=== PATIENT | male | born 1940 | race Caucasian/White ===

== ENCOUNTER → 2016-03-04 | Outpatient (CLI) | payer MEDICARE ==
[~2016-03-04] MED LIST: ACHYD1T PO; ASP325T PO; ASP81TEC PO; ATR20T PO; AVADART; AVOD0.5CAP PO; CATHETER FLUSH 10 ML SYR IV PRN; CPR500T PO; FENO145T2 PO; GLMP4T PO; HYDR-3583 PO; LANS30CA PO; MTF500T PO; NF-LOVAZAC PO; NIA500ERT PO; OMEG1CAP58; OMEP-10; OMEP-83 PO; PHEN200T27 PO; REGADENOSON 0.4 MG/5 ML SYR (LEXISCAN) IV ONE; RMP5C PO; SOLI5TAB4 PO; TMSL.4C PO; TRAM50TA2 PO
--- OUTSIDE RECORDS SUMMARY | 2016-03-04 09:54 | XMS REPORT | Continuity of Care Document ---
Author Author [facility] Organization [facility] Address Unknown Phone Unavailable Care Team Providers Care Watch Commander Name Role Phone HEMA ESPITIA MD PCP Insurance Providers Payer Name Policy Number Subscriber Name Relationship Wps Medicare [id number] Mao Chris 18 Self / Same As Patient [employer] Supp [id number] Mao Chris 18 Self / Same As Patient Advance Directives Directive Response Recorded Date/Time Advance Directives No 02/12/14 10:50am Health Care Power of Pastry Decorator No 02/03/14 11:59pm Organ Donor Yes 02/03/14 11:59pm Resuscitation Status Full Code 02/12/14 10:50am Problems Medical Problems Problem Onset Date Status Laceration Unknown Active Laceration Unknown Active Medications Medication Dose Route Sig Days/Qty Instructions Order Date Discontinued Date Status Glimepiride 4 Mg PO DAILY 06/29/08 Active Metformin HCl (Glucophage) 1 Tab PO TWICE A DAY 06/29/08 Active Aspirin 1 Tab PO DAILY 06/29/08 04/27/12 Discontinued Ramipril 5 Mg PO DAILY 06/29/08 Active Fenofibrate 1 Tab PO DAILY 06/29/08 Active Atorvastatin Calcium 20 Mg PO BEDTIME 06/29/08 Active Tamsulosin HCl 0.4 Mg PO DAILY TAKE HALF HOUR AFTER SUPPER 06/29/08 Active Omeprazole 06/29/08 09/18/10 Discontinued [Avadart 5MG] 06/29/08 09/18/10 Discontinued Solifenacin 10 Mg PO DAILY 06/29/08 Active Frederic-3/Frederic-6/Frederic-9 Fatty Acids (Lovaza) 06/29/08 Discontinued Niacin 1,000 Mg PO DAILY 09/18/10 Active Yczay-0-Kjzl Ethyl Esters 2 Each PO TWICE A DAY WITH MEALS 09/18/10 Active Lansoprazole 30 Mg PO DAILY 09/18/10 04/27/12 Discontinued Dutasteride 0.5 Mg PO DAILY 09/18/10 Active Acetaminophen/Hydrocodone Bitart 1 - 2 Ea PO EVERY 4HRS 09/23/10 Discontinued Aspirin 81 Mg PO DAILY 04/27/12 Active Omeprazole Magnesium 20 Mg PO DAILY 04/27/12 Active Ciprofloxacin 1 Tab PO TWICE A DAY 7 Days 05/03/12 Active Phenazopyridine HCl 1 Each PO TID PRN 21 Qty will turn urine orange. take 1 up to 3 times daily for bladder 05/03/12 Active Acetaminophen/Hydrocodone Bitart 1 - 2 Tab PO EVERY 4HRS PRN 30 Qty Active Social History Social History Problem Response Recorded Date/Time Alcohol Use Denies Use 02/12/2014 10:50am Recreational Drug Use Yes 02/03/2014 11:59pm Recent Foreign Travel No 02/12/2014 10:44am Sexually Transmitted Disease No 02/03/2014 11:59pm Smoking Status Unknown if Ever Smoked 02/12/2014 10:50am Query Response Start Date Stop Date Smoking Status Unknown if Ever Smoked Hospital Discharge Instructions No hospital discharge instructions. Plan of Care No plan of care. Functional Status No functional status results. Allergies, Adverse Reactions, Alerts Allergen Type Severity Reaction Status Last Updated No Known Drug Allergies Active 06/29/08 Immunizations Name Given Type Date of Influenza Vaccine 11/08/13 Historical Tetanus Booster (TDap) More than 5yrs Historical Tdap 02/04/14 Administered Vital Signs Acute Vital Signs Vital Response Date/Time Temperature (Fahrenheit) 97.3 degrees F (97.6 - 99.5) Temperature (Calculated Celsius) 36.07332 degrees C (36.4 - 37.5) Temperature Source Temporal Pulse Rate (adult) 70 bpm (60 - 90) Respiratory Rate 16 bpm (12 - 24) O2 Sat by Pulse Oximetry 99 % (88 - 100) Blood Pressure 113/86 mm Hg Pain Pain Intensity 0 Height (Feet) 5 feet Height (Inches) 7 inches Height (Calculated Centimeters) 170.382140 cm Weight (Pounds) 220 pounds Weight (Calculated Kilograms) 99.600487 kilograms Calculated BMI 34.45 Results No known relevant diagnostic tests, laboratory data and/or discharge summary. Procedures No known history of procedures. Encounters Encounter Location Date/Time Departed Emergency Room [facility] 02/12/14 10:44am Departed Emergency Room [facility] 02/03/14 11:52pm Recent Diagnosis
[2016-03-04 13:20] VITALS: BP 128/88
[2016-03-04 13:23] VITALS: BP 126/80
[2016-03-04 13:25] VITALS: BP 139/68
--- NOTE | 2016-03-05 09:08 | ECHOCARDIOGRAPHY REPORT ---
PROCEDURE PHYSICIAN: VALERIE SAHA DATE OF PROCEDURE: 03/04/2016 TWO DIMENSIONAL ECHOCARDIOGRAM REPORT PRIMARY PHYSICIAN: OTHER PHYSICIAN: REFERRING PHYSICIAN: Dr. Cooper ORDERING PHYSICIAN: INDICATION FOR THE PROCEDURE: 1. Coronary artery disease. 2. Hypertension. MEASUREMENTS DERIVED VALUES LV DIAMETER (LAX) NORMALS NORMALS Diastolic 4.1 (3.6-5.2) Eject. Fract. 60% (60%+/-6%) Systolic (2.3-3.9) Diastolic Vol. % Shortening (0.22-0.42) Systolic Vol. Aortic Root IVS THICKNESS Diastolic 1 (0.6-1.1) LVPW THICKNESS Diastolic 1.1 (0.6-1.1) LA DIAMETER Systolic 4.6 (2.1-3.7) FINDINGS: 1. Technical quality is good. 2. The left ventricle is normal in size with normal contractility. Systolic function appeared to be normal. Estimated ejection fraction 60%. Diastolic dysfunction is suggested by Doppler. 3. The left atrium is mildly dilated. No clot or thrombus were seen within the left atrium. 4. The right atrium and right ventricle are normal in size. No clot or thrombus were seen within the right side. 5. Mitral valve is normal in morphology with mild mitral regurgitation noted by color Doppler flow. No mitral valve prolapse. No mitral valve stenosis. 6. Aortic valve is trileaflet with normal opening and closing pattern. No significant aortic stenosis or regurgitation was seen. 7. Tricuspid valve is normal in morphology with mild tricuspid regurgitation noted by color Doppler flow. Doppler across tricuspid valve estimated pulmonary artery pressure of 10+ right atrial pressure. 8. Pulmonic valve is functioning normally. 9. No pericardial effusion. IN CONCLUSION: 1. Normal left ventricular size and systolic function. Estimated ejection fraction 60%. Diastolic dysfunction is suggested by Doppler. 2. Mildly dilated left atrium. 3. Mild mitral and tricuspid regurgitation. 4. Estimated pulmonary artery pressure of 20 mmHg. Job ID: [id number] Dictated Date: 03/04/2016 17:34:05 Cartography Technician Date: 03/05/2016 09:06:17 / ginny
== END ==
LOC: CARD 09:50
PROVIDERS: ATTEND Internal Medicine Cardiovascular Disease
DX: I25.10 Atherosclerotic heart disease of native coronary artery without angina pectoris (principal); I10 Essential (primary) hypertension; E78.2 Mixed hyperlipidemia; E11.9 Type 2 diabetes mellitus without complications
CPT/HCPCS: 78452; 93017; 93306

== ENCOUNTER → 2016-05-28 | Outpatient (CLI) | payer MEDICARE ==
[~2016-05-28] MED LIST changes: -CATHETER FLUSH 10 ML SYR IV PRN; -REGADENOSON 0.4 MG/5 ML SYR (LEXISCAN) IV ONE
--- NOTE | 2016-05-28 16:43 | Diagnostic Imaging Report ---
PROCEDURE: CT abdomen and pelvis without contrast. TECHNIQUE: Multiple contiguous axial images were obtained through the abdomen and pelvis without the use of intravenous contrast. INDICATION: Hematuria. Abdominal pain. FINDINGS: There is a 5 mm left lung base nodule seen. This is similar to 08/27/2015 CT chest. The liver demonstrate diffuse fatty infiltration. There is a calcified granuloma in the posterior aspect of the right hepatic lobe. The gallbladder, the spleen, the adrenal glands, and the pancreas appear unremarkable. The kidneys demonstrate no hydronephrosis. There is no urinary tract stones. 1 cm exophytic hypodense lesion in the lateral aspect of the right kidney is likely a cyst. It is minimally more prominent compared to 2012. There is a moderate-sized right Spigelian hernia again seen containing a loop of the sigmoid colon without obstruction. This is similar to 2012 comparison exam. No fluid collection or free fluid is seen in the abdomen or pelvis. Fiducial markers in the prostate are seen. The prostate is mildly enlarged measuring 5.3 cm in transverse dimension. There is an anterior abdominal wall mesh with opaque markers seen for repair of a hernia noted. The appendix is normal. The abdominal aorta is normal in caliber. No para-aortic significantly enlarged lymph nodes seen. The osseous structures demonstrate degenerative changes in the lower lumbar spine and moderate to advanced degenerative changes of the hip joints more on the left. IMPRESSION: 1. 5 mm left lung base stable nodule. Followup CT chest in six months is recommended. 2. Hepatic steatosis. 3. Stable moderate sized right Spigelian hernia containing nonobstructed sigmoid colon loop. Dictated by: Dictated on workstation # [id number]
== END ==
LOC: RAD 14:08
PROVIDERS: ATTEND Urology
DX: K76.0 Fatty (change of) liver, not elsewhere classified (principal); R91.1 Solitary pulmonary nodule; K43.9 Ventral hernia without obstruction or gangrene
CPT/HCPCS: 74176

== ENCOUNTER → 2016-08-12 | Outpatient (CLI) | payer MEDICARE ==
--- NOTE | 2016-08-12 12:04 | Diagnostic Imaging Report ---
PROCEDURE: CT chest without contrast. TECHNIQUE: Multiple contiguous axial images were obtained through the chest without the use of intravenous contrast. INDICATION: Followup nodule. COMPARISON: 10/10/2015 and other prior exams. FINDINGS: There is a 5 mm nodule in the posterior aspect of the left lung base stable from 08/27/2015 exam. Other calcified granulomas are seen. This is probably a noncalcified granuloma. There is no significant consolidation, mass or suspicious nodule identified. The mediastinum demonstrates normal caliber of the thoracic aorta. The heart size is normal. No pericardial or pleural effusion. No mediastinal or axillary lymphadenopathy seen. No enlarged lymph node or mass is seen abutting the unopacified hilar vessels. No pericardial or pleural effusion. There is diffuse hepatic steatosis. The osseous structures demonstrate bridging syndesmophytes and minimal degenerative changes in the thoracic spine. Stable asymmetry with slightly prominent right thyroid lobe similar to the prior exam is noted. IMPRESSION: 1. Stable 5 mm nodule in the posterior left lung base from 08/27/2015 exam likely a postinfectious scar or granuloma. 2. Hepatic steatosis. Dictated by: Dictated on workstation # [id number]
== END ==
LOC: RAD 11:09
PROVIDERS: ATTEND Internal Medicine
DX: R91.8 Other nonspecific abnormal finding of lung field (principal); K76.0 Fatty (change of) liver, not elsewhere classified
CPT/HCPCS: 71250

== ENCOUNTER → 2016-08-20 | Outpatient (CLI) | payer MEDICARE ==
--- NOTE | 2016-08-20 15:59 | Diagnostic Imaging Report ---
EXAMINATION: Upper and lower extremity pressure measurements of ankle/brachial index and pulse volume recording at the ankle. INDICATION: Absent pulses in the left foot. Diabetes FINDINGS: The ankle/brachial index on the right side is 1.15, (1.15 PT, and 1.0 DP) and on the left is 1.2 (1.2 PT, and 0.8 DP). Pulse volume recording waveforms demonstrate mildly dampened amplitude bilaterally. IMPRESSION: Normal GRACIELA, bilaterally. Dictated by: Dictated on workstation # [id number]
== END ==
LOC: RAD 13:58
PROVIDERS: ATTEND Internal Medicine
DX: R09.89 Other specified symptoms and signs involving the circulatory and respiratory systems (principal); E11.9 Type 2 diabetes mellitus without complications
CPT/HCPCS: 93922

== ENCOUNTER → 2016-09-15 | Outpatient (CLI) | payer MEDICARE ==
--- NOTE | 2016-09-15 18:01 | Diagnostic Imaging Report ---
PA and lateral views of the chest. INDICATION: Fall. FINDINGS: The lungs are hyperinflated and clear. The heart size is at the upper limits of normal. No effusion or pneumothorax. The mediastinum and chantelle appear unremarkable. There is anterior longitudinal ligament thickening in the thoracic spine. IMPRESSION: Hyperinflated clear lungs. The cardiac size is at the upper limits of normal. Dictated by: Dictated on workstation # [id number]
--- NOTE | 2016-09-15 18:04 | Diagnostic Imaging Report ---
Three views of the right ribs. INDICATION: Right chest pain. FINDINGS: No fracture is seen. The right lung is clear. IMPRESSION: No right rib fracture seen. Dictated by: Dictated on workstation # [id number]
== END ==
LOC: RAD 14:15
PROVIDERS: ATTEND Internal Medicine
DX: S29.9XXA Unspecified injury of thorax, initial encounter (principal); W19.XXXA Unspecified fall, initial encounter; Y99.8 Other external cause status
CPT/HCPCS: 71020; 71100

== ENCOUNTER → 2017-08-19 | Outpatient (CLI) | payer MEDICARE ==
--- NOTE | 2017-08-19 14:09 | Diagnostic Imaging Report ---
PROCEDURE: US Thyroid. TECHNIQUE: Multiple real-time grayscale images were obtained of the thyroid in various projections. INDICATION: Thyroid nodules. COMPARISON: Comparison is made with prior thyroid ultrasound from 10/10/2015. FINDINGS: Right lobe of the thyroid measures 3.5 x 1.5 x 1.5 cm, and the left lobe measures 3.7 x 1.4 x 0.8 cm. Both lobes are somewhat heterogeneous, but no discrete mass is identified. IMPRESSION: Heterogeneous thyroid. No discrete thyroid mass is detected. Dictated by: Dictated on workstation # [id number]
== END ==
LOC: RAD 10:55
PROVIDERS: ATTEND Internal Medicine
DX: E04.2 Nontoxic multinodular goiter (principal)
CPT/HCPCS: 76536

== ENCOUNTER → 2018-07-19 | Outpatient (CLI) | payer MEDICARE ==
--- NOTE | 2018-07-19 18:48 | Diagnostic Imaging Report ---
PROCEDURE: CT chest without contrast. TECHNIQUE: Multiple contiguous axial images were obtained through the chest without the use of intravenous contrast. Auto Exposure Controls were utilized during the CT exam to meet ALARA standards for radiation dose reduction. INDICATION: Pulmonary nodule. FINDINGS: The previous CT chest exam performed on 08/12/2016 noted a 5 mm nodule in the posterior aspect of the left lung base. This nodule did seem stable when compared to the prior exam of 08/27/2015. That finding is again evident on this study and now measures 6.4 mm in size. In retrospect, there were two other smaller 4 mm nodules in the left lung base. Those nodules are again evident and do not seem to have changed significantly in size. There is also a 2.1 mm nodule in the periphery of the left upper lung. This is stable as well. A 2.5 mm nodule is also evident in the right upper lung, and there are two or three 2 mm nodules along the periphery of the right lung. These seem similar in size to the prior exam. A 5.3 mm pleural-based nodule has developed along the posterior aspect of the right lung base. The pleural nodule just medial to this finding seen on the previous study measures 4 mm as opposed to 3 mm previously. There is no other parenchymal mass noted. The vague area of increased density in the right infrahilar region seen previously is somewhat more prominent on this study. This finding is more likely due to chronic pulmonary disease than to an acute abnormality. Even so, followup regarding mild pneumonia in the right lung base is recommended. There is no pleural effusion noted. The heart size is borderline enlarged and within normal limits. Coronary artery calcifications are noted. There is no mediastinal or hilar adenopathy. The aorta is not abnormally dilated. The right lobe of the thyroid does seem enlarged and extends into the substernal space. This finding is similar to the prior exam. The sections through the upper abdomen fail to show any sign of an acute abnormality. The bone window show no evidence for a fracture or for a destructive lesion. IMPRESSION: 1. There are multiple small pulmonary nodules. The largest nodule in the left lung base seen previously measures slightly larger but does not appear to have changed significantly in size. Most likely, this is a benign process. Even so, a six-month followup CT chest exam would be recommended for continued evaluation. 2. The area of increased density in the right infrahilar region is more likely due to scar formation than to pneumonia/atelectasis. Clinical followup is recommended. There is no acute abnormality identified otherwise. 3. There is borderline cardiomegaly and coronary artery disease. Dictated by: Dictated on workstation # [id number]
== END ==
LOC: RAD 13:09
PROVIDERS: ATTEND Internal Medicine
DX: I25.10 Atherosclerotic heart disease of native coronary artery without angina pectoris (principal); I51.7 Cardiomegaly; R91.8 Other nonspecific abnormal finding of lung field
CPT/HCPCS: 71250

== ENCOUNTER 2020-09-10 13:40 | Inpatient (IN) | payer MEDICARE ==
[~2020-09-10] VITALS: Ht 170 cm; Wt 98.7 kg
[~2020-09-10 13:40] MED LIST changes: -TRAM50TA2 PO; +TRM50T PO
[2020-09-10] MEDS ORDERED: NS IV 1000 ML 1,000 ML IV SCH (14:00)
[2020-09-10 14:04] LABS: BASOPHILS % (AUTO) 0 % (0-10); EOSINOPHILS # (AUTO) 0.2 10^3/uL (0.0-0.3); EOSINOPHILS % (AUTO) 1 % (0-10); HEMATOCRIT 34 % (40-54); HEMOGLOBIN 11.5 g/dL (13.3-17.7); LYMPHOCYTES # (AUTO) 2.3 10^3/uL (1.0-4.0); LYMPHOCYTES % (AUTO) 21 % (12-44); MEAN CORPUSCULAR HEMOGLOBIN 30 pg (25-34); MEAN CORPUSCULAR HGB CONC 33 g/dL (32-36); MEAN CORPUSCULAR VOLUME 88 fL (80-99); MEAN PLATELET VOLUME 9.3 fL (9.0-12.2); MONOCYTES # (AUTO) 0.9 10^3/uL (0.0-1.0); MONOCYTES % (AUTO) 8 % (0-12); NEUTROPHILS # (AUTO) 7.7 10^3/uL (1.8-7.8); NEUTROPHILS % (AUTO) 69 % (42-75); PLATELET COUNT 226 10^3/uL (130-400); WHITE BLOOD COUNT 11.2 10^3/uL (4.3-11.0)
[2020-09-10 14:09] LABS: ALBUMIN 4.1 GM/DL (3.2-4.5); CHLORIDE 104 MMOL/L (98-107); POTASSIUM 4.2 MMOL/L (3.6-5.0); SODIUM 134 MMOL/L (135-145)
[2020-09-10 14:10] LABS: CALCIUM 8.9 MG/DL (8.5-10.1)
[2020-09-10 14:11] LABS: GLUCOSE 226 MG/DL (70-105); TOTAL PROTEIN 7.1 GM/DL (6.4-8.2)
[2020-09-10 14:12] LABS: CARBON DIOXIDE 14 MMOL/L (21-32)
[2020-09-10 14:13] LABS: BILIRUBIN,TOTAL 0.6 MG/DL (0.1-1.0)
[2020-09-10 14:15] LABS: ALKALINE PHOSPHATASE 37 U/L (40-136); CREATININE SERUM 2.46 MG/DL (0.60-1.30); GFR ESTIMATED 25
[2020-09-10 14:16] LABS: BUN/CREATININE RATIO 9
[2020-09-10 14:18] LABS: ALANINE AMINOTRANSFERASE 11 U/L (0-55)
--- NOTE | 2020-09-10 14:19 | ED Syncope ---
General Chief Complaint: Dizziness/Syncope Stated Complaint: SYNCOPAL EPISODE Source of Information: Patient, EMS Exam Limitations: No Limitations History of Present Illness Date Seen by Provider: Sep 10, 2020 Time Seen by Provider: 13:46 Initial Comments Patient to the ER by private conveyance from [facility] with chief complaint he was feeling weak and tired and was not sure how he can get his laundry out and witnesses state he fell backwards onto his back. He denies striking his head. He says remembers everything up to the point that he fell passed out and then after he was woke up shortly after. No history of seizures. Not on blood thinners. He says last night he rolled out of bed and struck his right ribs causing significant pain. Is been using ibuprofen for the pain. He rates it as a 2 out of 10 presently. No nausea diarrhea. He is up-to-date on colonoscopies. No abdominal surgeries. No dysuria fever chills cough or shortness of air. He denies taking diuretics. He does have a history of diabetes. Allergies and Home Medications Allergies Coded Allergies: No Known Drug Allergies (Verified , 08/28/15) Home Medications Aspirin 81 Mg Tabec, 81 MG PO DAILY, (Reported) hold until 05-07-12. may resume then if no bleeding Atorvastatin 20 Mg Tablet, 20 MG PO EVERY OTHER DAY, (Reported) Dutasteride 0.5 Mg Capsule, 0.5 MG PO DAILY, (Reported) Fenofibrate,Micronized 145 Mg Tablet, 1 TAB PO DAILY, (Reported) Glimepiride 4 Mg Tab, 4 MG PO DAILY, (Reported) Metformin Hcl 500 Mg Tablet, 1 TAB PO BID, (Reported) Niacin 500 Mg Tablet.sa, 1,000 MG PO DAILY, (Reported) [place]-3 Acid Ethyl Esters 1 Gm Capsule, 2 EACH PO BID WITH MEALS, (Reported) Omeprazole Magnesium 20 Mg Capsule.dr, 20 MG PO DAILY, (Reported) Ramipril 5 Mg Cap, 5 MG PO DAILY, (Reported) Solifenacin Succinate 5 Mg Tablet, 10 MG PO DAILY, (Reported) Tamsulosin Hcl 0.4 Mg Cap, 0.4 MG PO DAILY, (Reported) TAKE HALF HOUR AFTER SUPPER Tramadol HCl 50 Mg Tablet, 50 MG PO PRN, (Reported) Patient Home Medication List Home Medication List Reviewed: Yes Review of Systems Constitutional: No chills, No diaphoresis, No fever, No malaise; weakness EENTM: No ear discharge, No hearing loss, No ear pain Respiratory: No cough, No short of breath Cardiovascular: No edema, No Hx of Intervention, No palpitations Gastrointestinal: No abdominal pain, No nausea, No vomiting Genitourinary: No discharge, No dysuria Musculoskeletal: see HPI; No back pain, No joint pain Skin: other (Abdominal ecchymoses) All Other Systems Reviewed Negative Unless Noted: Yes Past Wecmsod-Etvyoz-Sfvfxa Hx Patient Social History Tobacco Use?: No Use of E-Cig and/or Vaping dev: No Alcohol Use?: No Immunizations Up To Date Tetanus Booster (TDap): More than 5yrs Past Medical History High Cholesterol, Hypertension Reproductive Disorders: No Sexually Transmitted Disease: No Diabetes, Non-Insulin dep Physical Exam Vital Signs Capillary Refill : Height, Weight, BMI Height: 5'7.00" Weight: 212lbs. 0.0oz. 96.920803fx; 33.2 BMI Method:Stated General Appearance: WD/WN, Mild Distress HEENT: PERRL/EOMI, Pharynx Normal, Moist Mucous Membranes Neck: Full Range of Motion, Normal Inspection Cardiovascular: Regular Rate, Rhythm, No Edema, Normal Peripheral Pulses Respiratory: No Accessory Muscle Use, No Respiratory Distress, Decreased Breath Sounds (Right less than left) Gastrointestinal: Normal Bowel Sounds, Guarding, Other (Periumbilical ecchymoses with right upper quadrant mild ecchymoses and tenderness over costal margin.) Extremities: Normal Capillary Refill, Normal Inspection Neurologic/Psychiatric: Alert, Oriented x3, operations manager II-XII Norm as Tested Cranial Nerves: Normal Hearing, Normal Speech, PERRL Coordination/Gait: Normal Finger to Nose Motor/Sensory: No Motor Deficit, No Sensory Deficit Skin: Normal Color, Warm/Dry Progress/Results/Core Measures Results/Orders Lab Results Laboratory Tests Test 09/10/20 03:52 09/10/20 13:34 09/10/20 13:44 09/10/20 13:52 Range/Units B-Type Natriuretic Peptide 40.6 <100.0 PG/ML White Blood Count 11.2 H 4.3-11.0 10^3/uL Red Blood Count 3.90 L 4.30-5.52 10^6/uL Hemoglobin 11.5 L 13.3-17.7 g/dL Hematocrit 34 L 40-54 % Mean Corpuscular Volume 88 80-99 fL Mean Corpuscular Hemoglobin 30 25-34 pg Mean Corpuscular Hemoglobin Concent 33 32-36 g/dL Red Cell Distribution Width 17.4 H 10.0-14.5 % Platelet Count 226 130-400 10^3/uL Mean Platelet Volume 9.3 9.0-12.2 fL Immature Granulocyte % (Auto) 1 % Neutrophils (%) (Auto) 69 42-75 % Lymphocytes (%) (Auto) 21 12-44 % Monocytes (%) (Auto) 8 0-12 % Eosinophils (%) (Auto) 1 0-10 % Basophils (%) (Auto) 0 0-10 % Neutrophils # (Auto) 7.7 1.8-7.8 10^3/uL Lymphocytes # (Auto) 2.3 1.0-4.0 10^3/uL Monocytes # (Auto) 0.9 0.0-1.0 10^3/uL Eosinophils # (Auto) 0.2 0.0-0.3 10^3/uL Basophils # (Auto) 0.0 0.0-0.1 10^3/uL Immature Granulocyte # (Auto) 0.1 0.0-0.1 10^3/uL Sodium Level 134 L 135-145 MMOL/L Potassium Level 4.2 3.6-5.0 MMOL/L Chloride Level 104 98-107 MMOL/L Carbon Dioxide Level 14 L 21-32 MMOL/L Anion Gap 16 H 5-14 MMOL/L Blood Urea Nitrogen 21 H 7-18 MG/DL Creatinine 2.46 H 0.60-1.30 MG/DL Estimat Glomerular Filtration Rate 25 BUN/Creatinine Ratio 9 Glucose Level 226 H 70-105 MG/DL Calcium Level 8.9 8.5-10.1 MG/DL Corrected Calcium 8.8 8.5-10.1 MG/DL Total Bilirubin 0.6 0.1-1.0 MG/DL Aspartate Amino Transf (AST/SGOT) 15 5-34 U/L Alanine Aminotransferase (ALT/SGPT) 11 0-55 U/L Alkaline Phosphatase 37 L 40-136 U/L Troponin I < 0.028 <0.028 NG/ML C-Reactive Protein High Sensitivity 0.80 H 0.00-0.50 MG/DL Total Protein 7.1 6.4-8.2 GM/DL Albumin 4.1 3.2-4.5 GM/DL Serum Alcohol < 10 <10 MG/DL SARS-CoV-2 RNA (RT-PCR) Not Detected Not Detecte Test 09/10/20 14:55 Range/Units Prothrombin Time 14.8 H 12.2-14.7 SEC INR Comment 1.1 0.8-1.4 Activated Partial Thromboplast Time 20 L 24-35 SEC My Orders Orders - JOEL MALAVE Orthostatic Vital Signs (Adult (09/10/20 13:56) Cbc With Automated Diff (09/10/20 13:56) Comprehensive Metabolic Panel (09/10/20 13:56) Hs C Reactive Protein (09/10/20 13:56) BNP (09/10/20 13:56) Ua Culture If Indicated (09/10/20 13:56) Ed Iv/Invasive Line Start (09/10/20 13:56) Ns Iv 1000 Ml (Sodium Chloride 0.9%) (09/10/20 14:00) Continuous Ekg Monitoring (09/10/20 13:56) Ekg Tracing (09/10/20 13:56) Troponin I (09/10/20 13:56) Ct Head/Cervical Spine Wo (09/10/20 13:56) Ct Chest/Abdomen/Pelvis Wo (09/10/20 14:26) Ondansetron Injection (Zofran Injectio (09/10/20 14:45) Covid 19 Inhouse Test (09/10/20 14:44) General/Regular (09/10/20 Lunch) Protime With Inr (09/10/20 15:12) Partial Thromboplastin Time (09/10/20 15:12) Medications Given in ED Vital Signs/I&O 09/11/20 00:00 Intake Total 1000 ml Balance 1000 ml Progress Progress Note : Time: 14:[address] [place] syncope score:0 points; Low risk. 1.9% risk of 30-day serious adverse event. Patient's blood pressure was soft when he arrived 90/50. A liter of fluids was initiated. He has significant bruising over his abdomen and right upper quadrant abdomen/right lower quadrant chest so a CT without IV contrast given his history of chronic renal failure was obtained. Initial ECG Impression Date: Sep 10, 2020 Initial ECG Impression Time: 13:49 Initial ECG Rate: 89 Initial ECG Rhythm: Normal Sinus Initial ECG Intervals: Normal Initial ECG Impression: Normal Comment Normal sinus rhythm without clinically relevant ST elevation or depression. Diagnostic Imaging Diagonstic Imaging: CT Plain Films/CT/US/NM/MRI: c-spine, head Comments [facility] [place] [place] NAME: LETY CHRIS [facility] REC#: [id number] PT STATUS: REG ER : 1940 PHYSICIAN: JOEL MALAVE MD ADMIT DATE: 09/10/20/ER Signed Date of Exam:09/10/20 CT HEAD/CERVICAL SPINE WO EXAMINATION: CT head and CT cervical spine without contrast. TECHNIQUE: Multiple contiguous axial images were obtained through the brain and cervical spine without the use of intravenous contrast. Sagittal and coronal reformations through the cervical spine were then performed. All CT scans use one or more of the following dose optimizing techniques: automated exposure control, MA and/or KvP adjustment based on patient size and exam type or iterative reconstruction. HISTORY: Fall onto head and neck with pain. COMPARISON: None available. FINDINGS: HEAD: Mild diffuse cerebral volume loss with proportional enlargement of the ventricles and sulci. Mild hypodensities throughout the supratentorial white matter of both cerebral hemispheres. No acute intracranial hemorrhage or abnormal extra-axial fluid collections are present. Calcification of the intracranial ICAs. No hyperdense vessel. The calvarium is intact. The mastoid air cells are clear. The visualized paranasal sinuses are clear. The orbits are normal. C-SPINE: Vertebral body height and alignment are preserved. No acute fracture, dislocation, or destructive osseous process. There is multilevel facet hypertrophy without perched facets. Multilevel cervical spondylosis. The paraspinous soft tissues are normal. Heterogeneous appearance of the thyroid gland. There is a right pleural effusion. IMPRESSION: 1. No acute intracranial abnormality. Chronic microangiopathy and volume loss. 2. Degenerative changes of the cervical spine without acute osseous abnormality. Dictated by: Dictated on workstation # [id number] Dict: 09/10/20 1433 Trans: 09/10/20 1449 [facility] [id number] Interpreted by: HEMA ARENAS DO Electronically signed by: HEMA ARENAS DO 09/10/20 1449 Reviewed: Reviewed by Me Diagonstic Imaging: CT (Without IV contrast) Plain Films/CT/US/NM/MRI: chest, abdomen, pelvis Comments [facility] [place] [place] NAME: LETY CHRIS [facility] REC#: [id number] PT STATUS: REG ER : 1940 PHYSICIAN: JOEL MALAVE MD ADMIT DATE: 09/10/20/ER Draft Date of Exam:09/10/20 CT CHEST/ABDOMEN/PELVIS WO EXAMINATION: CT chest, abdomen and pelvis without intravenous contrast. TECHNIQUE: Multiple contiguous axial images were obtained through the chest, abdomen and pelvis without intravenous contrast. All CT scans use one or more of the following dose optimizing techniques: automated exposure control, MA and/or KvP adjustment based on patient size and exam type or iterative reconstruction. HISTORY: Fall, syncope COMPARISON: 07/19/2018 FINDINGS: There is a large right hemothorax with fractures of the right 3rd and 4th ribs. There is no edema or pneumonia. No pneumothorax. No suspicious nodules. There is no axillary or supraclavicular lymphadenopathy. There is no mediastinal lymphadenopathy. Heart size is normal. There are moderate coronary artery calcifications. No pericardial effusion. Aorta is normal in caliber. The liver is normal without focal lesion. There is no biliary ductal dilation. Gallbladder is normal. Pancreas is normal. Spleen is normal. Adrenal glands are normal. Simple cysts are seen in the right kidney. No suspicious renal lesion. There is no hydronephrosis. Urinary bladder is normal. There is a bowel containing right-sided spigelian hernia without obstruction. There is a 6.5 x 4.8 cm right flank hematoma. No free fluid or air. No abdominal or pelvic lymphadenopathy. Aorta is normal in caliber without aneurysm. There are no suspicious osseus lesions. IMPRESSION: 1. Right 3rd and 4th rib fractures with a large right hemothorax. 2. Right flank hematoma measuring 6.5 x 4.8 cm. 3. 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 Findings called to Dr. Malave by Dr. Adams on 09/10/2020 at 2:55 PM. Dictated on workstation # [id number] Dict: 09/10/20 1447 Trans: 09/10/20 1500 [facility] [id number] Interpreted by: NUBIA ADAMS MD Electronically signed by: Reviewed: Reviewed by Me Departure Communication (Admissions) Time/Spoke to Admitting Phy: 15:00 Discussed the case with Dr. Varghese who will admit the patient to the trauma service with medicine consult. He will review imaging and the patient and discuss thoracentesis with the patient. Time/Spoke to Consulting Phy: 15:40 Discussed the case with Dr. Hurley and he agrees to consult for medicine. Etoh Impression Primary Impression: Fall Qualified Codes: W19.XXXA - Unspecified fall, initial encounter Additional Impressions: Hemothorax on right Rib fractures Qualified Codes: S22.41XA - Multiple fractures of ribs, right side, initial encounter for closed fracture YE (acute kidney injury) Disposition: ADMITTED INPATIENT Condition: Stable Admissions Decision to Admit Reason: Admit from ER (General) Decision to Admit/Date: Sep 10, 2020 Time/Decision to Admit Time: 14:45 Departure-Patient Inst. Referrals: NUBIA ESPITIA MD (PCP/Family) Primary Care Physician JOEL MALAVE Sep 10, 2020 14:19
--- NOTE | 2020-09-10 14:38 | Diagnostic Imaging Report ---
EXAMINATION: CT head and CT cervical spine without contrast. TECHNIQUE: Multiple contiguous axial images were obtained through the brain and cervical spine without the use of intravenous contrast. Sagittal and coronal reformations through the cervical spine were then performed. All CT scans use one or more of the following dose optimizing techniques: automated exposure control, MA and/or KvP adjustment based on patient size and exam type or iterative reconstruction. HISTORY: Fall onto head and neck with pain. COMPARISON: None available. FINDINGS: HEAD: Mild diffuse cerebral volume loss with proportional enlargement of the ventricles and sulci. Mild hypodensities throughout the supratentorial white matter of both cerebral hemispheres. No acute intracranial hemorrhage or abnormal extra-axial fluid collections are present. Calcification of the intracranial ICAs. No hyperdense vessel. The calvarium is intact. The mastoid air cells are clear. The visualized paranasal sinuses are clear. The orbits are normal. C-SPINE: Vertebral body height and alignment are preserved. No acute fracture, dislocation, or destructive osseous process. There is multilevel facet hypertrophy without perched facets. Multilevel cervical spondylosis. The paraspinous soft tissues are normal. Heterogeneous appearance of the thyroid gland. There is a right pleural effusion. IMPRESSION: 1. No acute intracranial abnormality. Chronic microangiopathy and volume loss. 2. Degenerative changes of the cervical spine without acute osseous abnormality. Dictated by: Dictated on workstation # [id number]
[2020-09-10] MEDS ORDERED: ONDANSETRON 4 MG/2 ML (SDV) Z0FRAN IVP ONE (14:45)
--- NOTE | 2020-09-10 15:01 | Diagnostic Imaging Report ---
EXAMINATION: CT chest, abdomen and pelvis without intravenous contrast. TECHNIQUE: Multiple contiguous axial images were obtained through the chest, abdomen and pelvis without intravenous contrast. All CT scans use one or more of the following dose optimizing techniques: automated exposure control, MA and/or KvP adjustment based on patient size and exam type or iterative reconstruction. HISTORY: Fall, syncope COMPARISON: 07/19/2018 FINDINGS: There is a large right hemothorax with fractures of the right 3rd and 4th ribs. There is no edema or pneumonia. No pneumothorax. No suspicious nodules. There is no axillary or supraclavicular lymphadenopathy. There is no mediastinal lymphadenopathy. Heart size is normal. There are moderate coronary artery calcifications. No pericardial effusion. Aorta is normal in caliber. The liver is normal without focal lesion. There is no biliary ductal dilation. Gallbladder is normal. Pancreas is normal. Spleen is normal. Adrenal glands are normal. Simple cysts are seen in the right kidney. No suspicious renal lesion. There is no hydronephrosis. Urinary bladder is normal. There is a bowel containing right-sided spigelian hernia without obstruction. There is a 6.5 x 4.8 cm right flank hematoma. No free fluid or air. No abdominal or pelvic lymphadenopathy. Aorta is normal in caliber without aneurysm. There are no suspicious osseus lesions. IMPRESSION: 1. Right 3rd and 4th rib fractures with a large right hemothorax. 2. Right flank hematoma measuring 6.5 x 4.8 cm. 3. 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 Findings called to Dr. Malave by Dr. Guerrero on 09/10/2020 at 2:55 PM. Dictated by: Dictated on workstation # [id number]
[2020-09-10] MEDS ORDERED: LACTATED RINGERS 1,000 ML IV ONE ×2 (15:30→17:45)
[2020-09-10 15:32] LABS: INR 1.1 (0.8-1.4); PROTHROMBIN TIME PATIENT 14.8 SEC (12.2-14.7)
[2020-09-10] MEDS ORDERED: HYDROcodone/APAP 5 MG/325 MG (LORTAB) TAB PO ONE (16:00)
[2020-09-10 16:28] VITALS: BP_SYST 104; BP_SYST 108; BP_SYST 118; BP_DIAS 60; BP_DIAS 68; BP_DIAS 72
--- NOTE | 2020-09-10 16:42 | Consultation - Surgery ---
History of Present Illness History of Present Illness Patient Consulted On(meño/time) 09/10/20 16:32 Date Seen by Provider: Sep 10, 2020 Time Seen by Provider: 16:22 Reason for Visit: Rib fracture c/ hemothorax d/t fall History of Present Illness Patient states he fell out of bed and hurt his right ribs last night. Then today, had an episode of syncope that resulted in a fall at the [employer]romat. Patient has a fracture to ribs 3 and 4 with a large right hemothorax. Patient states he has pain over the lateral right chest. Patient has periumbilical ecchymosis. Patient denies being on blood thinners, but does take 81 mg aspirin qd. Patient states a history of diabetes. Allergies and Home Medications Allergies Coded Allergies: No Known Drug Allergies (Verified , 08/28/15) Home Medications Apixaban 5 Mg Tablet, 5 MG PO BID, (Reported) Last Action: Reviewed Aspirin 81 Mg Tablet.dr, 81 MG PO 1800, (Reported) Last Action: Reviewed Atorvastatin Calcium 20 Mg Tablet, 20 MG PO 1800, (Reported) Last Action: Reviewed Dutasteride 0.5 Mg Capsule, 0.5 MG PO DAILY, (Reported) Last Action: Reviewed Fenofibrate Nanocrystallized 145 Mg Tablet, 145 MG PO 1800, (Reported) Last Action: Reviewed Glimepiride 4 Mg Tablet, 4 MG PO DAILY, (Reported) Last Action: Reviewed Metformin HCl 500 Mg Tablet, 500 MG PO BID, (Reported) Last Action: Reviewed Methylcellulose 500 Mg Tablet, 1,000 MG PO 1800, (Reported) TAKES 2 (500MG) TABS Last Action: Reviewed Metoprolol Succinate 25 Mg Tab.er.24h, 25 MG PO DAILY, (Reported) Last Action: Reviewed Mirabegron 25 Mg Tab.er.24h, 50 MG PO DAILY, (Reported) TAKES 2 (25MG) TABS Last Action: Reviewed Niacin 1,000 Mg Tab.er.24h, 1,000 MG PO 1800, (Reported) Last Action: Reviewed [place]-3 Acid Ethyl Esters 1 Gm Capsule, 2 MG PO BID, (Reported) TAKES 2 (1GM) CAPS Last Action: Reviewed Omeprazole 20 Mg Tablet.dr, 20 MG PO DAILY, (Reported) Last Action: Reviewed Ramipril 5 Mg Capsule, 5 MG PO DAILY, (Reported) Last Action: Reviewed Tamsulosin HCl 0.4 Mg Cap, 0.4 MG PO DAILY, (Reported) Last Action: Reviewed Past Shyxxxb-Eegycr-Lwamsj Hx Patient Social History Alcohol Use?: No Immunizations Up To Date Tetanus Booster (TDap): More than 5yrs Date of Influenza Vaccine: Nov 08, 2013 Cardiovascular Cardiac Disorders: High Cholesterol, Hypertension Reproductive System Hx Reproductive Disorders: No Sexually Transmitted Disease: No Endocrine Endocrine Disorders: Diabetes, Non-Insulin dep Review of Systems-General Constitutional: No chills, No fever EENTM: No ear discharge, No ear pain Respiratory: No cough, No short of breath Cardiovascular: No Hx of Intervention, No palpitations Gastrointestinal: No nausea, No vomiting Skin: other (periumbilical ecchymosis) Physical Exam-General Problems Physical Exam Vital Signs Capillary Refill : General Appearance: WD/WN HEENT: PERRL/EOMI Respiratory: no respiratory distress, no accessory muscle use Cardiovascular: normal peripheral pulses, regular rate, rhythm, no edema Neurologic/Psychiatric: alert, oriented x 3 Skin: ecchymosis (periumbilical and right costal margin) Data Review Labs Laboratory Tests 09/10/20 13:34: B-Type Natriuretic Peptide 40.6 09/10/20 13:44: White Blood Count 11.2H, Red Blood Count 3.90L, Hemoglobin 11.5L, Hematocrit 34L , Mean Corpuscular Volume 88, Mean Corpuscular Hemoglobin 30, Mean Corpuscular Hemoglobin Concent 33, Red Cell Distribution Width 17.4H, Platelet Count 226, Mean Platelet Volume 9.3, Immature Granulocyte % (Auto) 1, Neutrophils (%) (Auto) 69, Lymphocytes (%) (Auto) 21, Monocytes (%) (Auto) 8, Eosinophils (%) (Auto) 1, Basophils (%) (Auto) 0, Neutrophils # (Auto) 7.7, Lymphocytes # (Auto) 2.3, Monocytes # (Auto) 0.9, Eosinophils # (Auto) 0.2, Basophils # (Auto) 0.0, Immature Granulocyte # (Auto) 0.1, Sodium Level 134L, Potassium Level 4.2, Chloride Level 104, Carbon Dioxide Level 14L, Anion Gap 16H, Blood Urea Nitrogen 21H, Creatinine 2.46H, Estimat Glomerular Filtration Rate 25, BUN/Creatinine Ratio 9, Glucose Level 226H, Calcium Level 8.9, Corrected Calcium 8.8, Total Bilirubin 0.6, Aspartate Amino Transf (AST/SGOT) 15, Alanine Aminotransferase (ALT/SGPT) 11, Alkaline Phosphatase 37L, Troponin I < 0.028, C-Reactive Protein High Sensitivity 0.80H, Total Protein 7.1, Albumin 4.1, Serum Alcohol < 10 09/10/20 13:52: SARS-CoV-2 RNA (RT-PCR) Not Detected 09/10/20 14:55: Prothrombin Time 14.8H, INR Comment 1.1, Activated Partial Thromboplast Time 20L Assessment/Plan Assessment/Plan Assessment/Plan Assessment: 1. Right rib 3 and 4 fracture 2. Right flank hematoma measuring 6.5 x 4.8 cm 3. Right-sided spigelian hernia without obstruction containing sigmoid colon Plan: 1. Admit to hospital 2. Manage pain with medication 3. Monitor respiratory status DUYEN PHILLIP Sep 10, 2020 16:42
[2020-09-10 17:42] VITALS: BP 130/68
[2020-09-10] MEDS: LACTATED RINGERS 1,000 ML IV SCH (18:15)
[2020-09-10] MEDS ORDERED: ACETAMINOPHEN 325 MG TABLET PO PRN (18:30)
[2020-09-10] MEDS ORDERED: ONDANSETRON 4 MG/2 ML (SDV) Z0FRAN IVP PRN (18:30)
--- NOTE | 2020-09-10 18:40 | History & Physical-Surgical ---
History of Present Illness History of Present Illness Reason for visit/HPI Chief complaint fall Patient is an 80-year-old male who last night approximately 10 PM fell off his bed from approximately 2 feet. Landed on his right side. Patient states he is having fairly significant pain but was taking ibuprofen which seemed to help. Patient continued to have discomfort through the day but was dealing with it. [facility] prior to arrival where he was doing laundry he was walking out to his car and putting laundry and when apparently he fell backwards. He does not think he hit his head. He did tending to feel weak and a little bit dizzy and fell backwards. Patient is brought to the emergency department for further evaluation. He has CT head and C-spine which did not demonstrate any acute abnormality. Patient has CT of the chest abdomen pelvis which demonstrated right third and fourth rib fractures of the right hemothorax a right flank hematoma and a right spigelian hernia containing sigmoid colon. Date of Admission Sep 10, 2020 at 15:15 Date Seen by a Provider: Sep 10, 2020 Time Seen by a Provider: 17:00 I consulted on this patient on 09/10/20 18:32 Attending Physician Lucie Varghese DO Admitting Physician Aman Cooper MD Consult Allergies and Home Medications Allergies Coded Allergies: No Known Drug Allergies (Verified , 08/28/15) Home Medications Aspirin 81 Mg Tabec, 81 MG PO DAILY, (Reported) hold until 05-07-12. may resume then if no bleeding Atorvastatin 20 Mg Tablet, 20 MG PO EVERY OTHER DAY, (Reported) Dutasteride 0.5 Mg Capsule, 0.5 MG PO DAILY, (Reported) Fenofibrate,Micronized 145 Mg Tablet, 1 TAB PO DAILY, (Reported) Glimepiride 4 Mg Tab, 4 MG PO DAILY, (Reported) Metformin Hcl 500 Mg Tablet, 1 TAB PO BID, (Reported) Niacin 500 Mg Tablet.sa, 1,000 MG PO DAILY, (Reported) [place]-3 Acid Ethyl Esters 1 Gm Capsule, 2 EACH PO BID WITH MEALS, (Reported) Omeprazole Magnesium 20 Mg Capsule.dr, 20 MG PO DAILY, (Reported) Ramipril 5 Mg Cap, 5 MG PO DAILY, (Reported) Solifenacin Succinate 5 Mg Tablet, 10 MG PO DAILY, (Reported) Tamsulosin Hcl 0.4 Mg Cap, 0.4 MG PO DAILY, (Reported) TAKE HALF HOUR AFTER SUPPER Tramadol HCl 50 Mg Tablet, 50 MG PO PRN, (Reported) Patient Home Medication List Home Medication List Reviewed: Yes Past Uurbhsw-Vsfvge-Lvxzwf Hx Patient Social History Smoking Status: Never a Smoker Alcohol Use?: No Have you traveled recently?: No Immunizations Up To Date Tetanus Booster (TDap): More than 5yrs Date of Influenza Vaccine: Nov 08, 2013 Surgeries History of Surgeries: No Cardiovascular History of Cardiac Disorders: Yes Cardiac Disorders: High Cholesterol, Hypertension Neurological History of Neurological Disord: No Reproductive System Hx Reproductive Disorders: No Sexually Transmitted Disease: No Genitourinary Genitourinary Disorders: Prostate Problems Gastrointestinal History of Gastrointestinal Di: No Musculoskeletal History of Musculoskeletal Dis: No Endocrine History of Endocrine Disorders: No Endocrine Disorders: Diabetes, Non-Insulin dep HEENT History of HEENT Disorders: No Reviewed Nursing Assessment Reviewed/Agree w Nursing PMH: Yes Family Medical History Significant Family History: No Pertinent Family Hx Review of Systems Constitutional: No chills; weakness EENTM: No ear pain, No blurred vision, No double vision Respiratory: No cough; short of breath (Slight) Cardiovascular: chest pain (Right chest wall pain) Gastrointestinal: No abdominal pain, No nausea, No vomiting Genitourinary: No decreased output, No discharge Musculoskeletal: No back pain, No joint pain Skin: change in color (Bruising periumbilical) Psychiatric/Neurological: Denies Anxiety, Denies Depressed, Denies Emotional Problems All Other Systems Reviewed Negative Unless Noted: Yes (Negative excepted noted.) Physical Exam Vital Signs Vital Signs - First Documented 09/10/20 16:26 Temp 35.1 Pulse 85 Resp 16 B/P (MAP) 94/68 (77) Pulse Ox 94 O2 Delivery Room Air Capillary Refill : Less Than 3 Seconds Height, Weight, BMI Height: 5'7.00" Weight: 212lbs. 0.0oz. 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 Skin: Normal Color, Ecchymosis Lymphatic: No Adenopathy Data Review Labs Laboratory Tests 09/10/20 13:34: B-Type Natriuretic Peptide 40.6 09/10/20 13:44: White Blood Count 11.2H, Red Blood Count 3.90L, Hemoglobin 11.5L, Hematocrit 34L , Mean Corpuscular Volume 88, Mean Corpuscular Hemoglobin 30, Mean Corpuscular Hemoglobin Concent 33, Red Cell Distribution Width 17.4H, Platelet Count 226, Mean Platelet Volume 9.3, Immature Granulocyte % (Auto) 1, Neutrophils (%) (Auto) 69, Lymphocytes (%) (Auto) 21, Monocytes (%) (Auto) 8, Eosinophils (%) (Auto) 1, Basophils (%) (Auto) 0, Neutrophils # (Auto) 7.7, Lymphocytes # (Auto) 2.3, Monocytes # (Auto) 0.9, Eosinophils # (Auto) 0.2, Basophils # (Auto) 0.0, Immature Granulocyte # (Auto) 0.1, Sodium Level 134L, Potassium Level 4.2, Chloride Level 104, Carbon Dioxide Level 14L, Anion Gap 16H, Blood Urea Nitrogen 21H, Creatinine 2.46H, Estimat Glomerular Filtration Rate 25, BUN/Creatinine Ratio 9, Glucose Level 226H, Calcium Level 8.9, Corrected Calcium 8.8, Total Bilirubin 0.6, Aspartate Amino Transf (AST/SGOT) 15, Alanine Aminotransferase (ALT/SGPT) 11, Alkaline Phosphatase 37L, Troponin I < 0.028, C-Reactive Protein High Sensitivity 0.80H, Total Protein 7.1, Albumin 4.1, Serum Alcohol < 10 09/10/20 13:52: SARS-CoV-2 RNA (RT-PCR) Not Detected 09/10/20 14:55: Prothrombin Time 14.8H, INR Comment 1.1, Activated Partial Thromboplast Time 20L 09/10/20 17:47: Glucometer 196H Assessment/Plan Assessment/Plan Admission Diagonsis Right rib fractures 3 and 4 Right hemothorax Spigelian hernia Fall from bed and fall from standing Diabetes Acute Kidney Injury Admission Status: Inpatient Order (span 2 midnights) Reason for Inpatient Admission: Patient will need adequate pain control. Monitoring for breathing due to high risk of pneumonia. May require procedure. Patient will require 2 midnights. Assessment/Plan Right rib fractures 3 and 4 Right hemothorax Spigelian hernia Fall from bed and fall from standing Diabetes Right flank hematoma Acute kidney injury Ct scans reviewed, not done with contrast due to YE Patient admitted for pain control. Will try to keep on oral pain controlled to where he could go home. Patient met protocol initiated. Incentive spirometer. Patient with right hemothorax which is likely clot at this time so placing drain would not be of much benefit. That should reabsorb but if any worsening or remains present may be able to do thoracentesis once begins to resolve or may need surgical intervention. Tight glucose control Consult medicine for medical management. Right flank hematoma symptomatic management. Hold any anticogaulation due to hemorthorax Repeat labs in am, if drops may need transfusion. LUCIE VARGHESE DO Sep 10, 2020 18:40
[2020-09-10 19:36] VITALS: BP 120/89
[2020-09-10 19:41] VITALS: BP 130/68
[2020-09-10] MEDS ORDERED: RT-ALBUTEROL/IPRATROPIUM 3 ML (DUONEB) VIAL INH PRN (19:45)
[2020-09-10] MEDS: METHOCARBAMOL 500 MG (ROBAXIN) TABLET PO SCH (19:55)
[2020-09-10 20:00] VITALS: BP 129/63
[2020-09-10] MEDS ORDERED: ANTACID SUSP 30 ML UDC (MYLANTA) PO PRN (20:00)
[2020-09-10] MEDS ORDERED: BISACODYL 10 MG SUPP (DULCOLAX) PR PRN (20:00)
[2020-09-10] MEDS ORDERED: polyethylene glycoL POWDER 17 GM (MIRALAX) PACK PO PRN (20:00)
[2020-09-10] MEDS: DOCUSATE SODIUM 100 MG (COLACE) CAP PO SCH (20:07)
[2020-09-10] MEDS: SENNOSIDES 8.6 MG (SENOKOT) TAB PO SCH (20:07)
[2020-09-10] MEDS: inSUlin ASPART (NovoLOG) 1 UNIT/0.01 ML (CHARGE PER UNIT) SC SCH (20:10)
[2020-09-10] MEDS: RT-ALBUTEROL/IPRATROPIUM 3 ML (DUONEB) VIAL INH SCH (21:01)
[2020-09-10 23:40] VITALS: BP 124/66
[2020-09-11] VITALS: BP 142/71
[2020-09-11] MEDS: LACTATED RINGERS 1,000 ML IV SCH ×3 (00:31→15:49)
[2020-09-11] MEDS: fentaNYL INJ 100 MCG/2 ML AMP IVP PRN ×2 (02:07→06:39)
[2020-09-11] MEDS: HYDROcodone/APAP 5 MG/325 MG (LORTAB) TAB PO PRN ×3 (03:42→17:41)
[2020-09-11 04:23] LABS: HEMATOCRIT 28 % (40-54); MEAN CORPUSCULAR HEMOGLOBIN 29 pg (25-34); MEAN CORPUSCULAR HGB CONC 33 g/dL (32-36); MEAN CORPUSCULAR VOLUME 89 fL (80-99); MEAN PLATELET VOLUME 8.8 fL (9.0-12.2); PLATELET COUNT 143 10^3/uL (130-400); WHITE BLOOD COUNT 6.5 10^3/uL (4.3-11.0)
[2020-09-11 04:37] LABS: POTASSIUM 4.2 MMOL/L (3.6-5.0)
[2020-09-11 04:38] LABS: CALCIUM 8.3 MG/DL (8.5-10.1)
[2020-09-11 04:42] LABS: CREATININE SERUM 1.66 MG/DL (0.60-1.30)
[2020-09-11] MEDS: inSUlin ASPART (NovoLOG) 1 UNIT/0.01 ML (CHARGE PER UNIT) SC SCH ×4 (04:47→20:44)
[2020-09-11 04:59] VITALS: BP 126/50
--- NOTE | 2020-09-11 06:58 | Progress Note - Surgery ---
ARELI LIND 09/11/20 0658: Subjective Date Seen by a Provider: Sep 11, 2020 Time Seen by a Provider: 06:52 Subjective/Events-last exam Patient is an 80-year-old male, who was admitted to hospital yesterday d/t R rib 3/4 fracture and R hemothroax from fall. Pt reports less pain compared to . Reports having taken IV and oral pain medications, with IV pain meds helping more. He reports his pain is a 2/10, and 7/10 with movement. Pain can be felt into the back as well. Sitting up makes the pain worse. He reports no nausea, no vomiting, and no fever. He reports no headache or changes in vision. He thinks his last bowel movement was yesterday. Urination has not changed since the fall. He reports pain with coughing. He reports his son may be coming to see him today. Reports not using IS. Review of Systems General: No Chills HEENT: No Head Aches, No Visual Changes Cardiovascular: No: Palpitations Gastrointestinal: No: Nausea, Vomiting Neurological: No: Numbness Objective Exam Vital Signs Date Time Temp Pulse Resp B/P (MAP) Pulse Ox O2 Delivery O2 Flow Rate FiO2 09/11/20 04:59 37.0 81 18 126/50 (75) 96 Room Air 09/11/20 04:44 94 Room Air 09/11/20 01:00 95 09/11/20 01:00 95 Room Air 09/11/20 00:00 96 13 142/71 (94) 95 Room Air 09/10/20 23:40 37.0 89 20 124/66 (85) 93 Room Air 09/10/20 21:57 95 Room Air 09/10/20 21:02 94 Room Air 09/10/20 20:00 92 23 129/63 (85) 95 Room Air 09/10/20 19:41 35.9 85 97 21 09/10/20 19:36 36.9 91 17 120/89 (99) 94 Room Air 09/10/20 19:00 101 09/10/20 18:02 97 Room Air 09/10/20 17:42 35.9 85 20 130/68 (88) 98 Room Air 09/10/20 17:40 89 18 112/63 97 09/10/20 16:28 86 118/68 (85) 91 104/72 (83) 92 108/60 (76) 09/10/20 16:26 35.1 85 16 94/68 (77) 94 Room Air I & O 09/11/20 07:00 Intake Total 5685 ml Output Total 825 ml Balance 4860 ml Capillary Refill : Less Than 3 Seconds General Appearance: WD/WN HEENT: PERRL/EOMI Respiratory: No Accessory Muscle Use, No Respiratory Distress Cardiovascular: Regular Rate, Rhythm, Normal Peripheral Pulses Neurologic/Psychiatric: Alert, Oriented x3 Skin: Normal Color, Warm/Dry Results Lab Laboratory Tests 09/10/20 13:34: B-Type Natriuretic Peptide 40.6 09/10/20 13:44: White Blood Count 11.2H, Red Blood Count 3.90L, Hemoglobin 11.5L, Hematocrit 34L , Mean Corpuscular Volume 88, Mean Corpuscular Hemoglobin 30, Mean Corpuscular Hemoglobin Concent 33, Red Cell Distribution Width 17.4H, Platelet Count 226, Mean Platelet Volume 9.3, Immature Granulocyte % (Auto) 1, Neutrophils (%) (Auto) 69, Lymphocytes (%) (Auto) 21, Monocytes (%) (Auto) 8, Eosinophils (%) (Auto) 1, Basophils (%) (Auto) 0, Neutrophils # (Auto) 7.7, Lymphocytes # (Auto) 2.3, Monocytes # (Auto) 0.9, Eosinophils # (Auto) 0.2, Basophils # (Auto) 0.0, Immature Granulocyte # (Auto) 0.1, Sodium Level 134L, Potassium Level 4.2, Chloride Level 104, Carbon Dioxide Level 14L, Anion Gap 16H, Blood Urea Nitrogen 21H, Creatinine 2.46H, Estimat Glomerular Filtration Rate 25, BUN/Creatinine Ratio 9, Glucose Level 226H, Calcium Level 8.9, Corrected Calcium 8.8, Total Bilirubin 0.6, Aspartate Amino Transf (AST/SGOT) 15, Alanine Aminotransferase (ALT/SGPT) 11, Alkaline Phosphatase 37L, Troponin I < 0.028, C-Reactive Protein High Sensitivity 0.80H, Total Protein 7.1, Albumin 4.1, Serum Alcohol < 10 09/10/20 13:52: SARS-CoV-2 RNA (RT-PCR) Not Detected 09/10/20 14:55: Prothrombin Time 14.8H, INR Comment 1.1, Activated Partial Thromboplast Time 20L 09/10/20 17:47: Glucometer 196H 09/10/20 20:08: Glucometer 164H 09/11/20 03:52: White Blood Count 6.5, Red Blood Count 3.10L, Hemoglobin 9.0#L, Hematocrit 28L, Mean Corpuscular Volume 89, Mean Corpuscular Hemoglobin 29, Mean Corpuscular Hemoglobin Concent 33, Red Cell Distribution Width 17.5H, Platelet Count 143, Mean Platelet Volume 8.8L, Sodium Level 137, Potassium Level 4.2, Chloride Level 107, Carbon Dioxide Level 20L, Anion Gap 10, Blood Urea Nitrogen 17, Creatinine 1.66H, Estimat Glomerular Filtration Rate 40, BUN/Creatinine Ratio 10, Glucose Level 84, Calcium Level 8.3L Assessment/Plan Assessment/Plan Assessment/Plan Right rib fractures 3 and 4 Right hemothorax Spigelian hernia Fall from bed and fall from standing Diabetes Right flank hematoma Acute kidney injury Ct scans reviewed, not done with contrast due to YE Continue as, patient admitted for pain control. Will review status and try to keep on oral pain controlled to where he could go home. Discuss/ educate on Incentive spirometer Continue Tight glucose control Consult medicine for medical management. Right flank hematoma symptomatic management. Hold any anticogaulation due to hemorthorax RYANN LAWRENCE MD 09/11/20 1456: DAVE MARQUEZ DO 09/11/20 2150: Subjective Subjective/Events-last exam Patient less pain than yesterday. Having difficulty with urination. Is having some drop in oxygen saturation. Patient not using incentive spirometer. Denies any nausea vomiting fever sweats chills shortness of breath or chest pain. Slight drop in hemoglobin. Objective Exam General Appearance: No Apparent Distress, WD/WN HEENT: PERRL/EOMI, Normal ENT Inspection Neck: Normal Inspection, Supple Respiratory: No Chest Non Tender (Right chest wall tenderness); Other (Shallow breathing) Cardiovascular: Regular Rate, Rhythm, No JVD Gastrointestinal: non tender, soft Neurologic/Psychiatric: Alert, Oriented x3 Skin: Normal Color, Warm/Dry Lymphatic: No Adenopathy Assessment/Plan Assessment/Plan Assessment/Plan Right rib fractures 3 and 4 Right hemothorax Spigelian hernia Fall from bed and fall from standing Diabetes Right flank hematoma Acute kidney injury Urinary retention Anemia pain control. Discuss/ educate on Incentive spirometer Continue Tight glucose control Consulted medicine for medical management. Consult pulmonology Cardiology consulted Chest x-ray Bladder scan and if greater than 400 will straight cath if it needs again we will leave Varghese catheter start Flomax Right flank hematoma symptomatic management. Hold any anticogaulation due to hemorthorax CBC at noon Follow hemoglobin transfuse PRBC if needed. Supervisory-Addendum Brief Verification & Attestation Participated in pt care: history, MDM, physical Personally performed: exam, history, MDM, supervision of care Care discussed with: Medical Student Procedures: n/a Results interpretation: Verified all documentation Verification and Attestation of Medical Student E/M Service A medical student performed and documented this service in my presence. I reviewed and verified all information documented by the medical student and made modifications to such information, when appropriate. I personally performed the physical exam and medical decision making. Dave Marquez, Sep 11, 2020,07:49 ARELI LIND Sep 11, 2020 06:58 RYANN LAWRENCE MD Sep 11, 2020 14:56 DAVE MARQUEZ DO Sep 11, 2020 21:50
[2020-09-11 08:00] VITALS: BP 120/75
[2020-09-11] MEDS: RT-ALBUTEROL/IPRATROPIUM 3 ML (DUONEB) VIAL INH SCH ×2 (08:29→19:55)
[2020-09-11] MEDS: DOCUSATE SODIUM 100 MG (COLACE) CAP PO SCH ×2 (08:53→20:04)
[2020-09-11] MEDS: METHOCARBAMOL 500 MG (ROBAXIN) TABLET PO SCH ×3 (08:53→20:04)
[2020-09-11] MEDS: SENNOSIDES 8.6 MG (SENOKOT) TAB PO SCH ×2 (08:53→20:04)
--- NOTE | 2020-09-11 09:44 | Consultation-Cardiology ---
HPI-Cardiology Cardiology Consultation Date of Consultation 09/11/20 Date of Admission Time Seen by Provider: 06:52 Indication: Rib fracture c/ hemothorax d/t fall HPI Patient is an 80 y/o male with history of HTN, HLP. Presented to the ER with complaints of falling out of bed on Wednesday evening, complaining of right rib pain. Was then at laundry mat on Wednesday afternoon and had syncopal episode. Prior to fall denies any chest pain, dyspnea, recent dizziness or lightheadedness. Work up done in ER showing multiple right rib fracture, right hemathorax, right flank hematoma. Complaining of some chest wall pain with deep inspiration. Home Medications & Allergies Allergies: Coded Allergies: No Known Drug Allergies (Verified , 08/28/15) Home Medication List Reviewed: Yes ZLQ-Peaxef-Euzngq Hx Patient Social History Marital Status: single Employed/Student: retired Smoking Status: Never a Smoker Have you traveled recently?: No Alcohol Use?: No Immunizations Up To Date Tetanus Booster (TDap): More than 5yrs Date of Influenza Vaccine: Nov 08, 2013 Past Medical History HTN, HLP Family Medical History Significant Family History: No Pertinent Family Hx Review of Systems-General Review of Systems Constitutional: see HPI; No chills, No diaphoresis, No fever, No malaise; weakness EENTM: see HPI; No ear discharge, No hearing loss, No ear pain Respiratory: No cough, No short of breath Cardiovascular: see HPI; No edema, No Hx of Intervention, No palpitations; syncope Gastrointestinal: No abdominal pain, No nausea, No vomiting Genitourinary: No discharge, No dysuria Musculoskeletal: see HPI; No back pain, No joint pain Skin: other (Abdominal ecchymoses) Psychiatric/Neurological: Denies Anxiety, Denies Depressed, Denies Emotional Problems All Other Systems Reviewed Negative Unless Noted: Yes (Negative excepted noted.) Reviewed Test Results Reviewed Test Results Lab Laboratory Tests 09/10/20 13:34: B-Type Natriuretic Peptide 40.6 09/10/20 13:44: White Blood Count 11.2H, Red Blood Count 3.90L, Hemoglobin 11.5L, Hematocrit 34L , Mean Corpuscular Volume 88, Mean Corpuscular Hemoglobin 30, Mean Corpuscular Hemoglobin Concent 33, Red Cell Distribution Width 17.4H, Platelet Count 226, Mean Platelet Volume 9.3, Immature Granulocyte % (Auto) 1, Neutrophils (%) (Auto) 69, Lymphocytes (%) (Auto) 21, Monocytes (%) (Auto) 8, Eosinophils (%) (Auto) 1, Basophils (%) (Auto) 0, Neutrophils # (Auto) 7.7, Lymphocytes # (Auto) 2.3, Monocytes # (Auto) 0.9, Eosinophils # (Auto) 0.2, Basophils # (Auto) 0.0, Immature Granulocyte # (Auto) 0.1, Sodium Level 134L, Potassium Level 4.2, Chloride Level 104, Carbon Dioxide Level 14L, Anion Gap 16H, Blood Urea Nitrogen 21H, Creatinine 2.46H, Estimat Glomerular Filtration Rate 25, BUN/Creatinine Ratio 9, Glucose Level 226H, Calcium Level 8.9, Corrected Calcium 8.8, Total Bilirubin 0.6, Aspartate Amino Transf (AST/SGOT) 15, Alanine Aminotransferase (ALT/SGPT) 11, Alkaline Phosphatase 37L, Troponin I < 0.028, C-Reactive Protein High Sensitivity 0.80H, Total Protein 7.1, Albumin 4.1, Serum Alcohol < 10 09/10/20 13:52: SARS-CoV-2 RNA (RT-PCR) Not Detected 09/10/20 14:55: Prothrombin Time 14.8H, INR Comment 1.1, Activated Partial Thromboplast Time 20L 09/10/20 17:47: Glucometer 196H 09/10/20 20:08: Glucometer 164H 09/11/20 03:52: White Blood Count 6.5, Red Blood Count 3.10L, Hemoglobin 9.0#L, Hematocrit 28L, Mean Corpuscular Volume 89, Mean Corpuscular Hemoglobin 29, Mean Corpuscular Hemoglobin Concent 33, Red Cell Distribution Width 17.5H, Platelet Count 143, Mean Platelet Volume 8.8L, Sodium Level 137, Potassium Level 4.2, Chloride Level 107, Carbon Dioxide Level 20L, Anion Gap 10, Blood Urea Nitrogen 17, Creatinine 1.66H, Estimat Glomerular Filtration Rate 40, BUN/Creatinine Ratio 10, Glucose Level 84, Calcium Level 8.3L ECG Impression ECG Initial ECG Rhythm: S.Tach Physical Exam Physical Exam Vital Signs Vital Signs - First Documented 09/10/20 09/10/20 09/11/20 16:26 19:41 11:14 Temp 35.1 Pulse 85 Resp 16 B/P (MAP) 94/68 (77) Pulse Ox 94 O2 Delivery Room Air O2 Flow Rate 6.00 FiO2 21 Capillary Refill : Less Than 3 Seconds Height, Weight, BMI Height: 5'7.00" Weight: 212lbs. 0.0oz. 96.987481ma; 34.15 BMI Method:Stated General Appearance: WD/WN HEENT: PERRL/EOMI Respiratory: No Accessory Muscle Use, No Respiratory Distress Cardiovascular: Regular Rate, Rhythm, Normal Peripheral Pulses Gastrointestinal: Normal Bowel Sounds, Guarding, Other (Periumbilical ecchymoses with right upper quadrant mild ecchymoses and tenderness over costal margin.) Rectal: Deferred Back: No CVA Tenderness, No Vertebral Tenderness Neurologic/Psychiatric: Alert, Oriented x3 Skin: Normal Color, Warm/Dry A/P-Cardiology Admission Diagnosis Syncope s/p fall, right rib fracture HTN HLP Assessment/Plan s/p fall out of bed resulting in multiple rib fracture, right hemothorax, Dr. Varghese following. Syncope, unknown etiology,occurred later in the day after falling out of bed, continue to monitor telemetry Coronary artery disease, mild to moderate nonobstructive disease per cardiac catheterization 2008, most recent stress test and 2-D echocardiogram February 2016 revealed no ischemia or infarct. Hypertension, controlled, continue to monitor blood pressure/heart rate. Hyperlipidemia, lipid profile was done in December 2019 showing total cholesterol 126, HDL 29, triglyceride 225, LDL 52. Continue to monitor Mild bilateral nonobstructive carotid artery stenosis. Last carotid duplex done in December 2019. Continue to monitor Chronic kidney disease, management per PCP Diabetes mellitus, management per PCP History of prostate cancer, followed by Dr. Martin Thank you for allowing us to participate in the management of Mr. Escobedo. This is Yecenia Guerrero PA-C, as a scribe for Dr. Holland. Patient was seen and evaluated with Yecenia, I interviewed the patient and visited with him and his son, discussed the management plan, agree with the current scribed note Patient has been having increasing recurrent falling secondary to generalized weakness and probably orthostatic hypotension Had rib fracture, hemothorax and atelectasis, receiving therapy, blood pressure is better controlled We will allow permissive moderate hypertension to avoid syncope in addition starting physical therapy and evaluate tolerance of response Continue to monitor on telemetry. Monitor electrolytes YECENIA BUTTS Sep 11, 2020 09:44 VALERIE HOLLAND MD Sep 11, 2020 14:42
--- NOTE | 2020-09-11 09:53 | Diagnostic Imaging Report ---
INDICATION: Followup hemothorax. TIME OF EXAM: 9:24 AM. COMPARISON: Correlation is made with the prior chest from 06/29/2008. FINDINGS: There appears to be some infiltrate or atelectasis in the right upper and right lower lobes. There is a small effusion on the right. The left lung is clear. No pneumothorax is detected. IMPRESSION: Right-sided infiltrate/atelectasis and a small effusion. Dictated by: Dictated on workstation # [id number]
--- NOTE | 2020-09-11 10:23 | Physical Therapy Evaluation ---
PT Evaluation-General Medical Diagnosis Admission Date Sep 10, 2020 at 15:15 Medical Diagnosis: multiple rib fracture, right hemothorax Onset Date: Sep 10, 2020 Therapy Diagnosis Therapy Diagnosis: impaired mobility, strength, endurance Height/Weight Height (Feet): 5 Height (Inches): 7.00 Weight (Pounds): 212 Weight (Ounces): 0.0 Precautions Precautions/Isolations: Fall Prevention, Standard Precautions Referral Physician: Abimael Reason for Referral: Evaluation/Treatment Medical History Pertinent Medical History: DM, HTN Reviewed History: Yes Social History Home: Single Level Current Living Status: Friend Entry Into Home: Stairs With Railing PT Steps Into Home: 10 Prior Prior Level of Function SCALE: Activities may be completed with or without assistive devices. 7-Ipbbitschm-xpcnejd completes the activity by him/herself with no assistance from a helper. 5-Set-up or Clean-up Assistance-helper sets up or cleans up; patient completes activity. [place] assists only prior to or following the activity. 4-Supervision or Touching Assistance-helper provides verbal cues and/or touching/steadying and/or contact guard assistance as patient completes activity. Assistance may be provided throughout the activity or intermittently. 3-Partial/Moderate Assistance-helper does LESS THAN HALF the effort. [place] lifts, holds or supports trunk or limbs, but provides less than half the effort. 2-Substantial/Maximal Assistance-helper does MORE THAN HALF the effort. [place] lifts or holds trunk or limbs and provides more than half the effort. 0-Bmvwxleal-erubuy does ALL the effort. Patient does none of the effort to complete the activity. Or, the assistance of 2 or more helpers is required for the patient to complete the activity. If activity was not attempted, code reason: 7-Patient Refused. 9-Not Applicable-not attempted and the patient did not perform the activity before the current illness, exacerbation or injury. 10-Not Attempted due to Environmental Limitations-(lack of equipment, weather restraints, etc.). 88-Not Attempted due to Medical Conditions or Safety Concerns. Bed Mobility: 6 Transfers (B,C,W/C): 6 Gait: 6 Stairs: 6 Indoor Mobility (Ambulation): Independent Stairs: Independent Patient states he occasionally uses a SPC PT Evaluation-Current Subjective Patient in bed pre tx, agrees to PT, has 5/10 pain in ribs. Nurse states he has been having some issues with O2 saturation and that he would likely be getting a chest tube later today, didn't think he would be able to tolerate getting out of bed. Pt/Family Goals "to stop the pain and breathe better" Objective Patient Orientation: Person, Place, Situation ROM/Strength ROM Lower Extremities WNL Strength Lower Extremities 4/5 gross BLE Sensory Vision: Wears Glasses Hearing: Functional Transfers Roll Left to Right (QC): 2 Patient needs readjusted in bed and new pads under him, nurse assists. Patient needs max assist to roll from side to side to replace pad and drawsheet. Patient's O2 goes to 87% just with rolling. Assessment/Needs Patient in bed post tx with nurse call, phone, tray, all needs met. Patient has impaired mobility, strength, endurance. Patient's O2 drops with minimal activ ity. Reassess tomorrow if patient gets a chest tube today. Rehab Potential: Fair PT Prison Goals Prison Goals PT Claim Service Representative Goals Time Frame: Sep 18, 2020 Roll Left & Right (QC): 3 Sit to Lying (QC): 3 Lying-Sitting on Side/Bed(QC): 3 Sit to Stand (QC): 3 Chair/Tiz-oc-Huzcd Xfer(QC): 3 Walk 10 feet (QC): 3 Walk 50ft with 2 Turns (QC): 3 PT Plan Problem List Problem List: Activity Tolerance, Functional Strength, Safety, Balance, Gait, Transfer, Bed Mobility, ROM Treatment/Plan Treatment Plan: Continue Plan of Care Treatment Plan: Bed Mobility, Education, Functional Activity Yuniel, Functional Strength, Gait, Safety, Therapeutic Exercise, Transfers Treatment Duration: Sep 18, 2020 Frequency: 6 times per week Estimated Hrs Per Day: .25 hour per day Patient and/or Family Agrees t: Yes Safety Risks/Education Patient Education: Correct Positioning, Safety Issues Teaching Recipient: Patient Teaching Methods: Demonstration, Discussion Response to Teaching: Reinforcement Needed Discharge Recommendations Plan Patient will perform bed mobility and transfer training, balance and endurance training, functional strengthening, stair training, gait training, and education, to improve functional mobility and independence at home. Therapy Discharge Recommendati: Scheduled Assistance, Home & Family, Post Acute PT Time/GCodes Time In: 09 Time Out: 956 Total Billed Treatment Time: 10 Total Billed Treatment 1 visit KATHIE Rodriguez' MANJIT SALDAÑA PT Sep 11, 2020 10:22
[2020-09-11 12:00] VITALS: BP 141/70
--- NOTE | 2020-09-11 12:01 | Consultation - Hospitalist ---
MARGARITOPHUONGLESTER 09/11/20 1201: HPI History of Present Illness: HPI/Chief Complaint Bud Escobedo is a 80y/o M who presents due to a fall. Pt reports that 2 days ago he fell getting out of bed in the morning. Yesterday he then had another fall at a laundromat. Pt states that he was carrying his laundry basket felt weak and then had to set it down. He denies any vision changes, dizziness, or loss of balance before his fall. Says "he just fell". Denies any previous episodes of syncope. He is having pain in his right ribs when he moves or coughs. Says that the pain is 8/10. Unable to take full breath w/o pain. Source: patient Date Seen 09/11/20 Attending Physician Dave Varghese DO PCP Aman Cooper MD Referring Physician Date of Admission Sep 11, 2020 at 10:29 Home Medications & Allergies Home Medications Reviewed patient Home Medication Reconciliation performed by pharmacy medication reconciliations filling technician and/or nursing. Patients Allergies have been reviewed. Allergies Allergies Coded Allergies No Known Drug Allergies (Verified08/28/15) Past Laoeckd-Wvfmjk-Eryyfs Hx Patient Social History Marrital Status: single Employed/Student: retired Tobacco Use?: No Smoking Status: Never a Smoker Smokeless Tobacco Frequency: Never a User Use of E-Cig and/or Vaping dev: No Substance use?: No Alcohol Use?: No Pt feels they are or have been: No Immunizations Up To Date Date of Influenza Vaccine: Nov 08, 2013 First/Initial COVID19 Vaccinat: MAR 2020 Second COVID19 Vaccination Vishnu: APRIL 2020 Tetanus Booster (TDap): More Than 5 Years Current Status Advance Directives: No Advance Directive Location: Home Communicates: Verbally Primary Language: Afghan Preferred Spoken Language: Afghan Is interpretation needed?: No Sensory deficits: Vision impairment Past Medical History High Cholesterol, Hypertension Sexually Transmitted Disease: No Prostate Problems Diabetes, Non-Insulin dep Family Medical History No Pertinent Family Hx Review of Systems Constitutional: No chills, No fever Respiratory: cough; No short of breath Cardiovascular: No chest pain, No palpitations Psychiatric/Neurological: Denies Headache Physical Exam Physical Exam Vital Signs Vital Signs - First Documented 09/10/20 09/10/20 09/11/20 16:26 19:41 11:14 Temp 35.1 Pulse 85 Resp 16 B/P (MAP) 94/68 (77) Pulse Ox 94 O2 Delivery Room Air O2 Flow Rate 6.00 FiO2 21 Capillary Refill : Less Than 3 Seconds Height, Weight, BMI Height: 5'7.00" Weight: 212lbs. 0.0oz. 96.757066pg; 34.15 BMI Method:Stated General Appearance: WD/WN, Mild Distress Respiratory: Wheezing (on expiration), Other (Pain w/ palpitations over right 3/4th ribs. Shallow breathing) Cardiovascular: Regular Rate, Rhythm, No Murmur Gastrointestinal: Non Tender, Soft Extremity: No Pedal Edema Neurologic/Psychiatric: Alert Skin: Normal Color, Warm/Dry Results Results/Procedures Labs Laboratory Tests 09/10/20 13:44 09/11/20 03:52 Patient resulted labs reviewed. Assessment/Plan Assessment and Plan Assess & Plan/Chief Complaint Assessment 1.Rt 3rd/4th rib fracture 2.Rt hemothorax 3. spigelian hernia 4. fall from bed 5. diabetes Plan Continue laxatives. Start sliding scale insulin aspart. Refer for physical therapy evaluation FRIEDA GREEN MD 09/11/20 1258: HPI History of Present Illness: Exam Limitations: no limitations Physical Exam Physical Exam Respiratory: Other (Pain w/ palpitations over right 3/4th ribs. Shallow breathing) Results Results/Procedures Imaging: Reviewed Imaging Films, Reviewed Imaging Report Assessment/Plan Assessment and Plan Assess & Plan/Chief Complaint Patient presented after fall and found to have rib fractures and large hemothorax. Hemoglobin trending down today, monitor. Pain regimen ordered. Bowel regimen added. Incentive spirometer ordered. PT/OT evaluation ordered. Worsening hypoxia this morning. Thank you for the consult. We will continue to monitor and follow along. Diagnosis/Problems Diagnosis/Problems (1) Fall Status: Acute Qualifiers: Encounter type: initial encounter Qualified Codes: W19.XXXA - Unspecified fall, initial encounter (2) Rib fractures Status: Acute Qualifiers: Encounter type: initial encounter Fracture type: closed Laterality: right Qualified Codes: S22.41XA - Multiple fractures of ribs, right side, initial encounter for closed fracture (3) Hemothorax on right Status: Acute (4) Acute respiratory failure with hypoxia Status: Acute (5) Benign prostatic hyperplasia with urinary retention Status: Acute (6) Obesity Status: Chronic Supervisory-Addendum Brief Verification & Attestation Participated in pt care: history, MDM, physical Personally performed: exam, history, MDM, supervision of care Care discussed with: Medical Student Procedures: n/a Results interpretation: Verified all documentation A medical student performed and documented this service in my presence. I reviewed and verified all information documented by the medical student and made modifications to such information, when appropriate. I personally performed the physical exam and medical decision making. LESTER STARR Sep 11, 2020 12:01 FRIEDA GREEN MD Sep 11, 2020 12:58
[2020-09-11 12:54] LABS: HEMATOCRIT 29 % (40-54); HEMOGLOBIN 9.5 g/dL (13.3-17.7); MEAN CORPUSCULAR HEMOGLOBIN 29 pg (25-34); MEAN CORPUSCULAR HGB CONC 33 g/dL (32-36); MEAN CORPUSCULAR VOLUME 89 fL (80-99); MEAN PLATELET VOLUME 8.4 fL (9.0-12.2); PLATELET COUNT 159 10^3/uL (130-400); WHITE BLOOD COUNT 6.8 10^3/uL (4.3-11.0)
[2020-09-11] MEDS ORDERED: hydrALAZINE (APESOLINE) 20 MG/ML VIAL IV PRN (13:15)
[2020-09-11] MEDS ORDERED: OMEP20TA7 PO (13:59)
[2020-09-11] MEDS ORDERED: METF-397 PO (13:59)
[2020-09-11] MEDS ORDERED: RAMI5CAP65 PO (13:59)
[2020-09-11] MEDS ORDERED: FENO145T26 PO (13:59)
[2020-09-11] MEDS ORDERED: NIAC100045 PO (13:59)
[2020-09-11] MEDS ORDERED: TMSL.4C PO (13:59)
[2020-09-11] MEDS ORDERED: GLIM4TAB5 PO (13:59)
[2020-09-11] MEDS ORDERED: ASPI-1238 PO (13:59)
[2020-09-11] MEDS ORDERED: DUTA0.5C36 PO (13:59)
[2020-09-11] MEDS ORDERED: MTP25TSR PO (13:59)
[2020-09-11] MEDS ORDERED: OMEG-218 PO (13:59)
[2020-09-11] MEDS ORDERED: METH-336 PO (13:59)
[2020-09-11] MEDS ORDERED: ATOR20TA66 PO (13:59)
[2020-09-11] MEDS ORDERED: MIRA25TA PO (14:00)
[2020-09-11] MEDS ORDERED: APIX5TAB PO (14:00)
--- NOTE | 2020-09-11 14:55 | Pulmonary Consultation ---
History of Present Illness History of Present Illness Date Seen by Provider: Sep 11, 2020 Time Seen by Provider: 14:51 Date of Admission 80 yo M fell with multiple rib Fx, asked to see about hypoxia, Reason for Visit: Rib fracture c/ hemothorax d/t fall History of Present Illness Fell with right hemothorax and 3d, 4th rib Fx, CXR and CT show right basilar infiltrate, Hemothorax has not been drained SpO2 mid 90's spont RR in low 20's, getting Fentnyl q 2h for severe pain Head and neck CT no Fx, DJD neck, nicroangiopathic changes Fell out of bed, hit right side Says not due to syncope, dizziness or vertigo No Hx of pulmonary disease, non smoker, got COVID vaccine 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 Allergies and Home Medications Allergies Coded Allergies: No Known Drug Allergies (Verified , 08/28/15) Home Medications Apixaban 5 Mg Tablet, 5 MG PO BID, (Reported) Aspirin 81 Mg Tablet.dr, 81 MG PO 1800, (Reported) Atorvastatin Calcium 20 Mg Tablet, 20 MG PO 1800, (Reported) Dutasteride 0.5 Mg Capsule, 0.5 MG PO DAILY, (Reported) Fenofibrate Nanocrystallized 145 Mg Tablet, 145 MG PO 1800, (Reported) Glimepiride 4 Mg Tablet, 4 MG PO DAILY, (Reported) Metformin HCl 500 Mg Tablet, 500 MG PO BID, (Reported) Methylcellulose 500 Mg Tablet, 1,000 MG PO 1800, (Reported) TAKES 2 (500MG) TABS Metoprolol Succinate 25 Mg Tab.er.24h, 25 MG PO DAILY, (Reported) Mirabegron 25 Mg Tab.er.24h, 50 MG PO DAILY, (Reported) TAKES 2 (25MG) TABS Niacin 1,000 Mg Tab.er.24h, 1,000 MG PO 1800, (Reported) Pinch-3 Acid Ethyl Esters 1 Gm Capsule, 2 MG PO BID, (Reported) TAKES 2 (1GM) CAPS Omeprazole 20 Mg Tablet.dr, 20 MG PO DAILY, (Reported) Ramipril 5 Mg Capsule, 5 MG PO DAILY, (Reported) Tamsulosin HCl 0.4 Mg Cap, 0.4 MG PO DAILY, (Reported) Past Medical/Social/Family Hx Patient Social History Marrital Status: single Employed/Student: retired Tobacco Use?: No Smoking Status: Never a Smoker Smokeless Tobacco Frequency: Never a User Use of E-Cig and/or Vaping dev: No Substance use?: No Alcohol Use?: No Pt stated abuse/neglect: No Immunizations Up To Date Influenza Vaccine Up-to-Date: Yes; Up-to-Date First/Initial COVID19 Vaccinat: MAR 2020 Second COVID19 Vaccination Vishnu: APRIL 2020 Tetanus Booster (TDap): More Than 5 Years Current Status Advance Directives: No Advance Directive Location: Home Communicates: Verbally Primary Language: [place] Preferred Spoken Language: [place] Is interpretation needed?: No Sensory deficits: Vision impairment Past Medical History DM2 Speglian hernia on CT HTN HLD Review of Systems Constitutional: see HPI Respiratory: see HPI, other (pain is worse when coughs) Cardiovascular: no symptoms reported, chest pain, edema Genitourinary: no symptoms reported Musculoskeletal: no symptoms reported Psychiatric/Neurological: Other (did not have syncope) Sepsis Event Evaluation Height, Weight, BMI Height: 5'7.00" Weight: 212lbs. 0.0oz. 96.466001xm; 34.15 BMI Method:Stated Exam Exam Patient acknowledged, consented, and participated in this virtual visit which was conducted using real time audio/video Vital Signs Date Time Temp Pulse Resp B/P (MAP) Pulse Ox O2 Delivery O2 Flow Rate FiO2 09/11/20 12:00 36.8 88 22 141/70 (93) 93 Nasal Cannula 4.00 09/11/20 11:14 95 Nasal Cannula 6.00 09/11/20 09:00 92 Room Air 09/11/20 08:30 90 Room Air 09/11/20 08:00 36.8 81 19 120/75 (90) 94 Room Air 09/11/20 06:33 82 09/11/20 04:59 37.0 81 18 126/50 (75) 96 Room Air 09/11/20 04:44 94 Room Air 09/11/20 01:00 95 09/11/20 01:00 95 Room Air 09/11/20 00:00 96 13 142/71 (94) 95 Room Air 09/10/20 23:40 37.0 89 20 124/66 (85) 93 Room Air 09/10/20 21:57 95 Room Air 09/10/20 21:02 94 Room Air 09/10/20 20:00 92 23 129/63 (85) 95 Room Air 09/10/20 19:41 35.9 85 97 21 09/10/20 19:36 36.9 91 17 120/89 (99) 94 Room Air 09/10/20 19:00 101 09/10/20 18:02 97 Room Air 09/10/20 17:42 35.9 85 20 130/68 (88) 98 Room Air 09/10/20 17:40 89 18 112/63 97 09/10/20 16:28 86 118/68 (85) 91 104/72 (83) 92 108/60 (76) 09/10/20 16:26 35.1 85 16 94/68 (77) 94 Room Air I & O 09/11/20 07:00 Intake Total 5685 ml Output Total 825 ml Balance 4860 ml Height & Weight Height: 5'7.00" Weight: 212lbs. 0.0oz. 96.879744ob; 34.15 BMI Method:Stated General Appearance: WD/WN, Mild Distress HEENT: PERRL/EOMI Respiratory: No Accessory Muscle Use, No Respiratory Distress, Decreased Breath Sounds, Other (decreased BS on right posterior) Cardiovascular: Regular Rate, Rhythm, Normal Peripheral Pulses Capillary Refill: Less Than 3 Seconds Gastrointestinal: normal bowel sounds, non tender, soft Extremity: No Pedal Edema Neurologic/Psychiatric: Alert, Oriented x3 Skin: Normal Color, Warm/Dry Results Lab Laboratory Tests 09/10/20 13:44 09/11/20 03:52 09/11/20 12:45 Assessment/Plan Assessment/Plan right 3 and 4th rib Fx with hemothorx, will get CXR in am to see in increasing, if so will need drainage continhe pain meds No need for ICU monitoring right now+ Time spent with patient (mins): 30 RYANN LAWRENCE MD Sep 11, 2020 14:55
[2020-09-11 15:48] VITALS: BP 125/79
[2020-09-11] MEDS: TAMSULOSIN 0.4 MG (FLOMAX) CAP PO SCH (17:43)
[2020-09-11 19:38] VITALS: BP 128/68
[2020-09-12] VITALS: BP 143/67
[2020-09-12] MEDS: HYDROcodone/APAP 5 MG/325 MG (LORTAB) TAB PO PRN (01:05)
[2020-09-12] MEDS: MELATONIN 3 MG TABLET PO PRN (01:08)
[2020-09-12 03:27] LABS: HEMATOCRIT 28 % (40-54); HEMOGLOBIN 8.8 g/dL (13.3-17.7); MEAN CORPUSCULAR HEMOGLOBIN 29 pg (25-34); MEAN CORPUSCULAR HGB CONC 31 g/dL (32-36); MEAN CORPUSCULAR VOLUME 93 fL (80-99); MEAN PLATELET VOLUME 8.9 fL (9.0-12.2); PLATELET COUNT 147 10^3/uL (130-400)
[2020-09-12 03:35] LABS: POTASSIUM 4.9 MMOL/L (3.6-5.0)
[2020-09-12 03:36] LABS: CALCIUM 8.8 MG/DL (8.5-10.1)
[2020-09-12 03:40] LABS: CREATININE SERUM 1.63 MG/DL (0.60-1.30)
[2020-09-12] MEDS: LACTATED RINGERS 1,000 ML IV SCH ×2 (03:59→14:22)
[2020-09-12 04:13] VITALS: BP 130/77
[2020-09-12] MEDS: inSUlin ASPART (NovoLOG) 1 UNIT/0.01 ML (CHARGE PER UNIT) SC SCH ×4 (05:35→20:18)
--- NOTE | 2020-09-12 06:47 | Progress Note - Surgery ---
ARELI LIND 09/12/20 0647: Subjective Date Seen by a Provider: Sep 12, 2020 Time Seen by a Provider: 06:42 Subjective/Events-last exam Patient is an 80-year-old male in hospital d/t R rib 3/4 fracture and R hemothorax from fall. PT reports pain has slightly improved. There is still rib pain with certain movements and cough. He has no nausea no vomiting and no fever complaints. He is uncertain to the change in his urinary status, but did mention feeling the urge to void. He has been using IS about 1x per hour. His son will be visiting him this morning. Chest Xray on 09/11 showed R side infiltrate/ atelectasis and a small effusion. Hgb on 09/12 was 8.8. Review of Systems General: No Chills Gastrointestinal: No: Nausea, Vomiting Neurological: No: Numbness Objective Exam Vital Signs Date Time Temp Pulse Resp B/P (MAP) Pulse Ox O2 Delivery O2 Flow Rate FiO2 09/12/20 05:35 94 High Flow N/C 3.00 09/12/20 04:13 36.9 80 15 130/77 (94) 92 Nasal Cannula 3.00 09/12/20 01:18 94 High Flow N/C 3.00 09/12/20 01:00 82 09/12/20 00:00 36.9 75 17 143/67 (92) 95 Nasal Cannula 3.00 09/11/20 20:20 94 High Flow N/C 3.00 09/11/20 19:55 94 High Flow N/C 5.00 09/11/20 19:38 37.2 84 21 128/68 (88) 94 Nasal Cannula 4.00 09/11/20 19:00 90 09/11/20 17:37 93 High Flow N/C 3.00 09/11/20 15:48 36.8 87 26 125/79 (94) 98 09/11/20 13:13 95 09/11/20 13:10 93 High Flow N/C 6.00 09/11/20 12:00 36.8 88 22 141/70 (93) 93 Nasal Cannula 4.00 09/11/20 11:14 95 Nasal Cannula 6.00 09/11/20 09:00 92 Room Air 09/11/20 08:30 90 Room Air 09/11/20 08:00 36.8 81 19 120/75 (90) 94 Room Air I & O 09/12/20 07:00 Intake Total 1880 ml Output Total 1675 ml Balance 205 ml Capillary Refill : Less Than 3 Seconds General Appearance: No Apparent Distress, WD/WN HEENT: PERRL/EOMI, Normal ENT Inspection Neck: Normal Inspection, Supple Respiratory: No Chest Non Tender (Right chest wall tenderness); Other (Shallow breathing) Cardiovascular: Regular Rate, Rhythm, No JVD Gastrointestinal: non tender, soft Extremity: No Pedal Edema Neurologic/Psychiatric: Alert, Oriented x3 Skin: Normal Color, Warm/Dry Lymphatic: No Adenopathy Results Lab Laboratory Tests 09/11/20 11:57: Glucometer 137H 09/11/20 12:45: White Blood Count 6.8, Red Blood Count 3.26L, Hemoglobin 9.5L, Hematocrit 29L, Mean Corpuscular Volume 89, Mean Corpuscular Hemoglobin 29, Mean Corpuscular Hemoglobin Concent 33, Red Cell Distribution Width 17.8H, Platelet Count 159, Mean Platelet Volume 8.4L 09/11/20 16:05: Glucometer 145H 09/11/20 20:42: Glucometer 132H 09/12/20 02:45: White Blood Count 6.0, Red Blood Count 3.02L, Hemoglobin 8.8L, Hematocrit 28L, Mean Corpuscular Volume 93, Mean Corpuscular Hemoglobin 29, Mean Corpuscular Hemoglobin Concent 31L, Red Cell Distribution Width 18.1H, Platelet Count 147, Mean Platelet Volume 8.9L, Sodium Level 138, Potassium Level 4.9, Chloride Level 106, Carbon Dioxide Level 22, Anion Gap 10, Blood Urea Nitrogen 16, Creatinine 1.63H, Estimat Glomerular Filtration Rate 41, BUN/Creatinine Ratio 10, Glucose Level 105, Calcium Level 8.8, Procalcitonin 0.13H 09/12/20 05:30: Glucometer 104 Assessment/Plan Assessment/Plan Assessment/Plan Right rib fractures 3 and 4 Right hemothorax Spigelian hernia Fall from bed and fall from standing Diabetes Right flank hematoma Acute kidney injury Urinary retention Anemia pain control. Continue on Incentive spirometer Continue Tight glucose control Bladder scan and if greater than 400 will straight cath if it needs again we will leave Varghese catheter start Flomax Right flank hematoma symptomatic management. Hold any anticogaulation due to hemorthorax Continue to follow hemoglobin transfuse PRBC if needed. LUCIE MARQUEZ DO 09/12/20 1646: Subjective Subjective/Events-last exam Patient states that his breathing is slightly better today. His oxygen saturation is better with decreasing oxygen demand by nasal cannula. Patient has a Varghese placed due to urinary difficulties. He is using incentive spirometer sparingly. He did have a slight drop in hemoglobin currently 8.8. Patient with no new complaints. Denies any nausea vomiting fever sweats chills shortness of breath or chest pain. Objective Exam General Appearance: No Apparent Distress, WD/WN HEENT: PERRL/EOMI, Normal ENT Inspection Neck: Normal Inspection Respiratory: No Chest Non Tender (Right chest wall tenderness); Other (Shallow breathing) Cardiovascular: Regular Rate, Rhythm, No JVD Gastrointestinal: non tender, soft Neurologic/Psychiatric: Alert, Oriented x3 Skin: Normal Color, Warm/Dry Lymphatic: No Adenopathy Assessment/Plan Assessment/Plan Assessment/Plan Right rib fractures 3 and 4 Right hemothorax Spigelian hernia Fall from bed and fall from standing Diabetes Right flank hematoma Acute kidney injury Urinary retention Anemia pain control Continue on Incentive spirometer, may be get Acapella to try to get him to use his lungs more. Continue Tight glucose control Varghese catheter on Flomax Dr. Martin was consulted. Right flank hematoma symptomatic management. Hold any anticogaulation due to hemorthorax Continue to follow hemoglobin transfuse PRBC if needed. With right hemothorax if this is continue to expand or compromising respiratory system may need VATS. Trying to avoid any surgical intervention and continue with conservative measures. Patient understands. Chest x-ray stable so I do not feel this is worsening at this time. Supervisory-Addendum Brief Verification & Attestation Participated in pt care: history, MDM, physical Personally performed: exam, history, MDM, supervision of care Care discussed with: Medical Student Procedures: n/a Results interpretation: Verified all documentation Verification and Attestation of Medical Student E/M Service A medical student performed and documented this service in my presence. I reviewed and verified all information documented by the medical student and made modifications to such information, when appropriate. I personally performed the physical exam and medical decision making. Lucie Marquez, Sep 12, 2020,16:46 ARELI LIND 5, 2021 06:47 LUCIE MARQUEZ DO Sep 12, 2020 16:46
[2020-09-12 08:00] VITALS: BP 147/99
[2020-09-12] MEDS: RT-ALBUTEROL/IPRATROPIUM 3 ML (DUONEB) VIAL INH SCH ×2 (08:22→21:34)
--- NOTE | 2020-09-12 08:38 | Cardiology Progress Note ---
Subjective Date Seen by Provider: Sep 12, 2020 Time Seen by Provider: 08:36 Subjective/Events-last exam Patient was seen at bedside, still laying down complaining of fatigue, better appetite today. Blood pressure is better Review of Systems General: No Chills, No Night Sweats; Fatigue; No Malaise, No Appetite, No Other HEENT: No Head Aches, No Visual Changes, No Eye Pain, No Ear Pain, No Dysphasia, No Sinus Congestion, No Post Nasal Drip, No Sore Throat, No Other Pulmonary: No Dyspnea, No Cough, No Pleuritic Chest Pain, No Other Cardiovascular: Chest Pain; No: Palpitations, Orthopnea, Paroxysmal Noc. Dyspnea, Edema, Lt Headedness, Other Objective-Cardiology Exam Last Set of Vital Signs Vital Signs 09/10/20 09/12/20 09/12/20 19:41 04:13 08:22 Temp 36.9 Pulse 80 Resp 15 B/P (MAP) 130/77 (94) Pulse Ox 92 O2 Delivery High Flow N/C O2 Flow Rate 5.00 FiO2 21 I&O Intake and Output0 09/12/20 00:00 Intake Total 4280 ml Output Total 2250 ml Balance 2030 ml Intake Oral 1280 ml IV Total 3000 ml Output Urine Total 2250 ml Bladder Scan Volume Amount 488 ml 318 ml 380 ml # Urine Diapers 5 General: Alert, Oriented X3, Cooperative HEENT: Atraumatic, PERRLA Neck: Supple, No JVD, No Thyromegaly Lungs: Clear to Auscultation, Normal Air Movement Heart: Regular Rate, Normal S1, Normal S2, No Murmurs Abdomen: Normal Bowel Sounds, Soft, No Tenderness, No Hepatosplenomegaly, No Masses Extremities: No Clubbing, No Cyanosis, No Edema, Normal Pulses, No Tenderness/Swelling Skin: No Rashes, No Breakdown, No Significant Lesion Neuro: Normal Gait, Normal Speech, Strength at 5/5 X4 Ext, Normal Tone, Sensation Intact Psych/Mental Status: Mental Status NL, Mood NL Results Lab Laboratory Tests 09/11/20 12:45 09/12/20 02:45 A/P-Cardiology Admission Diagnosis Syncope s/p fall, right rib fracture HTN HLP Assessment/Plan S/p fall out of bed resulting in multiple rib fracture, right hemothorax, Dr. Varghese following. Syncope, unknown etiology,occurred later in the day after falling out of bed, blood pressure is better, continue to monitor telemetry, started physical therapy today and evaluate tolerance and response Coronary artery disease, mild to moderate nonobstructive disease per cardiac catheterization 2008, most recent stress test and 2-D echocardiogram February 2016 revealed no ischemia or infarct. Hypertension, controlled, continue to monitor blood pressure/heart rate. Hyperlipidemia, lipid profile was done in December 2019 showing total cholesterol 126, HDL 29, triglyceride 225, LDL 52. Continue to monitor Mild bilateral nonobstructive carotid artery stenosis. Last carotid duplex done in December 2019. Continue to monitor Chronic kidney disease, management per PCP Diabetes mellitus, management per PCP History of prostate cancer, followed by VALERIE Lowry MD Sep 12, 2020 08:38
[2020-09-12] MEDS: DOCUSATE SODIUM 100 MG (COLACE) CAP PO SCH ×2 (08:45→20:18)
[2020-09-12] MEDS: METHOCARBAMOL 500 MG (ROBAXIN) TABLET PO SCH ×3 (08:45→20:20)
[2020-09-12] MEDS: SENNOSIDES 8.6 MG (SENOKOT) TAB PO SCH ×2 (08:45→20:18)
[2020-09-12] MEDS: FINASTERIDE (PROSCAR) 5 MG TAB PO SCH (08:45)
--- NOTE | 2020-09-12 08:53 | Diagnostic Imaging Report ---
INDICATION: Followup hemothorax. TIME OF EXAM: 8:23 AM Correlation is made with prior chest one day earlier. Heart size is normal. Right-sided effusion and infiltrates are stable. Left lung remains clear. No pneumothorax is detected. IMPRESSION: Stable chest since one day earlier. Dictated by: Dictated on workstation # [id number]
[2020-09-12] MEDS: polyethylene glycoL POWDER 17 GM (MIRALAX) PACK PO SCH ×2 (09:57→20:19)
--- NOTE | 2020-09-12 10:11 | Physical Therapy Daily Note ---
PT Daily Note-Current Subjective Patient agrees to PT. Incontinent urine requiring assistance to cleanse. Mental Status Patient Orientation: Person, Time, Situation Attachments: Oxygen, IV Transfers SCALE: Activities may be completed with or without assistive devices. 8-Doloopzqvu-dwvzsrn completes the activity by him/herself with no assistance from a helper. 5-Set-up or Clean-up Assistance-helper sets up or cleans up; patient completes activity. [place] assists only prior to or following the activity. 4-Supervision or Touching Assistance-helper provides verbal cues and/or touching/steadying and/or contact guard assistance as patient completes activity. Assistance may be provided throughout the activity or intermittently. 3-Partial/Moderate Assistance-helper does LESS THAN HALF the effort. [place] lifts, holds or supports trunk or limbs, but provides less than half the effort. 2-Substantial/Maximal Assistance-helper does MORE THAN HALF the effort. [place] lifts or holds trunk or limbs and provides more than half the effort. 1-Bjokhsedh-gxcvku does ALL the effort. Patient does none of the effort to complete the activity. Or, the assistance of 2 or more helpers is required for the patient to complete the activity. If activity was not attempted, code reason: 7-Patient Refused. 9-Not Applicable-not attempted and the patient did not perform the activity before the current illness, exacerbation or injury. 10-Not Attempted due to Environmental Limitations-(lack of equipment, weather restraints, etc.). 88-Not Attempted due to Medical Conditions or Safety Concerns. Lying to Sitting/Side of Bed(Q: 2 Sit to Stand (QC): 4 (SBA) Chair/Lia-cm-Dybvj Xfer(QC): 4 (SBA) Gait Training Does the Patient Walk?: Yes Distance: 10' Walk 10 feet (QC): 4 (SBA) Gait Assistive Device: FWW slow, functional Exercises Supine Ex: Ankle pumps, Quad Set, Heel Slides, Hip abd/add Supine Reps: 12 Seated Therapy Exercises: Long arc quads Seated Reps: 12 Assessment Patient up in chair with needs met. Improved mobility. Continues to require assistance with bed mobility due to rib pain. 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 Coach Goals Custodial Goals PT Custodial Goals Time Frame: Sep 18, 2020 Roll Left & Right (QC): 3 Sit to Lying (QC): 3 Lying-Sitting on Side/Bed(QC): 3 Sit to Stand (QC): 3 Chair/Ehh-lv-Ekale Xfer(QC): 3 Walk 10 feet (QC): 3 Walk 50ft with 2 Turns (QC): 3 PT Plan Treatment/Plan Treatment Plan: Continue Plan of Care Treatment Plan: Bed Mobility, Education, Functional Activity Yuniel, Functional Strength, Gait, Safety, Therapeutic Exercise, Transfers Treatment Duration: Sep 18, 2020 Frequency: 6 times per week Estimated Hrs Per Day: .25 hour per day Patient and/or Family Agrees t: Yes Time/GCodes Time In: 825 Time Out: 848 Total Billed Treatment Time: 23 Total Billed Treatment 1 visit FA 10 min EX 13 min ALESSIO VICENTE PT Sep 12, 2020 10:11
[2020-09-12 12:00] VITALS: BP 141/91
--- NOTE | 2020-09-12 13:50 | Progress Note - Hospitalist ---
LESTER STARR 09/12/20 1350: Subjective HPI/CC On Admission Time Seen by Provider: 08:35 Subjective/Events-last exam Pt reports that he is having trouble urinating and having episodes of incontinence. Pt reports that most of his incontinence is because he can't get out of bed. Says that he is coughing less and that his rib pain is the same as yesterday. Stated that his is having problems with constipation. Review of Systems General: No Chills, No Other (fever) HEENT: No Head Aches Pulmonary: Dyspnea, Cough Gastrointestinal: Constipation Genitourinary: No Dysuria; Incontinence Objective Exam Vital Signs Vital Signs Date Time Temp Pulse Resp B/P (MAP) Pulse Ox O2 Delivery O2 Flow Rate FiO2 09/12/20 09:10 95 High Flow N/C 5.00 09/12/20 08:00 36.9 84 20 147/99 (115) 09/10/20 19:41 21 Capillary Refill : Less Than 3 Seconds General Appearance: WD/WN, Mild Distress Respiratory: No Chest Non Tender (Pain with palpitation on rt 3rd/4th ribs); Wheezing (heard more in upper lung snyder), Other (Not taking full deep breaths. ) Cardiovascular: Regular Rate, Rhythm, No Murmur, Normal Peripheral Pulses Gastrointestinal: Non Tender, Soft Extremity: No Pedal Edema Neurologic/Psychiatric: Alert Results/Procedures Lab Laboratory Tests 09/12/20 02:45 Patient resulted labs reviewed. Imaging: Reviewed Imaging Films, Reviewed Imaging Report Assessment/Plan Assessment and Plan Assess & Plan/Chief Complaint Assessment 1.Rt 3rd/4th rib fracture 2.Rt hemothorax 3. spigelian hernia 4.Urinary retention 5.constipation 6. diabetes Plan Refer to urology for urinary retention. Reinsert tate cath. Continue to monitor for pneumonia. Start Miralax for constipation. Continue other laxitives. FRIEDA GREEN MD 09/12/20 1704: Subjective HPI/CC On Admission Date Seen by Provider: Sep 12, 2020 Assessment/Plan Assessment and Plan Assess & Plan/Chief Complaint No evidence of pneumonia, continue to monitor, antibiotics not indicated at this time. Continue incentive spirometry. Monitor hemoglobin, no plans for surgical intervention of hemothorax. Tate placed. Consult Urology. Continue pain and bowel regimen. Diagnosis/Problems Diagnosis/Problems (1) Fall Status: Acute Qualifiers: Qualified Codes: W19.XXXA - Unspecified fall, initial encounter (2) Rib fractures Status: Acute Qualifiers: Qualified Codes: S22.41XA - Multiple fractures of ribs, right side, initial encounter for closed fracture (3) Hemothorax on right Status: Acute (4) Acute respiratory failure with hypoxia Status: Acute (5) YE (acute kidney injury) Status: Acute (6) Benign prostatic hyperplasia with urinary retention Status: Acute (7) Obesity Status: Chronic Supervisory-Addendum Brief Verification & Attestation Participated in pt care: history, MDM, physical Personally performed: exam, history, MDM, supervision of care Care discussed with: Medical Student Procedures: n/a Results interpretation: Verified all documentation A medical student performed and documented this service in my presence. I reviewed and verified all information documented by the medical student and made modifications to such information, when appropriate. I personally performed the physical exam and medical decision making. LESTER STARR Sep 12, 2020 13:50 FRIEDA GREEN MD Sep 12, 2020 17:04
--- NOTE | 2020-09-12 15:46 | Pulmonary Progress Note ---
Subjective Date Seen by a Provider: Sep 12, 2020 Time Seen by a Provider: 15:41 Subjective/Events-last exam Looks about same, still c/o pain at site of rib Fx, I reviewed CXR which looks about same, still opacity RLL. Hb has been dropping 11 now to 8.8 Patient says breathing is about same Spoke with surgeon Dr Varghese who wants to try to avoid drainage which would probably require a VATS, I agree Sepsis Event Evaluation Height, Weight, BMI Height: 5'7.00" Weight: 212lbs. 0.0oz. 96.847695at; 34.15 BMI Method:Stated Exam Exam Patient acknowledged, consented, and participated in this virtual visit which was conducted using real time audio/video Vital Signs Date Time Temp Pulse Resp B/P (MAP) Pulse Ox O2 Delivery O2 Flow Rate FiO2 09/12/20 13:10 95 High Flow N/C 5.00 09/12/20 12:52 88 09/12/20 12:00 36.8 91 18 141/91 (108) 97 Nasal Cannula 5.00 09/12/20 09:10 95 High Flow N/C 5.00 09/12/20 08:22 92 High Flow N/C 5.00 09/12/20 08:00 36.9 84 20 147/99 (115) 95 Nasal Cannula 5.00 09/12/20 06:48 77 09/12/20 05:35 94 High Flow N/C 3.00 09/12/20 04:13 36.9 80 15 130/77 (94) 92 Nasal Cannula 3.00 09/12/20 01:18 94 High Flow N/C 3.00 09/12/20 01:00 82 09/12/20 00:00 36.9 75 17 143/67 (92) 95 Nasal Cannula 3.00 09/11/20 20:20 94 High Flow N/C 3.00 09/11/20 19:55 94 High Flow N/C 5.00 09/11/20 19:38 37.2 84 21 128/68 (88) 94 Nasal Cannula 4.00 09/11/20 19:00 90 09/11/20 17:37 93 High Flow N/C 3.00 09/11/20 15:48 36.8 87 26 125/79 (94) 98 I & O 09/12/20 07:00 Intake Total 1880 ml Output Total 1675 ml Balance 205 ml Height & Weight Height: 5'7.00" Weight: 212lbs. 0.0oz. 96.102658cv; 34.15 BMI Method:Stated General Appearance: WD/WN, Mild Distress HEENT: PERRL/EOMI, Normal ENT Inspection Neck: Normal Inspection, Supple Respiratory: No Chest Non Tender (Pain with palpitation on rt 3rd/4th ribs); Decreased Breath Sounds (BS on right sound better than yesterday), Wheezing (h eard more in upper lung snyder), Other (Not taking full deep breaths. ) Cardiovascular: Regular Rate, Rhythm, No Murmur, Normal Peripheral Pulses Capillary Refill: Less Than 3 Seconds Gastrointestinal: normal bowel sounds, non tender, soft Extremity: No Pedal Edema Neurologic/Psychiatric: Alert Skin: Normal Color, Warm/Dry Lymphatic: No Adenopathy Results Lab Laboratory Tests 09/11/20 03:52 09/11/20 12:45 09/12/20 02:45 Assessment/Plan Assessment/Plan For now will monitor breathing, SpO2 and Hb, if worsens may need VATS Time spent with patient (mins): 15 RYANN LAWRENCE MD Sep 12, 2020 15:45
[2020-09-12 15:52] VITALS: BP 102/87
--- NOTE | 2020-09-12 17:43 | CONSULTATION REPORT ---
DATE OF SERVICE: 09/12/2020 ATTENDING PHYSICIAN: Dr. Hurley and Dr. Varghese. SUMMARY: After reviewing the patient's record in the office in the hospital, this is an 80-year-old white man known to me for many years, who had cancer of the prostate, treated with brachytherapy in 2012 followed by IMRT. Subsequently, he had symptoms of overactive bladder of the wet kind. It was a contained relatively stable with VESIcare 10 mg and Myrbetriq 50 mg daily. He is being admitted for medical reasons and was found to have a bladder scan postvoid residual of 300. Subsequently, a catheter was inserted and then the patient pulled it out overnight. He voided on his own; however, there is recheck bladder scan and found to be 250, so they put a catheter back again with recovery of 250 mL. The patient was started on Flomax, which he was already on at home, but no anticholinergic that I could see in the chart. IMPRESSION: CA of the prostate post-brachytherapy and external beam radiation with neurogenic bladder, combination of wet overactive bladder and some retention. PLAN: We will probably remove the catheter tomorrow. His amount of retention does not strike me, especially with the medications he is on. We will leave him on the Flomax for now. I told the nursing staff if he pulled his catheter to leave it out. Job ID: [id number] DocumentID: [id number] Dictated Date: 09/12/2020 14:04:04 Case Management Director Date: 09/12/2020 17:42:25 Dictated By: EMILIA LISA MD
[2020-09-12] MEDS: TAMSULOSIN 0.4 MG (FLOMAX) CAP PO SCH (18:17)
[2020-09-12 19:39] VITALS: BP 139/70
[2020-09-13] VITALS: BP 150/88
[2020-09-13] MEDS: LACTATED RINGERS 1,000 ML IV SCH ×2 (00:33→04:16)
[2020-09-13] MEDS: MELATONIN 3 MG TABLET PO PRN (00:34)
[2020-09-13 04:00] VITALS: BP 133/99
[2020-09-13 04:24] LABS: HEMOGLOBIN 9.9 g/dL (13.3-17.7)
[2020-09-13 04:36] LABS: POTASSIUM 4.4 MMOL/L (3.6-5.0)
[2020-09-13 04:38] LABS: CALCIUM 9.7 MG/DL (8.5-10.1)
[2020-09-13 04:42] LABS: CREATININE SERUM 1.53 MG/DL (0.60-1.30)
[2020-09-13] MEDS: inSUlin ASPART (NovoLOG) 1 UNIT/0.01 ML (CHARGE PER UNIT) SC SCH ×2 (05:44→11:44)
[2020-09-13] MEDS: RT-ALBUTEROL/IPRATROPIUM 3 ML (DUONEB) VIAL INH SCH (07:27)
--- NOTE | 2020-09-13 07:28 | Progress Note - Surgery ---
ARELI LIND 09/13/20 0728: Subjective Date Seen by a Provider: Sep 13, 2020 Time Seen by a Provider: 07:23 Subjective/Events-last exam PT continues in hospital. Reports R side rib pain is about the same compared to yesterday. Reports some trouble falling asleep last night. Folly continues in place. Been using IS about 2-3 times per hour. Reports BMs are "not much". Started on Miralax yesterday. Review of Systems General: No Chills, No Night Sweats HEENT: No Head Aches, No Visual Changes Cardiovascular: No: Palpitations Gastrointestinal: No: Nausea, Vomiting, Abdominal Pain Neurological: No: Numbness Objective Exam Vital Signs Date Time Temp Pulse Resp B/P (MAP) Pulse Ox O2 Delivery O2 Flow Rate FiO2 09/13/20 04:00 36.7 96 15 133/99 (110) 95 Nasal Cannula 3.00 09/13/20 01:00 102 09/13/20 00:00 36.5 97 21 150/88 (108) 95 Nasal Cannula 4.00 09/12/20 21:34 98 High Flow N/C 3.30 09/12/20 20:36 95 Nasal Cannula 4.00 09/12/20 20:35 98 High Flow N/C 5.00 09/12/20 19:39 36.4 92 16 139/70 (93) 100 Nasal Cannula 5.00 09/12/20 19:00 98 09/12/20 17:00 95 High Flow N/C 5.00 09/12/20 15:52 36.7 97 20 102/87 (92) 94 Nasal Cannula 5.00 09/12/20 13:10 95 High Flow N/C 5.00 09/12/20 12:52 88 09/12/20 12:00 36.8 91 18 141/91 (108) 97 Nasal Cannula 5.00 09/12/20 09:10 95 High Flow N/C 5.00 09/12/20 08:22 92 High Flow N/C 5.00 09/12/20 08:00 36.9 84 20 147/99 (115) 95 Nasal Cannula 5.00 I & O 09/13/20 07:00 Intake Total 1980 ml Output Total 5200 ml Balance -3220 ml Capillary Refill : Less Than 3 Seconds General Appearance: No Apparent Distress, WD/WN HEENT: PERRL/EOMI, Normal ENT Inspection Neck: Normal Inspection Respiratory: No Chest Non Tender (Right chest wall tenderness); Other (Shallow breathing) Cardiovascular: Regular Rate, Rhythm, No JVD Gastrointestinal: non tender, soft Extremity: No Pedal Edema Neurologic/Psychiatric: Alert, Oriented x3 Skin: Normal Color, Warm/Dry Results Lab Laboratory Tests 09/12/20 11:09: Glucometer 170H 09/12/20 15:55: Glucometer 118H 09/12/20 20:14: Glucometer 149H 09/13/20 04:02: Hemoglobin 9.9L, Hematocrit 31L, Sodium Level 138, Potassium Level 4.4, Chloride Level 101, Carbon Dioxide Level 25, Anion Gap 12, Blood Urea Nitrogen 15, Creatinine 1.53H, Estimat Glomerular Filtration Rate 44, BUN/Creatinine Ratio 10, Glucose Level 156H, Calcium Level 9.7 Assessment/Plan Assessment/Plan Assessment/Plan Right rib fractures 3 and 4 Right hemothorax Spigelian hernia Fall from bed and fall from standing Diabetes Right flank hematoma Acute kidney injury Urinary retention Anemia pain control Continue on Incentive spirometer. Continue Tight glucose control Urology consulted for urinary retention. Right flank hematoma symptomatic management. Hold any anticogaulation due to hemorthorax Continue to follow hemoglobin transfuse PRBC if needed. With right hemothorax if this is continue to expand or compromising respiratory system may need VATS. Trying to avoid any surgical intervention and continue with conservative measures. Try to wean off oxygen, and monitor hgb. Possible discharge to inpatient rehab for medical management and rehabilitation. LUCIE VARGHESE DO 09/13/20 1316: Subjective Subjective/Events-last exam Patient pain controlled. Still in the right upper chest. This is of the location of rib fractures. Patient had Varghese removed today. Hemoglobin stable. Oxygen demands decreasing. Patient Using incentive spirometer minimally. He denies any nausea or vomiting fever sweats chills. Patient tolerating diet. 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 Continue Tight glucose control Urology consulted for urinary retention. Right flank hematoma symptomatic management. Hold any anticogaulation due to hemorthorax Continue to follow hemoglobin transfuse PRBC if needed. With right hemothorax if this is continue to expand or compromising respiratory system may need VATS. Trying to avoid any surgical intervention and continue with conservative measures. Conitnue to wean off oxygen. Possible discharge to inpatient rehab. Supervisory-Addendum Brief Verification & Attestation Participated in pt care: history, MDM, physical Personally performed: exam, history, MDM, supervision of care Care discussed with: Medical Student Procedures: n/a Results interpretation: Verified all documentation Verification and Attestation of Medical Student E/M Service A medical student performed and documented this service in my presence. I reviewed and verified all information documented by the medical student and made modifications to such information, when appropriate. I personally performed the physical exam and medical decision making. Lucie Varghese, Sep 13, 2020,13:16 ARELI LIND Sep 13, 2020 07:28 LUCIE VARGHESE DO Sep 13, 2020 13:16
[2020-09-13 07:39] VITALS: BP 131/84
--- NOTE | 2020-09-13 08:08 | Tele-ICU Progress Note ---
Subjective Date Seen by a Provider: Sep 13, 2020 Time Seen by a Provider: 08:00 Subjective/Events-last exam Patient acknowledged, consented, and participated in this virtual visit which was conducted using real time audio/video. Thank you for asking us to see this patient for respiratory insufficiency and distress. HPC: Recent events:says he is doing better. On 3 lpm NC. Denies underlying lung disease PE: VSS O2 sat 93% on 3 LPM. HEENT: No obvious masses, adenopathy or JVD. Chest: diminished BS. CV: RRR S1 S2 No murmur or added sounds. Abd: Non-tender. Bowel sounds Y. : Unremarkable. Varghese: N . BARTENDER/psychiatric: Alert and oriented, grossly intact. No obvious focal findings. Extremities: No edema. Skin: unremarkable. A/P: Available chart/ vitals / labs / Images reviewed Video assessment done using teleICU camera, rest of exam as per RN Respiratory: Continue present management with NC, BDs. Discussed with SANDY Carpio. Asked RN to reach out to eICU if any questions or concerns later. Time spent with patient/coordination of care with other health professionals (mins):10 Will sign off. Sepsis Event Evaluation Sepsis Stage: Ruled Out Height, Weight, BMI Height: 5'7.00" Weight: 212lbs. 0.0oz. 96.305181eu; 34.15 BMI Method:Stated Focused Exam Sepsis Stage: Ruled Out Exam Exam Patient acknowledged, consented, and participated in this virtual visit which was conducted using real time audio/video Vital Signs Date Time Temp Pulse Resp B/P (MAP) Pulse Ox O2 Delivery O2 Flow Rate FiO2 09/13/20 07:39 36.4 98 16 131/84 (100) 98 Nasal Cannula 3.00 09/13/20 07:27 98 High Flow N/C 3.00 09/13/20 07:00 94 09/13/20 04:00 36.7 96 15 133/99 (110) 95 Nasal Cannula 3.00 09/13/20 01:00 102 09/13/20 00:00 36.5 97 21 150/88 (108) 95 Nasal Cannula 4.00 09/12/20 21:34 98 High Flow N/C 3.30 09/12/20 20:36 95 Nasal Cannula 4.00 09/12/20 20:35 98 High Flow N/C 5.00 09/12/20 19:39 36.4 92 16 139/70 (93) 100 Nasal Cannula 5.00 09/12/20 19:00 98 09/12/20 17:00 95 High Flow N/C 5.00 09/12/20 15:52 36.7 97 20 102/87 (92) 94 Nasal Cannula 5.00 09/12/20 13:10 95 High Flow N/C 5.00 09/12/20 12:52 88 09/12/20 12:00 36.8 91 18 141/91 (108) 97 Nasal Cannula 5.00 09/12/20 09:10 95 High Flow N/C 5.00 09/12/20 08:22 92 High Flow N/C 5.00 I & O0 09/13/20 07:00 Intake Total 1980 ml Output Total 5200 ml Balance -3220 ml Height & Weight Height: 5'7.00" Weight: 212lbs. 0.0oz. 96.907519uh; 34.15 BMI Method:Stated General Appearance: No Apparent Distress, WD/WN HEENT: PERRL/EOMI, Normal ENT Inspection Neck: Normal Inspection Respiratory: No Chest Non Tender (Right chest wall tenderness); Other (Shallow breathing) Cardiovascular: Regular Rate, Rhythm, No JVD Capillary Refill: Less Than 3 Seconds Gastrointestinal: non tender, soft Extremity: No Pedal Edema Neurologic/Psychiatric: Alert, Oriented x3 Skin: Normal Color, Warm/Dry Results Lab Laboratory Tests 09/11/20 12:45 09/12/20 02:45 09/13/20 04:02 Assessment/Plan Assessment/Plan see free text Critical Care: Critically Ill Patient Time spent on discussion(mins): 0 DHEERAJ CARO MD Sep 13, 2020 08:08
--- NOTE | 2020-09-13 08:37 | Progress Note - Urology ---
Progress Note-Urology Progress Notes/Assess & Plan Progress/Assessment & Plan DOING, LOOKING AND FEELING BETTER. URINE CLEAR DC TEAGUE, PLAN PER ORDERS Final Diagnosis RETENTION EMILIA LISA MD Sep 13, 2020 08:37
[2020-09-13] MEDS: FINASTERIDE (PROSCAR) 5 MG TAB PO SCH (09:27)
[2020-09-13] MEDS: polyethylene glycoL POWDER 17 GM (MIRALAX) PACK PO SCH (09:27)
[2020-09-13] MEDS: SENNOSIDES 8.6 MG (SENOKOT) TAB PO SCH (09:27)
[2020-09-13] MEDS: METHOCARBAMOL 500 MG (ROBAXIN) TABLET PO SCH ×2 (09:27→13:13)
[2020-09-13] MEDS: DOCUSATE SODIUM 100 MG (COLACE) CAP PO SCH (09:27)
--- NOTE | 2020-09-13 09:31 | Physical Therapy Daily Note ---
PT Daily Note-Current Subjective Patient agrees to PT. Pain Numeric Pain Scale: 8 Location: Right Location Body Site: Side Pain Description: Stabbing, Acute Mental Status Patient Orientation: Person, Time, Situation Attachments: Oxygen, Varghese Catheter, IV Transfers SCALE: Activities may be completed with or without assistive devices. 7-Mlrnoaliyk-hzigtne completes the activity by him/herself with no assistance from a helper. 5-Set-up or Clean-up Assistance-helper sets up or cleans up; patient completes activity. [place] assists only prior to or following the activity. 4-Supervision or Touching Assistance-helper provides verbal cues and/or touching/steadying and/or contact guard assistance as patient completes activity. Assistance may be provided throughout the activity or intermittently. 3-Partial/Moderate Assistance-helper does LESS THAN HALF the effort. [place] lifts, holds or supports trunk or limbs, but provides less than half the effort. 2-Substantial/Maximal Assistance-helper does MORE THAN HALF the effort. [place] lifts or holds trunk or limbs and provides more than half the effort. 4-Krsytqxok-srafeo does ALL the effort. Patient does none of the effort to complete the activity. Or, the assistance of 2 or more helpers is required for the patient to complete the activity. If activity was not attempted, code reason: 7-Patient Refused. 9-Not Applicable-not attempted and the patient did not perform the activity before the current illness, exacerbation or injury. 10-Not Attempted due to Environmental Limitations-(lack of equipment, weather restraints, etc.). 88-Not Attempted due to Medical Conditions or Safety Concerns. Lying to Sitting/Side of Bed(Q: 2 Sit to Stand (QC): 4 (SBA) Chair/Hcg-dg-Cdzpf Xfer(QC): 4 (SBA) Gait Training Distance: 10' x 2 Walk 10 feet (QC): 4 (SBA) Gait Assistive Device: FWW safe and functional with no deviation Exercises Supine Ex: Ankle pumps, Heel Slides, Straight leg raise, Hip abd/add Supine Reps: 12 (AAROM bilateral LE) Seated Therapy Exercises: Long arc quads Seated Reps: 15 (AROM bilateral LE) Assessment Patient requires time to complete all functional tasks due to right side pain. RN notified. Increase activity as tolerated by patient. PT [employer] Administrator Goals [facility] Goals PT [facility] Goals Time Frame: Sep 18, 2020 Roll Left & Right (QC): 3 Sit to Lying (QC): 3 Lying-Sitting on Side/Bed(QC): 3 Sit to Stand (QC): 3 Chair/Nja-wc-Irigj Xfer(QC): 3 Walk 10 feet (QC): 3 Walk 50ft with 2 Turns (QC): 3 PT Plan Treatment/Plan Treatment Plan: Continue Plan of Care Treatment Plan: Bed Mobility, Education, Functional Activity Yuniel, Functional Strength, Gait, Safety, Therapeutic Exercise, Transfers Treatment Duration: Sep 18, 2020 Frequency: 6 times per week Estimated Hrs Per Day: .25 hour per day Patient and/or Family Agrees t: Yes Time/GCodes Time In: 805 Time Out: 828 Total Billed Treatment Time: 23 Total Billed Treatment 1 visit FA 8 min EX 15 min ALESSIO VICENTE PT Sep 13, 2020 09:31
--- NOTE | 2020-09-13 11:51 | Cardiology Progress Note ---
Subjective Date Seen by Provider: Sep 13, 2020 Time Seen by Provider: 11:50 Subjective/Events-last exam Patient is laying down in bed, lethargic. No new complaint Review of Systems General: No Chills, No Night Sweats, No Fatigue, No Malaise, No Appetite, No Other HEENT: No Head Aches, No Visual Changes, No Eye Pain, No Ear Pain, No Dysphasia, No Sinus Congestion, No Post Nasal Drip, No Sore Throat, No Other Pulmonary: No Dyspnea, No Cough, No Pleuritic Chest Pain, No Other Cardiovascular: No: Chest Pain, Palpitations, Orthopnea, Paroxysmal Noc. Dyspnea, Edema, Lt Headedness, Other Objective-Cardiology Exam Last Set of Vital Signs Vital Signs 09/10/20 09/13/20 09/13/20 19:41 07:39 09:22 Temp 36.4 Pulse 98 Resp 16 B/P (MAP) 131/84 (100) Pulse Ox 98 O2 Delivery High Flow N/C O2 Flow Rate 5.00 FiO2 21 I&O Intake and Output 09/12/20 23:59 Intake Total 1730 ml Output Total 3500 ml Balance -1770 ml Intake Oral 1730 ml Output Urine Total 3500 ml Bladder Scan Volume Amount 325 ml # Urine Diapers 7 General: Alert, Oriented X3, Cooperative HEENT: Atraumatic, PERRLA Neck: Supple, No JVD, No Thyromegaly Lungs: Clear to Auscultation, Normal Air Movement Heart: Regular Rate, Normal S1, Normal S2, No Murmurs Abdomen: Normal Bowel Sounds, Soft, No Tenderness, No Hepatosplenomegaly, No Masses Extremities: No Clubbing, No Cyanosis, No Edema, Normal Pulses, No Tenderness/Swelling Skin: No Rashes, No Breakdown, No Significant Lesion Neuro: Normal Gait, Normal Speech, Strength at 5/5 X4 Ext, Normal Tone, Sensation Intact Psych/Mental Status: Mental Status NL, Mood NL Results Lab Laboratory Tests 09/13/20 04:02 A/P-Cardiology Admission Diagnosis Syncope s/p fall, right rib fracture HTN HLP Assessment/Plan S/p fall out of bed resulting in multiple rib fracture, right hemothorax, Dr. Varghese following. Syncope, unknown etiology, occurred later in the day after falling out of bed, blood pressure is better, continue to monitor telemetry, rehab eval and treat Coronary artery disease, mild to moderate nonobstructive disease per cardiac catheterization 2008, most recent stress test and 2-D echocardiogram February 2016 revealed no ischemia or infarct. Hypertension, controlled, continue to monitor blood pressure/heart rate. Hyperlipidemia, lipid profile was done in December 2019 showing total cholesterol 126, HDL 29, triglyceride 225, LDL 52. Continue to monitor Mild bilateral nonobstructive carotid artery stenosis. Last carotid duplex done in December 2019. Continue to monitor Chronic kidney disease, management per PCP Diabetes mellitus, management per PCP History of prostate cancer, followed by VALERIE Lowry MD Sep 13, 2020 11:51
--- NOTE | 2020-09-13 11:57 | Progress Note ---
LESTER STARR 09/13/20 1157: Subjective Time Seen by a Provider: 08:00 Subjective/Events-last exam Pt reports that his right sided chest pain is improving but it is still painful to take deep breaths. Varghese catheter is still in place. Still having issues with constipation. Reports that he has been using his incentive spirometer Review of Systems General: No Chills, No Other (fever) Pulmonary: Dyspnea, Cough Cardiovascular: No: Chest Pain, Palpitations Gastrointestinal: Constipation; No: Abdominal Pain Neurological: No: Weakness, Numbness Objective Exam Last Set of Vital Signs Vital Signs Date Time Temp Pulse Resp B/P (MAP) Pulse Ox O2 Delivery O2 Flow Rate FiO2 09/13/20 09:22 98 High Flow N/C 5.00 09/13/20 07:39 36.4 98 16 131/84 (100) 09/10/20 19:41 21 Capillary Refill : Less Than 3 Seconds I&O Intake and Output 09/13/20 00:00 Intake Total 1730 ml Output Total 3500 ml Balance -1770 ml Intake Oral 1730 ml Output Urine Total 3500 ml Bladder Scan Volume Amount 325 ml # Urine Diapers 7 General: Alert, Cooperative Lungs: Other (wheezing and rt chest pain w/ palpitation over 3rd/4th ribs) Heart: Regular Rate, No Murmurs Abdomen: Soft, Other (tender in RLQ) Extremities: No Cyanosis, No Edema Results Lab Laboratory Tests 09/12/20 15:55: Glucometer 118H 09/12/20 20:14: Glucometer 149H 09/13/20 04:02: Hemoglobin 9.9L, Hematocrit 31L, Sodium Level 138, Potassium Level 4.4, Chloride Level 101, Carbon Dioxide Level 25, Anion Gap 12, Blood Urea Nitrogen 15, Creatinine 1.53H, Estimat Glomerular Filtration Rate 44, BUN/Creatinine Ratio 10, Glucose Level 156H, Calcium Level 9.7 09/13/20 11:43: Glucometer 120H Assessment/Plan Assessment/Plan Assess & Plan/Chief Complaint 1. FRIEDA GREEN MD 09/13/20 9154: Subjective Date Seen by a Provider: Sep 13, 2020 LESTER STARR Sep 13, 2020 11:57 FRIEDA GREEN MD Sep 13, 2020 17:34
[2020-09-13 12:32] VITALS: BP 129/78
--- NOTE | 2020-09-13 12:34 | Progress Note - Hospitalist ---
LESTER STARR 09/13/20 1234: Subjective HPI/CC On Admission Time Seen by Provider: 08:00 Subjective/Events-last exam Pt reports that his right sided chest pain is improving but it is still painful to take deep breaths. Varghese catheter is still in place. Still having issues with constipation. Reports that he has been using his incentive spirometer. Pt stated that he fell this morning out of his chair but he said that he is doing fine Review of Systems General: No Chills, No Other (fever) Pulmonary: Dyspnea, Cough Cardiovascular: Chest Pain (on right side over 3/4 ribs); No: Palpitations Gastrointestinal: Constipation; No: Abdominal Pain Objective Exam Vital Signs Vital Signs Date Time Temp Pulse Resp B/P (MAP) Pulse Ox O2 Delivery O2 Flow Rate FiO2 09/13/20 12:32 36.7 80 18 129/78 (95) 96 Nasal Cannula 3.00 09/10/20 19:41 21 Capillary Refill : Less Than 3 Seconds General Appearance: WD/WN Respiratory: Wheezing Cardiovascular: Regular Rate, Rhythm, No Murmur Gastrointestinal: Soft, Tenderness (LLQ) Extremity: Normal Inspection, No Pedal Edema Results/Procedures Lab Laboratory Tests 09/13/20 04:02 Patient resulted labs reviewed. Imaging: Reviewed Imaging Films, Reviewed Imaging Report Assessment/Plan Assessment and Plan Assess & Plan/Chief Complaint Assessment 1.Rt 3rd/4th rib fracture 2.Rt hemothorax 3. spigelian hernia 4.Urinary retention 5.constipation 6. diabetes Plan Continue current medications and monitoring FRIEDA GREEN MD 09/13/20 1734: Diagnosis/Problems Diagnosis/Problems (1) Fall Status: Acute Qualifiers: Qualified Codes: W19.XXXA - Unspecified fall, initial encounter (2) Hemothorax on right Status: Acute (3) Rib fractures Status: Acute Qualifiers: Qualified Codes: S22.41XA - Multiple fractures of ribs, right side, initial encounter for closed fracture Supervisory-Addendum Brief Verification & Attestation Participated in pt care: history, MDM, physical Personally performed: exam, history, MDM, supervision of care Care discussed with: Medical Student Procedures: n/a Results interpretation: Verified all documentation A medical student performed and documented this service in my presence. I reviewed and verified all information documented by the medical student and made modifications to such information, when appropriate. I personally performed the physical exam and medical decision making. LESTER STARR Sep 13, 2020 12:34 FRIEDA GREEN MD Sep 13, 2020 17:34
--- NOTE | 2020-09-13 13:09 | Discharge Inst-Simple/Standard ---
Discharge Inst-Standard Patient Instructions/Follow Up Plan of Care/Instructions/FU: Patient being discharged to IRF. Activity as Tolerated: Yes Discharge Diet: Regular Diet LUCIE MARQUEZ DO Sep 13, 2020 13:09
--- NOTE | 2020-09-13 14:05 | Physician Query Clarification ---
Physician Query-General Query to Physician: The medical record reflects the following clinical scenario: The patient, in the setting of History/Risk factors, Fall with Rib Fx, Hemothorax and advanced age Clinical Findings within 24 hours of admission RR 20 - 26, 02 sat 90% on RA, (P/F = 250 ) and 92% on 3L (P/F=203), Course lung sounds, IS ability "poor" at only 500 MLS, Treatment Breathing Rx, Supplemental 02 up to 6L, IS X 10 hourly, Hydrocodone Question: Do you agree with the impression of Acute Respiratory Failure with Hypoxia per Dr. Sridhar Hurley? 1. Yes; will document Acute Hypoxic Respiratory Failure, (impending on admission) in the Progress Notes 2. No; will continue current documentation in the Progress Notes 3. Other; will document explanation of clinical findings 4. Clinically undetermined; no explanation for clinical findings Please clarify and document your clinical opinion in the Progress Notes and Discharge Summary including the definitive and/or presumptive diagnosis, (suspected or probable), related to the above clinical findings. Please include clinical findings supporting your diagnosis. In responding to this query, please exercise your independent professional judgment. The purpose of this communication is to more accurately reflect the complexity of your patients condition. The fact that a question is asked does not imply that any particular answer is desired or expected. Please remember a lack of response to the above will prompt a phone page by CDI/coding staff Thank you for timely response to this clarification. Jennifer Sims MSN, RN Clinical [employer] Supervisor [phone] [email or web address] PHYSICIAN RESPONSE: Based on the clinical findings in the record, please respond to the query above on this document as an addendum. Physician Response: Physician Response Paitent with acute respiratory failure with hypoxia If you have questions please contact: Packager Hand: Ext: Thank you for your time and cooperation. Clinical [employer] Supervisor/Packager Hand This is a permanent part of the medical record JENNIFER SIMS Sep 13, 2020 14:05 LUCIE MARQUEZ DO Sep 29, 2020 20:13
--- NOTE | 2020-09-23 00:40 | Physician Query Clarification ---
PQ-Uncertain Diagnosis Admission/Discharge Admission Date: Sep 11, 2020 at 10:29 Discharge Date: Sep 13, 2020 at 13:57 LUCIE Gallardo DO The medical record reflects the following clinical scenario: History/Risk Factors:80 y/o male patient fell with multiple rib fractures and right hemothorax, acute hypoxic respiratory failure was documented in progress notes, 09/12 only. Clinical Findings: RR 20 - 26, 02 sat 90% on RA, (P/F = 250 ) and 92% on 3L (P/F=203), course lung sounds, IS ability "poor" at only 500 MLS. Treatment: Breathing Rx, supplemental 02 up to 6L, IS X 10 hourly, Hydrocodone. Question: Is Acute hypoxic respiratory failure a clinically valid diagnosis? Acute hypoxic respiratory failure was documented in the progress notes, 09/12 with no further documentation in the medical record. Please document a response in Progress Note or Discharge Summary. 1. Yes, clinically valid, condition resolved. 2. No, condition ruled out. 3. Other, with explanation of clinical findings. 4. Undetermined, no explanation for clinical findings. PHYSICIAN RESPONSE Diagnosis clinically valid: Yes, Conditon resolved Please remember a lack of response to the above will prompt a phone page by CDI/Coding staff. In responding to this query, please exercise your independent professional judgment. The purpose of this communication is to more accurately reflect the complexity of your patients condition. The fact that a question is asked does not imply that any particular answer is desired or expected. Thank you for your timely response to this clarification. Requestors name: [ ] Phone # [ ] THIS PHYSICIAN QUERY FORM IS A PERMANENT PART OF THE MEDICAL RECORD RENÉ TREJO Sep 23, 2020 00:40 LUCIE MARQUEZ DO Sep 29, 2020 20:17
[2020-09-24] MEDS ORDERED: ACHD5005 PO (06:25)
[2020-09-24] MEDS ORDERED: IPRA3AMP31 INH (06:25)
[2020-09-24] MEDS ORDERED: ACET325T49 PO (06:25)
[2020-09-24] MEDS ORDERED: GLIM4TAB5 PO (06:25)
== END 2020-09-13 13:57 | DRG 199 ==
LOC: EDUNIT# 13:40 → ER 13:44 → CSD 15:15 → OBSVTOIN 09-11 10:29
PROVIDERS: ADMIT Surgery; ATTEND Surgery
DX: S27.1XXA Traumatic hemothorax, initial encounter (principal); J96.01 Acute respiratory failure with hypoxia; S22.41XA Multiple fractures of ribs, right side, initial encounter for closed fracture; N17.9 Acute kidney failure, unspecified; E78.00 Pure hypercholesterolemia, unspecified; W06.XXXA Fall from bed, initial encounter; Z20.822 Contact with and (suspected) exposure to COVID-19; N40.1 Benign prostatic hyperplasia with lower urinary tract symptoms; R33.8 Other retention of urine; E66.9 Obesity, unspecified; K59.00 Constipation, unspecified; K43.9 Ventral hernia without obstruction or gangrene; C61 Malignant neoplasm of prostate; N32.81 Overactive bladder; N31.9 Neuromuscular dysfunction of bladder, unspecified; D64.9 Anemia, unspecified; S30.1XXA Contusion of abdominal wall, initial encounter; I25.10 Atherosclerotic heart disease of native coronary artery without angina pectoris; I12.9 Hypertensive chronic kidney disease with stage 1 through stage 4 chronic kidney disease, or unspecified chronic kidney disease; E11.22 Type 2 diabetes mellitus with diabetic chronic kidney disease; N18.9 Chronic kidney disease, unspecified; I65.23 Occlusion and stenosis of bilateral carotid arteries; Y92.009 Unspecified place in unspecified non-institutional (private) residence as the place of occurrence of the external cause; Z79.82 Long term (current) use of aspirin; Z79.84 Long term (current) use of oral hypoglycemic drugs; Z79.899 Other long term (current) drug therapy
CPT/HCPCS: 36415; 70450; 71045; 71250; 72125; 74176; 80048; 80053; 80320; 82947; 83036; 83880; 84145; 84484; 85014; 85018; 85025; 85027; 85610; 85730; 86141; 87636; 93005; 94640; 94664; 94760; 96361; 96374

== ENCOUNTER 2020-09-13 13:04 | Inpatient (IN) | payer MEDICARE ==
[~2020-09-13] VITALS: Ht 167.7 cm; Wt 97.2 kg
[~2020-09-13 13:04] MED LIST changes: +APIX5TAB PO; +ASPI-1238 PO; +ATOR20TA66 PO; +DUTA0.5C36 PO; +FENO145T26 PO; +GLIM4TAB5 PO; +METF-397 PO; +METH-336 PO; +MIRA25TA PO; +MTP25TSR PO; +NIAC100045 PO; +OMEG-218 PO; +OMEP20TA7 PO; +RAMI5CAP65 PO
[2020-09-13] MEDS ORDERED: guaiFENesin/CODEINE (ROBITUSSIN AC) 10ML UDC PO PRN (13:30)
[2020-09-13] MEDS ORDERED: LACTULOSE SYRUP 10GM/15ML (ENULOSE) 30ML UDC PO PRN (13:30)
[2020-09-13] MEDS ORDERED: diphenhydrAMINE 25 MG TAB (BENADRYL) PO PRN (13:30)
[2020-09-13] MEDS ORDERED: DOCUSATE SODIUM 100 MG (COLACE) CAP PO PRN (13:30)
[2020-09-13] MEDS ORDERED: ONDANSETRON 4 MG (ZOFRAN) ORAL DISSOLVE TAB PO PRN (13:30)
[2020-09-13] MEDS ORDERED: MELATONIN 3 MG TABLET PO PRN (13:30)
[2020-09-13] MEDS ORDERED: LOPERAMIDE 2 MG (IMODIUM) TABLET PO PRN (13:30)
[2020-09-13] MEDS ORDERED: BISACODYL 10 MG SUPP (DULCOLAX) PR PRN ×2 (13:30→14:15)
[2020-09-13] MEDS ORDERED: CALCIUM CARBONATE 500 MG (TUMS) TAB.CHEW PO PRN (13:30)
[2020-09-13] MEDS ORDERED: FLEET ENEMA ADULT 1 EA BTL PR PRN (13:30)
[2020-09-13] MEDS ORDERED: ONDANSETRON 4 MG/2 ML (SDV) Z0FRAN IVP PRN (14:15)
[2020-09-13] MEDS ORDERED: ANTACID SUSP 30 ML UDC (MYLANTA) PO PRN (14:15)
[2020-09-13] MEDS ORDERED: ACETAMINOPHEN 325 MG TABLET PO PRN (14:15)
--- NOTE | 2020-09-13 14:27 | PM&R Post Admission Assessment ---
PM&R Date of Visit: Sep 13, 2020 Time of Visit: 14:30 History of Present Illness Chief complaint: Recovery from trauma History of present illness: This is an 80-year-old clinic patient of Dr. Cooper who has a past medical history of chronic kidney disease and hypertension who presented to inpatient rehab following a hospital course the last 2 days after suffering a fall at the laundromat on [facility] and was found to have mu ltiple right rib fractures and right flank soft tissue hematoma. Trauma service admitted him and supportive care ensued. Patient was found to have tachycardia prompting cardiology consultation. Prior level of functioning was ambulating without assistive devices. Patient appears to have poor hygiene and disheveled. Patient will need aggressive therapy in order to return to independent living. Past Wiaarir-Mzfbzn-Fsbbhu Hx Past Med/Social Hx: Reviewed Nursing Past Med/Soc Hx, Reviewed and Corrections made Patient Social History Marrital Status: Employed/Student: retired (44 years at [employer] in [place] department) Alcohol Use: Denies Use Recreational Drug Use: No Immunizations Up To Date Tetanus Booster (TDap): More than 5yrs Date of Influenza Vaccine: Nov 08, 2013 Past Medical History Cardiac: High Cholesterol, Hypertension Reproductive: No Sexually Transmitted Disease: No Genitourinary: Prostate Problems Endocrine: Diabetes, Non-Insulin dep Family History No Pertinent Family Hx PM&R Allergy/Meds/Data Review Allergies Coded Allergies: No Known Drug Allergies (Verified , 08/28/15) Home Medications Scheduled Apixaban (Eliquis), 5 MG PO BID, (Reported) Aspirin (Aspirin EC), 81 MG PO 1800, (Reported) Atorvastatin Calcium (Atorvastatin Calcium), 20 MG PO 1800, (Reported) Dutasteride (Dutasteride), 0.5 MG PO DAILY, (Reported) Fenofibrate Nanocrystallized (Fenofibrate), 145 MG PO 1800, (Reported) Glimepiride (Glimepiride), 4 MG PO DAILY, (Reported) Metformin HCl (Metformin HCl), 500 MG PO BID, (Reported) Methylcellulose (Fiber), 1,000 MG PO 1800, (Reported) Metoprolol Succinate (Metoprolol Succinate), 25 MG PO DAILY, (Reported) Mirabegron (Myrbetriq), 50 MG PO DAILY, (Reported) Niacin (Niacin ER), 1,000 MG PO 1800, (Reported) Rock[place]-3 Acid Ethyl Esters (Rock[place]-3 Acid Ethyl Esters), 2 MG PO BID, (Reported) Omeprazole (Omeprazole), 20 MG PO DAILY, (Reported) Ramipril (Ramipril), 5 MG PO DAILY, (Reported) Tamsulosin HCl (Flomax), 0.4 MG PO DAILY, (Reported) Discontinued Medications Aspirin (Aspirin Ec 81 Mg), 81 MG PO DAILY, (Reported) Discontinued Reason: No Longer Taking Atorvastatin (Lipitor 20MG), 20 MG PO EVERY OTHER DAY, (Reported) Discontinued Reason: No Longer Taking Dutasteride (Avodart), 0.5 MG PO DAILY, (Reported) Discontinued Reason: No Longer Taking Fenofibrate,Micronized (Tricor), 1 TAB PO DAILY, (Reported) Discontinued Reason: No Longer Taking Glimepiride (Amaryl), 4 MG PO DAILY, (Reported) Discontinued Reason: No Longer Taking Metformin Hcl (Metformin 500 Mg), 1 TAB PO BID, (Reported) Discontinued Reason: No Longer Taking Niacin (Niaspan), 1,000 MG PO DAILY, (Reported) Discontinued Reason: No Longer Taking Rock[place]-3 Acid Ethyl Esters (Lovaza), 2 EACH PO BID WITH MEALS, (Reported) Discontinued Reason: No Longer Taking Omeprazole Magnesium (Omeprazole Magnesium), 20 MG PO DAILY, (Reported) Discontinued Reason: No Longer Taking Ramipril (Altace), 5 MG PO DAILY, (Reported) Discontinued Reason: No Longer Taking Solifenacin Succinate (Vesicare), 10 MG PO DAILY, (Reported) Discontinued Reason: No Longer Taking Tamsulosin Hcl (Flomax), 0.4 MG PO DAILY, (Reported) Discontinued Reason: No Longer Taking Tramadol HCl (Tramadol HCl), 50 MG PO PRN, (Reported) Discontinued Reason: No Longer Taking Current Medications Current Medications Reviewed Review of Systems Constitutional: see HPI, dizziness, malaise, weakness EENTM: no symptoms reported Respiratory: dyspnea on exertion Cardiovascular: no symptoms reported Gastrointestinal: no symptoms reported Musculoskeletal: no symptoms reported Skin: no symptoms reported Psychiatric/Neurological: Depressed All Other Systems Reviewed Negative Unless Noted: Yes Physical Exam Physical Exam Vital Signs Capillary Refill : Height, Weight, BMI Height: 5'7.00" Weight: 212lbs. 0.0oz. [id number]; 34.15 BMI Method:Stated General Appearance: No Apparent Distress, WD/WN, Chronically ill, Obese Eyes: Bilateral Eye Normal Inspection, Bilateral Eye PERRL HEENT: PERRL/EOMI, Normal ENT Inspection, Pharynx Normal Neck: Full Range of Motion, Normal Inspection, Non Tender, Supple, Carotid Bruit Respiratory: Chest Non Tender, Lungs Clear, Normal Breath Sounds, No Accessory Muscle Use, No Respiratory Distress Cardiovascular: Regular Rate, Rhythm, No Edema, No Gallop, No JVD, No Murmur, Normal Peripheral Pulses Gastrointestinal: Normal Bowel Sounds, No Organomegaly, No Pulsatile Mass, Non Tender, Soft Back: Normal Inspection, No CVA Tenderness, No Vertebral Tenderness Extremity: Normal Capillary Refill, Normal Inspection, Normal Range of Motion, Non Tender, No Calf Tenderness, No Pedal Edema Neurologic/Psychiatric: Alert, Oriented x3, No Motor/Sensory Deficits, Abnormal Gait, Depressed Affect, Motor Weakness (Generalized) Skin: Normal Color, Warm/Dry, Ecchymosis (Right flank) Lymphatic: No Adenopathy PM&R Medical Assessment & Plan REHAB/MEDICAL ASSESSMENT AND PLAN: REHAB IMPAIRMENT GROUP: Trauma ETIOLOGIC DIAGNOSIS: Trauma The comorbidities that impact the patients function and/or functional outcome by: Lives alone, advanced age, fall risk, rib fractures REHAB PLAN: The patient is being admitted to our comprehensive inpatient rehabilitation fac [facility] and can tolerate the intensity of service consisting of at least: 180 minutes of therapy a day, 5 out of 7 days a week Rehab treatment will consist of: PT and OT will focus on regaining independent ADLs and ambulation with risk of fall prevention focus The patient/family has a good understanding of our discharge process and will benefit from an interdisciplinary inpatient rehabilitation program. The patient has potential to make improvement and is in need of at least two of the following multidisciplinary therapies including but not limited to physical, occupational, speech, and prosthetics and orthotics. Additionally the patient will need services from respiratory, nutritional services, wound care, psychology, etc. (Customize this to each patient). Given the patients complex condition and risk of further medical complications, rehabilitation services cannot be safely or effectively provided at a lower level of care such as a nursing home facility. BARRIERS TO DISCHARGE: Advanced age and lives alone ESTIMATED LOS: 7 days DISPOSITION: Home RELEVANT CHANGES SINCE PREADMISSION SCREENING: I have compared the patients medical and functional status at the time of the preadmission screening and there are: No changes PROGNOSIS: Fair REHABILITATION GOALS: 1. PT and OT will focus on regaining independent ADLs and ambulation with risk of fall prevention focus All the above goals were reviewed with the patient and he/she is in agreement. By signing this document, I acknowledge that I have personally performed a full physical examination on this patient within 24 hours of admission to this [facility] rehabilitation facility and have determined the patient to be able to tolerate the above course of treatment at an intensive level for a reasonable period of time. I will be completing a detailed individualized Plan of Care for this patient by day #4 of the patients stay based upon the Preadmission Screen, the Post-Admission Evaluation, and the therapy evaluations. Admission Dx/Comorbidities: (1) Debility ICD Codes: R53.81 - Other malaise (2) Hemothorax on right Status: Acute ICD Codes: J94.2 - Hemothorax (3) Fall Status: Acute ICD Codes: W19.XXXA - Unspecified fall, initial encounter (4) Rib fractures Status: Acute ICD Codes: S22.49XA - Multiple fractures of ribs, unspecified side, initial encounter for closed fracture (5) YE (acute kidney injury) Status: Acute ICD Codes: N17.9 - Acute kidney failure, unspecified (6) Obesity Status: Chronic ICD Codes: E66.9 - Obesity, unspecified (7) Acute respiratory failure with hypoxia Status: Acute ICD Codes: J96.01 - Acute respiratory failure with hypoxia (8) Benign prostatic hyperplasia with urinary retention Status: Acute ICD Codes: N40.1 - Benign prostatic hyperplasia with lower urinary tract symptoms; R33.8 - Other retention of urine Assessment/Plan Assessment and Plan Assess & Plan/Chief Complaint Assessment: Status post fall with right sided multiple rib fractures and right flank hematoma Acute blood loss anemia Chronic kidney disease BPH Diabetes Obesity Poor social situation Advanced age Plan: Aggressive therapy Supportive care Pain control LINO HEATH DO Sep 13, 2020 14:27
--- NOTE | 2020-09-13 15:02 | Physical Therapy Evaluation ---
PT Evaluation-General Medical Diagnosis Admission Date Sep 13, 2020 at 13:40 Medical Diagnosis: multiple rib fracture, right hemothorax Onset Date: Sep 10, 2020 Therapy Diagnosis Therapy Diagnosis: impaired mobility, strength, endurance Height/Weight Height (Feet): 5 Height (Inches): 7.00 Weight (Pounds): 212 Weight (Ounces): 0.0 Precautions Precautions/Isolations: Fall Prevention, Standard Precautions Referral Physician: Adriana Mcguire Reason for Referral: Evaluation/Treatment Medical History Pertinent Medical History: DM, HTN Social History Home: Multilevel Current Living Status: Friend Entry Into Home: Stairs With Railing PT Steps Into Home: 10 Prior Prior Level of Function SCALE: Activities may be completed with or without assistive devices. 1-Xzsbjlbnyh-amgvxla completes the activity by him/herself with no assistance from a helper. 5-Set-up or Clean-up Assistance-helper sets up or cleans up; patient completes activity. [place] assists only prior to or following the activity. 4-Supervision or Touching Assistance-helper provides verbal cues and/or touching/steadying and/or contact guard assistance as patient completes activity. Assistance may be provided throughout the activity or intermittently. 3-Partial/Moderate Assistance-helper does LESS THAN HALF the effort. [place] lifts, holds or supports trunk or limbs, but provides less than half the effort. 2-Substantial/Maximal Assistance-helper does MORE THAN HALF the effort. [place] lifts or holds trunk or limbs and provides more than half the effort. 5-Ldvrviiux-ikmntr does ALL the effort. Patient does none of the effort to complete the activity. Or, the assistance of 2 or more helpers is required for the patient to complete the activity. If activity was not attempted, code reason: 7-Patient Refused. 9-Not Applicable-not attempted and the patient did not perform the activity before the current illness, exacerbation or injury. 10-Not Attempted due to Environmental Limitations-(lack of equipment, weather restraints, etc.). 88-Not Attempted due to Medical Conditions or Safety Concerns. Bed Mobility: 6 Transfers (B,C,W/C): 6 Gait: 6 Stairs: 6 Indoor Mobility (Ambulation): Independent Stairs: Independent PT Evaluation-Current Subjective Patient in bed pre tx, agrees to PT, has 4/10 pain in right side ribs that increases with activity. Will be co-treating with OT due to poor patient mobility, strength, endurance, severe pain with activity, coordinate UE and LE during activity, safety and reduce risk of falls. Pt/Family Goals to be independent at home. Objective Patient Orientation: Person, Place, Situation Attachments: Oxygen ROM/Strength ROM Lower Extremities WNL Strength Lower Extremities NT because MMT causes rib pain per patient Sensory Vision: Wears Glasses Hearing: Functional Sensation Right Lower Extremit: Intact Sensation Left Lower Extremity: Intact Transfers Roll Left & Right (QC): 2 Sit to Lying (QC): 2 Lying to Sitting/Side of Bed(Q: 2 Sit to Stand (QC): 4 Chair/Lwx-mt-Nbmlh Xfer(QC): 4 Toilet Transfer (QC): 4 Car Transfer (QC): 3 Patient performs bed mobility and supine <-> sit with max assist, sit <-> stand and transfers CGA, car transfer mod assist. Patient often needs cues for hand placement and safety, often needs detailed cues for positioning. Patient also performed bathing and dressing and ADL's with PT working with standing and positioning and safety during those activities. And stood in the parallel bars for ring activity for UE ROM and trunk stretching. Gait Does the Patient Walk?: Yes Mode of Locomotion: Walk Anticipated Mode of Locomotion: Walk Walk 10 feet (QC): 4 Walk 50 ft with 2 Turns(QC): 4 Walk 150 ft (QC): 4 Walking 10ft/uneven surface-QC: 4 Distance: 150'x2 Gait Assistive Device: FWW Comments/Gait Description Patient can ambulate 150' with a rolling walker with CGA (including 50' with at least 2 turns of 90 degrees and 10' over an uneven surface). He needs many cues on the correct use of a walker and correct positioning and safety. Wheelchair Training Does the Pt Use a Wheelchair?: No Wheel 50 ft with 2 turns (QC): 9 Wheel 150 ft (QC): 9 Stairs #of Steps: 1 1 Step (curb) (QC): 4 4 Steps (QC): 88 12 Steps (QC): 88 Walking Assistive Device: Walker Patient can go up and down 1 step using a rolling walker with CGA and cues for step placement. Balance Sitting Static: Normal Sitting Dynamic: Normal Standing Static: Good Standing Dynamic: Fair Picking up an Object (QC): 88 Treatment PT worked on bed mobility and transfers, ambulation, stairs, standing and safety during bathing and dressing and ADL's, standing and balance during ring activity, OT worked on bathing, dressing, ADL's, ring activity, UE positioning and safety during activity. Assessment/Needs Patient in recliner post tx with nurse call, phone, tray, chair alarm on. Patient has impaired mobility, strength, endurance, balance. He needs max assist for bed mobility and supine <-> sit but CGA with transfers and ambulation. Rehab Potential: Fair PT Short Term Goals Short Term Goals Time Frame: Sep 20, 2020 Roll Left & Right: 3 Sit to lyin Lying to sitting on side of be: 3 Sit to stand: 4 (SBA) Chair/jpq-pa-apqss transfer: 4 (SBA) Walk 10 feet: 4 (SBA) Walk 50 feet with two turns: 4 (SBA) Walk 150 feet: 4 (SBA) PT Machine Shorthand Reporter Goals Fdc Goals PT Fdc Goals Time Frame: Oct 04, 2020 Roll Left & Right (QC): 4 Sit to Lying (QC): 4 Lying-Sitting on Side/Bed(QC): 4 Sit to Stand (QC): 5 Chair/Htb-lg-Epnfn Xfer(QC): 5 Toilet Transfer (QC): 5 Car Transfer (QC): 5 Does the Patient Walk: Yes Walk 10 feet (QC): 5 Walk 50ft with 2 Turns (QC): 5 Walk 150 ft (QC): 5 Walking 10ft on Uneven Surface: 5 1 Step (curb) (QC): 5 4 Steps (QC): 5 12 Steps (QC): 5 Picking up an Object (QC): 4 Wheel 50 feet with 2 turns (QC: 9 Wheel 150 feet: 9 PT Plan Problem List Problem List: Activity Tolerance, Functional Strength, Safety, Balance, Gait, Transfer, Bed Mobility, ROM Treatment/Plan Treatment Plan: Continue Plan of Care Treatment Plan: Bed Mobility, Education, Functional Activity Yuniel, Functional Strength, Group Therapy, Gait, Safety, Therapeutic Exercise, Transfers Treatment Duration: Oct 04, 2020 Frequency: At least 5 of 7 days/Wk (IRF) Estimated Hrs Per Day: 1.5 hours per day Patient and/or Family Agrees t: Yes Safety Risks/Education Patient Education: Gait Training, Transfer Techniques, Steps, Correct Positioning, Safety Issues Teaching Recipient: Patient Teaching Methods: Demonstration, Discussion Response to Teaching: Reinforcement Needed Discharge Recommendations Plan Patient will perform bed mobility and transfer training, balance and endurance training, functional strengthening, stair training, gait training, and education, to improve functional mobility and independence at home. Therapy Discharge Recommendati: Scheduled Assistance, Home & Family, Post Acute PT Time/GCodes Time In: 1325 Time Out: 1505 Total Billed Treatment Time: 90 Total Billed Treatment 1 visit EVM 10' EX 15' FA 65' PT eval from [id number], OT eval from [id number], co-treat from [id number] MANJIT SALDAÑA PT Sep 13, 2020 15:02
--- NOTE | 2020-09-13 15:07 | Occupational Therapy Eval ---
OT Evaluation-General/PLF Medical Diagnosis Admission Date Sep 13, 2020 at 13:40 Medical Diagnosis: debility Onset Date: Sep 11, 2020 Therapy Diagnosis Therapy Diagnosis: decreased ADL status, weakness Height/Weight Height (Feet): 5 Height (Inches): 7.00 Weight (Pounds): 212 Weight (Ounces): 0.0 Precautions Precautions/Isolations: Fall Prevention, Standard Precautions Referral Physician: Shayla Referral Reason: Evaluation/Treatment Medical History Pertinent Medical History: DM, HTN Current History Fall out of bed with multiple R rib fx (3rd & 4th ribs) with hemothorax Social History Home: [facility] Current Living Status: Alone Entry Into Home: Stairs With Railing Steps Into Home: 8 Pt's bedroom upstairs, pt indicates he can stay on 1st floor if needed. (bathroom and place to sleep on 1st floor) ADL-Prior Level of Function SCALE: Activities may be completed with or without assistive devices. 1-Exaozqrpks-sefdxre completes the activity by him/herself with no assistance from a helper. 5-Set-up or Clean-up Assistance-helper sets up or cleans up; patient completes activity. [place] assists only prior to or following the activity. 4-Supervision or Touching Assistance-helper provides verbal cues and/or touching/steadying and/or contact guard assistance as patient completes activity. Assistance may be provided throughout the activity or intermittently. 3-Partial/Moderate Assistance-helper does LESS THAN HALF the effort. [place] lifts, holds or supports trunk or limbs, but provides less than half the effort. 2-Substantial/Maximal Assistance-helper does MORE THAN HALF the effort. [place] lifts or holds trunk or limbs and provides more than half the effort. 6-Zdsmmewrd-jposlq does ALL the effort. Patient does none of the effort to complete the activity. Or, the assistance of 2 or more helpers is required for the patient to complete the activity. If activity was not attempted, code reason: 7-Patient Refused. 9-Not Applicable-not attempted and the patient did not perform the activity before the current illness, exacerbation or injury. 10-Not Attempted due to Environmental Limitations-(lack of equipment, weather restraints, etc.). 88-Not Attempted due to Medical Conditions or Safety Concerns. ADL PLOF Comments Pt indicates IND with ADLs and functional mobility at PLOF, occasionally uses cane. He indicates he is able to shower, dress, and toilet himself. Upon further discussion, pt revealed he showers at the [facility], and may just use the pool vs taking an actual shower with soap. OT asked pt if he was able to wash his feet prior, he was unable to but did not have any assistance with task. When asked if he has a shower or bathtub at home, he indicates neither. Self Care: Independent Functional Cognition: Independent OT Current Status Subjective Pt agreeable to OT evaluation then OT/PT cotreat. Reports rib pain especially with cough, 05/18 Mental Status/Objective Patient Orientation: Person, Place, Situation Attachments: Oxygen Current Glasses/Contacts: Yes Dentures/Partials: Yes (partial) Hand Dominance: Left Upper Extremity ROM BUE shoulder flexion to approx 100 degrees, pt limited by pain Upper Extremity Coordination WFL Upper Extremity Sensation WFL Upper Extremity Strength grossly 3+/5, not formally tested due to rib fx. ADL-Treatment Eating (QC): 5 (assist with opening milk contianer) Oral Hygiene (QC): 4 (CGA standing at sink) Shower/Bathe Self (QC): 3 (Assist washing BLE lower legs/feet & buttocks. Verbal cues in order to wash all parts.) Upper Body Dressing (QC): 5 (set up) Lower Body Dressing (QC): 2 (Assist threading BLEs into pants/underwear, pt able to perform pant hike) On/Off Footwear (QC): 3 (Pt able to doff gripper socks, assist to don) Toileting Hygiene (QC): 3 (Assist with hygiene) Other Treatments OT evaluation complete. OT/PT cotreat due to skill of 2 clinicians required which a director of rehabilitation and wellness could not perform in order to coordinate UE/LEs, and due to pt's limitations in pain, activity tolerance, mobility. OT focused on UE placement, ADLs, and cues for sequencing and safety, PT focused on LE placement, gross overall movement, and transfers/mobility. Pt performed functional transfers including bed mobility, uneven surface, car transfer, step, and sit to stand. Pt then used FWW to his room, completing ADLs as outlined above. Pt used FWW to return to therapy gym, in order to increase BUE ROM, and activity tolerance, pt completed ring arc x2 sets BUEs. Pt returned to room to recliner. Post tx, pt seated in recliner, call light in reach and all needs met. supine <-> sit max A, sit <-> stand CGA, car transfer mod A. Pt required cues for hand placement and safety with detailed cues for positioning. Education OT Patient Education: Correct positioning, Energy conservation, Exercise program, Modified ADL techniques, Progress toward Goal/Update tx plan, Purpose of tx/functional activities, Rehab process Teaching Recipient: Patient Response to Teaching: Verbalize Understanding OT Short Term Goals Short Term Goals Time Frame: Sep 20, 2020 Toileting hygiene: 4 Shower/bathe self: 4 Lower body dressin Putting on/taking off footwear: 4 OT [place] Operator Goals [facility]sp Goals Time Frame: Oct 04, 2020 Eating (QC): 6 Oral Hygiene (QC): 6 Toileting Hygiene (QC): 6 Shower/Bathe Self (QC): 6 Upper Body Dressing (QC): 6 Lower Body Dressing (QC): 6 On/Off Footwear (QC): 6 Additional Goals: 1-Demonstrate ADL Tasks, 2-Verbalize Understanding, 3- ImproveStrength/Yuniel 1=Demonstrate adherence to instructed precautions during ADL tasks. 2=Patient will verbalize/demonstrate understanding of assistive devices/modif ications for ADL. 3=Patient will improve strength/tolerance for activity to enable patient to perform ADL's. OT Education/Plan Problem List/Assessment Assessment: Decreased Activ Tolerance, Decreased Safety Aware, Decreased UE Strength, Impaired Funct Balance, Impaired I ADL's, Impaired Self-Care Skills, Restricted Funct UE ROM Discharge Recommendations Plan/Recommendations: Continue POC Treatment Plan/Plan of Care Patient would benefit from OT for education, treatment and training to promote independence in ADL's, mobility, safety and/or upper extremity function for ADL's. Plan of Care: ADL Retraining, Functional Mobility, Group Exercise/Act as Ind, UE Funct Exercise/Act Treatment Duration: Oct 04, 2020 Frequency: At least 5 of 7 days/Wk (IRF) Estimated Hrs Per Day: 1.5 hours per day Agreement: Yes Time/GCodes Start Time: 13:35 Stop Time: 15:05 Total Time Billed (hr/min): 90 Billed Treatment Time [id number] OT eval, [id number] OT/PT cotreat 1, EVM (10'), FA 2 (35), ADL 3 (45') JAVON REYNOLDS OT Sep 13, 2020 15:07
[2020-09-13] MEDS: inSUlin ASPART (NovoLOG) 1 UNIT/0.01 ML (CHARGE PER UNIT) SC SCH ×2 (17:26→20:14)
[2020-09-13] MEDS: TAMSULOSIN 0.4 MG (FLOMAX) CAP PO SCH (18:37)
[2020-09-13] MEDS: ACETAMINOPHEN 500 MG TAB (TYLENOL) PO SCH (18:38)
[2020-09-13 19:52] VITALS: BP 150/72
[2020-09-13] MEDS: RT-ALBUTEROL/IPRATROPIUM 3 ML (DUONEB) VIAL INH SCH (20:28)
[2020-09-13] MEDS ORDERED: DOCUSATE SODIUM 100 MG (COLACE) CAP PO SCH (21:00)
[2020-09-13] MEDS ORDERED: polyethylene glycoL POWDER 17 GM (MIRALAX) PACK PO SCH (21:00)
[2020-09-13] MEDS: SENNOSIDES 8.6 MG (SENOKOT) TAB PO SCH (21:07)
[2020-09-13] MEDS: METHOCARBAMOL 500 MG (ROBAXIN) TABLET PO SCH (21:07)
[2020-09-13] MEDS: DOCUSATE SODIUM 100 MG (COLACE) CAP PO SCH (21:07)
[2020-09-13] MEDS: SENNA W/DOCUSATE (SENOKOT S) TABLET PO SCH (21:07)
[2020-09-13] MEDS: polyethylene glycoL POWDER 17 GM (MIRALAX) PACK PO SCH (21:13)
[2020-09-14 05:06] LABS: BASOPHILS % (AUTO) 1 % (0-10); EOSINOPHILS # (AUTO) 0.3 10^3/uL (0.0-0.3); EOSINOPHILS % (AUTO) 4 % (0-10); HEMATOCRIT 31 % (40-54); HEMOGLOBIN 10.1 g/dL (13.3-17.7); LYMPHOCYTES % (AUTO) 17 % (12-44); MEAN CORPUSCULAR HEMOGLOBIN 29 pg (25-34); MEAN CORPUSCULAR HGB CONC 32 g/dL (32-36); MEAN CORPUSCULAR VOLUME 91 fL (80-99); MONOCYTES # (AUTO) 0.4 10^3/uL (0.0-1.0); MONOCYTES % (AUTO) 7 % (0-12); NEUTROPHILS # (AUTO) 4.1 10^3/uL (1.8-7.8); NEUTROPHILS % (AUTO) 71 % (42-75); PLATELET COUNT 168 10^3/uL (130-400); WHITE BLOOD COUNT 5.9 10^3/uL (4.3-11.0)
[2020-09-14 05:21] LABS: ALBUMIN 3.7 GM/DL (3.2-4.5)
[2020-09-14 05:22] LABS: POTASSIUM 4.3 MMOL/L (3.6-5.0)
[2020-09-14 05:23] LABS: CALCIUM 9.9 MG/DL (8.5-10.1)
[2020-09-14 05:24] LABS: TOTAL PROTEIN 6.7 GM/DL (6.4-8.2)
[2020-09-14 05:26] LABS: BILIRUBIN,TOTAL 0.6 MG/DL (0.1-1.0)
[2020-09-14] MEDS: inSUlin ASPART (NovoLOG) 1 UNIT/0.01 ML (CHARGE PER UNIT) SC SCH ×4 (05:27→21:18)
[2020-09-14 05:28] LABS: CREATININE SERUM 1.64 MG/DL (0.60-1.30)
[2020-09-14] MEDS: ACETAMINOPHEN 500 MG TAB (TYLENOL) PO SCH ×5 (05:29→23:02)
[2020-09-14] MEDS: RT-ALBUTEROL/IPRATROPIUM 3 ML (DUONEB) VIAL INH SCH ×2 (07:21→19:00)
[2020-09-14 07:54] VITALS: BP 124/80
[2020-09-14] MEDS: METHOCARBAMOL 500 MG (ROBAXIN) TABLET PO SCH (08:18)
[2020-09-14] MEDS: SENNA W/DOCUSATE (SENOKOT S) TABLET PO SCH ×2 (08:18→19:47)
[2020-09-14] MEDS: SENNOSIDES 8.6 MG (SENOKOT) TAB PO SCH ×2 (08:18→19:47)
[2020-09-14] MEDS: FINASTERIDE (PROSCAR) 5 MG TAB PO SCH (08:18)
[2020-09-14] MEDS: DOCUSATE SODIUM 100 MG (COLACE) CAP PO SCH ×2 (08:18→19:46)
[2020-09-14] MEDS: polyethylene glycoL POWDER 17 GM (MIRALAX) PACK PO SCH ×2 (08:18→19:46)
--- NOTE | 2020-09-14 11:10 | Physical Therapy Daily Note ---
PT Daily Note-Current Subjective Pt sitting in recliner upon arrival. Pt agrees to PT. Pain Location Body Site: Chest Pain Description: Sharp Comment: Pt reports but doesn't rate pain at ribs figueroa. w/coughing or turning. Mental Status Patient Orientation: Person, Place, Time, Situation Attachments: Oxygen Transfers SCALE: Activities may be completed with or without assistive devices. 4-Iskohgvtrg-nxptrvx completes the activity by him/herself with no assistance from a helper. 5-Set-up or Clean-up Assistance-helper sets up or cleans up; patient completes activity. [place] assists only prior to or following the activity. 4-Supervision or Touching Assistance-helper provides verbal cues and/or touching/steadying and/or contact guard assistance as patient completes activity. Assistance may be provided throughout the activity or intermittently. 3-Partial/Moderate Assistance-helper does LESS THAN HALF the effort. [place] lifts, holds or supports trunk or limbs, but provides less than half the effort. 2-Substantial/Maximal Assistance-helper does MORE THAN HALF the effort. [place] lifts or holds trunk or limbs and provides more than half the effort. 5-Prgiblxwh-aidjfv does ALL the effort. Patient does none of the effort to complete the activity. Or, the assistance of 2 or more helpers is required for the patient to complete the activity. If activity was not attempted, code reason: 7-Patient Refused. 9-Not Applicable-not attempted and the patient did not perform the activity before the current illness, exacerbation or injury. 10-Not Attempted due to Environmental Limitations-(lack of equipment, weather restraints, etc.). 88-Not Attempted due to Medical Conditions or Safety Concerns. Sit to Stand (QC): 5 Weight Bearing Full Weight Bearing Full Weight Bearing Gait Training Does the Patient Walk?: Yes Distance: 125' Walk 10 feet (QC): 4 Walk 50 ft with 2 Turns(QC): 4 Gait Persons Needed: 1 Gait Assistive Device: FWW Wheelchair Training Does the Pt Use a Wheelchair?: No Exercises NuStep Minutes: 8 NuStep Workload: 3 Treatments TF to standing and amb. in hallway. Pt attempts using NuStep before needing to discontinue due to fatigue and discomfort. Pt amb. in hallway and returns to room to rest in bed before lunch and son arrive. Repositioned to comfort, all needs met & call light in hand. Assessment Current Status: Fair Progress Pt fatigues and reports discomfort during tx. PT Short Term Goals Short Term Goals Time Frame: Sep 20, 2020 Roll Left & Right: 3 Sit to lyin Lying to sitting on side of be: 3 Sit to stand: 4 (SBA) Chair/qlz-pq-yufkx transfer: 4 (SBA) Walk 10 feet: 4 (SBA) Walk 50 feet with two turns: 4 (SBA) Walk 150 feet: 4 (SBA) PT Care Home Goals Application Development Specialist Goals PT Application Development Specialist Goals Time Frame: Oct 04, 2020 Roll Left & Right (QC): 4 Sit to Lying (QC): 4 Lying-Sitting on Side/Bed(QC): 4 Sit to Stand (QC): 5 Chair/Ttj-hb-Uqhhh Xfer(QC): 5 Toilet Transfer (QC): 5 Car Transfer (QC): 5 Does the Patient Walk: Yes Walk 10 feet (QC): 5 Walk 50ft with 2 Turns (QC): 5 Walk 150 ft (QC): 5 Walking 10ft on Uneven Surface: 5 1 Step (curb) (QC): 5 4 Steps (QC): 5 12 Steps (QC): 5 Picking up an Object (QC): 4 Wheel 50 feet with 2 turns (QC: 9 Wheel 150 feet: 9 PT Plan Problem List Problem List: Activity Tolerance Treatment/Plan Treatment Plan: Continue Plan of Care Treatment Plan: Bed Mobility, Education, Functional Activity Yuniel, Functional Strength, Group Therapy, Gait, Safety, Therapeutic Exercise, Transfers Treatment Duration: Oct 04, 2020 Frequency: At least 5 of 7 days/Wk (IRF) Estimated Hrs Per Day: 1.5 hours per day Patient and/or Family Agrees t: Yes Safety Risks/Education Patient Education: Gait Training, Correct Positioning Teaching Recipient: Patient Teaching Methods: Discussion Response to Teaching: Verbalize Understanding Time/GCodes Time In: 1000 Time Out: 1030 Total Billed Treatment Time: 30 Total Billed Treatment 1, GT (20m) & EX (10m) MILTON SHIRLEY STEEL POST INSTALLER SUPERVISOR Sep 14, 2020 11:10
--- NOTE | 2020-09-14 11:45 | PM&R Progress Note ---
Subjective HPI/CC On Admission Date Seen by Provider: Sep 14, 2020 Time Seen by Provider: 12:00 Subjective/Events-last exam 09/14/2020: Patient doing pretty well Remains incontinent and purposely urinates outside of his diaper Having some small bowel movements so laxatives will be continuing Discontinue the Robaxin due to drowsiness Check meds and labs Overall very high risk for falls Review of Systems General: Fatigue Genitourinary: Incontinence Neurological: Weakness Objective Exam Vital Signs Vital Signs Date Time Temp Pulse Resp B/P (MAP) Pulse Ox O2 Delivery O2 Flow Rate FiO2 09/15/20 07:29 92 Room Air 09/14/20 20:30 3.00 09/14/20 19:39 36.2 81 18 167/77 (107) 09/13/20 15:32 97 Capillary Refill : General Appearance: No Apparent Distress, WD/WN, Chronically ill, Obese HEENT: PERRL/EOMI, Normal ENT Inspection, Pharynx Normal Neck: Full Range of Motion, Normal Inspection, Non Tender, Supple, Carotid Bruit Respiratory: Chest Non Tender, Lungs Clear, Normal Breath Sounds, No Accessory Muscle Use, No Respiratory Distress Cardiovascular: Regular Rate, Rhythm, No Edema, No Gallop, No JVD, No Murmur, Normal Peripheral Pulses Gastrointestinal: Normal Bowel Sounds, No Organomegaly, No Pulsatile Mass, Non Tender, Soft Back: Normal Inspection, No CVA Tenderness, No Vertebral Tenderness Extremity: Normal Capillary Refill, Normal Inspection, Normal Range of Motion, Non Tender, No Calf Tenderness, No Pedal Edema Neurologic/Psychiatric: Alert, Oriented x3, No Motor/Sensory Deficits, Abnormal Gait, Depressed Affect, Motor Weakness (Generalized) Skin: Normal Color, Warm/Dry, Ecchymosis (Right flank) Lymphatic: No Adenopathy Results/Procedures Lab Patient resulted labs reviewed. FIM Transfers Therapy Code Descriptions/Definitions Functional [place] Measure: 0=Not Assessed/NA 4=Minimal Assistance 1=Total Assistance 5=Supervision or Setup 2=Maximal Assistance 6=Modified [place] 3=Moderate Assistance 7=Complete IndependenceSCALE: Activities may be completed with or without assistive devices. 2-Ogqvzuxccf-lytncva completes the activity by him/herself with no assistance from a helper. 5-Set-up or Clean-up Assistance-helper sets up or cleans up; patient completes activity. [place] assists only prior to or following the activity. 4-Supervision or Touching Assistance-helper provides verbal cues and/or touching/steadying and/or contact guard assistance as patient completes activity. Assistance may be provided throughout the activity or intermittently. 3-Partial/Moderate Assistance-helper does LESS THAN HALF the effort. [place] lifts, holds or supports trunk or limbs, but provides less than half the effort. 2-Substantial/Maximal Assistance-helper does MORE THAN HALF the effort. [place] lifts or holds trunk or limbs and provides more than half the effort. 2-Tuurzannb-wxcopi does ALL the effort. Patient does none of the effort to complete the activity. Or, the assistance of 2 or more helpers is required for the patient to complete the activity. If activity was not attempted, code reason: 7-Patient Refused. 9-Not Applicable-not attempted and the patient did not perform the activity before the current illness, exacerbation or injury. 10-Not Attempted due to Environmental Limitations-(lack of equipment, weather restraints, etc.). 88-Not Attempted due to Medical Conditions or Safety Concerns. Roll Left to Right (QC): 2 Sit to Lying (QC): 2 Sit to Stand (QC): 5 Chair/Pnp-pa-Hlyti Xfer(QC): 4 Car Transfer (QC): 3 Gait Training Does the Patient Walk?: Yes Distance: 125' Walk 10 feet (QC): 4 Walk 50 ft with 2 Turns(QC): 4 Walk 150 ft (QC): 4 Walking 10ft/uneven surface-QC: 4 Gait Persons Needed: 1 Gait Assistive Device: FWW Wheelchair Training Does the Pt Use a Wheelchair?: No Wheel 50 ft with 2 turns (QC): 9 Wheel 150 ft (QC): 9 Stair Training #of Steps: 1 1 Step (curb) (QC): 4 4 Steps (QC): 88 12 Steps (QC): 88 Balance Picking up an Object (QC): 88 ADL-Treatment Eating (QC): 5 (assist with opening milk contianer) Oral Hygiene (QC): 4 (CGA standing at sink) Shower/Bathe Self (QC): 3 (Assist washing BLE lower legs/feet & buttocks. Verbal cues in order to wash all parts.) Upper Body Dressing (QC): 5 (set up) Lower Body Dressing (QC): 2 (Assist threading BLEs into pants/underwear, pt able to perform pant hike) On/Off Footwear (QC): 3 (Pt able to doff gripper socks, assist to don) Toileting Hygiene (QC): 3 (Assist with hygiene) Assessment/Plan Assessment and Plan Assess & Plan/Chief Complaint Assessment: Status post fall with right sided multiple rib fractures and right flank hematoma Acute blood loss anemia Chronic kidney disease BPH Diabetes Obesity Poor social situation Advanced age Plan: Aggressive therapy Supportive care Pain control 09/14/2020: Pain control Incontinence care Supportive care (1) Debility (2) Hemothorax on right Status: Acute (3) Fall Status: Acute (4) Rib fractures Status: Acute (5) YE (acute kidney injury) Status: Acute (6) Obesity Status: Chronic (7) Acute respiratory failure with hypoxia Status: Acute (8) Benign prostatic hyperplasia with urinary retention Status: Acute LINO HEATH DO Sep 14, 2020 11:45
--- NOTE | 2020-09-14 11:46 | Individualized Plan of Care ---
Individualized Plan of Care Rehab Nursing IPOC Order Admission Date Sep 13, 2020 at 13:40 Current Orders Orders Admission Order(Inpt,Obs,Sdc) (09/13/20 13:18) Vital Signs: Per Unit Policy ( (09/13/20 13:18) Yossi Berrios (09/13/20 13:18) Sequential Compression Device .admit (09/13/20 13:18) Area Counselor-Inpt Rehab Con (09/13/20 13:18) Rehab Nursing Orders-Ipoc (09/13/20 13:18) Physical Therapy Rehab Orders (09/13/20 13:18) Occupational Therapy Rehab Ord (09/13/20 13:18) Speech Therapy Rehab Orders (09/13/20 13:18) Cbc With Automated Diff (09/14/20 06:00) Comprehensive Metabolic Panel (09/14/20 06:00) Precautions (Aru) (09/13/20 13:18) Rehab-Intensity Of Therapy (09/13/20 13:18) Initiate Admission Nursing Pro .admission (09/13/20 13:18) Alprazolam Tablet (Xanax Tablet) (09/13/20 13:30) Calcium Carbonate Chew Tablet (Antacid C (09/13/20 13:30) Diphenhydramine Tablet (Benadryl Tablet) (09/13/20 13:30) Docusate Sodium Capsule (Colace Capsule) (09/13/20 13:30) Lactulose Oral Solution (Enulose Oral So (09/13/20 13:30) Na Phos/Na Biphos Enema (Fleet Enema Jeremias (09/13/20 13:30) Guaifenesin/Codeine Syrup (Robitussin Ac (09/13/20 13:30) Loperamide Tablet (Imodium Tablet) (09/13/20 13:30) Ondansetron Oral Dissolve Tab (Zofran (09/13/20 13:30) Senna S Tablet (Senokot S Tablet) (09/13/20 21:00) Therapeutic Activity Goals: .PRN (09/13/20 13:18) Acetaminophen Tablet (Tylenol Tablet) (09/13/20 18:00) Nursing Communication (Order) (09/13/20 ) Initiate Admission Nursing Pro .admission (09/13/20 13:18) Admission Arrival Bed Request (09/13/20 13:40) Code/Resuscitation (09/13/20 14:01) Accucheck Achs ACHS (09/13/20 14:01) Bladder Scan-Straight Cath-Pos (09/13/20 14:01) Catheter(Urinary) Discontinue (09/13/20 14:01) Incentive Spirometry (Nursing) Q1H (09/13/20 14:01) Orthostatic Vital Signs (Adult (09/13/20 14:01) Sequential Compression Device .admit (09/13/20 14:01) Weight Bearing As Tolerated (09/13/20 14:01) General/Regular (09/13/20 Lunch) Acetaminophen Tablet/Caplet (Tylenol T (09/13/20 14:15) Albuterol/Ipra Inhalation Soln (Duoneb I (09/13/20 21:00) Docusate Sodium Capsule (Colace Capsule) (09/13/20 21:00) Bisacodyl Suppository (Dulcolax Supposit (09/13/20 14:15) Finasteride Tablet (Proscar Tablet) (09/14/20 09:00) Hydrocodone/Apap 5/325 Tablet (Lortab 5 (09/13/20 14:15) Melatonin Tablet (Melatonin Tablet) (09/13/20 14:15) Methocarbamol Tablet (Robaxin Tablet) (09/13/20 21:00) Polyethylene Glycol Powder Pkt (Miralax (09/13/20 21:00) Antacid Suspension (Mylanta Suspension (09/13/20 14:15) Sennosides Tablet (Senokot Tablet) (09/13/20 21:00) Tamsulosin Capsule (Flomax Capsule) (09/13/20 18:00) Insulin Aspart (Novolog) (Novolog (Charg (09/13/20 16:00) Consult Cardiology (09/13/20 14:01) Consult Pulmonology (09/13/20 14:01) Consult Urology (09/13/20 14:01) Incentive Spirometry Initial (09/13/20 14:01) Mat Initiate Protocol (09/13/20 14:01) Ondansetron Injection (Zofran Injectio (09/13/20 14:15) Svn Small Volume Nebulizer (09/13/20 14:01) Incentive Spirometry (Nursing) Q2H (09/13/20 14:01) Iv Convert To Heplock (Order) (09/13/20 14:01) Patient Visit (09/13/20 ) Pt Eval Moderate Complexity (09/13/20 ) Exercise Therap, Ea 15 Min (09/13/20 ) Functional Activities, Ea 15 (09/13/20 ) Patient Visit (09/14/20 ) Exercise Therap, Ea 15 Min (09/14/20 ) Gait Training, Ea 15 Min (09/14/20 ) Rehab Nursing Orders: Ongoing Assess. of Cognitive Status, Ongoing Assess. of Function Status, Bladder Management, Bladder Scan, Bladder Training, Bowel Management, Bowel Training, Disease Management & Educaiton, DVT Prophylaxis, Fall Prevention, Fluid/Electrolyte/Nutrition Mgmt, Infection Prevention, Medication Management & Education, Management of Risks & Complications, Management of Skin Intergrity, Nutrition Management, Pain Management, Patient/Family Support, Safety Management Intensity of Therapy to be met Patient to be seen: Min.3h per day/5 of 7d PT IPOC Problem List: Activity Tolerance Treatment Plan: Continue Plan of Care Bed Mobility, Education, Functional Activity Yuniel, Functional Strength, Group Therapy, Gait, Safety, Therapeutic Exercise, Transfers Treatment Duration: Oct 04, 2020 Frequency: At least 5 of 7 days/Wk (IRF) Estimated Hrs Per Day: 1.5 hours per day OT IPOC Problems: Decreased Activ Tolerance, Decreased Safety Aware, Decreased UE Strength, Impaired Funct Balance, Impaired I ADL's, Impaired Self-Care Skills, Restricted Funct UE ROM OT Treatment, Training and Edu: Yes Plan of Care: ADL Retraining, Functional Mobility, Group Exercise/Act as Ind, UE Funct Exercise/Act Treatment Duration: Oct 04, 2020 Frequency: At least 5 of 7 days/Wk (IRF) Estimated Hrs Per Day: 1.[address] IPOC Speech Therapy Treatment Plan: Continue Plan of Care Treatment Duration: Sep 13, 2020 Frequency: Modified Program (IRF) Estimated Hrs Per Day: Other Area Counselor/Case Mgmt Area Counselor/Case Managemen: Discharge Planning Dietitian/Screw Machine Operator Swiss Type Dietitian/Screw Machine Operator Swiss Type to monitor nutritional status and make changes and/or recommendations as needed and work with speech pathology on dietary upgrades as the occur. Physician IPOC Medical Issues being managed closely and that require the 24 hour availability of a physician: Recent fall with hemothorax and tachycardia requiring cardiology consultation along with fall risk and confusion will require 24/7 physician supervision due to high risk for decompensation Medical Issues: Bowel/Bladder Function, DVT Prophylaxis, Falls Precautions, Fluid/Electrolyte/Nutrition Balance, Infection Protection, Pain Management Brief Synthesis of Preadmission Screen, Post-Admission Evaluation, and Therapy Evaluations: PT and OT will focus on use of assistive devices for fall risk prevention in addition to strengthening with ambulatory skill assessment and management speech therapy will work on cognition Medical Prognosis: Fair Anticipated Length of Stay: 10 days LINO HEATH DO Sep 14, 2020 11:45
--- NOTE | 2020-09-14 12:34 | Cardiology Progress Note ---
Subjective Date Seen by Provider: Sep 14, 2020 Time Seen by Provider: 12:33 Subjective/Events-last exam Patient was seen at bedside, laying down comfortably, denied any pain. No new complaint Review of Systems General: No Chills, No Night Sweats, No Fatigue, No Malaise, No Appetite, No Other HEENT: No Head Aches, No Visual Changes, No Eye Pain, No Ear Pain, No Dysph nirmal, No Sinus Congestion, No Post Nasal Drip, No Sore Throat, No Other Pulmonary: No Dyspnea, No Cough, No Pleuritic Chest Pain, No Other Cardiovascular: No: Chest Pain, Palpitations, Orthopnea, Paroxysmal Noc. Dyspnea, Edema, Lt Headedness, Other Objective-Cardiology Exam Last Set of Vital Signs Vital Signs 09/13/20 09/14/20 09/14/20 15:32 07:54 08:19 Temp 37.0 Pulse 82 Resp 18 B/P (MAP) 124/80 (95) Pulse Ox 95 O2 Delivery Nasal Cannula O2 Flow Rate 3.00 FiO2 97 General: Alert, Oriented X3, Cooperative HEENT: Atraumatic, PERRLA Neck: Supple, No JVD, No Thyromegaly Lungs: Clear to Auscultation, Normal Air Movement Heart: Regular Rate, Normal S1, Normal S2, No Murmurs Abdomen: Normal Bowel Sounds, Soft, No Tenderness, No Hepatosplenomegaly, No Masses Extremities: No Clubbing, No Cyanosis, No Edema, Normal Pulses, No Tenderness/Swelling Skin: No Rashes, No Breakdown, No Significant Lesion Neuro: Normal Gait, Normal Speech, Strength at 5/5 X4 Ext, Normal Tone, Sensation Intact Psych/Mental Status: Mental Status NL, Mood NL Results Lab Laboratory Tests 09/14/20 05:00 A/P-Cardiology Assessment/Plan S/p fall out of bed resulting in multiple rib fracture, right hemothorax, improving, followed by surgical service Syncope, unknown etiology, occurred later in the day after falling out of bed, blood pressure is better, continue to monitor Debility, generalized weakness, started with therapy. Coronary artery disease, mild to moderate nonobstructive disease per cardiac catheterization 2008, most recent stress test and 2-D echocardiogram February 2016 revealed no ischemia or infarct. Hypertension, controlled, continue to monitor blood pressure/heart rate. Hyperlipidemia, lipid profile was done in December 2019 showing total cholesterol 126, HDL 29, triglyceride 225, LDL 52. Continue to monitor Mild bilateral nonobstructive carotid artery stenosis. Last carotid duplex done in December 2019. Continue to monitor Chronic kidney disease, management per PCP Diabetes mellitus, management per PCP History of prostate cancer, followed by VALERIE Lowry MD Sep 14, 2020 12:34
[2020-09-14] MEDS: TAMSULOSIN 0.4 MG (FLOMAX) CAP PO SCH (18:12)
[2020-09-14 19:39] VITALS: BP 167/77
[2020-09-15] MEDS: inSUlin ASPART (NovoLOG) 1 UNIT/0.01 ML (CHARGE PER UNIT) SC SCH ×4 (05:26→20:28)
[2020-09-15] MEDS: ACETAMINOPHEN 500 MG TAB (TYLENOL) PO SCH ×3 (05:45→18:40)
[2020-09-15] MEDS: RT-ALBUTEROL/IPRATROPIUM 3 ML (DUONEB) VIAL INH SCH ×2 (07:29→21:58)
[2020-09-15 08:00] VITALS: BP 141/90
[2020-09-15] MEDS: FINASTERIDE (PROSCAR) 5 MG TAB PO SCH (08:25)
[2020-09-15] MEDS: SENNOSIDES 8.6 MG (SENOKOT) TAB PO SCH ×2 (09:15→19:18)
[2020-09-15] MEDS: SENNA W/DOCUSATE (SENOKOT S) TABLET PO SCH ×2 (09:15→19:18)
[2020-09-15] MEDS: DOCUSATE SODIUM 100 MG (COLACE) CAP PO SCH ×2 (09:15→19:18)
[2020-09-15] MEDS: polyethylene glycoL POWDER 17 GM (MIRALAX) PACK PO SCH ×2 (09:15→19:18)
--- NOTE | 2020-09-15 12:14 | Cardiology Progress Note ---
Subjective Date Seen by Provider: Sep 15, 2020 Time Seen by Provider: 12:14 Subjective/Events-last exam Patient was seen at bedside, laying down comfortably, no new complaint Review of Systems General: No Chills, No Night Sweats, No Fatigue, No Malaise, No Appetite, No Other HEENT: No Head Aches, No Visual Changes, No Eye Pain, No Ear Pain, No Dysphasia, No Sinus Congestion, No Post Nasal Drip, No Sore Throat, No Other Pulmonary: No Dyspnea, No Cough, No Pleuritic Chest Pain, No Other Cardiovascular: No: Chest Pain, Palpitations, Orthopnea, Paroxysmal Noc. Dyspnea, Edema, Lt Headedness, Other Objective-Cardiology Exam Last Set of Vital Signs Vital Signs 09/13/20 09/15/20 09/15/20 15:32 08:00 09:14 Temp 36.2 Pulse 76 Resp 18 B/P (MAP) 141/90 (107) Pulse Ox 95 O2 Delivery Nasal Cannula O2 Flow Rate 3.00 FiO2 97 General: Alert, Oriented X3, Cooperative HEENT: Atraumatic, PERRLA Neck: Supple, No JVD, No Thyromegaly Lungs: Clear to Auscultation, Normal Air Movement Heart: Regular Rate, Normal S1, Normal S2, No Murmurs Abdomen: Normal Bowel Sounds, Soft, No Tenderness, No Hepatosplenomegaly, No Masses Extremities: No Clubbing, No Cyanosis, No Edema, Normal Pulses, No Tenderness/Swelling Skin: No Rashes, No Breakdown, No Significant Lesion Neuro: Normal Gait, Normal Speech, Strength at 5/5 X4 Ext, Normal Tone, Sensation Intact Psych/Mental Status: Mental Status NL, Mood NL A/P-Cardiology Admission Diagnosis Syncope Coronary artery disease Hypertension Hyperlipidemia Assessment/Plan S/p fall out of bed resulting in multiple rib fracture, right hemothorax, improving, followed by surgical service Syncope, unknown etiology, occurred later in the day after falling out of bed, blood pressure is better, continue to monitor Debility, generalized weakness, started with therapy. Coronary artery disease, mild to moderate nonobstructive disease per cardiac catheterization 2008, most recent stress test and 2-D echocardiogram February 2016 revealed no ischemia or infarct. Hypertension, controlled, continue to monitor blood pressure/heart rate. Hyperlipidemia, lipid profile was done in December 2019 showing total chol esterol 126, HDL 29, triglyceride 225, LDL 52. Continue to monitor Mild bilateral nonobstructive carotid artery stenosis. Last carotid duplex done in December 2019. Continue to monitor Chronic kidney disease, management per PCP Diabetes mellitus, management per PCP History of prostate cancer, followed by VALERIE Lowry MD Sep 15, 2020 12:14
--- NOTE | 2020-09-15 13:45 | PM&R Progress Note ---
Subjective HPI/CC On Admission Date Seen by Provider: Sep 15, 2020 Time Seen by Provider: 12:00 Subjective/Events-last exam 09/15/2020: Patient doing pretty well Sleeping soundly currently Legs move constantly Fall risk continues 09/14/2020: Patient doing pretty well Remains incontinent and purposely urinates outside of his diaper Having some small bowel movements so laxatives will be continuing Discontinue the Robaxin due to drowsiness Check meds and labs Overall very high risk for falls Review of Systems General: Fatigue, Malaise Objective Exam Vital Signs Vital Signs Date Time Temp Pulse Resp B/P (MAP) Pulse Ox O2 Delivery O2 Flow Rate FiO2 09/15/20 20:33 36.0 84 18 124/68 (86) 95 Nasal Cannula 2.00 09/13/20 15:32 97 Capillary Refill : General Appearance: No Apparent Distress, WD/WN, Chronically ill, Obese HEENT: PERRL/EOMI, Normal ENT Inspection, Pharynx Normal Neck: Full Range of Motion, Normal Inspection, Non Tender, Supple, Carotid Bruit Respiratory: Chest Non Tender, Lungs Clear, Normal Breath Sounds, No Accessory Muscle Use, No Respiratory Distress Cardiovascular: Regular Rate, Rhythm, No Edema, No Gallop, No JVD, No Murmur, Normal Peripheral Pulses Gastrointestinal: Normal Bowel Sounds, No Organomegaly, No Pulsatile Mass, Non Tender, Soft Back: Normal Inspection, No CVA Tenderness, No Vertebral Tenderness Extremity: Normal Capillary Refill, Normal Inspection, Normal Range of Motion, Non Tender, No Calf Tenderness, No Pedal Edema Neurologic/Psychiatric: Alert, Oriented x3, No Motor/Sensory Deficits, Abnormal Gait, Depressed Affect, Motor Weakness (Generalized) Skin: Normal Color, Warm/Dry, Ecchymosis (Right flank) Lymphatic: No Adenopathy Results/Procedures Lab Patient resulted labs reviewed. FIM Transfers Therapy Code Descriptions/Definitions Functional [place] Measure: 0=Not Assessed/NA 4=Minimal Assistance 1=Total Assistance 5=Supervision or Setup 2=Maximal Assistance 6=Modified [place] 3=Moderate Assistance 7=Complete IndependenceSCALE: Activities may be completed with or without assistive devices. 2-Sowyqrrshp-nlzkxdp completes the activity by him/herself with no assistance from a helper. 5-Set-up or Clean-up Assistance-helper sets up or cleans up; patient completes activity. [place] assists only prior to or following the activity. 4-Supervision or Touching Assistance-helper provides verbal cues and/or touching/steadying and/or contact guard assistance as patient completes activity. Assistance may be provided throughout the activity or intermittently. 3-Partial/Moderate Assistance-helper does LESS THAN HALF the effort. [place] lifts, holds or supports trunk or limbs, but provides less than half the effort. 2-Substantial/Maximal Assistance-helper does MORE THAN HALF the effort. [place] lifts or holds trunk or limbs and provides more than half the effort. 0-Jkciusjwc-mnyhdk does ALL the effort. Patient does none of the effort to complete the activity. Or, the assistance of 2 or more helpers is required for the patient to complete the activity. If activity was not attempted, code reason: 7-Patient Refused. 9-Not Applicable-not attempted and the patient did not perform the activity before the current illness, exacerbation or injury. 10-Not Attempted due to Environmental Limitations-(lack of equipment, weather restraints, etc.). 88-Not Attempted due to Medical Conditions or Safety Concerns. Roll Left to Right (QC): 2 Sit to Lying (QC): 2 Sit to Stand (QC): 5 Chair/Myl-up-Zbjod Xfer(QC): 4 Car Transfer (QC): 3 Gait Training Does the Patient Walk?: Yes Distance: 125' Walk 10 feet (QC): 4 Walk 50 ft with 2 Turns(QC): 4 Walk 150 ft (QC): 4 Walking 10ft/uneven surface-QC: 4 Gait Persons Needed: 1 Gait Assistive Device: FWW Wheelchair Training Does the Pt Use a Wheelchair?: No Wheel 50 ft with 2 turns (QC): 9 Wheel 150 ft (QC): 9 Stair Training #of Steps: 1 1 Step (curb) (QC): 4 4 Steps (QC): 88 12 Steps (QC): 88 Balance Picking up an Object (QC): 88 ADL-Treatment Eating (QC): 5 (assist with opening milk contianer) Oral Hygiene (QC): 4 (CGA standing at sink) Shower/Bathe Self (QC): 3 (Assist washing BLE lower legs/feet & buttocks. Verbal cues in order to wash all parts.) Upper Body Dressing (QC): 5 (set up) Lower Body Dressing (QC): 2 (Assist threading BLEs into pants/underwear, pt able to perform pant hike) On/Off Footwear (QC): 3 (Pt able to doff gripper socks, assist to don) Toileting Hygiene (QC): 3 (Assist with hygiene) Assessment/Plan Assessment and Plan Assess & Plan/Chief Complaint Assessment: Status post fall with right sided multiple rib fractures and right flank hematoma Acute blood loss anemia Chronic kidney disease BPH Diabetes Obesity Poor social situation Advanced age Plan: Aggressive therapy Supportive care Pain control 09/14/2020: Pain control Incontinence care Supportive care 09/15/2020: Incontinence care Pain control Monitor closely (1) Debility (2) Hemothorax on right Status: Acute (3) Fall Status: Acute (4) Rib fractures Status: Acute (5) YE (acute kidney injury) Status: Acute (6) Obesity Status: Chronic (7) Acute respiratory failure with hypoxia Status: Acute (8) Benign prostatic hyperplasia with urinary retention Status: Acute LINO HEATH DO Sep 15, 2020 13:45
[2020-09-15] MEDS: TAMSULOSIN 0.4 MG (FLOMAX) CAP PO SCH (18:40)
[2020-09-15 20:33] VITALS: BP 124/68
[2020-09-16] MEDS: ACETAMINOPHEN 500 MG TAB (TYLENOL) PO SCH ×4 (00:18→17:33)
[2020-09-16] MEDS: ALPRAZolam 0.25 MG (XANAX) TAB PO PRN (00:18)
[2020-09-16] MEDS: inSUlin ASPART (NovoLOG) 1 UNIT/0.01 ML (CHARGE PER UNIT) SC SCH ×4 (05:23→21:51)
[2020-09-16 05:52] LABS: BASOPHILS % (AUTO) 1 % (0-10); EOSINOPHILS # (AUTO) 0.3 10^3/uL (0.0-0.3); EOSINOPHILS % (AUTO) 4 % (0-10); HEMATOCRIT 34 % (40-54); HEMOGLOBIN 10.6 g/dL (13.3-17.7); LYMPHOCYTES # (AUTO) 1.5 10^3/uL (1.0-4.0); LYMPHOCYTES % (AUTO) 23 % (12-44); MEAN CORPUSCULAR HEMOGLOBIN 29 pg (25-34); MEAN CORPUSCULAR HGB CONC 31 g/dL (32-36); MEAN CORPUSCULAR VOLUME 92 fL (80-99); MONOCYTES # (AUTO) 0.5 10^3/uL (0.0-1.0); MONOCYTES % (AUTO) 7 % (0-12); NEUTROPHILS # (AUTO) 4.3 10^3/uL (1.8-7.8); NEUTROPHILS % (AUTO) 65 % (42-75); PLATELET COUNT 222 10^3/uL (130-400); WHITE BLOOD COUNT 6.7 10^3/uL (4.3-11.0)
[2020-09-16 06:08] LABS: ALBUMIN 3.6 GM/DL (3.2-4.5); POTASSIUM 4.3 MMOL/L (3.6-5.0)
[2020-09-16 06:10] LABS: CALCIUM 9.4 MG/DL (8.5-10.1)
[2020-09-16 06:12] LABS: BILIRUBIN,TOTAL 0.6 MG/DL (0.1-1.0)
[2020-09-16 06:14] LABS: CREATININE SERUM 1.71 MG/DL (0.60-1.30)
--- NOTE | 2020-09-16 06:36 | Progress Note - Urology ---
Progress Note-Urology Progress Notes/Assess & Plan Progress/Assessment & Plan VOIDING WELL. NO CATH NEEDED. INCONTINENT (CHRONIC) Final Diagnosis RETENTION AND INCONTINENCE EMILIA LISA MD Sep 16, 2020 06:36
[2020-09-16] MEDS: RT-ALBUTEROL/IPRATROPIUM 3 ML (DUONEB) VIAL INH SCH ×2 (07:43→22:26)
[2020-09-16 07:44] VITALS: BP 143/94
[2020-09-16] MEDS: SENNA W/DOCUSATE (SENOKOT S) TABLET PO SCH ×2 (07:53→21:51)
[2020-09-16] MEDS: SENNOSIDES 8.6 MG (SENOKOT) TAB PO SCH ×2 (07:53→21:51)
[2020-09-16] MEDS: DOCUSATE SODIUM 100 MG (COLACE) CAP PO SCH ×2 (07:53→21:51)
[2020-09-16] MEDS: polyethylene glycoL POWDER 17 GM (MIRALAX) PACK PO SCH ×2 (07:53→21:51)
[2020-09-16] MEDS: FINASTERIDE (PROSCAR) 5 MG TAB PO SCH (07:53)
--- NOTE | 2020-09-16 09:00 | Physical Therapy Daily Note ---
PT Daily Note-Current Subjective Patient in recliner pre tx, agrees to PT, has unrated pain in right side rib area. Will be co-treating with OT due to pain with activity, unsafe behavior and mobiltiy, coordinate UE and LE with activity, safety and reduce risk of falls. Appearance Patient in recliner post tx with nurse call, phone, tray, all needs met. Mental Status Patient Orientation: Person, Confused, Place Attachments: Oxygen Transfers SCALE: Activities may be completed with or without assistive devices. 3-Gafrcxdpty-unpzlpl completes the activity by him/herself with no assistance from a helper. 5-Set-up or Clean-up Assistance-helper sets up or cleans up; patient completes activity. [place] assists only prior to or following the activity. 4-Supervision or Touching Assistance-helper provides verbal cues and/or touching/steadying and/or contact guard assistance as patient completes activity. Assistance may be provided throughout the activity or intermittently. 3-Partial/Moderate Assistance-helper does LESS THAN HALF the effort. [place] lifts, holds or supports trunk or limbs, but provides less than half the effort. 2-Substantial/Maximal Assistance-helper does MORE THAN HALF the effort. [place] lifts or holds trunk or limbs and provides more than half the effort. 7-Enupftopx-pnvilx does ALL the effort. Patient does none of the effort to complete the activity. Or, the assistance of 2 or more helpers is required for the patient to complete the activity. If activity was not attempted, code reason: 7-Patient Refused. 9-Not Applicable-not attempted and the patient did not perform the activity before the current illness, exacerbation or injury. 10-Not Attempted due to Environmental Limitations-(lack of equipment, weather restraints, etc.). 88-Not Attempted due to Medical Conditions or Safety Concerns. Sit to Stand (QC): 4 Chair/Opc-pk-Pualu Xfer(QC): 4 Patient needs to get dressed and does so with assist from OT and assist with standing and positioning from PT Weight Bearing Full Weight Bearing Full Weight Bearing Gait Training Distance: 200'x2, 120' Walk 10 feet (QC): 4 Walk 50 ft with 2 Turns(QC): 4 Walk 150 ft (QC): 4 Gait Assistive Device: FWW slow ambulation, fairly SOB after ambulating 200', patient has a wandering path, needs cues to stay on task and for direction Exercises standing balloon activity x2 to work on balance and endurance, also a kitchen reaching and searching activity Treatments PT performed transfers, ambulation, standing and safety during balloon activity, kitchen activity and dressing, OT performed dressing, UE positioning and safety during activity, balloon and kitchen activity. Assessment Current Status: Poor Progress Patient needs cues for safety and direction with every aspect of therapy and mobility. PT Short Term Goals Short Term Goals Time Frame: Sep 20, 2020 Roll Left & Right: 3 Sit to lyin Lying to sitting on side of be: 3 Sit to stand: 4 (SBA) Chair/viz-cf-uutge transfer: 4 (SBA) Walk 10 feet: 4 (SBA) Walk 50 feet with two turns: 4 (SBA) Walk 150 feet: 4 (SBA) PT Intermediate Goals Section Housekeeper Goals PT Intermediate Goals Time Frame: Oct 04, 2020 Roll Left & Right (QC): 4 Sit to Lying (QC): 4 Lying-Sitting on Side/Bed(QC): 4 Sit to Stand (QC): 5 Chair/Fmd-cm-Bpxlh Xfer(QC): 5 Toilet Transfer (QC): 5 Car Transfer (QC): 5 Does the Patient Walk: Yes Walk 10 feet (QC): 5 Walk 50ft with 2 Turns (QC): 5 Walk 150 ft (QC): 5 Walking 10ft on Uneven Surface: 5 1 Step (curb) (QC): 5 4 Steps (QC): 5 12 Steps (QC): 5 Picking up an Object (QC): 4 Wheel 50 feet with 2 turns (QC: 9 Wheel 150 feet: 9 PT Plan Problem List Problem List: Activity Tolerance, Functional Strength, Safety, Balance, Gait, Transfer, Bed Mobility, ROM Treatment/Plan Treatment Plan: Continue Plan of Care Treatment Plan: Bed Mobility, Education, Functional Activity Yuniel, Functional Strength, Group Therapy, Gait, Safety, Therapeutic Exercise, Transfers Treatment Duration: Oct 04, 2020 Frequency: At least 5 of 7 days/Wk (IRF) Estimated Hrs Per Day: 1.5 hours per day Patient and/or Family Agrees t: Yes Safety Risks/Education Patient Education: Gait Training, Transfer Techniques, Correct Positioning, Safety Issues Teaching Recipient: Patient Teaching Methods: Demonstration, Discussion Response to Teaching: Reinforcement Needed Time/GCodes Time In: 0800 Time Out: 0900 Total Billed Treatment Time: 60 Total Billed Treatment 1 visit FA 60' co-treated with OT for 60' MANJIT SALDAÑA PT Sep 16, 2020 09:00
--- NOTE | 2020-09-16 09:02 | Cardiology Progress Note ---
Subjective Date Seen by Provider: Sep 16, 2020 Time Seen by Provider: 08:40 Subjective/Events-last exam Patient is with PT. Denies any chest pain or dysnea. Review of Systems General: No Chills, No Night Sweats, No Fatigue, No Malaise, No Appetite, No Other HEENT: No Head Aches, No Visual Changes, No Eye Pain, No Ear Pain, No Dysphasia, No Sinus Congestion, No Post Nasal Drip, No Sore Throat, No Other Pulmonary: No Dyspnea, No Cough, No Pleuritic Chest Pain, No Other Cardiovascular: No: Chest Pain, Palpitations, Orthopnea, Paroxysmal Noc. Dyspnea, Edema, Lt Headedness, Other Objective-Cardiology Exam Last Set of Vital Signs Vital Signs 09/13/20 09/16/20 09/16/20 15:32 07:44 09:26 Temp 36.2 Pulse 91 Resp 18 B/P (MAP) 128/68 (88) Pulse Ox 98 O2 Delivery Nasal Cannula O2 Flow Rate 3.00 FiO2 97 General: Alert, Oriented X3, Cooperative HEENT: Atraumatic, PERRLA Neck: Supple, No JVD, No Thyromegaly Lungs: Clear to Auscultation, Normal Air Movement Heart: Regular Rate, Normal S1, Normal S2, No Murmurs Abdomen: Normal Bowel Sounds, Soft, No Tenderness, No Hepatosplenomegaly, No Masses Extremities: No Clubbing, No Cyanosis, No Edema, Normal Pulses, No Tenderness /Swelling Skin: No Rashes, No Breakdown, No Significant Lesion Neuro: Normal Gait, Normal Speech, Strength at 5/5 X4 Ext, Normal Tone, Sensation Intact Psych/Mental Status: Mental Status NL, Mood NL Results Lab Laboratory Tests 09/16/20 05:38 A/P-Cardiology Admission Diagnosis Syncope Coronary artery disease Hypertension Hyperlipidemia Assessment/Plan S/p fall out of bed resulting in multiple rib fracture, right hemothorax, improving, followed by surgical service Syncope, unknown etiology, occurred later in the day after falling out of bed, blood pressure is better, continue to monitor Debility, generalized weakness, started with therapy. Coronary artery disease, mild to moderate nonobstructive disease per cardiac catheterization 2008, most recent stress test and 2-D echocardiogram February 2016 revealed no ischemia or infarct. Hypertension, controlled, continue to monitor blood pressure/heart rate. Hyperlipidemia, lipid profile was done in December 2019 showing total cholesterol 126, HDL 29, triglyceride 225, LDL 52. Continue to monitor Mild bilateral nonobstructive carotid artery stenosis. Last carotid duplex done in December 2019. Continue to monitor Chronic kidney disease, management per PCP Diabetes mellitus, management per PCP History of prostate cancer, followed by Dr. Martin Patient was seen and evaluated with Yecenia, examination performed, management plan was discussed, agree with the current scribed note, I made few changes to the note using Italic font Patient was seen at bedside, sitting comfortably Blood pressure is better Receiving physical therapy Continue to monitor, no changes from cardiology standpoint Supervisory-Addendum Brief Supervisory Addendum Participated in pt care: history, MDM, physical Personally performed: exam, history, MDM Care discussed with: PA Results interpretation: Verified all documentation YECENIA BUTTS Sep 16, 2020 09:02 VALERIE SAHA MD Sep 16, 2020 10:31
--- NOTE | 2020-09-16 09:06 | ST Cognitive Linguistic Eval ---
Speech Evaluation-General Medical Diagnosis debility Onset Date: Sep 11, 2020 Therapy Diagnosis Therapy Diagnosis: Cognitive-communication Precautions Precautions/Isolations: Fall Prevention, Standard Precautions Referral Referring Physician: Dr. Mcguire Medical History Pertinent Medical History: DM, HTN Social History Current Living Status: Alone Speech PLF-Current Status Prior Level of Function Patient lives home alone where he was independent with his daily needs. Subjective Patient was cooperative with the cognitive assessment. Language Eval: Auditory Comprehends Simple Yes/No Ques: Functional Indent/Objects Multiple Tanner: Functional Ident/Pics in Multiple Tanner: Functional Follows 1-Step Commands: Functional Follows Complex Directions: Functional Follows General Conversations: Functional Language Eval: Verbal Language Completes Spontaneous Greeting: Functional Produces Auto, Serial Info: Functional Imitates Simple Words/Phrases: Functional Word Finding: Functional Requests Basic Needs: Functional States Basic Personal Info: Functional Expresses Complex Ideas: Functional Objective Cognitive Domain Attention: WNL Memory: WNL Problem Solving: Functional Executive Functions: WNL Visuospatial Skills: WNL Composite Severity Rating: WNL Clock Drawing Severity Rating: WNL Objective Results [facility] Mental Status ([facility]) Oral Motor/Speech Production 27/30, within normal range of function Impression Patient is an 80 y/o male who was admitted to the ARU s/p fall with injury. The patient was given the [facility] with a score of 27/30 obtained. At this time no further ST services are warranted. Speech Patient Assess Expression of Ideas/Wants: Expression (4) Understanding Verbal Content: Understands (4) Brief Interview-Mental Status: Yes Repetition of Three Words: Three (3) Temporal Orientation: Year: Correct (3) Temporal Orientation: Month: Accurate within 5 days(2) Temporal Orientation: Day: Correct (1) Recall : Wear to say "Sock": Yes, no cue required (2) Recall : Color: Yes, no cue required (2) Recall : Bed: Yes,after cueing (1) Memory/Recall Ability: Current season, Location of own room, That he or she is in a hsp/hsp unit Speech-Plan Patient/Family Goals Patient/Family Goals: Patient plans on returning to his home where he lives alone. Treatment Plan Speech Therapy Treatment Plan: Discontinue ST Treatment Duration: Sep 16, 2020 Frequency: 1 time per week Estimated Hrs Per Day: .5 hour per day Rehab Potential: Fair Barriers to Learning: Patient's age, recent fall Pt/Family Agrees to Plan: Yes Safety Risks/Education Teaching Recipient: Patient Teaching Methods: Discussion Response to Teaching: Verbalize Understanding Education Topics Provided: Safety within his room, communication of wants/needs Time Speech Therapy Time In: 09:00 Speech Therapy Time Out: 09:30 Total Billed Time: 30 Billed Treatment Time 1, MIMI [facility] [address] Sep 16, 2020 09:06
--- NOTE | 2020-09-16 09:23 | Occupational Ther Daily Note ---
OT Current Status-Daily Note Subjective Pt seated in recliner, agreeable to OT tx, then OT/PT cotreat. Unrated pain in R rib area. Mental Status/Objective Patient Orientation: Person, Place, Time, Situation ADL-Treatment Therapy Code Descriptions/Definitions Functional [place] Measure: 0=Not Assessed/NA 4=Minimal Assistance 1=Total Assistance 5=Supervision or Setup 2=Maximal Assistance 6=Modified [place] 3=Moderate Assistance 7=Complete IndependenceSCALE: Activities may be completed with or without assistive devices. 3-Rhjhcypdoh-gfffnhy completes the activity by him/herself with no assistance from a helper. 5-Set-up or Clean-up Assistance-helper sets up or cleans up; patient completes activity. [place] assists only prior to or following the activity. 4-Supervision or Touching Assistance-helper provides verbal cues and/or touching/steadying and/or contact guard assistance as patient completes activity. Assistance may be provided throughout the activity or intermittently. 3-Partial/Moderate Assistance-helper does LESS THAN HALF the effort. [place] lifts, holds or supports trunk or limbs, but provides less than half the effort. 2-Substantial/Maximal Assistance-helper does MORE THAN HALF the effort. [place] lifts or holds trunk or limbs and provides more than half the effort. 8-Vkbjsdrcg-omddue does ALL the effort. Patient does none of the effort to complete the activity. Or, the assistance of 2 or more helpers is required for the patient to complete the activity. If activity was not attempted, code reason: 7-Patient Refused. 9-Not Applicable-not attempted and the patient did not perform the activity before the current illness, exacerbation or injury. 10-Not Attempted due to Environmental Limitations-(lack of equipment, weather restraints, etc.). 88-Not Attempted due to Medical Conditions or Safety Concerns. Eating (QC): 5 (set up assistance. Assistance to open milk and to move cup within reach.) Upper Body Dressing (QC): 5 (set up) Lower Body Dressing (QC): 3 (Pt able to thread belt into pants and buckle, thread BLEs into pants, and perform pant hike. Min A with tightening buckle.) Other Treatment [id number] OT tx. Pt seated in recliner eating breakfast, assist to open milk carton and to place fruit cup within reach. Pt able to eat his meal using utensils, at one point, pt had half of a pancake on his fork, it fell off dropping onto his mederos, pt then able to pickle cutter with hands to get into his mouth. [id number] OT/PT cotreat due to skill of 2 clincians required which a occupational rehabilitation aide could not perform in order to coordinate UE/LEs with task, decrease fall risk, and due to pt's limitations in pain, mobility, safety awareness. OT focused on UE placement, ADLs, and cues for sequencing and safety, PT focused on LE placement, gross overall movement, and mobility/transfers. Pt donned clothing at recliner, donning shirt with set up assistance (pt initially threaded RUE into head hole, able to self correct error without cues), pt threaded belt into pants, threaded pants onto LEs, and performed pant hike. Pt had tightened belt prior to pant hike, but belt was too loose, required min A with fixing belt. Pt performed functional mobility around [facility] common area/2nd floor, 1 seated rest break, then into therapy gym. Pt completed higher level balance task, balloon batting in all planes. Pt competed task x2 trials, seated rest break between. Pt required min cues for reaching for balloon, and in order to hit balloon back to OT. Pt completed functional kitchen task, locating hidden objects in cabinets/drawers. Pt able to locate 7/12 batres bags, frequent cues for positioning of walker and safety. Pt returned to room to recliner. Post tx, pt seated in recliner, call light in reach and all needs met. chair alarm activated. Cues for UE placement with sit to/from stand, CGA with transfers and mobility. Education OT Patient Education: Correct positioning, Energy conservation, Exercise program, Modified ADL techniques, Progress toward Goal/Update tx plan, Purpose of tx/functional activities, Rehab process, Safety issues, Transfer techniques Teaching Recipient: Patient Teaching Methods: Discussion Response to Teaching: Verbalize Understanding OT Short Term Goals Short Term Goals Time Frame: Sep 20, 2020 Toileting hygiene: 4 Shower/bathe self: 4 Lower body dressin Putting on/taking off footwear: 4 OT Fpc Goals [employer] Safety Inspector Goals Time Frame: Oct 04, 2020 Eating (QC): 6 Oral Hygiene (QC): 6 Toileting Hygiene (QC): 6 Shower/Bathe Self (QC): 6 Upper Body Dressing (QC): 6 Lower Body Dressing (QC): 6 On/Off Footwear (QC): 6 Additional Goals: 1-Demonstrate ADL Tasks, 2-Verbalize Understanding, 3- ImproveStrength/Yuniel 1=Demonstrate adherence to instructed precautions during ADL tasks. 2=Patient will verbalize/demonstrate understanding of assistive devices/modifications for ADL. 3=Patient will improve strength/tolerance for activity to enable patient to perform ADL's. OT Education/Plan Problem List/Assessment Assessment: Decreased Activ Tolerance, Decreased Safety Aware, Decreased UE Strength, Impaired Funct Balance, Impaired I ADL's, Impaired Self-Care Skills Discharge Recommendations Plan/Recommendations: Continue POC Treatment Plan/Plan of Care Patient would benefit from OT for education, treatment and training to promote independence in ADL's, mobility, safety and/or upper extremity function for ADL's. Plan of Care: ADL Retraining, Functional Mobility, Group Exercise/Act as Ind, UE Funct Exercise/Act Treatment Duration: Oct 04, 2020 Frequency: At least 5 of 7 days/Wk (IRF) Estimated Hrs Per Day: 1.5 hours per day Agreement: Yes Rehab Potential: Fair Time/GCodes Start Time: 07:45 Stop Time: 09:00 Total Time Billed (hr/min): 75 Billed Treatment Time 1, ADL 2 (30'), FA 3 (45') JAVON REYNOLDS OT Sep 16, 2020 09:23
[2020-09-16 09:26] VITALS: BP 128/68
--- NOTE | 2020-09-16 09:39 | PM&R Progress Note ---
Subjective HPI/CC On Admission Date Seen by Provider: Sep 16, 2020 Time Seen by Provider: 10:00 Subjective/Events-last exam 09/16/2020: Pt had multiple bowel movements yesterday CPAP will be brought in from home Chronic incontinence per urology [place] score is 27/30 but he requires a lot of cues Upon further evaluation patient may have some signs of normal pressure hydrocephalus or early dementia 09/15/2020: Patient doing pretty well Sleeping soundly currently Legs move constantly Fall risk continues 09/14/2020: Patient doing pretty well Remains incontinent and purposely urinates outside of his diaper Having some small bowel movements so laxatives will be continuing Discontinue the Robaxin due to drowsiness Check meds and labs Overall very high risk for falls Review of Systems General: Fatigue Neurological: Weakness Objective Exam Vital Signs Vital Signs Date Time Temp Pulse Resp B/P (MAP) Pulse Ox O2 Delivery O2 Flow Rate FiO2 09/17/20 03:31 97 High Flow N/C 3.00 09/16/20 20:08 37.0 93 18 135/66 (89) 09/13/20 15:32 97 Capillary Refill : General Appearance: No Apparent Distress, WD/WN, Chronically ill, Obese HEENT: PERRL/EOMI, Normal ENT Inspection, Pharynx Normal Neck: Full Range of Motion, Normal Inspection, Non Tender, Supple, Carotid Bruit Respiratory: Chest Non Tender, Lungs Clear, Normal Breath Sounds, No Accessory Muscle Use, No Respiratory Distress Cardiovascular: Regular Rate, Rhythm, No Edema, No Gallop, No JVD, No Murmur, Normal Peripheral Pulses Gastrointestinal: Normal Bowel Sounds, No Organomegaly, No Pulsatile Mass, Non Tender, Soft Back: Normal Inspection, No CVA Tenderness, No Vertebral Tenderness Extremity: Normal Capillary Refill, Normal Inspection, Normal Range of Motion, Non Tender, No Calf Tenderness, No Pedal Edema Neurologic/Psychiatric: Alert, Oriented x3, No Motor/Sensory Deficits, Abnormal Gait, Depressed Affect, Motor Weakness (Generalized) Skin: Normal Color, Warm/Dry, Ecchymosis (Right flank) Lymphatic: No Adenopathy Results/Procedures Lab Laboratory Tests 09/16/20 05:38 Patient resulted labs reviewed. FIM Transfers Therapy Code Descriptions/Definitions Functional [place] Measure: 0=Not Assessed/NA 4=Minimal Assistance 1=Total Assistance 5=Supervision or Setup 2=Maximal Assistance 6=Modified [place] 3=Moderate Assistance 7=Complete IndependenceSCALE: Activities may be completed with or without assistive devices. 4-Ouhexoqbrn-lxxbgph completes the activity by him/herself with no assistance from a helper. 5-Set-up or Clean-up Assistance-helper sets up or cleans up; patient completes activity. [place] assists only prior to or following the activity. 4-Supervision or Touching Assistance-helper provides verbal cues and/or touching/steadying and/or contact guard assistance as patient completes activity. Assistance may be provided throughout the activity or intermittently. 3-Partial/Moderate Assistance-helper does LESS THAN HALF the effort. [place] lifts, holds or supports trunk or limbs, but provides less than half the effort. 2-Substantial/Maximal Assistance-helper does MORE THAN HALF the effort. [place] lifts or holds trunk or limbs and provides more than half the effort. 1-Gudxqfypo-rgvqln does ALL the effort. Patient does none of the effort to complete the activity. Or, the assistance of 2 or more helpers is required for the patient to complete the activity. If activity was not attempted, code reason: 7-Patient Refused. 9-Not Applicable-not attempted and the patient did not perform the activity before the current illness, exacerbation or injury. 10-Not Attempted due to Environmental Limitations-(lack of equipment, weather restraints, etc.). 88-Not Attempted due to Medical Conditions or Safety Concerns. Roll Left to Right (QC): 2 Sit to Lying (QC): 2 Sit to Stand (QC): 4 Chair/Esv-re-Kfzbg Xfer(QC): 4 Car Transfer (QC): 3 Gait Training Does the Patient Walk?: Yes Distance: 200'x2, 120' Walk 10 feet (QC): 4 Walk 50 ft with 2 Turns(QC): 4 Walk 150 ft (QC): 4 Walking 10ft/uneven surface-QC: 4 Gait Persons Needed: 1 Gait Assistive Device: FWW Wheelchair Training Does the Pt Use a Wheelchair?: No Wheel 50 ft with 2 turns (QC): 9 Wheel 150 ft (QC): 9 Stair Training #of Steps: 1 1 Step (curb) (QC): 4 4 Steps (QC): 88 12 Steps (QC): 88 Balance Picking up an Object (QC): 88 ADL-Treatment Eating (QC): 5 (set up assistance. Assistance to open milk and to move cup within reach.) Oral Hygiene (QC): 4 (CGA standing at sink) Shower/Bathe Self (QC): 3 (Assist washing BLE lower legs/feet & buttocks. Verbal cues in order to wash all parts.) Upper Body Dressing (QC): 5 (set up) Lower Body Dressing (QC): 3 (Pt able to thread belt into pants and buckle, thread BLEs into pants, and perform pant hike. Min A with tightening buckle.) On/Off Footwear (QC): 3 (Pt able to doff gripper socks, assist to don) Toileting Hygiene (QC): 3 (Assist with hygiene) Assessment/Plan Assessment and Plan Assess & Plan/Chief Complaint Assessment: Status post fall with right sided multiple rib fractures and right flank hematoma Acute blood loss anemia Chronic kidney disease BPH Diabetes Obesity Poor social situation Advanced age Plan: Aggressive therapy Supportive care Pain control 09/14/2020: Pain control Incontinence care Supportive care 09/15/2020: Incontinence care Pain control Monitor closely 09/16/2020: Supportive care Monitor closely Incontinence care Patient may have findings of normal pressure hydrocephalus will further evaluate (1) Debility (2) Hemothorax on right Status: Acute (3) Fall Status: Acute (4) Rib fractures Status: Acute (5) YE (acute kidney injury) Status: Acute (6) Obesity Status: Chronic (7) Acute respiratory failure with hypoxia Status: Acute (8) Benign prostatic hyperplasia with urinary retention Status: Acute LINO HEATH DO Sep 16, 2020 09:39
--- NOTE | 2020-09-16 11:01 | Physical Therapy Daily Note ---
PT Daily Note-Current Subjective Patient in recliner pre tx, agrees to PT, has no pain at rest. Appearance Patient in recliner post tx with nurse call, phone, tray, all needs met, chair alarm on. Mental Status Patient Orientation: Person, Place, Situation Attachments: Oxygen Transfers SCALE: Activities may be completed with or without assistive devices. 8-Ryviycascv-rpbwcpw completes the activity by him/herself with no assistance from a helper. 5-Set-up or Clean-up Assistance-helper sets up or cleans up; patient completes activity. [place] assists only prior to or following the activity. 4-Supervision or Touching Assistance-helper provides verbal cues and/or touching/steadying and/or contact guard assistance as patient completes activit y. Assistance may be provided throughout the activity or intermittently. 3-Partial/Moderate Assistance-helper does LESS THAN HALF the effort. [place] lifts, holds or supports trunk or limbs, but provides less than half the effort. 2-Substantial/Maximal Assistance-helper does MORE THAN HALF the effort. [place] lifts or holds trunk or limbs and provides more than half the effort. 7-Fugxrxlqt-janbjw does ALL the effort. Patient does none of the effort to complete the activity. Or, the assistance of 2 or more helpers is required for the patient to complete the activity. If activity was not attempted, code reason: 7-Patient Refused. 9-Not Applicable-not attempted and the patient did not perform the activity before the current illness, exacerbation or injury. 10-Not Attempted due to Environmental Limitations-(lack of equipment, weather restraints, etc.). 88-Not Attempted due to Medical Conditions or Safety Concerns. Weight Bearing Full Weight Bearing Full Weight Bearing Exercises Supine Ex: Ankle pumps, Quad Set, Glut sets, Heel Slides Supine Reps: 20 (done in recliner with legs elevated) Seated Therapy Exercises: Hip flexion, Hip abd/add LAQ alternating for 5 min Treatments LE strengthening Assessment Current Status: Fair Progress cues for proper positioning PT Short Term Goals Short Term Goals Time Frame: Sep 20, 2020 Roll Left & Right: 3 Sit to lyin Lying to sitting on side of be: 3 Sit to stand: 4 (SBA) Chair/sgs-yy-dcjsk transfer: 4 (SBA) Walk 10 feet: 4 (SBA) Walk 50 feet with two turns: 4 (SBA) Walk 150 feet: 4 (SBA) PT Silk Conditioner Goals Silk Conditioner Goals PT Senior Living Goals Time Frame: Oct 04, 2020 Roll Left & Right (QC): 4 Sit to Lying (QC): 4 Lying-Sitting on Side/Bed(QC): 4 Sit to Stand (QC): 5 Chair/Uoq-ir-Tkikk Xfer(QC): 5 Toilet Transfer (QC): 5 Car Transfer (QC): 5 Does the Patient Walk: Yes Walk 10 feet (QC): 5 Walk 50ft with 2 Turns (QC): 5 Walk 150 ft (QC): 5 Walking 10ft on Uneven Surface: 5 1 Step (curb) (QC): 5 4 Steps (QC): 5 12 Steps (QC): 5 Picking up an Object (QC): 4 Wheel 50 feet with 2 turns (QC: 9 Wheel 150 feet: 9 PT Plan Problem List Problem List: Activity Tolerance, Functional Strength, Safety, Balance, Gait, Transfer, Bed Mobility, ROM Treatment/Plan Treatment Plan: Continue Plan of Care Treatment Plan: Bed Mobility, Education, Functional Activity Yuniel, Functional Strength, Group Therapy, Gait, Safety, Therapeutic Exercise, Transfers Treatment Duration: Oct 04, 2020 Frequency: At least 5 of 7 days/Wk (IRF) Estimated Hrs Per Day: 1.5 hours per day Patient and/or Family Agrees t: Yes Safety Risks/Education Patient Education: Correct Positioning, Safety Issues Teaching Recipient: Patient Teaching Methods: Demonstration, Discussion Response to Teaching: Reinforcement Needed Time/GCodes Time In: 1045 Time Out: 1100 Total Billed Treatment Time: 15 Total Billed Treatment 1 visit EX 15' MANJIT SALDAÑA PT Sep 16, 2020 11:01
[2020-09-16] MEDS: TAMSULOSIN 0.4 MG (FLOMAX) CAP PO SCH (17:28)
[2020-09-16 20:08] VITALS: BP 135/66
[2020-09-16] MEDS: HYDROcodone/APAP 5 MG/325 MG (LORTAB) TAB PO PRN (22:24)
[2020-09-16] MEDS: MELATONIN 3 MG TABLET PO PRN (22:24)
[2020-09-16] MEDS ORDERED: RT-ALBUTEROL/IPRATROPIUM 3 ML (DUONEB) VIAL INH PRN (22:45)
[2020-09-17] MEDS ORDERED: RT-ALBUTEROL/IPRATROPIUM 3 ML (DUONEB) VIAL INH PRN (03:15)
[2020-09-17] MEDS: ACETAMINOPHEN 500 MG TAB (TYLENOL) PO SCH ×4 (06:41→18:36)
[2020-09-17] MEDS: inSUlin ASPART (NovoLOG) 1 UNIT/0.01 ML (CHARGE PER UNIT) SC SCH ×4 (06:41→22:49)
--- NOTE | 2020-09-17 06:52 | PM&R Progress Note ---
Subjective HPI/CC On Admission Date Seen by Provider: Sep 17, 2020 Time Seen by Provider: 10:00 Subjective/Events-last exam 09/17/2020: Pt doing really well Getting MRI because my suspicion for normal pressure Hydrocephalus is present Nebs will be given QID since lungs are still coarse 09/16/2020: Pt had multiple bowel movements yesterday CPAP will be brought in from home Chronic incontinence per urology Slum score is 27/30 but he requires a lot of cues Upon further evaluation patient may have some signs of normal pressure hydrocephalus or early dementia 09/15/2020: Patient doing pretty well Sleeping soundly currently Legs move constantly Fall risk continues 09/14/2020: Patient doing pretty well Remains incontinent and purposely urinates outside of his diaper Having some small bowel movements so laxatives will be continuing Discontinue the Robaxin due to drowsiness Check meds and labs Overall very high risk for falls Review of Systems General: Fatigue, Malaise Genitourinary: Incontinence Neurological: Weakness, Incoordination Objective Exam Vital Signs Vital Signs Date Time Temp Pulse Resp B/P (MAP) Pulse Ox O2 Delivery O2 Flow Rate FiO2 09/17/20 21:00 Nasal Cannula 3.00 09/17/20 20:00 36.8 90 22 157/70 (99) 99 09/13/20 15:32 97 Capillary Refill : General Appearance: No Apparent Distress, WD/WN, Chronically ill, Obese HEENT: PERRL/EOMI, Normal ENT Inspection, Pharynx Normal Neck: Full Range of Motion, Normal Inspection, Non Tender, Supple, Carotid Bruit Respiratory: Chest Non Tender, Lungs Clear, Normal Breath Sounds, No Accessory Muscle Use, No Respiratory Distress Cardiovascular: Regular Rate, Rhythm, No Edema, No Gallop, No JVD, No Murmur, Normal Peripheral Pulses Gastrointestinal: Normal Bowel Sounds, No Organomegaly, No Pulsatile Mass, Non Tender, Soft Back: Normal Inspection, No CVA Tenderness, No Vertebral Tenderness Extremity: Normal Capillary Refill, Normal Inspection, Normal Range of Motion, Non Tender, No Calf Tenderness, No Pedal Edema Neurologic/Psychiatric: Alert, Oriented x3, No Motor/Sensory Deficits, Abnormal Gait, Depressed Affect, Motor Weakness (Generalized) Skin: Normal Color, Warm/Dry, Ecchymosis (Right flank) Lymphatic: No Adenopathy Results/Procedures Lab Patient resulted labs reviewed. FIM Transfers Therapy Code Descriptions/Definitions Functional [place] Measure: 0=Not Assessed/NA 4=Minimal Assistance 1=Total Assistance 5=Supervision or Setup 2=Maximal Assistance 6=Modified [place] 3=Moderate Assistance 7=Complete IndependenceSCALE: Activities may be completed with or without assistive devices. 6-Nijznxmver-whbmtas completes the activity by him/herself with no assistance from a helper. 5-Set-up or Clean-up Assistance-helper sets up or cleans up; patient completes activity. [place] assists only prior to or following the activity. 4-Supervision or Touching Assistance-helper provides verbal cues and/or touching/steadying and/or contact guard assistance as patient completes activity. Assistance may be provided throughout the activity or intermittently. 3-Partial/Moderate Assistance-helper does LESS THAN HALF the effort. [place] lifts, holds or supports trunk or limbs, but provides less than half the effort. 2-Substantial/Maximal Assistance-helper does MORE THAN HALF the effort. [place] lifts or holds trunk or limbs and provides more than half the effort. 7-Nmnyegxdk-czgofj does ALL the effort. Patient does none of the effort to complete the activity. Or, the assistance of 2 or more helpers is required for the patient to complete the activity. If activity was not attempted, code reason: 7-Patient Refused. 9-Not Applicable-not attempted and the patient did not perform the activity before the current illness, exacerbation or injury. 10-Not Attempted due to Environmental Limitations-(lack of equipment, weather restraints, etc.). 88-Not Attempted due to Medical Conditions or Safety Concerns. Roll Left to Right (QC): 2 Sit to Lying (QC): 2 Sit to Stand (QC): 4 Chair/Djt-lj-Rtwyj Xfer(QC): 4 Car Transfer (QC): 3 Gait Training Does the Patient Walk?: Yes Distance: 200'x2, 120' Walk 10 feet (QC): 4 Walk 50 ft with 2 Turns(QC): 4 Walk 150 ft (QC): 4 Walking 10ft/uneven surface-QC: 4 Gait Persons Needed: 1 Gait Assistive Device: FWW Wheelchair Training Does the Pt Use a Wheelchair?: No Wheel 50 ft with 2 turns (QC): 9 Wheel 150 ft (QC): 9 Stair Training #of Steps: 1 1 Step (curb) (QC): 4 4 Steps (QC): 88 12 Steps (QC): 88 Balance Picking up an Object (QC): 88 ADL-Treatment Eating (QC): 5 (set up assistance. Assistance to open milk and to move cup within reach.) Oral Hygiene (QC): 4 (CGA standing at sink) Shower/Bathe Self (QC): 3 (Assist washing BLE lower legs/feet & buttocks. Verbal cues in order to wash all parts.) Upper Body Dressing (QC): 5 (set up) Lower Body Dressing (QC): 3 (Pt able to thread belt into pants and buckle, thread BLEs into pants, and perform pant hike. Min A with tightening buckle.) On/Off Footwear (QC): 3 (Pt able to doff gripper socks, assist to don) Toileting Hygiene (QC): 3 (Assist with hygiene) Assessment/Plan Assessment and Plan Assess & Plan/Chief Complaint Assessment: Status post fall with right sided multiple rib fractures and right flank hematoma Acute blood loss anemia Chronic kidney disease BPH Diabetes Obesity Poor social situation Advanced age Plan: Aggressive therapy Supportive care Pain control 09/14/2020: Pain control Incontinence care Supportive care 09/15/2020: Incontinence care Pain control Monitor closely 09/16/2020: Supportive care Monitor closely Incontinence care Patient may have findings of normal pressure hydrocephalus will further evaluate 09/17/2020: Supportive care MRI Monitor lungs (1) Debility (2) Hemothorax on right Status: Acute (3) Fall Status: Acute (4) Rib fractures Status: Acute (5) YE (acute kidney injury) Status: Acute (6) Obesity Status: Chronic (7) Acute respiratory failure with hypoxia Status: Acute (8) Benign prostatic hyperplasia with urinary retention Status: Acute LINO HEATH DO Sep 17, 2020 06:52
[2020-09-17 07:50] VITALS: BP 151/70
[2020-09-17] MEDS: DOCUSATE SODIUM 100 MG (COLACE) CAP PO SCH ×2 (08:55→22:39)
[2020-09-17] MEDS: FINASTERIDE (PROSCAR) 5 MG TAB PO SCH (08:55)
[2020-09-17] MEDS: SENNOSIDES 8.6 MG (SENOKOT) TAB PO SCH ×2 (08:55→22:48)
--- NOTE | 2020-09-17 08:55 | Physical Therapy Daily Note ---
PT Daily Note-Current Subjective Patient in recliner pre tx, agrees to PT, states he has minimal pain. Patient needs some pants, clean shorts were found and max assist to don them. Appearance Patient in recliner post tx with nurse call, phone, tray, all needs met, chair alarm on. Mental Status Patient Orientation: Person, Confused, Place, Situation Attachments: Oxygen Transfers SCALE: Activities may be completed with or without assistive devices. 9-Jngckojhyk-suzmvsp completes the activity by him/herself with no assistance from a helper. 5-Set-up or Clean-up Assistance-helper sets up or cleans up; patient completes activity. [place] assists only prior to or following the activity. 4-Supervision or Touching Assistance-helper provides verbal cues and/or touching/steadying and/or contact guard assistance as patient completes activity. Assistance may be provided throughout the activity or intermittently. 3-Partial/Moderate Assistance-helper does LESS THAN HALF the effort. [place] lift s, holds or supports trunk or limbs, but provides less than half the effort. 2-Substantial/Maximal Assistance-helper does MORE THAN HALF the effort. [place] lifts or holds trunk or limbs and provides more than half the effort. 6-Ifquiaxui-ccmodc does ALL the effort. Patient does none of the effort to complete the activity. Or, the assistance of 2 or more helpers is required for the patient to complete the activity. If activity was not attempted, code reason: 7-Patient Refused. 9-Not Applicable-not attempted and the patient did not perform the activity before the current illness, exacerbation or injury. 10-Not Attempted due to Environmental Limitations-(lack of equipment, weather restraints, etc.). 88-Not Attempted due to Medical Conditions or Safety Concerns. Sit to Stand (QC): 4 Chair/Qpw-bj-Rrfaz Xfer(QC): 4 Weight Bearing Full Weight Bearing Full Weight Bearing Gait Training Distance: 200'x2, 120' Walk 10 feet (QC): 4 Walk 50 ft with 2 Turns(QC): 4 Walk 150 ft (QC): 4 Gait Persons Needed: 1 Gait Assistive Device: FWW slow ambulation, slumped posture, wandering path, needs a lot of cues for safety and direction Exercises Standing: Hip Abduction, Heel/toe raises, Marching, Mini squats Standing Reps: 15 NuStep Minutes: 15 NuStep Workload: 5 Treatments transfers, ambulation, functional strengthening Assessment Current Status: Poor Progress patient continues to display unsafe behavior and needs constant cues for safety and direction PT Short Term Goals Short Term Goals Time Frame: Sep 20, 2020 Roll Left & Right: 3 Sit to lyin Lying to sitting on side of be: 3 Sit to stand: 4 (SBA) Chair/daq-vl-gnbfb transfer: 4 (SBA) Walk 10 feet: 4 (SBA) Walk 50 feet with two turns: 4 (SBA) Walk 150 feet: 4 (SBA) PT Senior Care Goals Senior Care Goals PT Nurse Receptionist Goals Time Frame: Oct 04, 2020 Roll Left & Right (QC): 4 Sit to Lying (QC): 4 Lying-Sitting on Side/Bed(QC): 4 Sit to Stand (QC): 5 Chair/Asm-qe-Osjzz Xfer(QC): 5 Toilet Transfer (QC): 5 Car Transfer (QC): 5 Does the Patient Walk: Yes Walk 10 feet (QC): 5 Walk 50ft with 2 Turns (QC): 5 Walk 150 ft (QC): 5 Walking 10ft on Uneven Surface: 5 1 Step (curb) (QC): 5 4 Steps (QC): 5 12 Steps (QC): 5 Picking up an Object (QC): 4 Wheel 50 feet with 2 turns (QC: 9 Wheel 150 feet: 9 PT Plan Problem List Problem List: Activity Tolerance, Functional Strength, Safety, Balance, Gait, Transfer, Bed Mobility, ROM Treatment/Plan Treatment Plan: Continue Plan of Care Treatment Plan: Bed Mobility, Education, Functional Activity Yuniel, Functional Strength, Group Therapy, Gait, Safety, Therapeutic Exercise, Transfers Treatment Duration: Oct 04, 2020 Frequency: At least 5 of 7 days/Wk (IRF) Estimated Hrs Per Day: 1.5 hours per day Patient and/or Family Agrees t: Yes Safety Risks/Education Patient Education: Gait Training, Transfer Techniques, Correct Positioning, Sa fety Issues Teaching Recipient: Patient Teaching Methods: Demonstration, Discussion Response to Teaching: Reinforcement Needed Time/GCodes Time In: 0800 Time Out: 0900 Total Billed Treatment Time: 60 Total Billed Treatment 1 visit EX 30' FA 30' MANJIT SALDAÑA PT Sep 17, 2020 08:55
[2020-09-17] MEDS: SENNA W/DOCUSATE (SENOKOT S) TABLET PO SCH ×2 (08:56→22:48)
[2020-09-17] MEDS: polyethylene glycoL POWDER 17 GM (MIRALAX) PACK PO SCH ×2 (08:56→22:48)
--- NOTE | 2020-09-17 09:18 | Cardiology Progress Note ---
Subjective Date Seen by Provider: Sep 17, 2020 Time Seen by Provider: 08:15 Subjective/Events-last exam Patient with PT, denies any dizziness or lightheadedness. Denies chest pain Review of Systems General: No Chills, No Night Sweats; Fatigue, Malaise; No Appetite, No Other HEENT: No Head Aches, No Visual Changes, No Eye Pain, No Ear Pain, No Dysphasia, No Sinus Congestion, No Post Nasal Drip, No Sore Throat, No Other Pulmonary: No Dyspnea, No Cough, No Pleuritic Chest Pain, No Other Cardiovascular: No: Chest Pain, Palpitations, Orthopnea, Paroxysmal Noc. Dyspnea, Edema, Lt Headedness, Other Objective-Cardiology Exam Last Set of Vital Signs Vital Signs 09/13/20 09/17/20 09/17/20 15:32 07:50 11:27 Temp 36.4 Pulse 89 Resp 22 B/P (MAP) 151/70 (97) Pulse Ox 95 O2 Delivery Nasal Cannula O2 Flow Rate 3.00 FiO2 97 General: Alert, Oriented X3, Cooperative HEENT: Atraumatic, PERRLA Neck: Supple, No JVD, No Thyromegaly Lungs: Clear to Auscultation, Normal Air Movement Heart: Regular Rate, Normal S1, Normal S2, No Murmurs Abdomen: Normal Bowel Sounds, Soft, No Tenderness, No Hepatosplenomegaly, No Masses Extremities: No Clubbing, No Cyanosis, No Edema, Normal Pulses, No Tenderness/Swelling Skin: No Rashes, No Breakdown, No Significant Lesion Neuro: Normal Gait, Normal Speech, Strength at 5/5 X4 Ext, Normal Tone, Sensation Intact Psych/Mental Status: Mental Status NL, Mood NL A/P-Cardiology Admission Diagnosis Syncope Coronary artery disease Hypertension Hyperlipidemia Assessment/Plan S/p fall out of bed resulting in multiple rib fracture, right hemothorax, improving, followed by surgical service Syncope, unknown etiology, occurred later in the day after falling out of bed, blood pressure is better, continue to monitor Debility, generalized weakness, started with therapy. Coronary artery disease, mild to moderate nonobstructive disease per cardiac catheterization 2008, most recent stress test and 2-D echocardiogram February 2016 revealed no ischemia or infarct. Hypertension, controlled, continue to monitor blood pressure/heart rate. Hyperlipidemia, lipid profile was done in December 2019 showing total cho lesterol 126, HDL 29, triglyceride 225, LDL 52. Continue to monitor Mild bilateral nonobstructive carotid artery stenosis. Last carotid duplex done in December 2019. Continue to monitor Chronic kidney disease, management per PCP Diabetes mellitus, management per PCP History of prostate cancer, followed by Dr. Martin Patient was seen and evaluated with Yecenia, examination performed, management plan was discussed, agree with the current scribed note, I made few changes to the note using Italic font Patient was seen during physical therapy session, doing better today Tolerating current medication well Blood pressure appears to be stable. Monitor blood pressure, continue physical therapy Supervisory-Addendum Brief Supervisory Addendum Participated in pt care: history, MDM, physical Personally performed: exam, history, MDM Care discussed with: PA Results interpretation: Verified all documentation YECENIA BUTTS Sep 17, 2020 09:18 VALERIE SAHA MD Sep 17, 2020 12:38
[2020-09-17] MEDS ORDERED: ALPRAZolam 1 MG (XANAX) TAB PO PRN (09:45)
--- NOTE | 2020-09-17 10:32 | Occupational Ther Daily Note ---
OT Current Status-Daily Note Subjective Pt seated in recliner, agreeable to OT tx with focus on ADLs. Mental Status/Objective Patient Orientation: Person, Place, Situation Attachments: Oxygen (3L) ADL-Treatment Therapy Code Descriptions/Definitions Functional [place] Measure: 0=Not Assessed/NA 4=Minimal Assistance 1=Total Assistance 5=Supervision or Setup 2=Maximal Assistance 6=Modified [place] 3=Moderate Assistance 7=Complete IndependenceSCALE: Activities may be completed with or without assistive devices. 3-Leavtbttyo-yydtuyr completes the activity by him/herself with no assistance from a helper. 5-Set-up or Clean-up Assistance-helper sets up or cleans up; patient completes activity. [place] assists only prior to or following the activity. 4-Supervision or Touching Assistance-helper provides verbal cues and/or touching/steadying and/or contact guard assistance as patient completes activity. Assistance may be provided throughout the activity or intermittently. 3-Partial/Moderate Assistance-helper does LESS THAN HALF the effort. [place] lifts, holds or supports trunk or limbs, but provides less than half the effort. 2-Substantial/Maximal Assistance-helper does MORE THAN HALF the effort. [place] lifts or holds trunk or limbs and provides more than half the effort. 9-Juohjuvqy-uogdox does ALL the effort. Patient does none of the effort to complete the activity. Or, the assistance of 2 or more helpers is required for the patient to complete the activity. If activity was not attempted, code reason: 7-Patient Refused. 9-Not Applicable-not attempted and the patient did not perform the activity before the current illness, exacerbation or injury. 10-Not Attempted due to Environmental Limitations-(lack of equipment, weather restraints, etc.). 88-Not Attempted due to Medical Conditions or Safety Concerns. Oral Hygiene (QC): 4 (supervision standing at sink) Shower/Bathe Self (QC): 4 (SBA, pt required min cues in order to wash/dry all parts. education on LH sponge provided) Upper Body Dressing (QC): 5 (set up, pt able to don button up shirt, assist with O2 tubing) Lower Body Dressing (QC): 3 (Education on AE, pt able to don brief and pants with min A for technique using AE) On/Off Footwear: 3 (Pt doffed socks with it quality assurance analyst, used sock aide to don socks, min A with AE) Toileting Hygiene (QC): 7 Other Treatment Pt seated in recliner, used FWW to perform functional mobility into bathroom and onto SC. Pt denied need to toilet prior to showering. Pt completed shower, OT provided pt with LH sponge to wash BLEs lower legs/feet. Pe Ell through shower, pt states need to urinate. OT asked pt if he was able to hold urine until after shower, pt replied that he would prefer to do it where he is on the SC. Pt proceeded to complete shower, stating he has the urge to have BM. Pt dried off and donned clothes, education provided on AE for LE dressing. Pt had a smear of BM on the towel he was sitting on for the shower. OT encouraged pt to sit on toilet to attempt BM, but pt states he doesn't need to go. Pt stood at sink to brush his teeth, supervision provided. He then used FWW to perform functional mobility to therapy gym. In order to increase BUE strength and activity toleran ce, pt completed arm bike x5 mins, rest breaks as needed at min resistance. Pt returned to room, transferring to recliner. Post tx, pt seated in recliner, call light in reach and all needs met. Chair alarm activated CGA-SBA with transfers and functional mobility. Assist and cues provided with transfers for safety with O2 tubing. Education OT Patient Education: Correct positioning, Energy conservation, Exercise program, Modified ADL techniques, Progress toward Goal/Update tx plan, Purpose of tx/functional activities, Rehab process Teaching Recipient: Patient Teaching Methods: Discussion Response to Teaching: Verbalize Understanding OT Short Term Goals Short Term Goals Time Frame: Sep 20, 2020 Toileting hygiene: 4 Shower/bathe self: 4 Lower body dressin Putting on/taking off footwear: 4 OT Online Services Manager Goals Online Services Manager Goals Time Frame: Oct 04, 2020 Eating (QC): 6 Oral Hygiene (QC): 6 Toileting Hygiene (QC): 6 Shower/Bathe Self (QC): 6 Upper Body Dressing (QC): 6 Lower Body Dressing (QC): 6 On/Off Footwear (QC): 6 Additional Goals: 1-Demonstrate ADL Tasks, 2-Verbalize Understanding, 3- ImproveStrength/Yuniel 1=Demonstrate adherence to instructed precautions during ADL tasks. 2=Patient will verbalize/demonstrate understanding of assistive devices/modifications for ADL. 3=Patient will improve strength/tolerance for activity to enable patient to perform ADL's. OT Education/Plan Problem List/Assessment Assessment: Decreased Activ Tolerance, Decreased UE Strength, Impaired Funct Balance, Impaired I ADL's, Impaired Self-Care Skills Discharge Recommendations Plan/Recommendations: Continue POC Treatment Plan/Plan of Care Patient would benefit from OT for education, treatment and training to promote independence in ADL's, mobility, safety and/or upper extremity function for ADL's. Plan of Care: ADL Retraining, Functional Mobility, Group Exercise/Act as Ind, UE Funct Exercise/Act Treatment Duration: Oct 04, 2020 Frequency: At least 5 of 7 days/Wk (IRF) Estimated Hrs Per Day: 1.5 hours per day Agreement: Yes Rehab Potential: Fair Time/GCodes Start Time: 09:15 Stop Time: 10:30 Total Time Billed (hr/min): 75 Billed Treatment Time 1, ADL 4 (65'), EX (10') JAVON REYNOLDS OT Sep 17, 2020 10:32
--- NOTE | 2020-09-17 11:02 | Speech Therapy Daily Note ---
Speech Daily Progress Note Subjective Date Seen by Provider: Sep 17, 2020 Time Seen by Provider: 00:30 Patient was resting in his chair following his other therapies. Objective Patient answered safety awareness questions related to his daily needs at 60% with moderate cuing. Assessment Assessment Current Status: Good Progress Treatment Plan Continue Plan of Care Speech Short Term Goals Short Term Goals Short Term Goals 1) The patient will complete memory tasks with 80% or greater with minimal cues. 2) The patient will complete safety awareness tasks with 80% or greater with minimal cues. 3) The patient will complete problem solving tasks with 80% or greater with minimal cues. Speech Longterm Goals Longterm Goals Patient will improve cognitive-communication abilities in order to require less assist. Speech-Plan Patient/Family Goals Patient/Family Goals: Patient plans on returning to his home where he lives alone. Treatment Plan Speech Therapy Treatment Plan: Continue Plan of Care Treatment Duration: Sep 16, 2020 Frequency: 4 times per week (Patient will receive ST 4-5x per week) Estimated Hrs Per Day: .5 hour per day Rehab Potential: Fair Barriers to Learning: Patient's decline in health, age, cognitive deficits Pt/Family Agrees to Plan: Yes Safety Risks/Education Teaching Recipient: Patient Teaching Methods: Demonstration, Discussion Response to Teaching: Verbalize Understanding, Return Demonstration Education Topics Provided: Continued safety within his room, communication of wants/needs Time Speech Therapy Time In: 11:00 Speech Therapy Time Out: 11:30 Total Billed Time: 30 Billed Treatment Time 1, JOVANI Kaye Sep 17, 2020 11:01
[2020-09-17] MEDS: RT-ALBUTEROL/IPRATROPIUM 3 ML (DUONEB) VIAL INH SCH ×3 (11:27→19:25)
--- NOTE | 2020-09-17 11:50 | Physical Therapy Daily Note ---
PT Daily Note-Current Subjective Patient in recliner pre tx, agrees to PT, has no complaints of pain. Appearance Patient in recliner post tx with nurse call, phone, tray, all needs met, chair alarm on. Mental Status Patient Orientation: Person, Place, Situation Attachments: Oxygen Transfers SCALE: Activities may be completed with or without assistive devices. 5-Rzylojrmud-qjzusyj completes the activity by him/herself with no assistance from a helper. 5-Set-up or Clean-up Assistance-helper sets up or cleans up; patient completes activity. [place] assists only prior to or following the activity. 4-Supervision or Touching Assistance-helper provides verbal cues and/or touching/steadying and/or contact guard assistance as patient completes a ctivity. Assistance may be provided throughout the activity or intermittently. 3-Partial/Moderate Assistance-helper does LESS THAN HALF the effort. [place] lifts, holds or supports trunk or limbs, but provides less than half the effort. 2-Substantial/Maximal Assistance-helper does MORE THAN HALF the effort. [place] lifts or holds trunk or limbs and provides more than half the effort. 8-Pqjcasfbf-sfnmpm does ALL the effort. Patient does none of the effort to complete the activity. Or, the assistance of 2 or more helpers is required for the patient to complete the activity. If activity was not attempted, code reason: 7-Patient Refused. 9-Not Applicable-not attempted and the patient did not perform the activity before the current illness, exacerbation or injury. 10-Not Attempted due to Environmental Limitations-(lack of equipment, weather restraints, etc.). 88-Not Attempted due to Medical Conditions or Safety Concerns. Sit to Stand (QC): 4 Chair/Yxd-je-Xwboe Xfer(QC): 4 Patient did have one slight LOB that required therapist assist to correct while backing up to the recliner to sit Weight Bearing Full Weight Bearing Full Weight Bearing Gait Training Distance: 200'x2 Walk 10 feet (QC): 4 Walk 50 ft with 2 Turns(QC): 4 Gait Persons Needed: 1 Gait Assistive Device: FWW slumped posture but increased speed, patient SOB after ambulation and needs rest break for that and fatigue Treatments transfers, ambulation Assessment Current Status: Fair Progress improving endurance PT Short Term Goals Short Term Goals Time Frame: Sep 20, 2020 Roll Left & Right: 3 Sit to lyin Lying to sitting on side of be: 3 Sit to stand: 4 (SBA) Chair/uav-lv-llaqp transfer: 4 (SBA) Walk 10 feet: 4 (SBA) Walk 50 feet with two turns: 4 (SBA) Walk 150 feet: 4 (SBA) PT Counter Stacker Goals Alf Goals PT Alf Goals Time Frame: Oct 04, 2020 Roll Left & Right (QC): 4 Sit to Lying (QC): 4 Lying-Sitting on Side/Bed(QC): 4 Sit to Stand (QC): 5 Chair/Yst-do-Mfuvn Xfer(QC): 5 Toilet Transfer (QC): 5 Car Transfer (QC): 5 Does the Patient Walk: Yes Walk 10 feet (QC): 5 Walk 50ft with 2 Turns (QC): 5 Walk 150 ft (QC): 5 Walking 10ft on Uneven Surface: 5 1 Step (curb) (QC): 5 4 Steps (QC): 5 12 Steps (QC): 5 Picking up an Object (QC): 4 Wheel 50 feet with 2 turns (QC: 9 Wheel 150 feet: 9 PT Plan Problem List Problem List: Activity Tolerance, Functional Strength, Safety, Balance, Gait, Transfer, Bed Mobility, ROM Treatment/Plan Treatment Plan: Continue Plan of Care Treatment Plan: Bed Mobility, Education, Functional Activity Yuniel, Functional Strength, Group Therapy, Gait, Safety, Therapeutic Exercise, Transfers Treatment Duration: Oct 04, 2020 Frequency: At least 5 of 7 days/Wk (IRF) Estimated Hrs Per Day: 1.5 hours per day Patient and/or Family Agrees t: Yes Safety Risks/Education Patient Education: Gait Training, Transfer Techniques, Correct Positioning, Safety Issues Teaching Recipient: Patient Teaching Methods: Demonstration, Discussion Response to Teaching: Reinforcement Needed Time/GCodes Time In: 1130 Time Out: 1145 Total Billed Treatment Time: 15 Total Billed Treatment 1 visit GT 15' MANJIT SALDAÑA PT Sep 17, 2020 11:50
--- NOTE | 2020-09-17 16:26 | Diagnostic Imaging Report ---
PROCEDURE: MR imaging of the brain without contrast. TECHNIQUE: Multiplanar, multisequence MR imaging of the brain was performed without contrast. INDICATION: Fall, head injury. COMPARISON: None. FINDINGS: Mild age-related cerebral volume loss and chronic microvascular changes are present. There is no midline shift or mass effect. There is no focus of acute ischemia or hemorrhage. Venous and arterial flow voids are visualized. There is no extra-axial fluid collection or mass. The paranasal sinuses and mastoids are clear. The orbits are symmetric. The craniocervical junction anatomy is intact. IMPRESSION: 1. No acute intracranial abnormalities. 2. Age-related cerebral volume loss and chronic microvascular changes. 3. No focus of acute ischemia, hemorrhage, or mass. Dictated by: Dictated on workstation # [id number]
[2020-09-17] MEDS: TAMSULOSIN 0.4 MG (FLOMAX) CAP PO SCH (18:36)
[2020-09-17 20:00] VITALS: BP 157/70
[2020-09-17] MEDS: HYDROcodone/APAP 5 MG/325 MG (LORTAB) TAB PO PRN (22:39)
[2020-09-17] MEDS: MELATONIN 3 MG TABLET PO PRN (22:39)
[2020-09-18] MEDS: ACETAMINOPHEN 500 MG TAB (TYLENOL) PO SCH ×4 (00:07→18:14)
[2020-09-18] MEDS: inSUlin ASPART (NovoLOG) 1 UNIT/0.01 ML (CHARGE PER UNIT) SC SCH ×4 (06:08→21:37)
--- NOTE | 2020-09-18 06:26 | PM&R Progress Note ---
Subjective HPI/CC On Admission Date Seen by Provider: Sep 18, 2020 Time Seen by Provider: 11:00 Subjective/Events-last exam 09/18/2020: Pt doing about the same MRI was normal, no evidence of normal pressure hydrocephalus Xanax given for the MRI made him very confused yesterday DC planned for the 09/17/2020: Pt doing really well Getting MRI because my suspicion for normal pressure Hydrocephalus is present Nebs will be given QID since lungs are still coarse 09/16/2020: Pt had multiple bowel movements yesterday CPAP will be brought in from home Chronic incontinence per urology Slum score is 27/30 but he requires a lot of cues Upon further evaluation patient may have some signs of normal pressure hydrocephalus or early dementia 09/15/2020: Patient doing pretty well Sleeping soundly currently Legs move constantly Fall risk continues 09/14/2020: Patient doing pretty well Remains incontinent and purposely urinates outside of his diaper Having some small bowel movements so laxatives will be continuing Discontinue the Robaxin due to drowsiness Check meds and labs Overall very high risk for falls Review of Systems General: Fatigue Pulmonary: Dyspnea, Cough Objective Exam Vital Signs Vital Signs Date Time Temp Pulse Resp B/P (MAP) Pulse Ox O2 Delivery O2 Flow Rate FiO2 09/18/20 20:15 95 Room Air 09/18/20 15:41 2.00 09/18/20 07:59 36.2 74 20 131/78 (95) 09/13/20 15:32 97 Capillary Refill : General Appearance: No Apparent Distress, WD/WN, Chronically ill, Obese HEENT: PERRL/EOMI, Normal ENT Inspection, Pharynx Normal Neck: Full Range of Motion, Normal Inspection, Non Tender, Supple, Carotid Bruit Respiratory: Chest Non Tender, Lungs Clear, Normal Breath Sounds, No Accessory Muscle Use, No Respiratory Distress Cardiovascular: Regular Rate, Rhythm, No Edema, No Gallop, No JVD, No Murmur, Normal Peripheral Pulses Gastrointestinal: Normal Bowel Sounds, No Organomegaly, No Pulsatile Mass, Non Tender, Soft Back: Normal Inspection, No CVA Tenderness, No Vertebral Tenderness Extremity: Normal Capillary Refill, Normal Inspection, Normal Range of Motion, Non Tender, No Calf Tenderness, No Pedal Edema Neurologic/Psychiatric: Alert, Oriented x3, No Motor/Sensory Deficits, Abnormal Gait, Depressed Affect, Motor Weakness (Generalized) Skin: Normal Color, Warm/Dry, Ecchymosis (Right flank) Lymphatic: No Adenopathy Results/Procedures Lab Patient resulted labs reviewed. FIM Transfers Therapy Code Descriptions/Definitions Functional [place] Measure: 0=Not Assessed/NA 4=Minimal Assistance 1=Total Assistance 5=Supervision or Setup 2=Maximal Assistance 6=Modified [place] 3=Moderate Assistance 7=Complete IndependenceSCALE: Activities may be completed with or without assistive devices. 0-Dxnhvraghu-mbrxthe completes the activity by him/herself with no assistance from a helper. 5-Set-up or Clean-up Assistance-helper sets up or cleans up; patient completes activity. [place] assists only prior to or following the activity. 4-Supervision or Touching Assistance-helper provides verbal cues and/or touching/steadying and/or contact guard assistance as patient completes activity. Assistance may be provided throughout the activity or intermittently. 3-Partial/Moderate Assistance-helper does LESS THAN HALF the effort. [place] lifts, holds or supports trunk or limbs, but provides less than half the effort. 2-Substantial/Maximal Assistance-helper does MORE THAN HALF the effort. [place] lifts or holds trunk or limbs and provides more than half the effort. 2-Imcrpmnwz-tywtxc does ALL the effort. Patient does none of the effort to complete the activity. Or, the assistance of 2 or more helpers is required for the patient to complete the activity. If activity was not attempted, code reason: 7-Patient Refused. 9-Not Applicable-not attempted and the patient did not perform the activity before the current illness, exacerbation or injury. 10-Not Attempted due to Environmental Limitations-(lack of equipment, weather restraints, etc.). 88-Not Attempted due to Medical Conditions or Safety Concerns. Roll Left to Right (QC): 2 Sit to Lying (QC): 2 Sit to Stand (QC): 4 Chair/Myw-as-Fxzee Xfer(QC): 4 Car Transfer (QC): 3 Gait Training Does the Patient Walk?: Yes Distance: 200'x2 Walk 10 feet (QC): 4 Walk 50 ft with 2 Turns(QC): 4 Walk 150 ft (QC): 4 Walking 10ft/uneven surface-QC: 4 Gait Persons Needed: 1 Gait Assistive Device: FWW Wheelchair Training Does the Pt Use a Wheelchair?: No Wheel 50 ft with 2 turns (QC): 9 Wheel 150 ft (QC): 9 Stair Training #of Steps: 1 1 Step (curb) (QC): 4 4 Steps (QC): 88 12 Steps (QC): 88 Balance Picking up an Object (QC): 88 ADL-Treatment Eating (QC): 5 (set up assistance. Assistance to open milk and to move cup wit hin reach.) Oral Hygiene (QC): 4 (supervision standing at sink) Shower/Bathe Self (QC): 4 (SBA, pt required min cues in order to wash/dry all parts. education on LH sponge provided) Upper Body Dressing (QC): 5 (set up, pt able to don button up shirt, assist with O2 tubing) Lower Body Dressing (QC): 3 (Education on AE, pt able to don brief and pants with min A for technique using AE) On/Off Footwear (QC): 3 (Pt doffed socks with security intelligence analyst, used sock aide to don socks, min A with AE) Toileting Hygiene (QC): 7 Assessment/Plan Assessment and Plan Assess & Plan/Chief Complaint Assessment: Status post fall with right sided multiple rib fractures and right flank hematoma Acute blood loss anemia Chronic kidney disease BPH Diabetes Obesity Poor social situation Advanced age Plan: Aggressive therapy Supportive care Pain control 09/14/2020: Pain control Incontinence care Supportive care 09/15/2020: Incontinence care Pain control Monitor closely 09/16/2020: Supportive care Monitor closely Incontinence care Patient may have findings of normal pressure hydrocephalus will further evaluate 09/17/2020: Supportive care MRI Monitor lungs 09/18/2020: MRI ruled out normal pressure hydrocephalus Continue incontinence care (1) Debility (2) Hemothorax on right Status: Acute (3) Fall Status: Acute (4) Rib fractures Status: Acute (5) YE (acute kidney injury) Status: Acute (6) Obesity Status: Chronic (7) Acute respiratory failure with hypoxia Status: Acute (8) Benign prostatic hyperplasia with urinary retention Status: Acute LINO HEATH DO Sep 18, 2020 06:26
[2020-09-18] MEDS: RT-ALBUTEROL/IPRATROPIUM 3 ML (DUONEB) VIAL INH SCH ×4 (07:11→20:15)
[2020-09-18 07:59] VITALS: BP 131/78
--- NOTE | 2020-09-18 08:51 | Physical Therapy Daily Note ---
PT Daily Note-Current Subjective Pt sitting in recliner upon arrival. Pt agrees to PT. Pain Location: No Pain Reported Mental Status Patient Orientation: Person, Place, Situation Attachments: Oxygen (3L) Transfers SCALE: Activities may be completed with or without assistive devices. 8-Pmssryrjbw-mxycagt completes the activity by him/herself with no assistance from a helper. 5-Set-up or Clean-up Assistance-helper sets up or cleans up; patient completes activity. [place] assists only prior to or following the activity. 4-Supervision or Touching Assistance-helper provides verbal cues and/or touching/steadying and/or contact guard assistance as patient completes activity. Assistance may be provided throughout the activity or intermittently. 3-Partial/Moderate Assistance-helper does LESS THAN HALF the effort. [place] lifts, holds or supports trunk or limbs, but provides less than half the effort. 2-Substantial/Maximal Assistance-helper does MORE THAN HALF the effort. [place] lifts or holds trunk or limbs and provides more than half the effort. 7-Ymoipsunt-yeznfa does ALL the effort. Patient does none of the effort to complete the activity. Or, the assistance of 2 or more helpers is required for the patient to complete the activity. If activity was not attempted, code reason: 7-Patient Refused. 9-Not Applicable-not attempted and the patient did not perform the activity before the current illness, exacerbation or injury. 10-Not Attempted due to Environmental Limitations-(lack of equipment, weather restraints, etc.). 88-Not Attempted due to Medical Conditions or Safety Concerns. Sit to Stand (QC): 4 Weight Bearing Full Weight Bearing Full Weight Bearing Gait Training Does the Patient Walk?: Yes Distance: 150' Walk 10 feet (QC): 4 Walk 50 ft with 2 Turns(QC): 4 Walk 150 ft (QC): 4 Gait Persons Needed: 1 Gait Assistive Device: FWW Wheelchair Training Does the Pt Use a Wheelchair?: No Exercises Seated Therapy Exercises: Ankle pumps, Long arc quads, Hip flexion, Hip abd/add, Glut set Seated Reps: 15 Treatments Pt dresses before transferring to standing. Pt declines need for BR. Pt amb. in hallway then completes Seated Ex. Pt uses NuStep for 15m at WL 5. Pt amb. in hallway and returns to room. Pt rests in recliner with all needs met, call light in hand. Assessment Current Status: Fair Progress Pt needs VC for safety and at times sequencing. PT Short Term Goals Short Term Goals Time Frame: Sep 20, 2020 Roll Left & Right: 3 Sit to lyin Lying to sitting on side of be: 3 Sit to stand: 4 (SBA) Chair/qdb-yq-kbjur transfer: 4 (SBA) Walk 10 feet: 4 (SBA) Walk 50 feet with two turns: 4 (SBA) Walk 150 feet: 4 (SBA) PT Halfway Goals Airframe And Powerplant Technician Goals PT Airframe And Powerplant Technician Goals Time Frame: Oct 04, 2020 Roll Left & Right (QC): 4 Sit to Lying (QC): 4 Lying-Sitting on Side/Bed(QC): 4 Sit to Stand (QC): 5 Chair/Sqa-dw-Pmoon Xfer(QC): 5 Toilet Transfer (QC): 5 Car Transfer (QC): 5 Does the Patient Walk: Yes Walk 10 feet (QC): 5 Walk 50ft with 2 Turns (QC): 5 Walk 150 ft (QC): 5 Walking 10ft on Uneven Surface: 5 1 Step (curb) (QC): 5 4 Steps (QC): 5 12 Steps (QC): 5 Picking up an Object (QC): 4 Wheel 50 feet with 2 turns (QC: 9 Wheel 150 feet: 9 PT Plan Problem List Problem List: Activity Tolerance, Safety Treatment/Plan Treatment Plan: Continue Plan of Care Treatment Plan: Bed Mobility, Education, Functional Activity Yuniel, Functional Strength, Group Therapy, Gait, Safety, Therapeutic Exercise, Transfers Treatment Duration: Oct 04, 2020 Frequency: At least 5 of 7 days/Wk (IRF) Estimated Hrs Per Day: 1.5 hours per day Patient and/or Family Agrees t: Yes Safety Risks/Education Patient Education: Gait Training, Transfer Techniques, Correct Positioning, Safety Issues Teaching Recipient: Patient Teaching Methods: Discussion Response to Teaching: Reinforcement Needed Time/GCodes Time In: 815 Time Out: 900 Total Billed Treatment Time: 45 Total Billed Treatment 1, GT (15m) & EX x2 (30m) MILTON SHIRLEY STATE EPIDEMIOLOGIST Sep 18, 2020 08:51
--- NOTE | 2020-09-18 09:10 | Progress Note - Urology ---
Progress Note-Urology Progress Notes/Assess & Plan Progress/Assessment & Plan CONTINUES VOIDING ON OWN, PVR UNDER 200, INCONTINENT ALWAYS. START ON DETROL LA TILL GOES HOME AND RESTART MYRBETRIQ AND VESICARE, AND CONTINUE FLOMAX. Final Diagnosis URINE RETENTION AND INCONTINENCE EMILIA LISA MD Sep 18, 2020 09:10
[2020-09-18] MEDS: DOCUSATE SODIUM 100 MG (COLACE) CAP PO SCH ×2 (09:17→21:55)
[2020-09-18] MEDS: polyethylene glycoL POWDER 17 GM (MIRALAX) PACK PO SCH ×2 (09:17→21:56)
[2020-09-18] MEDS: SENNOSIDES 8.6 MG (SENOKOT) TAB PO SCH ×2 (09:18→21:57)
[2020-09-18] MEDS: SENNA W/DOCUSATE (SENOKOT S) TABLET PO SCH ×2 (09:18→21:57)
[2020-09-18] MEDS: FINASTERIDE (PROSCAR) 5 MG TAB PO SCH (09:18)
--- NOTE | 2020-09-18 09:33 | Cardiology Progress Note ---
Subjective Date Seen by Provider: Sep 18, 2020 Time Seen by Provider: 08:15 Subjective/Events-last exam Patient is with PT, c/o nonproductive cough today. Denies any chest pain. Review of Systems General: No Chills, No Night Sweats; Fatigue, Malaise; No Appetite, No Other HEENT: No Head Aches, No Visual Changes, No Eye Pain, No Ear Pain, No Dysphasia, No Sinus Congestion, No Post Nasal Drip, No Sore Throat, No Other Pulmonary: No Dyspnea, No Cough, No Pleuritic Chest Pain, No Other Cardiovascular: No: Chest Pain, Palpitations, Orthopnea, Paroxysmal Noc. Dyspnea, Edema, Lt Headedness, Other Objective-Cardiology Exam Last Set of Vital Signs Vital Signs 09/13/20 09/18/20 09/18/20 15:32 07:59 10:53 Temp 36.2 Pulse 74 Resp 20 B/P (MAP) 131/78 (95) Pulse Ox 96 O2 Delivery Nasal Cannula O2 Flow Rate 1.00 FiO2 97 General: Alert, Oriented X3, Cooperative HEENT: Atraumatic, PERRLA Neck: Supple, No JVD, No Thyromegaly Lungs: Clear to Auscultation, Normal Air Movement Heart: Regular Rate, Normal S1, Normal S2, No Murmurs Abdomen: Normal Bowel Sounds, Soft, No Tenderness, No Hepatosplenomegaly, No Masses Extremities: No Clubbing, No Cyanosis, No Edema, Normal Pulses, No Tenderness/Swelling Skin: No Rashes, No Breakdown, No Significant Lesion Neuro: Normal Gait, Normal Speech, Strength at 5/5 X4 Ext, Normal Tone, Sensation Intact Psych/Mental Status: Mental Status NL, Mood NL A/P-Cardiology Admission Diagnosis Syncope Coronary artery disease Hypertension Hyperlipidemia Assessment/Plan S/p fall out of bed resulting in multiple rib fracture, right hemothorax, improving, followed by surgical service Syncope, unknown etiology, occurred later in the day after falling out of bed, blood pressure is better, continue to monitor Debility, generalized weakness, started with therapy. Coronary artery disease, mild to moderate nonobstructive disease per cardiac catheterization 2008, most recent stress test and 2-D echocardiogram February 2016 revealed no ischemia or infarct. Hypertension, controlled, continue to monitor blood pressure/heart rate. Hyperlipidemia, lipid profile was done in December 2019 showing total aubrie sterol 126, HDL 29, triglyceride 225, LDL 52. Continue to monitor Mild bilateral nonobstructive carotid artery stenosis. Last carotid duplex done in December 2019. Continue to monitor Chronic kidney disease, management per PCP Diabetes mellitus, management per PCP History of prostate cancer, followed by Dr. Martin Patient was seen and evaluated with Yecenia, examination performed, management plan was discussed, agree with the current scribed note, I made few changes to the note using Italic font Patient was seen at bedside sitting comfortably, no new complaint, complain of fatigue and loss of energy No chest pain, no syncope Tolerating current medication well Continue to monitor blood pressure and lipids YECENIA BUTTS Sep 18, 2020 09:33 VALERIE SAHA MD Sep 18, 2020 15:31
--- NOTE | 2020-09-18 09:45 | Occupational Ther Daily Note ---
OT Current Status-Daily Note Subjective Pt seated in recliner, agreeable to OT tx. Nurse present turned O2 to 1 L from 3L Mental Status/Objective Patient Orientation: Person, Place, Situation Attachments: Oxygen ADL-Treatment Therapy Code Descriptions/Definitions Functional [place] Measure: 0=Not Assessed/NA 4=Minimal Assistance 1=Total Assistance 5=Supervision or Setup 2=Maximal Assistance 6=Modified [place] 3=Moderate Assistance 7=Complete IndependenceSCALE: Activities may be completed with or without assistive devices. 9-Ujxwrclwda-gsuwday completes the activity by him/herself with no assistance from a helper. 5-Set-up or Clean-up Assistance-helper sets up or cleans up; patient completes activity. [place] assists only prior to or following the activity. 4-Supervision or Touching Assistance-helper provides verbal cues and/or touching/steadying and/or contact guard assistance as patient completes activity. Assistance may be provided throughout the activity or intermittently. 3-Partial/Moderate Assistance-helper does LESS THAN HALF the effort. [place] lifts, holds or supports trunk or limbs, but provides less than half the effort. 2-Substantial/Maximal Assistance-helper does MORE THAN HALF the effort. [place] lifts or holds trunk or limbs and provides more than half the effort. 4-Jkatygcyp-fohgkk does ALL the effort. Patient does none of the effort to complete the activity. Or, the assistance of 2 or more helpers is required for the patient to complete the activity. If activity was not attempted, code reason: 7-Patient Refused. 9-Not Applicable-not attempted and the patient did not perform the activity before the current illness, exacerbation or injury. 10-Not Attempted due to Environmental Limitations-(lack of equipment, weather restraints, etc.). 88-Not Attempted due to Medical Conditions or Safety Concerns. Toileting Hygiene (QC): 4 (Supervision, pt able to manage clothing and stand at toilet to urinate.) Other Treatment Pt used FWW to perform functional mobility to therapy gym, [facility]. In order to increase BUE strength and activity tolerance, pt completed arm bike x11 mins, min resistance. After 7 minutes, pt's O2 saturation at 90% on 1L NC. After finishing 11 mins total, pt's O2 saturation at 83%, pt instructed to take deep breaths and O2 saturation increased to mid 90%'s within a 10 seconds. Pt then placed 1" pegs into foam pegboard, alternating hands wtih 1lb wrist weight BUEs. Pt placed/removed x100 pegs, taking rest breaks as needed. Pt's O2 saturation between 93-98% throughout task. Pt used FWW to return to room, verbal cues to slow down and stay within walker. Pt stood to complete toileting, able to manage clothing, then transferred to recliner. Post tx, pt seated in recliner, chair alarm on and all needs met. O2 saturation at 99% on 1 L Education OT Patient Education: Correct positioning, Energy conservation, Exercise program, Modified ADL techniques, Progress toward Goal/Update tx plan, Purpose of tx/functional activities, Rehab process, Safety issues Teaching Recipient: Patient Teaching Methods: Discussion Response to Teaching: Verbalize Understanding OT Short Term Goals Short Term Goals Time Frame: Sep 20, 2020 Toileting hygiene: 4 Shower/bathe self: 4 Lower body dressin Putting on/taking off footwear: 4 OT Inspection Manager Goals Inspection Manager Goals Time Frame: Oct 04, 2020 Eating (QC): 6 Oral Hygiene (QC): 6 Toileting Hygiene (QC): 6 Shower/Bathe Self (QC): 6 Upper Body Dressing (QC): 6 Lower Body Dressing (QC): 6 On/Off Footwear (QC): 6 Additional Goals: 1-Demonstrate ADL Tasks, 2-Verbalize Understanding, 3- ImproveStrength/Yuniel 1=Demonstrate adherence to instructed precautions during ADL tasks. 2=Patient will verbalize/demonstrate understanding of assistive devices/modifications for ADL. 3=Patient will improve strength/tolerance for activity to enable patient to perform ADL's. OT Education/Plan Problem List/Assessment Assessment: Decreased Activ Tolerance, Decreased UE Strength, Impaired Funct Balance, Impaired I ADL's, Impaired Self-Care Skills Discharge Recommendations Plan/Recommendations: Continue POC Treatment Plan/Plan of Care Patient would benefit from OT for education, treatment and training to promote independence in ADL's, mobility, safety and/or upper extremity function for ADL's. Plan of Care: ADL Retraining, Functional Mobility, Group Exercise/Act as Ind, UE Funct Exercise/Act Treatment Duration: Oct 04, 2020 Frequency: At least 5 of 7 days/Wk (IRF) Estimated Hrs Per Day: 1.5 hours per day Agreement: Yes Rehab Potential: Fair Time/GCodes Start Time: 09:15 Stop Time: 10:30 Total Time Billed (hr/min): 75 Billed Treatment Time 1, EX (15'), ADL (10'), FA 3 (50') JAVON REYNOLDS OT Sep 18, 2020 09:45
--- NOTE | 2020-09-18 10:59 | Speech Therapy Daily Note ---
Speech Daily Progress Note Subjective Date Seen by Provider: Sep 18, 2020 Time Seen by Provider: 00:30 Patient was resting in his recliner following his other therapies. Patient states he thinks he is feeling. Objective Patient completed safety awareness tasks/questions at 80% with 20% cues/rep etitions. Assessment Assessment Current Status: Good Progress, Fair Progress Treatment Plan Continue Plan of Care Speech Short Term Goals Short Term Goals Short Term Goals 1) The patient will complete memory tasks with 80% or greater with minimal cues. 2) The patient will complete safety awareness tasks with 80% or greater with minimal cues. 3) The patient will complete problem solving tasks with 80% or greater with minimal cues. Speech Manager Research Development Goals Manager Research Development Goals Patient will improve cognitive-communication abilities in order to require less assist. Speech-Plan Patient/Family Goals Patient/Family Goals: Patient plans on returning to his home where he lives alone. Treatment Plan Speech Therapy Treatment Plan: Continue Plan of Care Treatment Duration: Sep 27, 2020 Frequency: 4 times per week (Patient will receive ST 4-5x per week) Estimated Hrs Per Day: .5 hour per day Rehab Potential: Fair Barriers to Learning: Patient's cognitive deficits Pt/Family Agrees to Plan: Yes Safety Risks/Education Teaching Recipient: Patient Teaching Methods: Demonstration, Discussion Response to Teaching: Verbalize Understanding, Return Demonstration Education Topics Provided: Continued safety within his room, communication of wants/needs Time Speech Therapy Time In: 11:00 Speech Therapy Time Out: 11:30 Total Billed Time: 30 Billed Treatment Time 1, JOVANI Kaye Sep 18, 2020 10:59
--- NOTE | 2020-09-18 14:38 | Diagnostic Imaging Report ---
INDICATION: Wheezing. TIME OF EXAM: 2:26 p.m. Correlation is made with prior chest 09/15/2016. Heart size is stable. There appears to be some infiltrate and fluid in the right base, new since a prior exam. The left lung is clear. There is no pneumothorax. IMPRESSION: Right basilar infiltrate and pleural effusion. Dictated by: Dictated on workstation # [id number]
--- NOTE | 2020-09-18 15:29 | Physical Therapy Daily Note ---
PT Daily Note-Current Subjective Pt sitting in recliner upon arrival. Pt agrees to PT. Pain Location: No Pain Reported Mental Status Patient Orientation: Person, Confused, Place Attachments: Oxygen Transfers SCALE: Activities may be completed with or without assistive devices. 9-Lhqcogiaof-weawdau completes the activity by him/herself with no assistance from a helper. 5-Set-up or Clean-up Assistance-helper sets up or cleans up; patient completes activity. [place] assists only prior to or following the activity. 4-Supervision or Touching Assistance-helper provides verbal cues and/or to uching/steadying and/or contact guard assistance as patient completes activity. Assistance may be provided throughout the activity or intermittently. 3-Partial/Moderate Assistance-helper does LESS THAN HALF the effort. [place] lifts, holds or supports trunk or limbs, but provides less than half the effort. 2-Substantial/Maximal Assistance-helper does MORE THAN HALF the effort. [place] lifts or holds trunk or limbs and provides more than half the effort. 6-Baxazlpgq-kywwre does ALL the effort. Patient does none of the effort to complete the activity. Or, the assistance of 2 or more helpers is required for the patient to complete the activity. If activity was not attempted, code reason: 7-Patient Refused. 9-Not Applicable-not attempted and the patient did not perform the activity before the current illness, exacerbation or injury. 10-Not Attempted due to Environmental Limitations-(lack of equipment, weather restraints, etc.). 88-Not Attempted due to Medical Conditions or Safety Concerns. Weight Bearing Full Weight Bearing Full Weight Bearing Exercises Supine Ex: Ankle pumps, Quad Set, Glut sets, Heel Slides, Short Arc Quads, Straight leg raise, Hip abd/add Supine Reps: 15 Seated Therapy Exercises: Ankle pumps, Long arc quads, Hip flexion, Hip abd/add Seated Reps: 15 Treatments Pt is issued written HEP for Supine & Seated EX and reviewed w/POLITICAL AIDE. Pt resting in recliner at end of tx. Radiology arrives to take pt. Assessment Current Status: Fair Progress Pt needs VC to follow directions at times. PT Short Term Goals Short Term Goals Time Frame: Sep 20, 2020 Roll Left & Right: 3 Sit to lyin Lying to sitting on side of be: 3 Sit to stand: 4 (SBA) Chair/mua-qy-toyga transfer: 4 (SBA) Walk 10 feet: 4 (SBA) Walk 50 feet with two turns: 4 (SBA) Walk 150 feet: 4 (SBA) PT Prison Goals Prison Goals PT Prison Goals Time Frame: Oct 04, 2020 Roll Left & Right (QC): 4 Sit to Lying (QC): 4 Lying-Sitting on Side/Bed(QC): 4 Sit to Stand (QC): 5 Chair/Xvb-kh-Mlzji Xfer(QC): 5 Toilet Transfer (QC): 5 Car Transfer (QC): 5 Does the Patient Walk: Yes Walk 10 feet (QC): 5 Walk 50ft with 2 Turns (QC): 5 Walk 150 ft (QC): 5 Walking 10ft on Uneven Surface: 5 1 Step (curb) (QC): 5 4 Steps (QC): 5 12 Steps (QC): 5 Picking up an Object (QC): 4 Wheel 50 feet with 2 turns (QC: 9 Wheel 150 feet: 9 PT Plan Problem List Problem List: Activity Tolerance, Functional Strength, Safety Treatment/Plan Treatment Plan: Continue Plan of Care Treatment Plan: Bed Mobility, Education, Functional Activity Yuniel, Functional Strength, Group Therapy, Gait, Safety, Therapeutic Exercise, Transfers Treatment Duration: Oct 04, 2020 Frequency: At least 5 of 7 days/Wk (IRF) Estimated Hrs Per Day: 1.5 hours per day Patient and/or Family Agrees t: Yes Safety Risks/Education Patient Education: Correct Positioning, Safety Issues Teaching Recipient: Patient Teaching Methods: Discussion Response to Teaching: Reinforcement Needed Time/GCodes Time In: 1400 Time Out: 1430 Total Billed Treatment Time: 30 Total Billed Treatment 1, EX x2 (30m) MILTON SHIRLEY POLITICAL AIDE Sep 18, 2020 15:29
[2020-09-18] MEDS: TAMSULOSIN 0.4 MG (FLOMAX) CAP PO SCH (18:14)
[2020-09-18 20:00] VITALS: BP 121/76
[2020-09-18] MEDS: MELATONIN 3 MG TABLET PO PRN (21:36)
[2020-09-18] MEDS: HYDROcodone/APAP 5 MG/325 MG (LORTAB) TAB PO PRN (21:36)
[2020-09-19] MEDS: ACETAMINOPHEN 500 MG TAB (TYLENOL) PO SCH ×5 (01:16→23:26)
[2020-09-19] MEDS: inSUlin ASPART (NovoLOG) 1 UNIT/0.01 ML (CHARGE PER UNIT) SC SCH ×4 (06:03→21:22)
[2020-09-19] MEDS: RT-ALBUTEROL/IPRATROPIUM 3 ML (DUONEB) VIAL INH SCH ×4 (07:19→17:33)
[2020-09-19 07:42] VITALS: BP 122/73
[2020-09-19] MEDS: SENNA W/DOCUSATE (SENOKOT S) TABLET PO SCH ×2 (07:54→20:49)
[2020-09-19] MEDS: SENNOSIDES 8.6 MG (SENOKOT) TAB PO SCH ×2 (07:54→20:49)
[2020-09-19] MEDS: DOCUSATE SODIUM 100 MG (COLACE) CAP PO SCH ×2 (07:54→20:49)
[2020-09-19] MEDS: FINASTERIDE (PROSCAR) 5 MG TAB PO SCH (07:54)
[2020-09-19] MEDS: polyethylene glycoL POWDER 17 GM (MIRALAX) PACK PO SCH ×2 (08:14→19:26)
--- NOTE | 2020-09-19 08:31 | Cardiology Progress Note ---
Subjective Date Seen by Provider: Sep 19, 2020 Time Seen by Provider: 08:30 Subjective/Events-last exam Patient is sitting up in chair, denies any chest pain or dyspnea. Review of Systems General: No Chills, No Night Sweats, No Fatigue, No Malaise, No Appetite, No Other HEENT: No Head Aches, No Visual Changes, No Eye Pain, No Ear Pain, No Dysphasia, No Sinus Congestion, No Post Nasal Drip, No Sore Throat, No Other Pulmonary: No Dyspnea, No Cough, No Pleuritic Chest Pain, No Other Cardiovascular: No: Chest Pain, Palpitations, Orthopnea, Paroxysmal Noc. Dyspnea, Edema, Lt Headedness, Other Objective-Cardiology Exam Last Set of Vital Signs Vital Signs 09/13/20 09/19/20 09/19/20 15:32 07:42 08:20 Temp 36.4 Pulse 78 Resp 20 B/P (MAP) 122/73 (89) Pulse Ox 95 O2 Delivery Nasal Cannula O2 Flow Rate 2.00 FiO2 97 General: Alert, Oriented X3, Cooperative HEENT: Atraumatic, PERRLA Neck: Supple, No JVD, No Thyromegaly Lungs: Clear to Auscultation, Normal Air Movement Heart: Regular Rate, Normal S1, Normal S2, No Murmurs Abdomen: Normal Bowel Sounds, Soft, No Tenderness, No Hepatosplenomegaly, No Masses Extremities: No Clubbing, No Cyanosis, No Edema, Normal Pulses, No Tenderness/Swelling Skin: No Rashes, No Breakdown, No Significant Lesion Neuro: Normal Gait, Normal Speech, Strength at 5/5 X4 Ext, Normal Tone, Sensation Intact Psych/Mental Status: Mental Status NL, Mood NL Results Lab Laboratory Tests Test 09/18/20 17:07 09/18/20 21:16 09/19/20 05:09 09/19/20 11:47 Range/Units Glucometer 162 H 231 H 143 H 213 H 70-110 MG/DL A/P-Cardiology Admission Diagnosis Syncope Coronary artery disease Hypertension Hyperlipidemia Assessment/Plan S/p falling out of bed resulting in multiple rib fracture, right hemothorax, improving, followed by surgical service Syncope, unknown etiology, occurred later in the day after falling out of bed, blood pressure is better, continue to monitor Debility, generalized weakness, continue with therapy. Coronary artery disease, mild to moderate nonobstructive disease per cardiac catheterization 2008, most recent stress test and 2-D echocardiogram February 2016 revealed no ischemia or infarct. Hypertension, controlled, continue to monitor blood pressure/heart rate. Hyperlipidemia, lipid profile was done in December 2019 showing total cholesterol 126, HDL 29, triglyceride 225, LDL 52. Continue to monitor Mild bilateral nonobstructive carotid artery stenosis. Last carotid duplex done in December 2019. Continue to monitor Chronic kidney disease, management per PCP Diabetes mellitus, management per PCP History of prostate cancer, followed by Dr. Martin Patient was seen and evaluated with Yecenia, examination performed, management plan was discussed, agree with the current scribed note, I made few changes to the note using Italic font Patient was seen during physical therapy session, doing better, reporting improvement in his strength No further dizzy spells or passing out episodes. Continue to monitor blood pressure YECENIA BUTTS Sep 19, 2020 08:31 VALERIE SAHA MD Sep 19, 2020 12:36
--- NOTE | 2020-09-19 09:08 | Physical Therapy Daily Note ---
PT Daily Note-Current Subjective Pt sitting in recliner upon arrival. Pt agrees to PT but asks to get dressed to start tx. Pain Location: No Pain Reported Mental Status Patient Orientation: Person, Confused, Place Transfers SCALE: Activities may be completed with or without assistive devices. 0-Gzgwruiyce-kfhdxob completes the activity by him/herself with no assistance from a helper. 5-Set-up or Clean-up Assistance-helper sets up or cleans up; patient completes activity. [place] assists only prior to or following the activity. 4-Supervision or Touching Assistance-helper provides verbal cues and/or touching /steadying and/or contact guard assistance as patient completes activity. Assistance may be provided throughout the activity or intermittently. 3-Partial/Moderate Assistance-helper does LESS THAN HALF the effort. [place] lifts, holds or supports trunk or limbs, but provides less than half the effort. 2-Substantial/Maximal Assistance-helper does MORE THAN HALF the effort. [place] lifts or holds trunk or limbs and provides more than half the effort. 5-Szypbhdtb-ijevyf does ALL the effort. Patient does none of the effort to complete the activity. Or, the assistance of 2 or more helpers is required for the patient to complete the activity. If activity was not attempted, code reason: 7-Patient Refused. 9-Not Applicable-not attempted and the patient did not perform the activity before the current illness, exacerbation or injury. 10-Not Attempted due to Environmental Limitations-(lack of equipment, weather restraints, etc.). 88-Not Attempted due to Medical Conditions or Safety Concerns. Sit to Stand (QC): 5 Weight Bearing Full Weight Bearing Full Weight Bearing Gait Training Does the Patient Walk?: Yes Distance: 150' Walk 10 feet (QC): 5 Walk 50 ft with 2 Turns(QC): 5 Walk 150 ft (QC): 5 Gait Persons Needed: 1 Gait Assistive Device: FWW Wheelchair Training Does the Pt Use a Wheelchair?: No Exercises Seated Therapy Exercises: Ankle pumps, Long arc quads, Hip flexion, Hip abd/add Seated Reps: 15 Treatments Changed from gown to clothes w/Min A-Setup. Pt transfers to standing. Pt amb. in hallway. After RB, pt uses NuStep for 15m at WL 5. Pt completes Seated Ex and returns to room to rest in recliner at end of tx. Pt declines need for BR. All needs met, call light in hand. Assessment Current Status: Good Progress Pt is no longer using O2 and needs occasional short RB. PT Short Term Goals Short Term Goals Time Frame: Sep 20, 2020 Roll Left & Right: 3 Sit to lyin Lying to sitting on side of be: 3 Sit to stand: 4 (SBA) Chair/vkj-yl-kmuxq transfer: 4 (SBA) Walk 10 feet: 4 (SBA) Walk 50 feet with two turns: 4 (SBA) Walk 150 feet: 4 (SBA) PT Prison Goals Prison Goals PT Anode Builder Goals Time Frame: Oct 04, 2020 Roll Left & Right (QC): 4 Sit to Lying (QC): 4 Lying-Sitting on Side/Bed(QC): 4 Sit to Stand (QC): 5 Chair/Ymy-do-Tuqoe Xfer(QC): 5 Toilet Transfer (QC): 5 Car Transfer (QC): 5 Does the Patient Walk: Yes Walk 10 feet (QC): 5 Walk 50ft with 2 Turns (QC): 5 Walk 150 ft (QC): 5 Walking 10ft on Uneven Surface: 5 1 Step (curb) (QC): 5 4 Steps (QC): 5 12 Steps (QC): 5 Picking up an Object (QC): 4 Wheel 50 feet with 2 turns (QC: 9 Wheel 150 feet: 9 PT Plan Problem List Problem List: Functional Strength, Safety Treatment/Plan Treatment Plan: Continue Plan of Care Treatment Plan: Bed Mobility, Education, Functional Activity Yuniel, Functional Strength, Group Therapy, Gait, Safety, Therapeutic Exercise, Transfers Treatment Duration: Oct 04, 2020 Frequency: At least 5 of 7 days/Wk (IRF) Estimated Hrs Per Day: 1.5 hours per day Patient and/or Family Agrees t: Yes Safety Risks/Education Patient Education: Transfer Techniques, Safety Issues Teaching Recipient: Patient Teaching Methods: Discussion Response to Teaching: Verbalize Understanding Time/GCodes Time In: 800 Time Out: 915 Total Billed Treatment Time: 75 Total Billed Treatment 1, GT x2 (25m), EX x2 (25m) & FA (20m) MILTON SHIRLEY CANINE SERVICE INSTRUCTOR TRAINER Sep 19, 2020 09:08
--- NOTE | 2020-09-19 09:38 | Occupational Ther Daily Note ---
OT Current Status-Daily Note Subjective Pt seated in recliner, agreeable to OT tx. Mental Status/Objective Patient Orientation: Person, Place, Situation ADL-Treatment Therapy Code Descriptions/Definitions Functional [place] Measure: 0=Not Assessed/NA 4=Minimal Assistance 1=Total Assistance 5=Supervision or Setup 2=Maximal Assistance 6=Modified [place] 3=Moderate Assistance 7=Complete IndependenceSCALE: Activities may be completed with or without assistive devices. 4-Ttqkmhzndj-hvzaiyq completes the activity by him/herself with no assistance from a helper. 5-Set-up or Clean-up Assistance-helper sets up or cleans up; patient completes activity. [place] assists only prior to or following the activity. 4-Supervision or Touching Assistance-helper provides verbal cues and/or touching/steadying and/or contact guard assistance as patient completes activity. Assistance may be provided throughout the activity or intermittently. 3-Partial/Moderate Assistance-helper does LESS THAN HALF the effort. [place] lifts, holds or supports trunk or limbs, but provides less than half the effort. 2-Substantial/Maximal Assistance-helper does MORE THAN HALF the effort. [place] lifts or holds trunk or limbs and provides more than half the effort. 0-Tyjvyizov-tkaupc does ALL the effort. Patient does none of the effort to complete the activity. Or, the assistance of 2 or more helpers is required for the patient to complete the activity. If activity was not attempted, code reason: 7-Patient Refused. 9-Not Applicable-not attempted and the patient did not perform the activity before the current illness, exacerbation or injury. 10-Not Attempted due to Environmental Limitations-(lack of equipment, weather restraints, etc.). 88-Not Attempted due to Medical Conditions or Safety Concerns. Lower Body Dressing (QC): 2 (Max A to change soiled brief) Toileting Hygiene (QC): 4 (CGA, pt able to manage clothing and perform hygiene) Toilet Transfer (QC): 4 (CGA) Other Treatment Pt seated in recliner, agreeable to OT tx. Pt used FWW to perform functional mobility to therapy gym, CGA with cues to stay within the walker and to slow down. OT tx with focus on increasing BUE strength and activity tolerance. Pt completed arm bike x15 mins at 25-30 Watt resistance. Pt took rest breaks as needed. Pt then completed nut/bolt task, placing/removing nuts and bolts from block. OT educated pt on UE exercises with moderate resistance theraband, pt completed x15 reps each bUE for 5/5 exercises, max verbal and tactile cues for correct technique. Pt used FWW to return to room, on way to room he indicates he leg was wet and he was incontinent of urine. Pt transferred into bathroom, instructed to sit on toilet, but pt continued to smoking pipe liner front of toilet, moderate cues in order for pt to turn around. Pt sat on toilet, OT assisted with doffing soiled brief. Pt attempted to don brief, donning through leg hole instead of through waist, Max A to fix (Assist threading BLES). Pt stood with CGA then performed pant hike. Pt used FWW to transfer to recliner. Post tx, pt seated in recliner, call light in reach and all needs met, chair alarm on. Education OT Patient Education: Correct positioning, Modified ADL techniques, Progress toward Goal/Update tx plan, Purpose of tx/functional activities Teaching Recipient: Patient Teaching Methods: Discussion Response to Teaching: Verbalize Understanding OT Short Term Goals Short Term Goals Time Frame: Sep 20, 2020 Toileting hygiene: 4 Shower/bathe self: 4 Lower body dressin Putting on/taking off footwear: 4 OT Retirement Goals Retirement Goals Time Frame: Oct 04, 2020 Eating (QC): 6 Oral Hygiene (QC): 6 Toileting Hygiene (QC): 6 Shower/Bathe Self (QC): 6 Upper Body Dressing (QC): 6 Lower Body Dressing (QC): 6 On/Off Footwear (QC): 6 Additional Goals: 1-Demonstrate ADL Tasks, 2-Verbalize Understanding, 3-ImproveStrength/Yuniel 1=Demonstrate adherence to instructed precautions during ADL tasks. 2=Patient will verbalize/demonstrate understanding of assistive devices/modifications for ADL. 3=Patient will improve strength/tolerance for activity to enable patient to perform ADL's. OT Education/Plan Problem List/Assessment Assessment: Decreased Activ Tolerance, Decreased Safety Aware, Decreased UE Strength, Impaired Funct Balance, Impaired I ADL's, Impaired Self-Care Skills Discharge Recommendations Plan/Recommendations: Continue POC Treatment Plan/Plan of Care Patient would benefit from OT for education, treatment and training to promote independence in ADL's, mobility, safety and/or upper extremity function for ADL's. Plan of Care: ADL Retraining, Functional Mobility, Group Exercise/Act as Ind, UE Funct Exercise/Act Treatment Duration: Oct 04, 2020 Frequency: At least 5 of 7 days/Wk (IRF) Estimated Hrs Per Day: 1.5 hours per day Agreement: Yes Rehab Potential: Fair Time/GCodes Start Time: 09:15 Stop Time: 10:30 Total Time Billed (hr/min): 75 Billed Treatment Time 1, EX (15'), FA 3 (45'), ADL (15') JAVON REYNOLDS OT Sep 19, 2020 09:38
--- NOTE | 2020-09-19 10:54 | Speech Therapy Daily Note ---
Speech Daily Progress Note Subjective Date Seen by Provider: Sep 19, 2020 Time Seen by Provider: 00:30 Patient was resting in his recliner following his other therapies. Objective Patient completed temporal orientation tasks with calendar, schedule and clock with 85% given 10% cues. Assessment Assessment Current Status: Good Progress Treatment Plan Continue Plan of Care Speech Short Term Goals Short Term Goals Short Term Goals 1) The patient will complete memory tasks with 80% or greater with minimal cues. 2) The patient will complete safety awareness tasks with 80% or greater with minimal cues. 3) The patient will complete problem solving tasks with 80% or greater with minimal cues. Speech Development System Efficiency Manager Goals Half-Way Goals Patient will improve cognitive-communication abilities in order to require less assist. Speech-Plan Patient/Family Goals Patient/Family Goals: Patient plans on returning to his home where he lives alone. Treatment Plan Speech Therapy Treatment Plan: Continue Plan of Care Treatment Duration: Sep 27, 2020 Frequency: 4 times per week (Patient will receive ST 4-5x per week) Estimated Hrs Per Day: .5 hour per day Rehab Potential: Fair Barriers to Learning: Patient's cognitive deficits Pt/Family Agrees to Plan: Yes Safety Risks/Education Teaching Recipient: Patient Teaching Methods: Demonstration, Discussion Response to Teaching: Verbalize Understanding, Return Demonstration Education Topics Provided: Continued safety within his room, communication of wants/needs Time Speech Therapy Time In: 11:00 Speech Therapy Time Out: 11:30 Total Billed Time: 30 Billed Treatment Time 1, JOVANI Kaye Sep 19, 2020 10:54
--- NOTE | 2020-09-19 11:12 | Progress Note - Urology ---
Progress Note-Urology Progress Notes/Assess & Plan Progress/Assessment & Plan STARTED ON DETROL LA. TOLERATES IT WELL Final Diagnosis RETENTION AND INCONTINENCE EMILIA LISA MD Sep 19, 2020 11:12
--- NOTE | 2020-09-19 12:27 | PM&R Progress Note ---
Subjective HPI/CC On Admission Date Seen by Provider: Sep 19, 2020 Time Seen by Provider: 12:30 Subjective/Events-last exam 09/19/2020: Pt doing really well Very conversational today Incontinence is chronic Checked meds and labs Lungs are clear 09/18/2020: Pt doing about the same MRI was normal, no evidence of normal pressure hydrocephalus Xanax given for the MRI made him very confused yesterday DC planned for the 09/17/2020: Pt doing really well Getting MRI because my suspicion for normal pressure Hydrocephalus is present Nebs will be given QID since lungs are still coarse 09/16/2020: Pt had multiple bowel movements yesterday CPAP will be brought in from home Chronic incontinence per urology Slum score is 27/30 but he requires a lot of cues Upon further evaluation patient may have some signs of normal pressure hydrocephalus or early dementia 09/15/2020: Patient doing pretty well Sleeping soundly currently Legs move constantly Fall risk continues 09/14/2020: Patient doing pretty well Remains incontinent and purposely urinates outside of his diaper Having some small bowel movements so laxatives will be continuing Discontinue the Robaxin due to drowsiness Check meds and labs Overall very high risk for falls Review of Systems General: Fatigue Objective Exam Vital Signs Vital Signs Date Time Temp Pulse Resp B/P (MAP) Pulse Ox O2 Delivery O2 Flow Rate FiO2 09/19/20 20:30 Nasal Cannula 2.00 09/19/20 20:00 36.6 98 20 130/63 (85) 95 Capillary Refill : General Appearance: No Apparent Distress, WD/WN, Chronically ill, Obese HEENT: PERRL/EOMI, Normal ENT Inspection, Pharynx Normal Neck: Full Range of Motion, Normal Inspection, Non Tender, Supple, Carotid Bruit Respiratory: Chest Non Tender, Lungs Clear, Normal Breath Sounds, No Accessory Muscle Use, No Respiratory Distress Cardiovascular: Regular Rate, Rhythm, No Edema, No Gallop, No JVD, No Murmur, Normal Peripheral Pulses Gastrointestinal: Normal Bowel Sounds, No Organomegaly, No Pulsatile Mass, Non Tender, Soft Back: Normal Inspection, No CVA Tenderness, No Vertebral Tenderness Extremity: Normal Capillary Refill, Normal Inspection, Normal Range of Motion, Non Tender, No Calf Tenderness, No Pedal Edema Neurologic/Psychiatric: Alert, Oriented x3, No Motor/Sensory Deficits, Abnormal Gait, Depressed Affect, Motor Weakness (Generalized) Skin: Normal Color, Warm/Dry, Ecchymosis (Right flank) Lymphatic: No Adenopathy Results/Procedures Lab Patient resulted labs reviewed. FIM Transfers Therapy Code Descriptions/Definitions Functional [place] Measure: 0=Not Assessed/NA 4=Minimal Assistance 1=Total Assistance 5=Supervision or Setup 2=Maximal Assistance 6=Modified [place] 3=Moderate Assistance 7=Complete IndependenceSCALE: Activities may be completed with or without assistive devices. 0-Ehlpaevawv-tzyjqvp completes the activity by him/herself with no assistance from a helper. 5-Set-up or Clean-up Assistance-helper sets up or cleans up; patient completes activity. Bethany assists only prior to or following the activity. 4-Supervision or Touching Assistance-helper provides verbal cues and/or touching/steadying and/or contact guard assistance as patient completes activity. Assistance may be provided throughout the activity or intermittently. 3-Partial/Moderate Assistance-helper does LESS THAN HALF the effort. Bethany lifts, holds or supports trunk or limbs, but provides less than half the effort. 2-Substantial/Maximal Assistance-helper does MORE THAN HALF the effort. Beth[place] lifts or holds trunk or limbs and provides more than half the effort. 2-Dsjtwpibb-luchfc does ALL the effort. Patient does none of the effort to complete the activity. Or, the assistance of 2 or more helpers is required for the patient to complete the activity. If activity was not attempted, code reason: 7-Patient Refused. 9-Not Applicable-not attempted and the patient did not perform the activity before the current illness, exacerbation or injury. 10-Not Attempted due to Environmental Limitations-(lack of equipment, weather restraints, etc.). 88-Not Attempted due to Medical Conditions or Safety Concerns. Roll Left to Right (QC): 2 Sit to Lying (QC): 2 Sit to Stand (QC): 5 Chair/Dyk-cz-Ynqav Xfer(QC): 4 Car Transfer (QC): 3 Gait Training Does the Patient Walk?: Yes Distance: 150' Walk 10 feet (QC): 5 Walk 50 ft with 2 Turns(QC): 5 Walk 150 ft (QC): 5 Walking 10ft/uneven surface-QC: 4 Gait Persons Needed: 1 Gait Assistive Device: FWW Wheelchair Training Does the Pt Use a Wheelchair?: No Wheel 50 ft with 2 turns (QC): 9 Wheel 150 ft (QC): 9 Stair Training #of Steps: 1 1 Step (curb) (QC): 4 4 Steps (QC): 88 12 Steps (QC): 88 Balance Picking up an Object (QC): 88 ADL-Treatment Eating (QC): 5 (set up assistance. Assistance to open milk and to move cup within reach.) Oral Hygiene (QC): 4 (supervision standing at sink) Shower/Bathe Self (QC): 4 (SBA, pt required min cues in order to wash/dry all parts. education on LH sponge provided) Upper Body Dressing (QC): 5 (set up, pt able to don button up shirt, assist with O2 tubing) Lower Body Dressing (QC): 2 (Max A to change soiled brief) On/Off Footwear (QC): 3 (Pt doffed socks with investments manager, used sock aide to don socks, min A with AE) Toileting Hygiene (QC): 4 (CGA, pt able to manage clothing and perform hygiene) Toilet Transfer (QC): 4 (CGA) Assessment/Plan Assessment and Plan Assess & Plan/Chief Complaint Assessment: Status post fall with right sided multiple rib fractures and right flank hematoma Acute blood loss anemia Chronic kidney disease BPH Diabetes Obesity Poor social situation Advanced age Plan: Aggressive therapy Supportive care Pain control 09/14/2020: Pain control Incontinence care Supportive care 09/15/2020: Incontinence care Pain control Monitor closely 09/16/2020: Supportive care Monitor closely Incontinence care Patient may have findings of normal pressure hydrocephalus will further evaluate 09/17/2020: Supportive care MRI Monitor lungs 09/18/2020: MRI ruled out normal pressure hydrocephalus Continue incontinence care 09/19/2020: Much improved status Lungs are clear today (1) Debility (2) Hemothorax on right Status: Acute (3) Fall Status: Acute (4) Rib fractures Status: Acute (5) YE (acute kidney injury) Status: Acute (6) Obesity Status: Chronic (7) Acute respiratory failure with hypoxia Status: Acute (8) Benign prostatic hyperplasia with urinary retention Status: Acute LINO HEATH DO Sep 19, 2020 12:27
[2020-09-19] MEDS: TAMSULOSIN 0.4 MG (FLOMAX) CAP PO SCH (17:40)
[2020-09-19 20:00] VITALS: BP 130/63
[2020-09-19] MEDS: MELATONIN 3 MG TABLET PO PRN (23:34)
[2020-09-20] MEDS: ALPRAZolam 0.25 MG (XANAX) TAB PO PRN (01:13)
[2020-09-20] MEDS: ACETAMINOPHEN 500 MG TAB (TYLENOL) PO SCH ×4 (05:32→23:45)
[2020-09-20] MEDS: inSUlin ASPART (NovoLOG) 1 UNIT/0.01 ML (CHARGE PER UNIT) SC SCH ×4 (05:45→20:52)
[2020-09-20] MEDS: RT-ALBUTEROL/IPRATROPIUM 3 ML (DUONEB) VIAL INH SCH ×4 (06:27→19:27)
[2020-09-20 08:00] VITALS: BP 144/78
--- NOTE | 2020-09-20 09:08 | Cardiology Progress Note ---
Subjective Date Seen by Provider: Sep 20, 2020 Time Seen by Provider: 09:07 Subjective/Events-last exam Patient was seen at bedside, sitting comfortably, no new complaint, feeling better Review of Systems General: No Chills, No Night Sweats, No Fatigue, No Malaise, No Appetite, No Other HEENT: No Head Aches, No Visual Changes, No Eye Pain, No Ear Pain, No Dysphasia, No Sinus Congestion, No Post Nasal Drip, No Sore Throat, No Other Pulmonary: No Dyspnea, No Cough, No Pleuritic Chest Pain, No Other Cardiovascular: No: Chest Pain, Palpitations, Orthopnea, Paroxysmal Noc. Dyspnea, Edema, Lt Headedness, Other Objective-Cardiology Exam Last Set of Vital Signs Vital Signs 09/19/20 09/20/20 20:30 08:00 Temp 36.4 Pulse 104 Resp 20 B/P (MAP) 144/78 (100) Pulse Ox 93 O2 Delivery Room Air O2 Flow Rate 2.00 General: Alert, Oriented X3, Cooperative HEENT: Atraumatic, PERRLA Neck: Supple, No JVD, No Thyromegaly Lungs: Clear to Auscultation, Normal Air Movement Heart: Regular Rate, Normal S1, Normal S2, No Murmurs Abdomen: Normal Bowel Sounds, Soft, No Tenderness, No Hepatosplenomegaly, No Masses Extremities: No Clubbing, No Cyanosis, No Edema, Normal Pulses, No Tenderness/Swelling Skin: No Rashes, No Breakdown, No Significant Lesion Neuro: Normal Gait, Normal Speech, Strength at 5/5 X4 Ext, Normal Tone, Sensation Intact Psych/Mental Status: Mental Status NL, Mood NL A/P-Cardiology Admission Diagnosis Syncope Coronary artery disease Hypertension Hyperlipidemia Assessment/Plan S/p falling out of bed resulting in multiple rib fracture, right hemothorax, improving, followed by surgical service Syncope, unknown etiology, probably hypotensive episode, occurred later in the day after falling out of bed, blood pressure is better, continue to monitor Debility, generalized weakness, continue with therapy. Coronary artery disease, mild to moderate nonobstructive disease per cardiac catheterization 2008, most recent stress test and 2-D echocardiogram February 2016 revealed no ischemia or infarct. Hypertension, controlled, continue to monitor blood pressure/heart rate. Hyperlipidemia, lipid profile was done in December 2019 showing total cholesterol 126, HDL 29, triglyceride 225, LDL 52. Continue to monitor Mild bilateral nonobstructive carotid artery stenosis. Last carotid duplex done in December 2019. Continue to monitor Chronic kidney disease, management per PCP Diabetes mellitus, management per PCP History of prostate cancer, followed by VALERIE Lowry MD Sep 20, 2020 09:08
[2020-09-20] MEDS: SENNA W/DOCUSATE (SENOKOT S) TABLET PO SCH ×2 (09:19→20:20)
[2020-09-20] MEDS: DOCUSATE SODIUM 100 MG (COLACE) CAP PO SCH ×2 (09:19→20:19)
[2020-09-20] MEDS: SENNOSIDES 8.6 MG (SENOKOT) TAB PO SCH ×2 (09:19→20:20)
[2020-09-20] MEDS: FINASTERIDE (PROSCAR) 5 MG TAB PO SCH (09:19)
[2020-09-20] MEDS: polyethylene glycoL POWDER 17 GM (MIRALAX) PACK PO SCH ×2 (09:55→20:19)
--- NOTE | 2020-09-20 10:35 | Occupational Ther Daily Note ---
OT Current Status-Daily Note Subjective Pt seated upright in recliner, agreeable to OT tx. Mental Status/Objective Patient Orientation: Person, Place, Situation ADL-Treatment Therapy Code Descriptions/Definitions Functional [place] Measure: 0=Not Assessed/NA 4=Minimal Assistance 1=Total Assistance 5=Supervision or Setup 2=Maximal Assistance 6=Modified [place] 3=Moderate Assistance 7=Complete IndependenceSCALE: Activities may be completed with or without assistive devices. 2-Vvoyoueeli-trysujn completes the activity by him/herself with no assistance from a helper. 5-Set-up or Clean-up Assistance-helper sets up or cleans up; patient completes activity. Anna assists only prior to or following the activity. 4-Supervision or Touching Assistance-helper provides verbal cues and/or touching/steadying and/or contact guard assistance as patient completes activity. Assistance may be provided throughout the activity or intermittently. 3-Partial/Moderate Assistance-helper does LESS THAN HALF the effort. Anna lifts, holds or supports trunk or limbs, but provides less than half the effort. 2-Substantial/Maximal Assistance-helper does MORE THAN HALF the effort. Anna lifts or holds trunk or limbs and provides more than half the effort. 3-Xeulgydsb-dybcui does ALL the effort. Patient does none of the effort to complete the activity. Or, the assistance of 2 or more helpers is required for the patient to complete the activity. If activity was not attempted, code reason: 7-Patient Refused. 9-Not Applicable-not attempted and the patient did not perform the activity before the current illness, exacerbation or injury. 10-Not Attempted due to Environmental Limitations-(lack of equipment, weather restraints, etc.). 88-Not Attempted due to Medical Conditions or Safety Concerns. Oral Hygiene (QC): 7 Shower/Bathe Self (QC): 4 (Supervision, pt able to wash/dry all parts) Upper Body Dressing (QC): 5 (set up, pt able to don button up shirt.) Lower Body Dressing (QC): 3 (Min A with belt, CGA in stand for pant hike. Pt able to don pants/underwear using food assembler as needed) On/Off Footwear: 3 (Mod A. Pt able to doff gripper socks, used sock aide to don. Pt unable to recall how to use sock aide, requiring assistance.) Toileting Hygiene (QC): 4 (CGA, pt able to manage hygiene and clothing management) Toilet Transfer (QC): 4 (CGA on/off toilet) Other Treatment Pt seated in recliner, used FWW to transfer into bathroom and onto SC. Pt stood to doff pants, managed them down. He stood with pants around knees, asking what he should do next, cue to sit on bench to continue doffing clothes. Pt doffed pants and shirt, then asked if he needed to doff socks. Pt completed shower, states need to toilet, used FWW to transfer to toilet, CGA. Pt completed toileting, then transferred to chair in order to don clothing. Pt had poor recall of AE for LE dressing, requiring mod a with footwear. Pt declined oral care on this date, used FWW to return to recliner. In order to increase BUE Strength and activity tolerance, pt completed x15 reps 5/5 exercises using min resistance theraband. Pt required max cues for proper technique and to recall exercises. Post tx, pt seated in recliner, call light in reach and all needs met. Education OT Patient Education: Correct positioning, Energy conservation, Exercise program, Home exercise program, Modified ADL techniques, Progress toward Goal/Update tx plan, Purpose of tx/functional activities, Rehab process, Safety issues, Transfer techniques Teaching Recipient: Patient Teaching Methods: Discussion Response to Teaching: Reinforcement Needed OT Short Term Goals Short Term Goals Time Frame: Sep 20, 2020 Toileting hygiene: 4 Shower/bathe self: 4 Lower body dressin Putting on/taking off footwear: 4 OT Prison Goals Prison Goals Time Frame: Oct 04, 2020 Eating (QC): 6 Oral Hygiene (QC): 6 Toileting Hygiene (QC): 6 Shower/Bathe Self (QC): 6 Upper Body Dressing (QC): 6 Lower Body Dressing (QC): 6 On/Off Footwear (QC): 6 Additional Goals: 1-Demonstrate ADL Tasks, 2-Verbalize Understanding, 3- ImproveStrength/Yuniel 1=Demonstrate adherence to instructed precautions during ADL tasks. 2=Patient will verbalize/demonstrate understanding of assistive devices/modifications for ADL. 3=Patient will improve strength/tolerance for activity to enable patient to perform ADL's. OT Education/Plan Problem List/Assessment Assessment: Decreased Activ Tolerance, Decreased UE Strength, Impaired Funct Balance, Impaired I ADL's, Impaired Self-Care Skills Discharge Recommendations Plan/Recommendations: Continue POC Treatment Plan/Plan of Care Patient would benefit from OT for education, treatment and training to promote independence in ADL's, mobility, safety and/or upper extremity function for ADL's. Plan of Care: ADL Retraining, Functional Mobility, Group Exercise/Act as Ind, UE Funct Exercise/Act Treatment Duration: Oct 04, 2020 Frequency: At least 5 of 7 days/Wk (IRF) Estimated Hrs Per Day: 1.5 hours per day Agreement: Yes Rehab Potential: Fair Time/GCodes Start Time: 09:15 Stop Time: 10:30 Total Time Billed (hr/min): 75 Billed Treatment Time 1, ADL 3 (50), FA 2 (25') JAVON REYNOLDS OT Sep 20, 2020 10:34
--- NOTE | 2020-09-20 11:11 | Speech Therapy Daily Note ---
Speech Daily Progress Note Subjective Date Seen by Provider: Sep 20, 2020 Time Seen by Provider: 00:30 Patient was resting in his recliner following "successful" PT session. Objective Patient answered questions related to his daily needs at 90% with minimal cues. Assessment Assessment Current Status: Good Progress Treatment Plan Continue Plan of Care Speech Short Term Goals Short Term Goals Short Term Goals 1) The patient will complete memory tasks with 80% or greater with minimal cues. 2) The patient will complete safety awareness tasks with 80% or greater with minimal cues. 3) The patient will complete problem solving tasks with 80% or greater with minimal cues. Speech Solution Analyst Goals Solution Analyst Goals Patient will improve cognitive-communication abilities in order to require less assist. Speech-Plan Patient/Family Goals Patient/Family Goals: Patient is scheduled to discharge on 09/24/2020 to an [facility]. Treatment Plan Speech Therapy Treatment Plan: Continue Plan of Care Treatment Duration: Sep 27, 2020 Frequency: 4 times per week (Patient will receive ST 4-5x per week) Estimated Hrs Per Day: .5 hour per day Rehab Potential: Fair Barriers to Learning: Patient's recent decline in health, age Pt/Family Agrees to Plan: Yes Safety Risks/Education Teaching Recipient: Patient Teaching Methods: Demonstration, Discussion Response to Teaching: Verbalize Understanding, Return Demonstration Education Topics Provided: Continued safety within his room and upon discharge to [facility], communication of wants/needs Time Speech Therapy Time In: 11:00 Speech Therapy Time Out: 11:30 Total Billed Time: 30 Billed Treatment Time 1, JOVANI Kaye Sep 20, 2020 11:11
[2020-09-20] MEDS: HYDROcodone/APAP 5 MG/325 MG (LORTAB) TAB PO PRN ×2 (12:23→20:53)
--- NOTE | 2020-09-20 12:49 | PM&R Progress Note ---
Subjective HPI/CC On Admission Date Seen by Provider: Sep 20, 2020 Time Seen by Provider: 12:00 Subjective/Events-last exam 09/20/2020: Pt doing really well Off oxygen, on room air Feels pretty good otherwise Needs his CPAP machine to help him sleep 09/19/2020: Pt doing really well Very conversational today Incontinence is chronic Checked meds and labs Lungs are clear 09/18/2020: Pt doing about the same MRI was normal, no evidence of normal pressure hydrocephalus Xanax given for the MRI made him very confused yesterday DC planned for the 09/17/2020: Pt doing really well Getting MRI because my suspicion for normal pressure Hydrocephalus is present Nebs will be given QID since lungs are still coarse 09/16/2020: Pt had multiple bowel movements yesterday CPAP will be brought in from home Chronic incontinence per urology Slum score is 27/30 but he requires a lot of cues Upon further evaluation patient may have some signs of normal pressure hydrocephalus or early dementia 09/15/2020: Patient doing pretty well Sleeping soundly currently Legs move constantly Fall risk continues 09/14/2020: Patient doing pretty well Remains incontinent and purposely urinates outside of his diaper Having some small bowel movements so laxatives will be continuing Discontinue the Robaxin due to drowsiness Check meds and labs Overall very high risk for falls Review of Systems General: Fatigue Neurological: Weakness Objective Exam Vital Signs Vital Signs Date Time Temp Pulse Resp B/P (MAP) Pulse Ox O2 Delivery O2 Flow Rate FiO2 09/20/20 20:10 Nasal Cannula 2.00 09/20/20 19:53 36.7 91 16 113/70 (84) 94 Capillary Refill : General Appearance: No Apparent Distress, WD/WN, Chronically ill, Obese HEENT: PERRL/EOMI, Normal ENT Inspection, Pharynx Normal Neck: Full Range of Motion, Normal Inspection, Non Tender, Supple, Carotid Bruit Respiratory: Chest Non Tender, Lungs Clear, Normal Breath Sounds, No Accessory Muscle Use, No Respiratory Distress Cardiovascular: Regular Rate, Rhythm, No Edema, No Gallop, No JVD, No Murmur, Normal Peripheral Pulses Gastrointestinal: Normal Bowel Sounds, No Organomegaly, No Pulsatile Mass, Non Tender, Soft Back: Normal Inspection, No CVA Tenderness, No Vertebral Tenderness Extremity: Normal Capillary Refill, Normal Inspection, Normal Range of Motion, Non Tender, No Calf Tenderness, No Pedal Edema Neurologic/Psychiatric: Alert, Oriented x3, No Motor/Sensory Deficits, Abnormal Gait, Depressed Affect, Motor Weakness (Generalized) Skin: Normal Color, Warm/Dry, Ecchymosis (Right flank) Lymphatic: No Adenopathy Results/Procedures Lab Patient resulted labs reviewed. FIM Transfers Therapy Code Descriptions/Definitions Functional [place] Measure: 0=Not Assessed/NA 4=Minimal Assistance 1=Total Assistance 5=Supervision or Setup 2=Maximal Assistance 6=Modified [place] 3=Moderate Assistance 7=Complete IndependenceSCALE: Activities may be completed with or without assistive devices. 5-Trkufpoqwi-chhwypk completes the activity by him/herself with no assistance from a helper. 5-Set-up or Clean-up Assistance-helper sets up or cleans up; patient completes activity. [place] assists only prior to or following the activity. 4-Supervision or Touching Assistance-helper provides verbal cues and/or touching/steadying and/or contact guard assistance as patient completes activity. Assistance may be provided throughout the activity or intermittently. 3-Partial/Moderate Assistance-helper does LESS THAN HALF the effort. [place] lifts, holds or supports trunk or limbs, but provides less than half the effort. 2-Substantial/Maximal Assistance-helper does MORE THAN HALF the effort. [place] lifts or holds trunk or limbs and provides more than half the effort. 2-Mqgzfjnwl-kmjogz does ALL the effort. Patient does none of the effort to complete the activity. Or, the assistance of 2 or more helpers is required for the patient to complete the activity. If activity was not attempted, code reason: 7-Patient Refused. 9-Not Applicable-not attempted and the patient did not perform the activity before the current illness, exacerbation or injury. 10-Not Attempted due to Environmental Limitations-(lack of equipment, weather restraints, etc.). 88-Not Attempted due to Medical Conditions or Safety Concerns. Roll Left to Right (QC): 2 Sit to Lying (QC): 2 Sit to Stand (QC): 5 Chair/Pli-hi-Ejvsc Xfer(QC): 4 Car Transfer (QC): 3 Gait Training Does the Patient Walk?: Yes Distance: 150' Walk 10 feet (QC): 5 Walk 50 ft with 2 Turns(QC): 5 Walk 150 ft (QC): 5 Walking 10ft/uneven surface-QC: 4 Gait Persons Needed: 1 Gait Assistive Device: FWW Wheelchair Training Does the Pt Use a Wheelchair?: No Wheel 50 ft with 2 turns (QC): 9 Wheel 150 ft (QC): 9 Stair Training #of Steps: 1 1 Step (curb) (QC): 4 4 Steps (QC): 88 12 Steps (QC): 88 Balance Picking up an Object (QC): 88 ADL-Treatment Eating (QC): 5 (set up assistance. Assistance to open milk and to move cup within reach.) Oral Hygiene (QC): 7 Shower/Bathe Self (QC): 4 (Supervision, pt able to wash/dry all parts) Upper Body Dressing (QC): 5 (set up, pt able to don button up shirt.) Lower Body Dressing (QC): 3 (Min A with belt, CGA in stand for pant hike. Pt able to don pants/underwear using recycling sorter as needed) On/Off Footwear (QC): 3 (Mod A. Pt able to doff gripper socks, used sock aide to don. Pt unable to recall how to use sock aide, requiring assistance.) Toileting Hygiene (QC): 4 (CGA, pt able to manage hygiene and clothing management) Toilet Transfer (QC): 4 (CGA on/off toilet) Assessment/Plan Assessment and Plan Assess & Plan/Chief Complaint Assessment: Status post fall with right sided multiple rib fractures and right flank hematoma Acute blood loss anemia Chronic kidney disease BPH Diabetes Obesity Poor social situation Advanced age Plan: Aggressive therapy Supportive care Pain control 09/14/2020: Pain control Incontinence care Supportive care 09/15/2020: Incontinence care Pain control Monitor closely 09/16/2020: Supportive care Monitor closely Incontinence care Patient may have findings of normal pressure hydrocephalus will further evaluate 09/17/2020: Supportive care MRI Monitor lungs 09/18/2020: MRI ruled out normal pressure hydrocephalus Continue incontinence care 09/19/2020: Much improved status Lungs are clear today 09/20/2020: CPAP set up by RT Monitor closely (1) Debility (2) Hemothorax on right Status: Acute (3) Fall Status: Acute (4) Rib fractures Status: Acute (5) YE (acute kidney injury) Status: Acute (6) Obesity Status: Chronic (7) Acute respiratory failure with hypoxia Status: Acute (8) Benign prostatic hyperplasia with urinary retention Status: Acute LINO HEATH DO Sep 20, 2020 12:49
--- NOTE | 2020-09-20 12:51 | Progress Note - Urology ---
Progress Note-Urology Progress Notes/Assess & Plan Progress/Assessment & Plan CONTINUES WELL NAVARRETE. Final Diagnosis RETENTION AND INCONTINENCE EMILIA LISA MD Sep 20, 2020 12:51
--- NOTE | 2020-09-20 14:46 | Physical Therapy Daily Note ---
PT Daily Note-Current Subjective Patient sitting in chair having just finished breakfast upon PT arrival, agreeable to treatment. Patient reports no pain currently. Mental Status Patient Orientation: Person, Place, Time, Situation Transfers SCALE: Activities may be completed with or without assistive devices. 0-Iaemvfcaby-bhgtheh completes the activity by him/herself with no assistance from a helper. 5-Set-up or Clean-up Assistance-helper sets up or cleans up; patient completes activity. [place] assists only prior to or following the activity. 4-Supervision or Touching Assistance-helper provides verbal cues and/or touching/steadying and/or contact guard assistance as patient completes activity. Assistance may be provided throughout the activity or intermittently. 3-Partial/Moderate Assistance-helper does LESS THAN HALF the effort. [place] lifts, holds or supports trunk or limbs, but provides less than half the effort. 2-Substantial/Maximal Assistance-helper does MORE THAN HALF the effort. [place] lifts or holds trunk or limbs and provides more than half the effort. 3-Lldzqddet-bivuzs does ALL the effort. Patient does none of the effort to complete the activity. Or, the assistance of 2 or more helpers is required for the patient to complete the activity. If activity was not attempted, code reason: 7-Patient Refused. 9-Not Applicable-not attempted and the patient did not perform the activity before the current illness, exacerbation or injury. 10-Not Attempted due to Environmental Limitations-(lack of equipment, weather restraints, etc.). 88-Not Attempted due to Medical Conditions or Safety Concerns. Weight Bearing Full Weight Bearing Full Weight Bearing Gait Training Does the Patient Walk?: Yes Distance: 175 Walk 10 feet (QC): 5 Walk 50 ft with 2 Turns(QC): 5 Walk 150 ft (QC): 5 Gait Persons Needed: 1 Gait Assistive Device: FWW Wheelchair Training Does the Pt Use a Wheelchair?: No Exercises Seated Therapy Exercises: Ankle pumps, Long arc quads, Hip flexion, Hamstring Curls, Hip abd/add, Glut set Seated Reps: 20 NuStep Minutes: 15 NuStep Workload: 7 Treatments Visit, Ex, Gait Assessment Current Status: Good Progress Patient tolerated treatment well. Performs all observed transfers with SBA and verbal cues for safety. Tends not to notice obstacles at times presenting a potential fall risk, despite verbal cues. Patient demonstrates inappropriate procedure to perform sit to stand and chair to chair as he turns in the wrong direction to mobilize from the previous chair. This movement causes him to bump his left hip on the armrest and lose balance briefly. Patient tolerated therapeutic exercise well, however required numerous rest breaks due to fatigue. Patient in chair upon PT arrival, call light in hand, all needs met, nursing notified. PT Short Term Goals Short Term Goals Time Frame: Sep 20, 2020 Roll Left & Right: 3 Sit to lyin Lying to sitting on side of be: 3 Sit to stand: 4 (SBA) Chair/ewv-os-ypobd transfer: 4 (SBA) Walk 10 feet: 4 (SBA) Walk 50 feet with two turns: 4 (SBA) Walk 150 feet: 4 (SBA) PT Alf Goals Sanding Supervisor Goals PT Sanding Supervisor Goals Time Frame: Oct 04, 2020 Roll Left & Right (QC): 4 Sit to Lying (QC): 4 Lying-Sitting on Side/Bed(QC): 4 Sit to Stand (QC): 5 Chair/Blz-wr-Zvjjo Xfer(QC): 5 Toilet Transfer (QC): 5 Car Transfer (QC): 5 Does the Patient Walk: Yes Walk 10 feet (QC): 5 Walk 50ft with 2 Turns (QC): 5 Walk 150 ft (QC): 5 Walking 10ft on Uneven Surface: 5 1 Step (curb) (QC): 5 4 Steps (QC): 5 12 Steps (QC): 5 Picking up an Object (QC): 4 Wheel 50 feet with 2 turns (QC: 9 Wheel 150 feet: 9 PT Plan Treatment/Plan Treatment Plan: Continue Plan of Care Treatment Plan: Bed Mobility, Education, Functional Activity Yuniel, Functional Strength, Group Therapy, Gait, Safety, Therapeutic Exercise, Transfers Treatment Duration: Oct 04, 2020 Frequency: At least 5 of 7 days/Wk (IRF) Estimated Hrs Per Day: 1.5 hours per day Patient and/or Family Agrees t: Yes Time/GCodes Time In: 800 Time Out: 900 Total Billed Treatment Time: 60 Total Billed Treatment Visit, Gait (2), Exercise (2) NUBIA DEJESUS PT Sep 20, 2020 14:46
--- NOTE | 2020-09-20 15:16 | Physical Therapy Daily Note ---
PT Daily Note-Current Subjective Patient reclined in chair upon PT arrival, Agreeable to treatment. Patient had slid down in the chair and demonstrated difficulty scooting up to a safe position in the chair. Mental Status Patient Orientation: Person, Place, Time, Situation Transfers SCALE: Activities may be completed with or without assistive devices. 6-Vxkdcigdpy-eqgqctl completes the activity by him/herself with no assistance from a helper. 5-Set-up or Clean-up Assistance-helper sets up or cleans up; patient completes activity. [place] assists only prior to or following the activity. 4-Supervision or Touching Assistance-helper provides verbal cues and/or touching/steadying and/or contact guard assistance as patient completes activity. Assistance may be provided throughout the activity or intermittently. 3-Partial/Moderate Assistance-helper does LESS THAN HALF the effort. [place] lifts, holds or supports trunk or limbs, but provides less than half the effort. 2-Substantial/Maximal Assistance-helper does MORE THAN HALF the effort. [place] lifts or holds trunk or limbs and provides more than half the effort. 4-Scdfagumr-qjaxai does ALL the effort. Patient does none of the effort to complete the activity. Or, the assistance of 2 or more helpers is required for the patient to complete the activity. If activity was not attempted, code reason: 7-Patient Refused. 9-Not Applicable-not attempted and the patient did not perform the activity before the current illness, exacerbation or injury. 10-Not Attempted due to Environmental Limitations-(lack of equipment, weather restraints, etc.). 88-Not Attempted due to Medical Conditions or Safety Concerns. Sit to Stand (QC): 5 Chair/Byv-dp-Vyijk Xfer(QC): 5 Weight Bearing Full Weight Bearing Full Weight Bearing Gait Training Does the Patient Walk?: Yes Distance: 150 x 2 Walk 10 feet (QC): 5 Walk 50 ft with 2 Turns(QC): 5 Walk 150 ft (QC): 5 Gait Persons Needed: 1 Assessment Current Status: Fair Progress Patient tolerated treatment well. Performs all observed transfers with SBA and verbal cues for safety. Tends not to notice obstacles at times presenting a potential fall risk, despite verbal cues. Patient ambulates 150 feet x 2 with FWW, with SBA and verbal cues for safety, posture and obstacles. Patient in chair upon PT arrival, call light in hand, all needs met, nursing notified. PT Short Term Goals Short Term Goals Time Frame: Sep 20, 2020 Roll Left & Right: 3 Sit to lyin Lying to sitting on side of be: 3 Sit to stand: 4 (SBA) Chair/jms-ux-jzgnm transfer: 4 (SBA) Walk 10 feet: 4 (SBA) Walk 50 feet with two turns: 4 (SBA) Walk 150 feet: 4 (SBA) PT Customer Complaint Service Supervisor Goals Residential Goals PT Residential Goals Time Frame: Oct 04, 2020 Roll Left & Right (QC): 4 Sit to Lying (QC): 4 Lying-Sitting on Side/Bed(QC): 4 Sit to Stand (QC): 5 Chair/Ujb-xh-Bqpin Xfer(QC): 5 Toilet Transfer (QC): 5 Car Transfer (QC): 5 Does the Patient Walk: Yes Walk 10 feet (QC): 5 Walk 50ft with 2 Turns (QC): 5 Walk 150 ft (QC): 5 Walking 10ft on Uneven Surface: 5 1 Step (curb) (QC): 5 4 Steps (QC): 5 12 Steps (QC): 5 Picking up an Object (QC): 4 Wheel 50 feet with 2 turns (QC: 9 Wheel 150 feet: 9 PT Plan Treatment/Plan Treatment Plan: Continue Plan of Care Treatment Plan: Bed Mobility, Education, Functional Activity Yuniel, Functional Strength, Group Therapy, Gait, Safety, Therapeutic Exercise, Transfers Treatment Duration: Oct 04, 2020 Frequency: At least 5 of 7 days/Wk (IRF) Estimated Hrs Per Day: 1.5 hours per day Patient and/or Family Agrees t: Yes Safety Risks/Education Patient Education: Gait Training Teaching Recipient: Patient Teaching Methods: Demonstration, Discussion Time/GCodes Time In: 1455 Time Out: 1510 Total Billed Treatment Time: 15 Total Billed Treatment visit, gait NUBIA DEJESUS PT Sep 20, 2020 15:16
[2020-09-20] MEDS: TAMSULOSIN 0.4 MG (FLOMAX) CAP PO SCH (18:16)
[2020-09-20 19:53] VITALS: BP 113/70
[2020-09-20] MEDS: MELATONIN 3 MG TABLET PO PRN (20:53)
[2020-09-21] MEDS: inSUlin ASPART (NovoLOG) 1 UNIT/0.01 ML (CHARGE PER UNIT) SC SCH ×4 (05:50→21:37)
[2020-09-21] MEDS: ACETAMINOPHEN 500 MG TAB (TYLENOL) PO SCH ×3 (05:50→17:57)
[2020-09-21] MEDS: RT-ALBUTEROL/IPRATROPIUM 3 ML (DUONEB) VIAL INH SCH ×4 (07:20→20:56)
[2020-09-21 07:30] VITALS: BP 144/76
[2020-09-21] MEDS: SENNA W/DOCUSATE (SENOKOT S) TABLET PO SCH ×2 (07:47→21:33)
[2020-09-21] MEDS: SENNOSIDES 8.6 MG (SENOKOT) TAB PO SCH ×2 (07:48→21:34)
[2020-09-21] MEDS: DOCUSATE SODIUM 100 MG (COLACE) CAP PO SCH ×2 (07:48→21:34)
[2020-09-21] MEDS: FINASTERIDE (PROSCAR) 5 MG TAB PO SCH (07:48)
[2020-09-21] MEDS: polyethylene glycoL POWDER 17 GM (MIRALAX) PACK PO SCH ×2 (07:49→21:34)
[2020-09-21] MEDS: HYDROcodone/APAP 5 MG/325 MG (LORTAB) TAB PO PRN ×2 (08:58→21:34)
--- NOTE | 2020-09-21 09:10 | Physical Therapy Daily Note ---
PT Daily Note-Current Subjective Pt up in chair, set-up by nursing for dressing. Pt denies pain. Mental Status Patient Orientation: Person, Place, Time, Situation Transfers SCALE: Activities may be completed with or without assistive devices. 4-Fvkweidjmm-iboztjv completes the activity by him/herself with no assistance from a helper. 5-Set-up or Clean-up Assistance-helper sets up or cleans up; patient completes activity. [place] assists only prior to or following the activity. 4-Supervision or Touching Assistance-helper provides verbal cues and/or touching/steadying and/or contact guard assistance as patient completes activity. Assistance may be provided throughout the activity or intermittently. 3-Partial/Moderate Assistance-helper does LESS THAN HALF the effort. [place] l ifts, holds or supports trunk or limbs, but provides less than half the effort. 2-Substantial/Maximal Assistance-helper does MORE THAN HALF the effort. [place] lifts or holds trunk or limbs and provides more than half the effort. 1-[place]-wdevte does ALL the effort. Patient does none of the effort to complete the activity. Or, the assistance of 2 or more helpers is required for t he patient to complete the activity. If activity was not attempted, code reason: 7-Patient Refused. 9-Not Applicable-not attempted and the patient did not perform the activity before the current illness, exacerbation or injury. 10-Not Attempted due to Environmental Limitations-(lack of equipment, weather restraints, etc.). 88-Not Attempted due to Medical Conditions or Safety Concerns. Sit to Stand (QC): 5 Weight Bearing Right Lower Extremity: Right Full Weight Bearing Left Lower Extremity: Left Full Weight Bearing Gait Training Does the Patient Walk?: Yes Distance: 150 Walk 10 feet (QC): 5 Walk 50 ft with 2 Turns(QC): 5 Walk 150 ft (QC): 5 Gait Persons Needed: 1 Gait Assistive Device: FWW Pt stood with SBA for safety with balance, assist to pull pants completely over hips. Pt ambulates with slow, shuffling gait with FWW with SBA but no LOB. Pt with labored breathing but O2 sats >96% on RA with activity. Exercises Standing: Heel/toe raises, 3 way Ex=Flex, Abd, Ext (flexion and abduction only), Mini squats Standing Reps: 10 VCS for control, speed with exercises, SBA for balance. Treatments Gait with FWW, LE exercises for functional strength/balance. Pt returned to up in chair with all needs met. Assessment Current Status: Good Progress Pt tolerated well. Labored breathing but able to complete with seated recovery breaks and maintained O2 sats. PT Short Term Goals Short Term Goals Time Frame: Sep 20, 2020 Roll Left & Right: 3 Sit to lyin Lying to sitting on side of be: 3 Sit to stand: 4 (SBA) Chair/xfw-zd-daqeu transfer: 4 (SBA) Walk 10 feet: 4 (SBA) Walk 50 feet with two turns: 4 (SBA) Walk 150 feet: 4 (SBA) PT Jail Goals [place] Goals PT Jail Goals Time Frame: Oct 04, 2020 Roll Left & Right (QC): 4 Sit to Lying (QC): 4 Lying-Sitting on Side/Bed(QC): 4 Sit to Stand (QC): 5 Chair/Opb-hw-Mzqzk Xfer(QC): 5 Toilet Transfer (QC): 5 Car Transfer (QC): 5 Does the Patient Walk: Yes Walk 10 feet (QC): 5 Walk 50ft with 2 Turns (QC): 5 Walk 150 ft (QC): 5 Walking 10ft on Uneven Surface: 5 1 Step (curb) (QC): 5 4 Steps (QC): 5 12 Steps (QC): 5 Picking up an Object (QC): 4 Wheel 50 feet with 2 turns (QC: 9 Wheel 150 feet: 9 PT Plan Problem List Problem List: Activity Tolerance, Functional Strength, Safety, Balance, Gait, Transfer, Bed Mobility Treatment/Plan Treatment Plan: Continue Plan of Care Treatment Plan: Bed Mobility, Education, Functional Activity Yuniel, Functional Strength, Group Therapy, Gait, Safety, Therapeutic Exercise, Transfers Treatment Duration: Oct 04, 2020 Frequency: At least 5 of 7 days/Wk (IRF) Estimated Hrs Per Day: 1.5 hours per day Patient and/or Family Agrees t: Yes Time/GCodes Time In: 828 Time Out: 0856 Total Billed Treatment Time: 27 Total Billed Treatment 1, GT x 15', Ex x 12' AMISH SEWELL DPHuyen Sep 21, 2020 09:10
--- NOTE | 2020-09-21 10:56 | PM&R Progress Note ---
Subjective HPI/CC On Admission Date Seen by Provider: Sep 21, 2020 Time Seen by Provider: 11:00 Subjective/Events-last exam 09/21/2020: No major issues reported CPAP machine to be brought in by son Yair on Wednesday but while he was in the room he tried to call Yair [place] on his cell phone and they told him there were no rooms available I quickly ended the call and told him that social work would be talking to him o n Wednesday09/20/2020: Pt doing really well Off oxygen, on room air Feels pretty good otherwise Needs his CPAP machine to help him sleep 09/19/2020: Pt doing really well Very conversational today Incontinence is chronic Checked meds and labs Lungs are clear 09/18/2020: Pt doing about the same MRI was normal, no evidence of normal pressure hydrocephalus Xanax given for the MRI made him very confused yesterday DC planned for the 09/17/2020: Pt doing really well Getting MRI because my suspicion for normal pressure Hydrocephalus is present Nebs will be given QID since lungs are still coarse 09/16/2020: Pt had multiple bowel movements yesterday CPAP will be brought in from home Chronic incontinence per urology [place] score is 27/30 but he requires a lot of cues Upon further evaluation patient may have some signs of normal pressure hydrocephalus or early dementia 09/15/2020: Patient doing pretty well Sleeping soundly currently Legs move constantly Fall risk continues 09/14/2020: Patient doing pretty well Remains incontinent and purposely urinates outside of his diaper Having some small bowel movements so laxatives will be continuing Discontinue the Robaxin due to drowsiness Check meds and labs Overall very high risk for falls Review of Systems General: Fatigue Objective Exam Vital Signs Vital Signs Date Time Temp Pulse Resp B/P (MAP) Pulse Ox O2 Delivery O2 Flow Rate FiO2 09/21/20 14:36 95 Room Air 09/21/20 07:30 36.5 94 18 144/76 (98) 09/20/20 20:10 2.00 Capillary Refill : General Appearance: No Apparent Distress, WD/WN, Chronically ill, Obese HEENT: PERRL/EOMI, Normal ENT Inspection, Pharynx Normal Neck: Full Range of Motion, Normal Inspection, Non Tender, Supple, Carotid Bruit Respiratory: Chest Non Tender, Lungs Clear, Normal Breath Sounds, No Accessory Muscle Use, No Respiratory Distress Cardiovascular: Regular Rate, Rhythm, No Edema, No Gallop, No JVD, No Murmur, Normal Peripheral Pulses Gastrointestinal: Normal Bowel Sounds, No Organomegaly, No Pulsatile Mass, Non Tender, Soft Back: Normal Inspection, No CVA Tenderness, No Vertebral Tenderness Extremity: Normal Capillary Refill, Normal Inspection, Normal Range of Motion, Non Tender, No Calf Tenderness, No Pedal Edema Neurologic/Psychiatric: Alert, Oriented x3, No Motor/Sensory Deficits, Abnormal Gait, Depressed Affect, Motor Weakness (Generalized) Skin: Normal Color, Warm/Dry, Ecchymosis (Right flank) Lymphatic: No Adenopathy Results/Procedures Lab Patient resulted labs reviewed. FIM Transfers Therapy Code Descriptions/Definitions Functional [place] Measure: 0=Not Assessed/NA 4=Minimal Assistance 1=Total Assistance 5=Supervision or Setup 2=Maximal Assistance 6=Modified [place] 3=Moderate Assistance 7=Complete IndependenceSCALE: Activities may be completed with or without assistive devices. 7-Nbztdmgrvi-brfuywu completes the activity by him/herself with no assistance from a helper. 5-Set-up or Clean-up Assistance-helper sets up or cleans up; patient completes activity. [place] assists only prior to or following the activity. 4-Supervision or Touching Assistance-helper provides verbal cues and/or touching/steadying and/or contact guard assistance as patient completes activity. Assistance may be provided throughout the activity or intermittently. 3-Partial/Moderate Assistance-helper does LESS THAN HALF the effort. [place] lifts, holds or supports trunk or limbs, but provides less than half the effort. 2-Substantial/Maximal Assistance-helper does MORE THAN HALF the effort. [place] lifts or holds trunk or limbs and provides more than half the effort. 1-Wwnrrrlvv-hmesag does ALL the effort. Patient does none of the effort to complete the activity. Or, the assistance of 2 or more helpers is required for the patient to complete the activity. If activity was not attempted, code reason: 7-Patient Refused. 9-Not Applicable-not attempted and the patient did not perform the activity before the current illness, exacerbation or injury. 10-Not Attempted due to Environmental Limitations-(lack of equipment, weather restraints, etc.). 88-Not Attempted due to Medical Conditions or Safety Concerns. Roll Left to Right (QC): 2 Sit to Lying (QC): 2 Sit to Stand (QC): 5 Chair/Uus-mn-Qolmh Xfer(QC): 5 Car Transfer (QC): 3 Gait Training Does the Patient Walk?: Yes Distance: 150 Walk 10 feet (QC): 5 Walk 50 ft with 2 Turns(QC): 5 Walk 150 ft (QC): 5 Walking 10ft/uneven surface-QC: 4 Gait Persons Needed: 1 Gait Assistive Device: FWW Wheelchair Training Does the Pt Use a Wheelchair?: No Wheel 50 ft with 2 turns (QC): 9 Wheel 150 ft (QC): 9 Stair Training #of Steps: 1 1 Step (curb) (QC): 4 4 Steps (QC): 88 12 Steps (QC): 88 Balance Picking up an Object (QC): 88 ADL-Treatment Eating (QC): 5 (set up assistance. Assistance to open milk and to move cup within reach.) Oral Hygiene (QC): 7 Shower/Bathe Self (QC): 4 (Supervision, pt able to wash/dry all parts) Upper Body Dressing (QC): 5 (set up, pt able to don button up shirt.) Lower Body Dressing (QC): 3 (Min A with belt, CGA in stand for pant hike. Pt able to don pants/underwear using pain medicine physician as needed) On/Off Footwear (QC): 3 (Mod A. Pt able to doff gripper socks, used sock aide to don. Pt unable to recall how to use sock aide, requiring assistance.) Toileting Hygiene (QC): 4 (CGA, pt able to manage hygiene and clothing management) Toilet Transfer (QC): 4 (CGA on/off toilet) Assessment/Plan Assessment and Plan Assess & Plan/Chief Complaint Assessment: Status post fall with right sided multiple rib fractures and right flank hematoma Acute blood loss anemia Chronic kidney disease BPH Diabetes Obesity Poor social situation Advanced age Plan: Aggressive therapy Supportive care Pain control 09/14/2020: Pain control Incontinence care Supportive care 09/15/2020: Incontinence care Pain control Monitor closely 09/16/2020: Supportive care Monitor closely Incontinence care Patient may have findings of normal pressure hydrocephalus will further evaluate 09/17/2020: Supportive care MRI Monitor lungs 09/18/2020: MRI ruled out normal pressure hydrocephalus Continue incontinence care 09/19/2020: Much improved status Lungs are clear today 09/20/2020: CPAP set up by RT Monitor closely 09/21/2020: Part of care Weaned O2 Lungs are clear (1) Debility (2) Hemothorax on right Status: Acute (3) Fall Status: Acute (4) Rib fractures Status: Acute (5) YE (acute kidney injury) Status: Acute (6) Obesity Status: Chronic (7) Acute respiratory failure with hypoxia Status: Acute (8) Benign prostatic hyperplasia with urinary retention Status: Acute LINO HEATH DO Sep 21, 2020 10:56
[2020-09-21] MEDS: TAMSULOSIN 0.4 MG (FLOMAX) CAP PO SCH (17:57)
[2020-09-21 20:00] VITALS: BP 140/73
[2020-09-21] MEDS: ALPRAZolam 0.25 MG (XANAX) TAB PO PRN (21:33)
[2020-09-21] MEDS: MELATONIN 3 MG TABLET PO PRN (21:34)
[2020-09-22] MEDS: ACETAMINOPHEN 500 MG TAB (TYLENOL) PO SCH ×4 (00:15→18:35)
[2020-09-22] MEDS: inSUlin ASPART (NovoLOG) 1 UNIT/0.01 ML (CHARGE PER UNIT) SC SCH ×4 (06:02→21:11)
--- NOTE | 2020-09-22 06:38 | PM&R Progress Note ---
Subjective HPI/CC On Admission Date Seen by Provider: Sep 22, 2020 Time Seen by Provider: 12:30 Subjective/Events-last exam 09/22/2020: Patient doing pretty well [place] [facility] on Wednesday Incontinence noted Bowels moving 09/21/2020: No major issues reported CPAP machine to be brought in by son Yair on Wednesday but while he was in the room he tried to call Yair [facility] on his cell phone and they told him there were no rooms available I quickly ended the call and told him that social work would be talking to him on Wednesday09/20/2020: Pt doing really well Off oxygen, on room air Feels pretty good otherwise Needs his CPAP machine to help him sleep 09/19/2020: Pt doing really well Very conversational today Incontinence is chronic Checked meds and labs Lungs are clear 09/18/2020: Pt doing about the same MRI was normal, no evidence of normal pressure hydrocephalus Xanax given for the MRI made him very confused yesterday DC planned for the 09/17/2020: Pt doing really well Getting MRI because my suspicion for normal pressure Hydrocephalus is present Nebs will be given QID since lungs are still coarse 09/16/2020: Pt had multiple bowel movements yesterday CPAP will be brought in from home Chronic incontinence per urology Slum score is 27/30 but he requires a lot of cues Upon further evaluation patient may have some signs of normal pressure hydrocephalus or early dementia 09/15/2020: Patient doing pretty well Sleeping soundly currently Legs move constantly Fall risk continues 09/14/2020: Patient doing pretty well Remains incontinent and purposely urinates outside of his diaper Having some small bowel movements so laxatives will be continuing Discontinue the Robaxin due to drowsiness Check meds and labs Overall very high risk for falls Review of Systems General: Fatigue, Malaise Objective Exam Vital Signs Vital Signs Date Time Temp Pulse Resp B/P (MAP) Pulse Ox O2 Delivery O2 Flow Rate FiO2 09/22/20 21:53 Room Air 09/22/20 20:01 95 09/22/20 20:00 37.2 90 20 134/63 (86) 09/20/20 20:10 2.00 Capillary Refill : General Appearance: No Apparent Distress, WD/WN, Chronically ill, Obese HEENT: PERRL/EOMI, Normal ENT Inspection, Pharynx Normal Neck: Full Range of Motion, Normal Inspection, Non Tender, Supple, Carotid Bruit Respiratory: Chest Non Tender, Lungs Clear, Normal Breath Sounds, No Accessory Muscle Use, No Respiratory Distress Cardiovascular: Regular Rate, Rhythm, No Edema, No Gallop, No JVD, No Murmur, Normal Peripheral Pulses Gastrointestinal: Normal Bowel Sounds, No Organomegaly, No Pulsatile Mass, Non Tender, Soft Back: Normal Inspection, No CVA Tenderness, No Vertebral Tenderness Extremity: Normal Capillary Refill, Normal Inspection, Normal Range of Motion, Non Tender, No Calf Tenderness, No Pedal Edema Neurologic/Psychiatric: Alert, Oriented x3, No Motor/Sensory Deficits, Abnormal Gait, Depressed Affect, Motor Weakness (Generalized) Skin: Normal Color, Warm/Dry, Ecchymosis (Right flank) Lymphatic: No Adenopathy Results/Procedures Lab Patient resulted labs reviewed. FIM Transfers Therapy Code Descriptions/Definitions Functional [place] Measure: 0=Not Assessed/NA 4=Minimal Assistance 1=Total Assistance 5=Supervision or Setup 2=Maximal Assistance 6=Modified [place] 3=Moderate Assistance 7=Complete IndependenceSCALE: Activities may be completed with or without assistive devices. 7-Njdkbgdwml-tgymicz completes the activity by him/herself with no assistance from a helper. 5-Set-up or Clean-up Assistance-helper sets up or cleans up; patient completes activity. [place] assists only prior to or following the activity. 4-Supervision or Touching Assistance-helper provides verbal cues and/or touching/steadying and/or contact guard assistance as patient completes activity. Assistance may be provided throughout the activity or intermittently. 3-Partial/Moderate Assistance-helper does LESS THAN HALF the effort. [place] lifts, holds or supports trunk or limbs, but provides less than half the effort. 2-Substantial/Maximal Assistance-helper does MORE THAN HALF the effort. [place] lifts or holds trunk or limbs and provides more than half the effort. 1-Kzhdnvdbv-imhpqj does ALL the effort. Patient does none of the effort to complete the activity. Or, the assistance of 2 or more helpers is required for the patient to complete the activity. If activity was not attempted, code reason: 7-Patient Refused. 9-Not Applicable-not attempted and the patient did not perform the activity before the current illness, exacerbation or injury. 10-Not Attempted due to Environmental Limitations-(lack of equipment, weather restraints, etc.). 88-Not Attempted due to Medical Conditions or Safety Concerns. Roll Left to Right (QC): 2 Sit to Lying (QC): 2 Sit to Stand (QC): 5 Chair/Iyg-cy-Mjaqw Xfer(QC): 5 Car Transfer (QC): 3 Gait Training Does the Patient Walk?: Yes Distance: 150 Walk 10 feet (QC): 5 Walk 50 ft with 2 Turns(QC): 5 Walk 150 ft (QC): 5 Walking 10ft/uneven surface-QC: 4 Gait Persons Needed: 1 Gait Assistive Device: FWW Wheelchair Training Does the Pt Use a Wheelchair?: No Wheel 50 ft with 2 turns (QC): 9 Wheel 150 ft (QC): 9 Stair Training #of Steps: 1 1 Step (curb) (QC): 4 4 Steps (QC): 88 12 Steps (QC): 88 Balance Picking up an Object (QC): 88 ADL-Treatment Eating (QC): 5 (set up assistance. Assistance to open milk and to move cup within reach.) Oral Hygiene (QC): 7 Shower/Bathe Self (QC): 4 (Supervision, pt able to wash/dry all parts) Upper Body Dressing (QC): 5 (set up, pt able to don button up shirt.) Lower Body Dressing (QC): 3 (Min A with belt, CGA in stand for pant hike. Pt able to don pants/underwear using kindergarten tutor as needed) On/Off Footwear (QC): 3 (Mod A. Pt able to doff gripper socks, used sock aide to don. Pt unable to recall how to use sock aide, requiring assistance.) Toileting Hygiene (QC): 4 (CGA, pt able to manage hygiene and clothing management) Toilet Transfer (QC): 4 (CGA on/off toilet) Assessment/Plan Assessment and Plan Assess & Plan/Chief Complaint Assessment: Status post fall with right sided multiple rib fractures and right flank hematoma Acute blood loss anemia Chronic kidney disease BPH Diabetes Obesity Poor social situation Advanced age Plan: Aggressive therapy Supportive care Pain control 09/14/2020: Pain control Incontinence care Supportive care 09/15/2020: Incontinence care Pain control Monitor closely 09/16/2020: Supportive care Monitor closely Incontinence care Patient may have findings of normal pressure hydrocephalus will further evaluate 09/17/2020: Supportive care MRI Monitor lungs 09/18/2020: MRI ruled out normal pressure hydrocephalus Continue incontinence care 09/19/2020: Much improved status Lungs are clear today 09/20/2020: CPAP set up by RT Monitor closely 09/21/2020: Part of care Weaned O2 Lungs are clear 09/22/2020: Much improved status Discharge on Wednesday (1) Debility (2) Hemothorax on right Status: Acute (3) Fall Status: Acute (4) Rib fractures Status: Acute (5) YE (acute kidney injury) Status: Acute (6) Obesity Status: Chronic (7) Acute respiratory failure with hypoxia Status: Acute (8) Benign prostatic hyperplasia with urinary retention Status: Acute LINO HEATH DO Sep 22, 2020 06:38
[2020-09-22] MEDS: RT-ALBUTEROL/IPRATROPIUM 3 ML (DUONEB) VIAL INH SCH ×3 (06:57→20:01)
[2020-09-22 08:41] VITALS: BP 133/69
[2020-09-22] MEDS: FINASTERIDE (PROSCAR) 5 MG TAB PO SCH (08:41)
[2020-09-22] MEDS: HYDROcodone/APAP 5 MG/325 MG (LORTAB) TAB PO PRN ×2 (08:47→22:23)
[2020-09-22] MEDS: DOCUSATE SODIUM 100 MG (COLACE) CAP PO SCH ×2 (09:52→21:51)
[2020-09-22] MEDS: polyethylene glycoL POWDER 17 GM (MIRALAX) PACK PO SCH ×2 (09:52→21:52)
[2020-09-22] MEDS: SENNA W/DOCUSATE (SENOKOT S) TABLET PO SCH ×2 (09:52→21:52)
[2020-09-22] MEDS: SENNOSIDES 8.6 MG (SENOKOT) TAB PO SCH ×2 (09:53→21:52)
[2020-09-22] MEDS: TAMSULOSIN 0.4 MG (FLOMAX) CAP PO SCH (17:40)
[2020-09-22 20:00] VITALS: BP 134/63
[2020-09-22] MEDS: MELATONIN 3 MG TABLET PO PRN (22:23)
[2020-09-23] MEDS: ACETAMINOPHEN 500 MG TAB (TYLENOL) PO SCH ×5 (00:42→23:58)
[2020-09-23] MEDS: inSUlin ASPART (NovoLOG) 1 UNIT/0.01 ML (CHARGE PER UNIT) SC SCH ×4 (05:36→20:43)
[2020-09-23 06:12] LABS: BASOPHILS % (AUTO) 0 % (0-10); EOSINOPHILS # (AUTO) 0.4 10^3/uL (0.0-0.3); EOSINOPHILS % (AUTO) 5 % (0-10); HEMATOCRIT 34 % (40-54); HEMOGLOBIN 10.9 g/dL (13.3-17.7); LYMPHOCYTES # (AUTO) 1.4 10^3/uL (1.0-4.0); LYMPHOCYTES % (AUTO) 19 % (12-44); MEAN CORPUSCULAR HEMOGLOBIN 28 pg (25-34); MEAN CORPUSCULAR HGB CONC 32 g/dL (32-36); MEAN CORPUSCULAR VOLUME 88 fL (80-99); MEAN PLATELET VOLUME 8.7 fL (9.0-12.2); MONOCYTES # (AUTO) 0.4 10^3/uL (0.0-1.0); MONOCYTES % (AUTO) 5 % (0-12); NEUTROPHILS # (AUTO) 5.4 10^3/uL (1.8-7.8); NEUTROPHILS % (AUTO) 70 % (42-75); PLATELET COUNT 285 10^3/uL (130-400); WHITE BLOOD COUNT 7.8 10^3/uL (4.3-11.0)
[2020-09-23 06:35] LABS: ALBUMIN 3.9 GM/DL (3.2-4.5); BILIRUBIN,TOTAL 0.5 MG/DL (0.1-1.0); CALCIUM 9.6 MG/DL (8.5-10.1); CREATININE SERUM 1.53 MG/DL (0.60-1.30); POTASSIUM 4.4 MMOL/L (3.6-5.0); TOTAL PROTEIN 7.2 GM/DL (6.4-8.2)
[2020-09-23 07:46] VITALS: BP 131/87
[2020-09-23] MEDS: FINASTERIDE (PROSCAR) 5 MG TAB PO SCH (07:54)
[2020-09-23] MEDS: DOCUSATE SODIUM 100 MG (COLACE) CAP PO SCH ×2 (07:57→19:35)
[2020-09-23] MEDS: polyethylene glycoL POWDER 17 GM (MIRALAX) PACK PO SCH ×2 (07:57→19:35)
[2020-09-23] MEDS: SENNA W/DOCUSATE (SENOKOT S) TABLET PO SCH ×2 (07:57→19:35)
[2020-09-23] MEDS: SENNOSIDES 8.6 MG (SENOKOT) TAB PO SCH ×2 (07:57→19:35)
[2020-09-23] MEDS: RT-ALBUTEROL/IPRATROPIUM 3 ML (DUONEB) VIAL INH SCH ×4 (09:00→18:47)
--- NOTE | 2020-09-23 09:00 | Physical Therapy Daily Note ---
PT Daily Note-Current Subjective Patient sitting in chair upon PT arrival, agreeable to treatment. Patient reports 0/10 pain currently, however notes he did not sleep well last night. Mental Status Patient Orientation: Person, Place, Time, Situation Transfers SCALE: Activities may be completed with or without assistive devices. 4-Dttlioubxs-nhqwhtx completes the activity by him/herself with no assistance fr om a helper. 5-Set-up or Clean-up Assistance-helper sets up or cleans up; patient completes activity. [place] assists only prior to or following the activity. 4-Supervision or Touching Assistance-helper provides verbal cues and/or touching/steadying and/or contact guard assistance as patient completes activity. Assistance may be provided throughout the activity or intermittently. 3-Partial/Moderate Assistance-helper does LESS THAN HALF the effort. [place] lifts, holds or supports trunk or limbs, but provides less than half the effort. 2-Substantial/Maximal Assistance-helper does MORE THAN HALF the effort. [place] lifts or holds trunk or limbs and provides more than half the effort. 0-Bykyqitns-ydsqei does ALL the effort. Patient does none of the effort to complete the activity. Or, the assistance of 2 or more helpers is required for the patient to complete the activity. If activity was not attempted, code reason: 7-Patient Refused. 9-Not Applicable-not attempted and the patient did not perform the activity before the current illness, exacerbation or injury. 10-Not Attempted due to Environmental Limitations-(lack of equipment, weather restraints, etc.). 88-Not Attempted due to Medical Conditions or Safety Concerns. Roll Left & Right (QC): 4 Sit to Lying (QC): 4 Lying to Sitting/Side of Bed(Q: 4 Sit to Stand (QC): 6 Chair/Hom-bd-Feftv Xfer(QC): 5 Toilet Transfer (QC): 5 Car Transfer (QC): 4 Weight Bearing Right Lower Extremity: Right Full Weight Bearing Left Lower Extremity: Left Full Weight Bearing Gait Training Does the Patient Walk?: Yes Distance: 200 Walk 10 feet (QC): 5 Walk 50 ft with 2 Turns(QC): 5 Walk 150 ft (QC): 5 Walking 10ft/uneven surface-QC: 4 Gait Persons Needed: 1 Gait Assistive Device: FWW Patient ambulates 200 feet x 2 with FWW with SBA and verbal cues for safety, progression, posture and to avoid obstacles. Patient tends to keep his knees flexed bilaterally to ~15 degrees during stance phase, and demonstrates bilateral outoeing, with noticeably tight Achilles bilaterally. He tends to ignore obstacles at ground level and infrequently runs the left wheel of the FWW into obstacles. Wheelchair Training Does the Pt Use a Wheelchair?: No Wheel 50 ft with 2 turns (QC): 9 Wheel 150 ft (QC): 9 Type of Wheelchair: N/A Stair Training #of Steps: 4 1 Step (curb) (QC): 4 4 Steps (QC): 4 Exercises Seated Therapy Exercises: Ankle pumps, Long arc quads, Hip flexion, Hamstring Curls, Hip abd/add Seated Reps: 20 NuStep Minutes: 15 NuStep Workload: 7 Assessment Current Status: Fair Progress Patient demonstrates increased difficulty with breathing and fatigues quicker this visit than on 09-20-20. He appears to demonstrate increased wheezing as well. PA came in to quickly assess during PT treatment and reports that she wanted a EKG performed once PT was completed. Patient demonstrates increased assistance needed performing all tasks, including previously simple tasks such as correctly turning to sit in a chair, or not backing into his room from the hallway. Nurse notified of this increase in assistance required and decrease of properly processing tasks. Patient in chair post treatment with all needs met, nursing notified, call light in hand and chair alarm activated. PT Short Term Goals Short Term Goals Time Frame: Sep 20, 2020 Roll Left & Right: 3 Sit to lyin Lying to sitting on side of be: 3 Sit to stand: 4 (SBA) Chair/ioz-tm-vtycd transfer: 4 (SBA) Walk 10 feet: 4 (SBA) Walk 50 feet with two turns: 4 (SBA) Walk 150 feet: 4 (SBA) PT Housekeeper Cleaning Cooking Goals Shelter Goals PT Housekeeper Cleaning Cooking Goals Time Frame: Oct 04, 2020 Roll Left & Right (QC): 4 Sit to Lying (QC): 4 Lying-Sitting on Side/Bed(QC): 4 Sit to Stand (QC): 5 Chair/Lox-ax-Txvrn Xfer(QC): 5 Toilet Transfer (QC): 5 Car Transfer (QC): 5 Does the Patient Walk: Yes Walk 10 feet (QC): 5 Walk 50ft with 2 Turns (QC): 5 Walk 150 ft (QC): 5 Walking 10ft on Uneven Surface: 5 1 Step (curb) (QC): 5 4 Steps (QC): 5 12 Steps (QC): 5 Picking up an Object (QC): 4 Wheel 50 feet with 2 turns (QC: 9 Wheel 150 feet: 9 PT Plan Treatment/Plan Treatment Plan: Continue Plan of Care Treatment Plan: Bed Mobility, Education, Functional Activity Yuniel, Functional Strength, Group Therapy, Gait, Safety, Therapeutic Exercise, Transfers Treatment Duration: Oct 04, 2020 Frequency: At least 5 of 7 days/Wk (IRF) Estimated Hrs Per Day: 1.5 hours per day Patient and/or Family Agrees t: Yes Safety Risks/Education Patient Education: Gait Training, Reviewed Precautions, Safety Issues Teaching Recipient: Patient Teaching Methods: Demonstration, Discussion Response to Teaching: Verbalize Understanding Time/GCodes Time In: 800 Time Out: 900 Total Billed Treatment Time: 60 Total Billed Treatment Visit, Gait (2), Ther Ex (2) NUBIA DEJESUS PT Sep 23, 2020 09:00
--- NOTE | 2020-09-23 09:27 | Cardiology Progress Note ---
Subjective Date Seen by Provider: Sep 23, 2020 Time Seen by Provider: 08:50 Subjective/Events-last exam Patient is sitting up in chair, denies any chest pain Objective-Cardiology Exam Last Set of Vital Signs Vital Signs 09/20/20 09/23/20 09/23/20 20:10 07:46 09:01 Temp 36.2 Pulse 82 Resp 18 B/P (MAP) 131/87 (102) Pulse Ox 95 O2 Delivery Room Air O2 Flow Rate 2.00 General: Alert, Oriented X3, Cooperative HEENT: Atraumatic, PERRLA Neck: Supple, No JVD, No Thyromegaly Lungs: Clear to Auscultation, Normal Air Movement Heart: Regular Rate, Normal S1, Normal S2, No Murmurs Abdomen: Normal Bowel Sounds, Soft, No Tenderness, No Hepatosplenomegaly, No Masses Extremities: No Clubbing, No Cyanosis, No Edema, Normal Pulses, No Tenderness/Swelling Skin: No Rashes, No Breakdown, No Significant Lesion Neuro: Normal Gait, Normal Speech, Strength at 5/5 X4 Ext, Normal Tone, Sensation Intact Psych/Mental Status: Mental Status NL, Mood NL Results Lab Laboratory Tests 09/23/20 06:02 A/P-Cardiology Admission Diagnosis Syncope Coronary artery disease Hypertension Hyperlipidemia Assessment/Plan S/p falling out of bed resulting in multiple rib fracture, right hemothorax, improving, followed by surgical service Syncope, unknown etiology, probably hypotensive episode, occurred later in the day after falling out of bed, blood pressure is better, continue to monitor Debility, generalized weakness, continue with therapy. Coronary artery disease, mild to moderate nonobstructive disease per cardiac catheterization 2008, most recent stress test and 2-D echocardiogram February 2016 revealed no ischemia or infarct. Palpitations, EKG showing sinus arrhythmia, HR 111. I will start patient on Toprol XL 25mg daily. Continue to monitor. Hypertension, controlled, continue to monitor blood pressure/heart rate. Hyperlipidemia, lipid profile was done in December 2019 showing total cholesterol 126, HDL 29, triglyceride 225, LDL 52. Continue to monitor Mild bilateral nonobstructive carotid artery stenosis. Last carotid duplex done in December 2019. Continue to monitor Chronic kidney disease, management per PCP Diabetes mellitus, management per PCP History of prostate cancer, followed by THALIA Adan Sep 23, 2020 09:27
--- NOTE | 2020-09-23 09:28 | Cardiology Progress Note ---
Subjective Date Seen by Provider: Sep 23, 2020 Time Seen by Provider: 09:27 Subjective/Events-last exam Patient was seen at bedside, sitting down comfortably, appears to have sinus tachycardia. Blood pressure is stable. I will restart low-dose beta-blockers Review of Systems General: No Chills, No Night Sweats, No Fatigue, No Malaise, No Appetite, No Other HEENT: No Head Aches, No Visual Changes, No Eye Pain, No Ear Pain, No Dysphasia, No Sinus Congestion, No Post Nasal Drip, No Sore Throat, No Other Pulmonary: No Dyspnea, No Cough, No Pleuritic Chest Pain, No Other Cardiovascular: No: Chest Pain, Palpitations, Orthopnea, Paroxysmal Noc. Dyspnea, Edema, Lt Headedness, Other Objective-Cardiology Exam Last Set of Vital Signs Vital Signs 09/20/20 09/23/20 09/23/20 20:10 07:46 09:01 Temp 36.2 Pulse 82 Resp 18 B/P (MAP) 131/87 (102) Pulse Ox 95 O2 Delivery Room Air O2 Flow Rate 2.00 General: Alert, Oriented X3, Cooperative HEENT: Atraumatic, PERRLA Neck: Supple, No JVD, No Thyromegaly Lungs: Clear to Auscultation, Normal Air Movement Heart: Regular Rate, Normal S1, Normal S2, No Murmurs, Other (Sinus tachycardia) Abdomen: Normal Bowel Sounds, Soft, No Tenderness, No Hepatosplenomegaly, No Masses Extremities: No Clubbing, No Cyanosis, No Edema, Normal Pulses, No Tenderness/Swelling Skin: No Rashes, No Breakdown, No Significant Lesion Neuro: Normal Gait, Normal Speech, Strength at 5/5 X4 Ext, Normal Tone, Sen sation Intact Psych/Mental Status: Mental Status NL, Mood NL Results Lab Laboratory Tests 09/23/20 06:02 A/P-Cardiology Admission Diagnosis Syncope Coronary artery disease Hypertension Hyperlipidemia Assessment/Plan S/p falling out of bed resulting in multiple rib fracture, right hemothorax, improving, followed by surgical service Sinus tachycardia, starting low-dose beta-blockers, evaluate tolerance and response Syncope, unknown etiology, probably hypotensive episode, occurred later in the day after falling out of bed, blood pressure is better, continue to monitor Debility, generalized weakness, continue with therapy. Coronary artery disease, mild to moderate nonobstructive disease per cardiac catheterization 2008, most recent stress test and 2-D echocardiogram February 27 revealed no ischemia or infarct. Hypertension, controlled, continue to monitor blood pressure/heart rate. Hyperlipidemia, lipid profile was done in December 2019 showing total cholesterol 126, HDL 29, triglyceride 225, LDL 52. Continue to monitor Mild bilateral nonobstructive carotid artery stenosis. Last carotid duplex done in December 2019. Continue to monitor Chronic kidney disease, management per PCP Diabetes mellitus, management per PCP History of prostate cancer, followed by VALERIE Lowry MD Sep 23, 2020 09:28
--- NOTE | 2020-09-23 09:52 | PM&R Progress Note ---
Subjective HPI/CC On Admission Date Seen by Provider: Sep 23, 2020 Time Seen by Provider: 10:00 Subjective/Events-last exam 09/23/2020: Pt set for DC Toprol XL 25 will be started Sinus tachycardia on EKG Incontinence noted, will resume his home bladder medication at that time 09/22/2020: Patient doing pretty well [facility] on Wednesday Incontinence noted Bowels moving 09/21/2020: No major issues reported CPAP machine to be brought in by son Yair on Wednesday but while he was in the room he tried to call Yair [place] on his cell phone and they told him there were no rooms available I quickly ended the call and told him that social work would be talking to him on Wednesday09/20/2020: Pt doing really well Off oxygen, on room air Feels pretty good otherwise Needs his CPAP machine to help him sleep 09/19/2020: Pt doing really well Very conversational today Incontinence is chronic Checked meds and labs Lungs are clear 09/18/2020: Pt doing about the same MRI was normal, no evidence of normal pressure hydrocephalus Xanax given for the MRI made him very confused yesterday DC planned for the 09/17/2020: Pt doing really well Getting MRI because my suspicion for normal pressure Hydrocephalus is present Nebs will be given QID since lungs are still coarse 09/16/2020: Pt had multiple bowel movements yesterday CPAP will be brought in from home Chronic incontinence per urology Slum score is 27/30 but he requires a lot of cues Upon further evaluation patient may have some signs of normal pressure hydrocephalus or early dementia 09/15/2020: Patient doing pretty well Sleeping soundly currently Legs move constantly Fall risk continues 09/14/2020: Patient doing pretty well Remains incontinent and purposely urinates outside of his diaper Having some small bowel movements so laxatives will be continuing Discontinue the Robaxin due to drowsiness Check meds and labs Overall very high risk for falls Review of Systems General: Fatigue, Malaise Genitourinary: Incontinence Objective Exam Vital Signs Vital Signs Date Time Temp Pulse Resp B/P (MAP) Pulse Ox O2 Delivery O2 Flow Rate FiO2 09/23/20 20:20 Nasal Cannula 09/23/20 20:00 36.8 81 20 141/66 (91) 94 09/23/20 14:40 0.00 Capillary Refill : General Appearance: No Apparent Distress, WD/WN, Chronically ill, Obese HEENT: PERRL/EOMI, Normal ENT Inspection, Pharynx Normal Neck: Full Range of Motion, Normal Inspection, Non Tender, Supple, Carotid Bruit Respiratory: Chest Non Tender, Lungs Clear, Normal Breath Sounds, No Accessory Muscle Use, No Respiratory Distress Cardiovascular: Regular Rate, Rhythm, No Edema, No Gallop, No JVD, No Murmur, Normal Peripheral Pulses Gastrointestinal: Normal Bowel Sounds, No Organomegaly, No Pulsatile Mass, Non Tender, Soft Back: Normal Inspection, No CVA Tenderness, No Vertebral Tenderness Extremity: Normal Capillary Refill, Normal Inspection, Normal Range of Motion, Non Tender, No Calf Tenderness, No Pedal Edema Neurologic/Psychiatric: Alert, Oriented x3, No Motor/Sensory Deficits, Abnormal Gait, Depressed Affect, Motor Weakness (Generalized) Skin: Normal Color, Warm/Dry, Ecchymosis (Right flank) Lymphatic: No Adenopathy Results/Procedures Lab Laboratory Tests 09/23/20 06:02 Patient resulted labs reviewed. FIM Transfers Therapy Code Descriptions/Definitions Functional [place] Measure: 0=Not Assessed/NA 4=Minimal Assistance 1=Total Assistance 5=Supervision or Setup 2=Maximal Assistance 6=Modified [place] 3=Moderate Assistance 7=Complete IndependenceSCALE: Activities may be completed with or without assistive devices. 9-Gljbzsweba-itrhmjx completes the activity by him/herself with no assistance from a helper. 5-Set-up or Clean-up Assistance-helper sets up or cleans up; patient completes activity. [place] assists only prior to or following the activity. 4-Supervision or Touching Assistance-helper provides verbal cues and/or touching/steadying and/or contact guard assistance as patient completes activity. Assistance may be provided throughout the activity or intermittently. 3-Partial/Moderate Assistance-helper does LESS THAN HALF the effort. [place] lifts, holds or supports trunk or limbs, but provides less than half the effort. 2-Substantial/Maximal Assistance-helper does MORE THAN HALF the effort. [place] lifts or holds trunk or limbs and provides more than half the effort. 3-Vxygkacey-ztqhkv does ALL the effort. Patient does none of the effort to complete the activity. Or, the assistance of 2 or more helpers is required for the patient to complete the activity. If activity was not attempted, code reason: 7-Patient Refused. 9-Not Applicable-not attempted and the patient did not perform the activity before the current illness, exacerbation or injury. 10-Not Attempted due to Environmental Limitations-(lack of equipment, weather restraints, etc.). 88-Not Attempted due to Medical Conditions or Safety Concerns. Roll Left to Right (QC): 4 Sit to Lying (QC): 4 Sit to Stand (QC): 6 Chair/Zxi-cy-Lmprz Xfer(QC): 5 Car Transfer (QC): 4 Gait Training Does the Patient Walk?: Yes Distance: 200 Walk 10 feet (QC): 5 Walk 50 ft with 2 Turns(QC): 5 Walk 150 ft (QC): 5 Walking 10ft/uneven surface-QC: 5 Gait Persons Needed: 1 Gait Assistive Device: FWW Wheelchair Training Does the Pt Use a Wheelchair?: No Wheel 50 ft with 2 turns (QC): 9 Wheel 150 ft (QC): 9 Type of Wheelchair: N/A Stair Training #of Steps: 4 1 Step (curb) (QC): 4 4 Steps (QC): 4 12 Steps (QC): 88 Balance Picking up an Object (QC): 88 ADL-Treatment Eating (QC): 5 (set up assistance. Assistance to open milk and to move cup within reach.) Oral Hygiene (QC): 7 Shower/Bathe Self (QC): 4 (Supervision, pt able to wash/dry all parts) Upper Body Dressing (QC): 5 (set up, pt able to don button up shirt.) Lower Body Dressing (QC): 3 (Min A with belt, CGA in stand for pant hike. Pt able to don pants/underwear using preliminary school psychologist as needed) On/Off Footwear (QC): 3 (Mod A. Pt able to doff gripper socks, used sock aide to don. Pt unable to recall how to use sock aide, requiring assistance.) Toileting Hygiene (QC): 4 (CGA, pt able to manage hygiene and clothing management) Toilet Transfer (QC): 4 (CGA on/off toilet) Assessment/Plan Assessment and Plan Assess & Plan/Chief Complaint Assessment: Status post fall with right sided multiple rib fractures and right flank hematom a Acute blood loss anemia Chronic kidney disease BPH Diabetes Obesity Poor social situation Advanced age Plan: Aggressive therapy Supportive care Pain control 09/14/2020: Pain control Incontinence care Supportive care 09/15/2020: Incontinence care Pain control Monitor closely 09/16/2020: Supportive care Monitor closely Incontinence care Patient may have findings of normal pressure hydrocephalus will further evaluate 09/17/2020: Supportive care MRI Monitor lungs 09/18/2020: MRI ruled out normal pressure hydrocephalus Continue incontinence care 09/19/2020: Much improved status Lungs are clear today 09/20/2020: CPAP set up by RT Monitor closely 09/21/2020: Part of care Weaned O2 Lungs are clear 09/22/2020: Much improved status Discharge on Wednesday09/23/2020: Incontinence care Assisted living tomorrow (1) Debility (2) Hemothorax on right Status: Acute (3) Fall Status: Acute (4) Rib fractures Status: Acute (5) YE (acute kidney injury) Status: Acute (6) Obesity Status: Chronic (7) Acute respiratory failure with hypoxia Status: Acute (8) Benign prostatic hyperplasia with urinary retention Status: Acute LINO HEATH DO Sep 23, 2020 09:52
--- NOTE | 2020-09-23 10:09 | Occupational Ther Daily Note ---
OT Current Status-Daily Note Subjective Pt seated in recliner, agreeable to OT Tx. States he feels ready to go to [place] tomorrow. Mental Status/Objective Patient Orientation: Person, Place, Situation ADL-Treatment Therapy Code Descriptions/Definitions Functional [place] Measure: 0=Not Assessed/NA 4=Minimal Assistance 1=Total Assistance 5=Supervision or Setup 2=Maximal Assistance 6=Modified [place] 3=Moderate Assistance 7=Complete IndependenceSCALE: Activities may be completed with or without assistive devices. 8-Xlpznaldkj-ngluncg completes the activity by him/herself with no assistance from a helper. 5-Set-up or Clean-up Assistance-helper sets up or cleans up; patient completes activity. [place] assists only prior to or following the activity. 4-Supervision or Touching Assistance-helper provides verbal cues and/or touching/steadying and/or contact guard assistance as patient completes activity. Assistance may be provided throughout the activity or intermittently. 3-Partial/Moderate Assistance-helper does LESS THAN HALF the effort. [place] lifts, holds or supports trunk or limbs, but provides less than half the effort. 2-Substantial/Maximal Assistance-helper does MORE THAN HALF the effort. [place] lifts or holds trunk or limbs and provides more than half the effort. 9-Tquycbuuf-rpimlc does ALL the effort. Patient does none of the effort to complete the activity. Or, the assistance of 2 or more helpers is required for the patient to complete the activity. If activity was not attempted, code reason: 7-Patient Refused. 9-Not Applicable-not attempted and the patient did not perform the activity before the current illness, exacerbation or injury. 10-Not Attempted due to Environmental Limitations-(lack of equipment, weather restraints, etc.). 88-Not Attempted due to Medical Conditions or Safety Concerns. Eating (QC): 6 (Per pt report) Oral Hygiene (QC): 4 (SBA standing at sink, 1 LOB but pt able to self correct) Shower/Bathe Self (QC): 5 (Set up with task, pt able to wash/dry all parts.) Upper Body Dressing (QC): 5 (Set up assist for button up shirt.) Lower Body Dressing (QC): 4 (SBA, pt able to thread pants and manage pant hike) On/Off Footwear: 3 (Pt doffed socks, assist to use sock aide to don) Toileting Hygiene (QC): 4 (SBA, pt required cues for hygiene after BM. Able to manage hygiene and pant hike) Toilet Transfer (QC): 4 (SBA on/off toilet) Other Treatment Pt seated in recliner, used FWW to perform functional mobility into bathroom and onto toilet. Pt completed toileting and doffed LE clothing. Pt stood from toilet and asked if he needed wiped, OT encouraged pt to complete himself, pt able to wipe with cues to keep wiping until clean. Pt transferred to SC, doffed shirt and socks, then completed shower. Pt transferred to chair to don clothing, donned button up shirt with set up assistance, SBA for lower body clothing, mod A with footwear. OT handed pt sock aide to don gripper socks, pt had poor recall of sock aide, unable to figure out how to thread socks onto aide after cues. OT assisted with threading sock onto sock aide, he was then able to don with some assistance. Pt stood at sink to perform oral care, 1 LOB while standing at sink but pt able to self correct. Pt used FWW to go to therapy gym, in order to increase BUE Strength and activity tolerance, pt completed arm bike x15 mins, 20 Watt resistance. Pt returned to his room, transferring to recliner. Pt completed fine motor task, removing beads from moderate resistance theraputty, pt required moderate cues during task, as he would start to fall asleep. Post tx, pt seated in recliner, call light in reach and all needs met. chair alarm activated. Education OT Patient Education: Correct positioning, Energy conservation, Exercise program, Modified ADL techniques, Progress toward Goal/Update tx plan, Purpose of tx/functional activities, Rehab process, Safety issues, Transfer techniques, Use of adapted equipment Teaching Recipient: Patient Teaching Methods: Discussion Response to Teaching: Verbalize Understanding, Reinforcement Needed OT Short Term Goals Short Term Goals Time Frame: Sep 20, 2020 Toileting hygiene: 4 Shower/bathe self: 4 Lower body dressin Putting on/taking off footwear: 4 OT Technician Terminal And Repeater Goals Technician Terminal And Repeater Goals Time Frame: Oct 04, 2020 Eating (QC): 6 (met) Oral Hygiene (QC): 6 (not met) Toileting Hygiene (QC): 6 (not met) Shower/Bathe Self (QC): 6 (not met) Upper Body Dressing (QC): 6 (not met) Lower Body Dressing (QC): 6 (not met) On/Off Footwear (QC): 6 (not met) Additional Goals: 1-Demonstrate ADL Tasks, 2-Verbalize Understanding, 3- ImproveStrength/Yuniel 1=Demonstrate adherence to instructed precautions during ADL tasks. 2=Patient will verbalize/demonstrate understanding of assistive devices/modifications for ADL. 3=Patient will improve strength/tolerance for activity to enable patient to perform ADL's. OT Education/Plan Problem List/Assessment Assessment: Decreased Activ Tolerance, Decreased UE Strength, Impaired Funct Balance, Impaired I ADL's, Impaired Self-Care Skills Discharge Recommendations Plan/Recommendations: Continue POC Treatment Plan/Plan of Care Patient would benefit from OT for education, treatment and training to promote independence in ADL's, mobility, safety and/or upper extremity function for ADL's. Plan of Care: ADL Retraining, Functional Mobility, Group Exercise/Act as Ind, UE Funct Exercise/Act Treatment Duration: Oct 04, 2020 Frequency: At least 5 of 7 days/Wk (IRF) Estimated Hrs Per Day: 1.5 hours per day Agreement: Yes Rehab Potential: Fair Time/GCodes Start Time: 09:15 Stop Time: 10:30 Total Time Billed (hr/min): 75 Billed Treatment Time 1, ADL 3 (50'), EX (15'), FA (10') JAVON REYNOLDS OT Sep 23, 2020 10:09
--- NOTE | 2020-09-23 10:48 | Speech Therapy Daily Note ---
Speech Daily Progress Note Subjective Date Seen by Provider: Sep 23, 2020 Time Seen by Provider: 00:30 Patient was resting in his recliner following his other therapies. Objective Patient completed a series of problem solving tasks related to his daily needs upon his return home at 95% without cues and/or repetitions. Assessment Assessment Current Status: Good Progress Treatment Plan Discontinue ST, Goals Met Speech Short Term Goals Short Term Goals Short Term Goals 1) The patient will complete memory tasks with 80% or greater with minimal cues. 2) The patient will complete safety awareness tasks with 80% or greater with minimal cues. 3) The patient will complete problem solving tasks with 80% or greater with minimal cues. Speech Crown Perforator Operator Goals Retirement Goals Patient will improve cognitive-communication abilities in order to require less assist. Speech-Plan Patient/Family Goals Patient/Family Goals: Patient is scheduled to discharge to [facility] tomorrow. Treatment Plan Speech Therapy Treatment Plan: Discontinue ST, Goals Met Treatment Duration: Sep 27, 2020 Frequency: 4 times per week (Patient will receive ST 4-5x per week) Estimated Hrs Per Day: .5 hour per day Rehab Potential: Fair Barriers to Learning: Patient's recent health decline, age Pt/Family Agrees to Plan: Yes Safety Risks/Education Teaching Recipient: Patient Teaching Methods: Demonstration, Discussion Response to Teaching: Verbalize Understanding, Return Demonstration Education Topics Provided: Continued safety upon discharge to new facility Time Speech Therapy Time In: 10:30 Speech Therapy Time Out: 11:00 Total Billed Time: 30 Billed Treatment Time 1, SLTS No QUALITY CODEES: EXPRESSION OF IDEAS/WANTS: 4 UNDERSTANDING VERBAL CONTENT: 4 BRIEF INTERVIEW MENTAL STATUS: YES REPETITION OF 3 WORDS: 3 TEMPORAL ORIENTATION: YEAR: CORRECT, MONTH: CORRECT, DAY: CORRECT RECALL SOCK: YES WITH CUE, COLOR: YES, BED: YES WITH CUE MEMORY/RECALL ABILITY: SEASON, LOCATION OF ROOM, THAT HE IS IN THE HOSPITAL JOVANI BLACKMON Sep 23, 2020 10:48
--- NOTE | 2020-09-23 11:02 | Progress Note - Urology ---
Progress Note-Urology Progress Notes/Assess & Plan Progress/Assessment & Plan GOING HOME TOMORROW. TO RESUME HIS HOME [facility] AND [facility]. KEEP F/U APPOINTMENT WITH ME Final Diagnosis INCONTINENCE EMILIA LISA MD Sep 23, 2020 11:02
--- NOTE | 2020-09-23 11:59 | Progress Note ---
MARU BRADLEY 09/23/20 1158: Progress Note 80 yo M with PMH of CKD and HTN presents to inpatient rehab following hospital course of 2 days after a fall at the [facility] mat on [address] causing multiple right rib fracture and right flank soft tissue hematoma. Pt seems in moderate distress and reporting an intermittent stabbing pain. Cardiology consult r esulted in restarting low dose beta blockers for his tachycardia. Urology consult reports continued incontinence. Pt to be discharged tomorrow on 09/24/2020 to assisted living. ADRIANA HEATH DO 09/24/20 0600: Supervisory-Addendum Brief Verification & Attestation Participated in pt care: history, MDM, physical Personally performed: exam, history, MDM, supervision of care Care discussed with: Medical Student Procedures: n/a Results interpretation: Verified all documentation Verification and Attestation of Medical Student E/M Service A medical student performed and documented this service in my presence. I reviewed and verified all information documented by the medical student and made modifications to such information, when appropriate. I personally performed the physical exam and medical decision making. Adriana Heath Sep 24, 2020,05:59 MARU BRADLEY Sep 23, 2020 11:58 ADRIANA HEATH DO Sep 24, 2020 06:00
--- NOTE | 2020-09-23 15:12 | Physical Therapy Daily Note ---
PT Daily Note-Current Subjective Patient sitting in chair upon PT arrival, agreeable to treatment. Currently rates pain at 0/10 Mental Status Patient Orientation: Person, Place, Time, Situation Transfers SCALE: Activities may be completed with or without assistive devices. 1-Pkjitsddka-wuuzmii completes the activity by him/herself with no assistance from a helper. 5-Set-up or Clean-up Assistance-helper sets up or cleans up; patient completes activity. [place] assists only prior to or following the activity. 4-Supervision or Touching Assistance-helper provides verbal cues and/or touching/steadying and/or contact guard assistance as patient completes acti vity. Assistance may be provided throughout the activity or intermittently. 3-Partial/Moderate Assistance-helper does LESS THAN HALF the effort. [place] lifts, holds or supports trunk or limbs, but provides less than half the effort. 2-Substantial/Maximal Assistance-helper does MORE THAN HALF the effort. [place] lifts or holds trunk or limbs and provides more than half the effort. 3-Fplltkczl-jnrtjt does ALL the effort. Patient does none of the effort to complete the activity. Or, the assistance of 2 or more helpers is required for the patient to complete the activity. If activity was not attempted, code reason: 7-Patient Refused. 9-Not Applicable-not attempted and the patient did not perform the activity before the current illness, exacerbation or injury. 10-Not Attempted due to Environmental Limitations-(lack of equipment, weather restraints, etc.). 88-Not Attempted due to Medical Conditions or Safety Concerns. Roll Left & Right (QC): 5 Sit to Lying (QC): 5 Lying to Sitting/Side of Bed(Q: 5 Sit to Stand (QC): 6 Chair/Vjo-kb-Pwqhk Xfer(QC): 6 Toilet Transfer (QC): 6 Car Transfer (QC): 4 Weight Bearing Right Lower Extremity: Right Full Weight Bearing Left Lower Extremity: Left Full Weight Bearing Gait Training Does the Patient Walk?: Yes Distance: 200 x 2 Walk 10 feet (QC): 5 Walk 50 ft with 2 Turns(QC): 5 Walk 150 ft (QC): 5 Walking 10ft/uneven surface-QC: 4 Gait Persons Needed: 1 Gait Assistive Device: FWW Wheelchair Training Does the Pt Use a Wheelchair?: No Wheel 50 ft with 2 turns (QC): 9 Wheel 150 ft (QC): 9 Type of Wheelchair: N/A Stair Training Stair Training: Handrails/: 2 handrails #of Steps: 4 1 Step (curb) (QC): 4 4 Steps (QC): 4 12 Steps (QC): 1 Stairs: Pattern: Step to Balance Picking up an Object (QC): 4 Treatments Visit, Gait Assessment Current Status: Fair Progress Patient sitting in chair upon PT arrival, agreeable to treatment and tolerated treatment well. Demonstrates fair overall improvement in gait and transfers, however still demonstrates decline in balance at times and does not observe obstacles. Patient in chair post treatment with all needs met, nursing notified, call light in hand. PT Short Term Goals Short Term Goals Time Frame: Sep 20, 2020 Roll Left & Right: 3 Sit to lyin Lying to sitting on side of be: 3 Sit to stand: 4 (SBA) Chair/cut-is-zcejc transfer: 4 (SBA) Walk 10 feet: 4 (SBA) Walk 50 feet with two turns: 4 (SBA) Walk 150 feet: 4 (SBA) PT Intermediate Goals Intermediate Goals PT Intermediate Goals Time Frame: Oct 04, 2020 Roll Left & Right (QC): 4 Sit to Lying (QC): 4 Lying-Sitting on Side/Bed(QC): 4 Sit to Stand (QC): 5 Chair/Trh-vy-Deoah Xfer(QC): 5 Toilet Transfer (QC): 5 Car Transfer (QC): 5 Does the Patient Walk: Yes Walk 10 feet (QC): 5 Walk 50ft with 2 Turns (QC): 5 Walk 150 ft (QC): 5 Walking 10ft on Uneven Surface: 5 1 Step (curb) (QC): 5 4 Steps (QC): 5 12 Steps (QC): 5 Picking up an Object (QC): 4 Wheel 50 feet with 2 turns (QC: 9 Wheel 150 feet: 9 PT Plan Treatment/Plan Treatment Plan: Continue Plan of Care, Discontinue PT Treatment Plan: Bed Mobility, Education, Functional Activity Yuniel, Functional Strength, Group Therapy, Gait, Safety, Therapeutic Exercise, Transfers Treatment Duration: Oct 04, 2020 Frequency: At least 5 of 7 days/Wk (IRF) Estimated Hrs Per Day: 1.5 hours per day Patient and/or Family Agrees t: Yes Safety Risks/Education Patient Education: Gait Training, Reviewed Precautions Teaching Recipient: Patient Teaching Methods: Demonstration, Discussion Discharge Recommendations Plan Plan is for D/C to Assisted living on 09-24-20 Therapy Discharge Recommendati: Intermittent Supervision, Assisted Living Equpiment Recommendations-D/C: Front Wheeled Walker, Shower Chair Time/GCodes Time In: 1400 Time Out: 1415 Total Billed Treatment Time: 15 Total Billed Treatment Visit, Gait NUBIA DEJESUS PT Sep 23, 2020 15:12
[2020-09-23] MEDS: TAMSULOSIN 0.4 MG (FLOMAX) CAP PO SCH (17:43)
[2020-09-23 20:00] VITALS: BP 141/66
[2020-09-23] MEDS: MELATONIN 3 MG TABLET PO PRN (20:44)
[2020-09-23] MEDS: HYDROcodone/APAP 5 MG/325 MG (LORTAB) TAB PO PRN (20:44)
[2020-09-24] MEDS: HYDROcodone/APAP 5 MG/325 MG (LORTAB) TAB PO PRN (02:28)
[2020-09-24] MEDS: ACETAMINOPHEN 500 MG TAB (TYLENOL) PO SCH ×2 (03:36→12:50)
[2020-09-24] MEDS: inSUlin ASPART (NovoLOG) 1 UNIT/0.01 ML (CHARGE PER UNIT) SC SCH ×2 (05:40→11:35)
[2020-09-24] MEDS ORDERED: IPRA3AMP31 INH (06:25)
[2020-09-24] MEDS ORDERED: GLIM4TAB5 PO (06:25)
[2020-09-24] MEDS ORDERED: ACET325T49 PO (06:25)
[2020-09-24] MEDS ORDERED: ACHD5005 PO (06:25)
--- NOTE | 2020-09-24 06:27 | Discharge Summary ---
Diagnosis/Chief Complaint Date of Admission Sep 13, 2020 at 13:40 Date of Discharge Discharge Date: Sep 24, 2020 Discharge Diagnosis Assessment: Status post fall with right sided multiple rib fractures and right flank hematoma Acute blood loss anemia Chronic kidney disease BPH Diabetes Obesity Poor social situation Advanced age Plan: Aggressive therapy Supportive care Pain control 09/14/2020: Pain control Incontinence care Supportive care 09/15/2020: Incontinence care Pain control Monitor closely 09/16/2020: Supportive care Monitor closely Incontinence care Patient may have findings of normal pressure hydrocephalus will further evaluate 09/17/2020: Supportive care MRI Monitor lungs 09/18/2020: MRI ruled out normal pressure hydrocephalus Continue incontinence care 09/19/2020: Much improved status Lungs are clear today 09/20/2020: CPAP set up by RT Monitor closely 09/21/2020: Part of care Weaned O2 Lungs are clear 09/22/2020: Much improved status Discharge on Wednesday09/23/2020: Incontinence care Assisted living tomorrow (1) Debility (2) Hemothorax on right Status: Acute (3) Fall Status: Acute (4) Rib fractures Status: Acute (5) YE (acute kidney injury) Status: Acute (6) Obesity Status: Chronic (7) Acute respiratory failure with hypoxia Status: Acute (8) Benign prostatic hyperplasia with urinary retention Status: Acute Discharge Summary Discharge Physical Examination Allergies: Coded Allergies: No Known Drug Allergies (Verified , 08/28/15) Vitals & I&Os Vital Signs Date Time Temp Pulse Resp B/P (MAP) Pulse Ox O2 Delivery O2 Flow Rate FiO2 09/24/20 16:00 36.4 81 20 145/68 95 Room Air 0.00 General Appearance: Alert, Oriented X3, Cooperative Respiratory: Clear to Auscultation Cardiovascular: Regular Rate Neuro: Strength at 5/5 X4 Ext Psych/Mental Status: Mental Status NL Hospital Course Was the Problem List Reviewed?: Yes Hospital course: Pt had a 12 day hospital course after a fall with a hemothorax with subsequent debility and requirement of oxygen supplementation. Pt was able to regain enough strength and undergo therapy with ADL independence and skills and fall risk prevention. He was found to be stable for assisted living and he was moved there. Incontinence care will be maintained and Pt will have close follow-up with Dr. Holland. Labs (last 24 hrs) Laboratory Tests 09/13/20 17:17: Glucometer 145H 09/13/20 20:14: Glucometer 158H 09/14/20 05:00: White Blood Count 5.9, Red Blood Count 3.47L, Hemoglobin 10.1L, Hematocrit 31L, Mean Corpuscular Volume 91, Mean Corpuscular Hemoglobin 29, Mean Corpuscular He moglobin Concent 32, Red Cell Distribution Width 17.7H, Platelet Count 168, Mean Platelet Volume 8.0L, Immature Granulocyte % (Auto) 1, Neutrophils (%) (Auto) 71, Lymphocytes (%) (Auto) 17, Monocytes (%) (Auto) 7, Eosinophils (%) (Auto) 4, Basophils (%) (Auto) 1, Neutrophils # (Auto) 4.1, Lymphocytes # (Auto) 1.0, Monocytes # (Auto) 0.4, Eosinophils # (Auto) 0.3, Basophils # (Auto) 0.0, Immature Granulocyte # (Auto) 0.1, Sodium Level 138, Potassium Level 4.3, Chlori de Level 100, Carbon Dioxide Level 25, Anion Gap 13, Blood Urea Nitrogen 22H, Creatinine 1.64H, Estimat Glomerular Filtration Rate 41, BUN/Creatinine Ratio 13, Glucose Level 120H, Calcium Level 9.9, Corrected Calcium 10.1, Total Bilirubin 0.6, Aspartate Amino Transf (AST/SGOT) 15, Alanine Aminotransferase (ALT/SGPT) 13, Alkaline Phosphatase 35L, Total Protein 6.7, Albumin 3.7 09/14/20 12:27: Glucometer 154H 09/14/20 16:59: Glucometer 237H 09/14/20 21:17: Glucometer 145H 09/15/20 05:25: Glucometer 129H 09/15/20 11:59: Glucometer 159H 09/15/20 16:30: Glucometer 147H 09/15/20 20:21: Glucometer 240H 09/16/20 05:21: Glucometer 148H 09/16/20 05:38: White Blood Count 6.7, Red Blood Count 3.70L, Hemoglobin 10.6L, Hematocrit 34L, Mean Corpuscular Volume 92, Mean Corpuscular Hemoglobin 29, Mean Corpuscular Hemoglobin Concent 31L, Red Cell Distribution Width 16.9H, Platelet Count 222, Mean Platelet Volume 9.0, Immature Granulocyte % (Auto) 1, Neutrophils (%) (Auto) 65, Lymphocytes (%) (Auto) 23, Monocytes (%) (Auto) 7, Eosinophils (%) (Auto) 4, Basophils (%) (Auto) 1, Neutrophils # (Auto) 4.3, Lymphocytes # (Auto) 1.5, Monocytes # (Auto) 0.5, Eosinophils # (Auto) 0.3, Basophils # (Auto) 0.0, Immature Granulocyte # (Auto) 0.1, Sodium Level 136, Potassium Level 4.3, Chloride Level 101, Carbon Dioxide Level 24, Anion Gap 11, Blood Urea Nitrogen 23H, Creatinine 1.71H, Estimat Glomerular Filtration Rate 39, BUN/Creatinine Ratio 13, Glucose Level 153H, Calcium Level 9.4, Corrected Calcium 9.7, Total Bilirubin 0.6, Aspartate Amino Transf (AST/SGOT) 21, Alanine Aminotransferase (ALT/SGPT) 21, Alkaline Phosphatase 49, Total Protein 7.0, Albumin 3.6 09/16/20 11:28: Glucometer 189H 09/16/20 15:46: Glucometer 178H 09/16/20 20:57: Glucometer 152H 09/17/20 05:32: Glucometer 147H 09/17/20 11:46: Glucometer 201H 09/17/20 17:45: Glucometer 133H 09/17/20 22:34: Glucometer 154H 09/18/20 05:39: Glucometer 137H 09/18/20 11:39: Glucometer 184H 09/18/20 17:07: Glucometer 162H 09/18/20 21:16: Glucometer 231H 09/19/20 05:09: Glucometer 143H 09/19/20 11:47: Glucometer 213H 09/19/20 15:29: Glucometer 201H 09/19/20 21:21: Glucometer 146H 09/20/20 05:44: Glucometer 117H 09/20/20 10:55: Glucometer 153H 09/20/20 15:55: Glucometer 215H 09/20/20 20:28: Glucometer 218H 09/21/20 05:49: Glucometer 145H 09/21/20 10:49: Glucometer 182H 09/21/20 15:48: Glucometer 213H 09/21/20 21:37: Glucometer 185H 09/22/20 06:00: Glucometer 122H 09/22/20 11:27: Glucometer 170H 09/22/20 15:52: Glucometer 179H 09/22/20 20:35: Glucometer 172H 09/23/20 05:35: Glucometer 120H 09/23/20 06:02: White Blood Count 7.8, Red Blood Count 3.89L, Hemoglobin 10.9L, Hematocrit 34L, Mean Corpuscular Volume 88, Mean Corpuscular Hemoglobin 28, Mean Corpuscular Hemoglobin Concent 32, Red Cell Distribution Width 16.2H, Platelet Count 285, Mean Platelet Volume 8.7L, Immature Granulocyte % (Auto) 1, Neutrophils (%) (Auto) 70, Lymphocytes (%) (Auto) 19, Monocytes (%) (Auto) 5, Eosinophils (%) (Auto) 5, Basophils (%) (Auto) 0, Neutrophils # (Auto) 5.4, Lymphocytes # (Auto) 1.4, Monocytes # (Auto) 0.4, Eosinophils # (Auto) 0.4H, Basophils # (Auto) 0.0, Immature Granulocyte # (Auto) 0.1, Percent Immature Platelet Fraction 1.1, Sodium Level 135, Potassium Level 4.4, Chloride Level 104, Carbon Dioxide Level 18L, Anion Gap 13, Blood Urea Nitrogen 22H, Creatinine 1.53H, Estimat Glomerular Filtration Rate 44, BUN/Creatinine Ratio 14, Glucose Level 125H, Calcium Level 9.6, Corrected Calcium 9.7, Total Bilirubin 0.5, Aspartate Amino Transf (AST/S GOT) 16, Alanine Aminotransferase (ALT/SGPT) 17, Alkaline Phosphatase 83, Total Protein 7.2, Albumin 3.9 09/23/20 10:52: Glucometer 193H 09/23/20 15:42: Glucometer 173H 09/23/20 20:42: Glucometer 196H 09/24/20 05:40: Glucometer 145H 09/24/20 11:13: Glucometer 173H Pending Labs Laboratory Tests 09/13/20 17:17: Glucometer 145 09/13/20 20:14: Glucometer 158 09/14/20 05:00: White Blood Count 5.9, Red Blood Count 3.47, Hemoglobin 10.1, Hematocrit 31, Mean Corpuscular Volume 91, Mean Corpuscular Hemoglobin 29, Mean Corpuscular Hemoglobin Concent 32, Red Cell Distribution Width 17.7, Platelet Count 168, Mean Platelet Volume 8.0, Immature Granulocyte % (Auto) 1, Neutrophils (%) (Auto) 71, Lymphocytes (%) (Auto) 17, Monocytes (%) (Auto) 7, Eosinophils (%) (Auto) 4, Basophils (%) (Auto) 1, Neutrophils # (Auto) 4.1, Lymphocytes # (Auto) 1.0, Monocytes # (Auto) 0.4, Eosinophils # (Auto) 0.3, Basophils # (Auto) 0.0, Immature Granulocyte # (Auto) 0.1, Sodium Level 138, Potassium Level 4.3, Chloride Level 100, Carbon Dioxide Level 25, Anion Gap 13, Blood Urea Nitrogen 22, Creatinine 1.64, Estimat Glomerular Filtration Rate 41, BUN/Creatinine Ratio 13, Glucose Level 120, Calcium Level 9.9, Corrected Calcium 10.1, Total Bilirubin 0.6, Aspartate Amino Transf (AST/SGOT) 15, Alanine Aminotransferase (ALT/SGPT) 13, Alkaline Phosphatase 35, Total Protein 6.7, Albumin 3.7 09/14/20 12:27: Glucometer 154 09/14/20 16:59: Glucometer 237 09/14/20 21:17: Glucometer 145 09/15/20 05:25: Glucometer 129 09/15/20 11:59: Glucometer 159 09/15/20 16:30: Glucometer 147 09/15/20 20:21: Glucometer 240 09/16/20 05:21: Glucometer 148 09/16/20 05:38: White Blood Count 6.7, Red Blood Count 3.70, Hemoglobin 10.6, Hematocrit 34, Mean Corpuscular Volume 92, Mean Corpuscular Hemoglobin 29, Mean Corpuscular Hemoglobin Concent 31, Red Cell Distribution Width 16.9, Platelet Count 222, Mean Platelet Volume 9.0, Immature Granulocyte % (Auto) 1, Neutrophils (%) (Auto) 65, Lymphocytes (%) (Auto) 23, Monocytes (%) (Auto) 7, Eosinophils (%) (Auto) 4, Basophils (%) (Auto) 1, Neutrophils # (Auto) 4.3, Lymphocytes # (Auto) 1.5, Monocytes # (Auto) 0.5, Eosinophils # (Auto) 0.3, Basophils # (Auto) 0.0, Immature Granulocyte # (Auto) 0.1, Sodium Level 136, Potassium Level 4.3, Chloride Level 101, Carbon Dioxide Level 24, Anion Gap 11, Blood Urea Nitrogen 23, Creatinine 1.71, Estimat Glomerular Filtration Rate 39, BUN/Creatinine Ratio 13, Glucose Level 153, Calcium Level 9.4, Corrected Calcium 9.7, Total Bilirubin 0.6, Aspartate Amino Transf (AST/SGOT) 21, Alanine Aminotransferase (ALT/SGPT) 21, Alkaline Phosphatase 49, Total Protein 7.0, Albumin 3.6 09/16/20 11:28: Glucometer 189 09/16/20 15:46: Glucometer 178 09/16/20 20:57: Glucometer 152 09/17/20 05:32: Glucometer 147 09/17/20 11:46: Glucometer 201 09/17/20 17:45: Glucometer 133 09/17/20 22:34: Glucometer 154 09/18/20 05:39: Glucometer 137 09/18/20 11:39: Glucometer 184 09/18/20 17:07: Glucometer 162 09/18/20 21:16: Glucometer 231 09/19/20 05:09: Glucometer 143 09/19/20 11:47: Glucometer 213 09/19/20 15:29: Glucometer 201 09/19/20 21:21: Glucometer 146 09/20/20 05:44: Glucometer 117 09/20/20 10:55: Glucometer 153 09/20/20 15:55: Glucometer 215 09/20/20 20:28: Glucometer 218 09/21/20 05:49: Glucometer 145 09/21/20 10:49: Glucometer 182 09/21/20 15:48: Glucometer 213 09/21/20 21:37: Glucometer 185 09/22/20 06:00: Glucometer 122 09/22/20 11:27: Glucometer 170 09/22/20 15:52: Glucometer 179 09/22/20 20:35: Glucometer 172 09/23/20 05:35: Glucometer 120 09/23/20 06:02: White Blood Count 7.8, Red Blood Count 3.89, Hemoglobin 10.9, Hematocrit 34, Mean Corpuscular Volume 88, Mean Corpuscular Hemoglobin 28, Mean Corpuscular Hemoglobin Concent 32, Red Cell Distribution Width 16.2, Platelet Count 285, Mean Platelet Volume 8.7, Immature Granulocyte % (Auto) 1, Neutrophils (%) (Auto) 70, Lymphocytes (%) (Auto) 19, Monocytes (%) (Auto) 5, Eosinophils (%) (Auto) 5, Basophils (%) (Auto) 0, Neutrophils # (Auto) 5.4, Lymphocytes # (Auto) 1.4, Monocytes # (Auto) 0.4, Eosinophils # (Auto) 0.4, Basophils # (Auto) 0.0, Immature Granulocyte # (Auto) 0.1, Percent Immature Platelet Fraction 1.1, Sodium Level 135, Potassium Level 4.4, Chloride Level 104, Carbon Dioxide Level 18, Anion Gap 13, Blood Urea Nitrogen 22, Creatinine 1.53, Estimat Glomerular Filtration Rate 44, BUN/Creatinine Ratio 14, Glucose Level 125, Calcium Level 9.6, Corrected Calcium 9.7, Total Bilirubin 0.5, Aspartate Amino Transf (AST/SGOT) 16, Alanine Aminotransferase (ALT/SGPT) 17, Alkaline Phosphatase 83, Total Protein 7.2, Albumin 3.9 09/23/20 10:52: Glucometer 193 09/23/20 15:42: Glucometer 173 09/23/20 20:42: Glucometer 196 09/24/20 05:40: Glucometer 145 09/24/20 11:13: Glucometer 173 Discharge Home Medications: Active Scripts Active Acetaminophen 325 Mg Tablet 650 Mg PO Q6H PRN HYDROcodone/APAP 5 MG/325 MG TAB (Acetaminophen/Hydrocodone Bitart) 1 Tab Tab 1 Ea PO Q4H PRN Iprat-Albut 0.5-3(2.5) mg/3 ml (Ipratropium/Albuterol Sulfate) 3 Ml Ampul.neb 3 Ml INH RTQID Glimepiride 4 Mg Tablet 2 Mg PO DAILY Reported Eliquis (Apixaban) 5 Mg Tablet 5 Mg PO BID Myrbetriq (Mirabegron) 25 Mg Tab.er.24h 50 Mg PO DAILY TAKES 2 (25MG) TABS Omeprazole 20 Mg Tablet.dr 20 Mg PO DAILY Aspirin EC (Aspirin) 81 Mg Tablet.dr 81 Mg PO 1800 Fiber (Methylcellulose) 500 Mg Tablet 1,000 Mg PO 1800 TAKES 2 (500MG) TABS Fenofibrate (Fenofibrate Nanocrystallized) 145 Mg Tablet 145 Mg PO 1800 [place]-3 Acid Ethyl Esters 1 Gm Capsule 2 Mg PO BID TAKES 2 (1GM) CAPS Metoprolol Succinate 25 Mg Tab.er.24h 25 Mg PO DAILY Atorvastatin Calcium 20 Mg Tablet 20 Mg PO 1800 Flomax (Tamsulosin HCl) 0.4 Mg Cap 0.4 Mg PO DAILY Dutasteride 0.5 Mg Capsule 0.5 Mg PO DAILY Niacin ER (Niacin) 1,000 Mg Tab.er.24h 1,000 Mg PO 1800 Metformin HCl 500 Mg Tablet 500 Mg PO BID Instructions to patient/family Please see electronic discharge instructions given to patient. Diagnosis/Problems Diagnosis/Problems (1) Debility (2) Hemothorax on right Status: Acute (3) Fall Status: Acute (4) Rib fractures Status: Acute (5) YE (acute kidney injury) Status: Acute (6) Obesity Status: Chronic (7) Acute respiratory failure with hypoxia Status: Acute (8) Benign prostatic hyperplasia with urinary retention Status: Acute LINO HEATH DO Sep 24, 2020 06:27
[2020-09-24] MEDS: RT-ALBUTEROL/IPRATROPIUM 3 ML (DUONEB) VIAL INH SCH ×2 (07:06→11:02)
[2020-09-24 08:00] VITALS: BP 145/68
--- NOTE | 2020-09-24 08:29 | Cardiology Progress Note ---
Subjective Date Seen by Provider: Sep 24, 2020 Time Seen by Provider: 08:28 Subjective/Events-last exam Sitting up in chair, no new complaints. Review of Systems General: No Chills, No Night Sweats, No Fatigue, No Malaise, No Appetite, No Other HEENT: No Head Aches, No Visual Changes, No Eye Pain, No Ear Pain, No Dysphasia, No Sinus Congestion, No Post Nasal Drip, No Sore Throat, No Other Pulmonary: No Dyspnea, No Cough, No Pleuritic Chest Pain, No Other Cardiovascular: No: Chest Pain, Palpitations, Orthopnea, Paroxysmal Noc. Dyspnea, Edema, Lt Headedness, Other Objective-Cardiology Exam Last Set of Vital Signs Vital Signs 09/23/20 09/24/20 14:40 08:00 Temp 36.4 Pulse 81 Resp 20 B/P (MAP) 145/68 (93) Pulse Ox 94 O2 Delivery Room Air O2 Flow Rate 0.00 General: Alert, Oriented X3, Cooperative HEENT: Atraumatic, PERRLA Neck: Supple, No JVD, No Thyromegaly Lungs: Clear to Auscultation, Normal Air Movement Heart: Regular Rate, Normal S1, Normal S2, No Murmurs, Other (Sinus tachycardia) Abdomen: Normal Bowel Sounds, Soft, No Tenderness, No Hepatosplenomegaly, No Masses Extremities: No Clubbing, No Cyanosis, No Edema, Normal Pulses, No Tenderness/Swelling Skin: No Rashes, No Breakdown, No Significant Lesion Neuro: Normal Gait, Normal Speech, Strength at 5/5 X4 Ext, Normal Tone, Sensation Intact Psych/Mental Status: Mental Status NL, Mood NL A/P-Cardiology Admission Diagnosis Syncope Coronary artery disease Hypertension Hyperlipidemia Assessment/Plan S/p falling out of bed resulting in multiple rib fracture, right hemothorax, improving, followed by surgical service Sinus tachycardia, starting low-dose beta-blockers, evaluate tolerance and response Syncope, unknown etiology, probably hypotensive episode, occurred later in the day after falling out of bed, blood pressure is better, continue to monitor Debility, generalized weakness, continue with therapy. Coronary artery disease, mild to moderate nonobstructive disease per cardiac catheterization 2008, most recent stress test and 2-D echocardiogram February 2016 revealed no ischemia or infarct. Hypertension, controlled, continue to monitor blood pressure/heart rate. Hyperlipidemia, lipid profile was done in December 2019 showing total cholesterol 126, HDL 29, triglyceride 225, LDL 52. Continue to monitor Mild bilateral nonobstructive carotid artery stenosis. Last carotid duplex done in December 2019. Continue to monitor Chronic kidney disease, management per PCP Diabetes mellitus, management per PCP History of prostate cancer, followed by Dr. Martin Patient was seen and evaluated with Yecenia, examination performed, management plan was discussed, agree with the current scribed note, I made few changes to the note using Italic font Patient was seen at bedside, sitting comfortably, no new complaint, feeling better. Heart rate is better, tolerating low-dose Toprol without difficulties, no orthostatic dizziness was reported Okay for discharge from cardiology standpoint and follow-up as an outpatient Supervisory-Addendum Brief Supervisory Addendum Participated in pt care: history, MDM, physical Personally performed: exam, history, MDM Care discussed with: CHARLES Results interpretation: Verified all documentation YECENIA BUTTS Sep 24, 2020 08:29 VALERIE SAHA MD Sep 24, 2020 08:36
--- NOTE | 2020-09-24 08:36 | Therapy Team Discharge Summary ---
Therapy Discharge Summary Discharge Recommendations Date of Discharge Occupational Therapy Decreased Activ Tolerance, Decreased UE Strength, Impaired Funct Balance, Impaired I ADL's, Impaired Self-Care Skills Speech-Language Pathology Patient was admitted to the ARU s/p fall with injury. Patient was given the SLUMS with a score indicating MNCD range of function. The patient received skilled ST for cognitive deficits with focus on safety awareness and memory. Patient progressed well and met all ST goals. He is discharging this date to an [facility] where he will continue with home health services and therapy. PT Cigar Inspector Goals Longterm Goals PT Longterm Goals Time Frame: Oct 04, 2020 Roll Left to Right (QC): 4 Sit to Lying (QC): 4 Lying-Sitting on Side/Bed(QC): 4 Sit to Stand (QC): 5 Chair/Zps-sm-Onyui Xfer(QC): 5 Car Transfer (QC): 5 Does the Patient Walk: Yes Walk 10 feet (QC): 5 Walk 10ft-Uneven Surface(QC): 5 Walk 50ft with 2 Turns (QC): 5 Walk 150 ft (QC): 5 Wheel 50 feet with 2 turns (QC: 9 1 Step (curb) (QC): 5 4 Steps (QC): 5 12 Steps (QC): 5 Picking up an Object (QC): 4 OT Longterm Goals Cigar Inspector Goals Time Frame: Oct 04, 2020 Eating (FIM): 6 Eating (QC): 6 (met) Oral Hygiene (QC): 6 (not met) Shower/Bathe Self (QC): 6 (not met) Upper Body Dressing (QC): 6 (not met) Lower Body Dressing (QC): 6 (not met) On/Off Footwear (QC): 6 (not met) Toileting(FIM): 6 Toileting Hygiene (QC): 6 (not met) Toilet/Commode Transfer (QC): 5 Additional Goals: 1-Demonstrate ADL Tasks, 2-Verbalize Understanding, 3-Improv eStrength/Yuniel 1=Demonstrate adherence to instructed precautions during ADL tasks. 2=Patient will verbalize/demonstrate understanding of assistive devices/modifications for ADL. 3=Patient will improve strength/tolerance for activity to enable patient to p erform ADL's. Speech Cigar Inspector Goals Longterm Goals Patient will improve cognitive-communication abilities in order to require less assist. JOVANI BLACKMON Sep 24, 2020 08:36
[2020-09-24] MEDS: SENNA W/DOCUSATE (SENOKOT S) TABLET PO SCH (09:10)
[2020-09-24] MEDS: FINASTERIDE (PROSCAR) 5 MG TAB PO SCH (09:10)
[2020-09-24] MEDS: polyethylene glycoL POWDER 17 GM (MIRALAX) PACK PO SCH (09:10)
[2020-09-24] MEDS: DOCUSATE SODIUM 100 MG (COLACE) CAP PO SCH (09:10)
[2020-09-24] MEDS: SENNOSIDES 8.6 MG (SENOKOT) TAB PO SCH (09:11)
--- NOTE | 2020-09-24 09:52 | D/C HH Face to Face Order ---
D/C Face to Face Orders Reconcile Patient Problems Problems Reviewed?: Yes Instructions for Patient Via [facility], Patient Instructions/FollowUp: Dr Cooper Physician to follow Patient: Allison Discharge Diet for Home: No Restrictions Patient Problems: fall debility Patient Data-Allergies,Ht & Wt Patient Allergies: Coded Allergies: No Known Drug Allergies (Verified , 08/28/15) Height (Feet): 5 Height (Inches): 7.00 Weight (Pounds): 212 Weight (Ounces): 0.0 Home Health Need/Face to Face Date of Face to Face: Sep 24, 2020 Clinical Findings: Generalized weakness and fatigue, Instability, Muscle weakness, Shortness of breath I have seen Pt [id number]: Yes Discharged To: Home Diagnosis/Conditions: fall debility Patient is Homebound due to: CognItive deficits, Jayy fall risk due to instabilty, Muscle weakness Homebound Status Due to the above stated illness, injury or surgical procedure (medical condition or diagnosis) and associated clinical findings, the patient is homebound because of his/her inability to leave home except with aid of a supportive device and/or person AND leaving the home requires a considerable and taxing effort or is medically contraindicated. Pt req the following assistanc: [facility] Nursing Orders Home Health Services Order: Nursing Services, Casino Runner-Evaluate & Treat, Physical Therapy-Evaluate & Treat Certify Stmt I certify that this patient is under my care and that I, a nurse practitioner or a physician; a administrative assistant front desk working with me, had a face to face encounter that - meets the physician face to face encounter requirements with this patient as dated. LINO HEATH DO Sep 24, 2020 09:52
--- NOTE | 2020-09-24 09:56 | PM&R Progress Note ---
Subjective HPI/CC On Admission Date Seen by Provider: Sep 24, 2020 Time Seen by Provider: 10:00 Subjective/Events-last exam 09/23/2020: Pt set for DC Toprol XL 25 will be started Sinus tachycardia on EKG Incontinence noted, will resume his home bladder medication at that time 09/22/2020: Patient doing pretty well [place] [facility] on Wednesday Incontinence noted Bowels moving 09/21/2020: No major issues reported CPAP machine to be brought in by son Yair on Wednesday but while he was in the room he tried to call Yair [facility] on his cell phone and they told him there were no rooms available I quickly ended the call and told him that social work would be talking to him on Wednesday09/20/2020: Pt doing really well Off oxygen, on room air Feels pretty good otherwise Needs his CPAP machine to help him sleep 09/19/2020: Pt doing really well Very conversational today Incontinence is chronic Checked meds and labs Lungs are clear 09/18/2020: Pt doing about the same MRI was normal, no evidence of normal pressure hydrocephalus Xanax given for the MRI made him very confused yesterday DC planned for the 09/17/2020: Pt doing really well Getting MRI because my suspicion for normal pressure Hydrocephalus is present Nebs will be given QID since lungs are still coarse 09/16/2020: Pt had multiple bowel movements yesterday CPAP will be brought in from home Chronic incontinence per urology Slum score is 27/30 but he requires a lot of cues Upon further evaluation patient may have some signs of normal pressure hydrocephalus or early dementia 09/15/2020: Patient doing pretty well Sleeping soundly currently Legs move constantly Fall risk continues 09/14/2020: Patient doing pretty well Remains incontinent and purposely urinates outside of his diaper Having some small bowel movements so laxatives will be continuing Discontinue the Robaxin due to drowsiness Check meds and labs Overall very high risk for falls Objective Exam Vital Signs Vital Signs Date Time Temp Pulse Resp B/P (MAP) Pulse Ox O2 Delivery O2 Flow Rate FiO2 09/24/20 08:00 36.4 81 20 145/68 (93) 94 Room Air 09/23/20 14:40 0.00 Capillary Refill : General Appearance: No Apparent Distress, WD/WN, Chronically ill, Obese HEENT: PERRL/EOMI, Normal ENT Inspection, Pharynx Normal Neck: Full Range of Motion, Normal Inspection, Non Tender, Supple, Carotid Brui t Respiratory: Chest Non Tender, Lungs Clear, Normal Breath Sounds, No Accessory Muscle Use, No Respiratory Distress Cardiovascular: Regular Rate, Rhythm, No Edema, No Gallop, No JVD, No Murmur, Normal Peripheral Pulses Gastrointestinal: Normal Bowel Sounds, No Organomegaly, No Pulsatile Mass, Non Tender, Soft Back: Normal Inspection, No CVA Tenderness, No Vertebral Tenderness Extremity: Normal Capillary Refill, Normal Inspection, Normal Range of Motion, Non Tender, No Calf Tenderness, No Pedal Edema Neurologic/Psychiatric: Alert, Oriented x3, No Motor/Sensory Deficits, Abnormal Gait, Depressed Affect, Motor Weakness (Generalized) Skin: Normal Color, Warm/Dry, Ecchymosis (Right flank) Lymphatic: No Adenopathy Results/Procedures Lab Patient resulted labs reviewed. FIM Transfers Therapy Code Descriptions/Definitions Functional [place] Measure: 0=Not Assessed/NA 4=Minimal Assistance 1=Total Assistance 5=Supervision or Setup 2=Maximal Assistance 6=Modified [place] 3=Moderate Assistance 7=Complete IndependenceSCALE: Activities may be completed with or without assistive devices. 6-Ycrjtufhuh-djuppvc completes the activity by him/herself with no assistance from a helper. 5-Set-up or Clean-up Assistance-helper sets up or cleans up; patient completes activity. [place] assists only prior to or following the activity. 4-Supervision or Touching Assistance-helper provides verbal cues and/or touching/steadying and/or contact guard assistance as patient completes activity. Assistance may be provided throughout the activity or intermittently. 3-Partial/Moderate Assistance-helper does LESS THAN HALF the effort. [place] lifts, holds or supports trunk or limbs, but provides less than half the effort. 2-Substantial/Maximal Assistance-helper does MORE THAN HALF the effort. [place] lifts or holds trunk or limbs and provides more than half the effort. 9-Vnzowlybh-whvgwz does ALL the effort. Patient does none of the effort to complete the activity. Or, the assistance of 2 or more helpers is required for the patient to complete the activity. If activity was not attempted, code reason: 7-Patient Refused. 9-Not Applicable-not attempted and the patient did not perform the activity before the current illness, exacerbation or injury. 10-Not Attempted due to Environmental Limitations-(lack of equipment, weather restraints, etc.). 88-Not Attempted due to Medical Conditions or Safety Concerns. Roll Left to Right (QC): 5 Sit to Lying (QC): 5 Sit to Stand (QC): 6 Chair/Kll-rv-Zkxfa Xfer(QC): 6 Car Transfer (QC): 4 Gait Training Does the Patient Walk?: Yes Distance: 200 x 2 Walk 10 feet (QC): 5 Walk 50 ft with 2 Turns(QC): 5 Walk 150 ft (QC): 5 Walking 10ft/uneven surface-QC: 4 Gait Persons Needed: 1 Gait Assistive Device: FWW Wheelchair Training Does the Pt Use a Wheelchair?: No Wheel 50 ft with 2 turns (QC): 9 Wheel 150 ft (QC): 9 Type of Wheelchair: N/A Stair Training Stair Training: Handrails/: 2 handrails #of Steps: 4 1 Step (curb) (QC): 4 4 Steps (QC): 4 12 Steps (QC): 1 Stairs: Pattern: Step to Balance Picking up an Object (QC): 4 ADL-Treatment Eating (QC): 6 (Per pt report) Oral Hygiene (QC): 4 (SBA standing at sink, 1 LOB but pt able to self correct) Shower/Bathe Self (QC): 5 (Set up with task, pt able to wash/dry all parts.) Upper Body Dressing (QC): 5 (Set up assist for button up shirt.) Lower Body Dressing (QC): 4 (SBA, pt able to thread pants and manage pant hike) On/Off Footwear (QC): 3 (Pt doffed socks, assist to use sock aide to don) Toileting Hygiene (QC): 4 (SBA, pt required cues for hygiene after BM. Able to manage hygiene and pant hike) Toilet Transfer (QC): 4 (SBA on/off toilet) Assessment/Plan Assessment and Plan Assess & Plan/Chief Complaint Assessment: Status post fall with right sided multiple rib fractures and right flank hematoma Acute blood loss anemia Chronic kidney disease BPH Diabetes Obesity Poor social situation Advanced age Plan: Aggressive therapy Supportive care Pain control 09/14/2020: Pain control Incontinence care Supportive care 09/15/2020: Incontinence care Pain control Monitor closely 09/16/2020: Supportive care Monitor closely Incontinence care Patient may have findings of normal pressure hydrocephalus will further evaluate 09/17/2020: Supportive care MRI Monitor lungs 09/18/2020: MRI ruled out normal pressure hydrocephalus Continue incontinence care 09/19/2020: Much improved status Lungs are clear today 09/20/2020: CPAP set up by RT Monitor closely 09/21/2020: Part of care Weaned O2 Lungs are clear 09/22/2020: Much improved status Discharge on Wednesday09/23/2020: Incontinence care Assisted living tomorrow (1) Debility (2) Hemothorax on right Status: Acute (3) Fall Status: Acute (4) Rib fractures Status: Acute (5) YE (acute kidney injury) Status: Acute (6) Obesity Status: Chronic (7) Acute respiratory failure with hypoxia Status: Acute (8) Benign prostatic hyperplasia with urinary retention Status: Acute LINO HEATH DO Sep 24, 2020 09:56
--- NOTE | 2020-09-24 14:54 | Therapy Team Discharge Summary ---
Therapy Discharge Summary Discharge Recommendations Date of Discharge Occupational Therapy Pt admitted to ARU with debility. At OF, pt was independent with ADLs and functional mobility, using a cane when needed. Upon initial evaluation, pt required set up assistance with eating, CGA oral care, min A showering, set up upper body dressing, max A lower body dressing, mod A footwear and min A toileting. OT txs focused on increasing safety and independence with ADLs and functional mobility, and increasing BUE strength and activity tolerance. At discharge, pt was independent with eating, required SBA oral care, set up shower, set up upper body dressing, SBA lower body dressing, mod A footwear and SBA toileting. Pt made functional progress towards goals, but only attained independent level with eating. OT recommends home health. Pt discharged from facility, d/c from OT. Decreased Activ Tolerance, Decreased UE Strength, Impaired Funct Balance, Impai red I ADL's, Impaired Self-Care Skills PT Senior Care Goals Oceanographer Physical Goals PT Senior Care Goals Time Frame: Oct 04, 2020 Roll Left to Right (QC): 4 Sit to Lying (QC): 4 Lying-Sitting on Side/Bed(QC): 4 Sit to Stand (QC): 5 Chair/Azs-hx-Blxuf Xfer(QC): 5 Car Transfer (QC): 5 Does the Patient Walk: Yes Walk 10 feet (QC): 5 Walk 10ft-Uneven Surface(QC): 5 Walk 50ft with 2 Turns (QC): 5 Walk 150 ft (QC): 5 Wheel 50 feet with 2 turns (QC: 9 1 Step (curb) (QC): 5 4 Steps (QC): 5 12 Steps (QC): 5 Picking up an Object (QC): 4 OT Oceanographer Physical Goals Senior Care Goals Time Frame: Oct 04, 2020 Eating (FIM): 6 Eating (QC): 6 (met) Oral Hygiene (QC): 6 (not met) Shower/Bathe Self (QC): 6 (not met) Upper Body Dressing (QC): 6 (not met) Lower Body Dressing (QC): 6 (not met) On/Off Footwear (QC): 6 (not met) Toileting(FIM): 6 Toileting Hygiene (QC): 6 (not met) Toilet/Commode Transfer (QC): 5 Additional Goals: 1-Demonstrate ADL Tasks, 2-Verbalize Understanding, 3- ImproveStrength/Yuniel 1=Demonstrate adherence to instructed precautions during ADL tasks. 2=Patient will verbalize/demonstrate understanding of assistive devices/modifications for ADL. 3=Patient will improve strength/tolerance for activity to enable patient to perform ADL's. Speech Senior Care Goals Oceanographer Physical Goals Patient will improve cognitive-communication abilities in order to require less assist. JAVON REYNOLDS OT Sep 24, 2020 14:54
[2020-09-24 16:00] VITALS: BP 145/68
--- NOTE | 2020-09-26 11:20 | Therapy Team Discharge Summary ---
Therapy Discharge Summary Discharge Recommendations Date of Discharge Sep 24, 2020 at 14:15 Therapy D/C Recommendations: Assisted Living, Group Therapy, Occupational Therapy Home Care, Physical Therapy Home Care, Intermittent Supervision Occupational Therapy Decreased Activ Tolerance, Decreased UE Strength, Impaired Funct Balance, Impaired I ADL's, Impaired Self-Care Skills PT Halfway Goals [place] Maker Goals PT Halfway Goals Time Frame: Oct 04, 2020 Roll Left to Right (QC): 4 Sit to Lying (QC): 4 Lying-Sitting on Side/Bed(QC): 4 Sit to Stand (QC): 5 Chair/[place] Xfer(QC): 5 Car Transfer (QC): 5 Does the Patient Walk: Yes Gait distance (FIM): 3=150 ft Distance: 200 feet Walk 10 feet (QC): 5 Walk 10ft-Uneven Surface(QC): 5 Walk 50ft with 2 Turns (QC): 5 Walk 150 ft (QC): 5 Gait Assistive Device: FWW Does the Pt use WC or Scooter?: No Wheelchair (FIM): 9 Wheelchair distance (FIM): 0=does not occure Wheel 50 feet with 2 turns (QC: 9 1 Step (curb) (QC): 5 4 Steps (QC): 5 12 Steps (QC): 5 Picking up an Object (QC): 4 Patient has obtained all LTGs established. OT [place] Maker Goals Halfway Goals Time Frame: Oct 04, 2020 Eating (FIM): 6 Eating (QC): 6 (met) Oral Hygiene (QC): 6 (not met) Shower/Bathe Self (QC): 6 (not met) Upper Body Dressing (QC): 6 (not met) Lower Body Dressing (QC): 6 (not met) On/Off Footwear (QC): 6 (not met) Toileting(FIM): 6 Toileting Hygiene (QC): 6 (not met) Toilet/Commode Transfer (QC): 5 Additional Goals: 1-Demonstrate ADL Tasks, 2-Verbalize Understanding, 3-ImproveStrength/Yuniel 1=Demonstrate adherence to instructed precautions during ADL tasks. 2=Patient will verbalize/demonstrate understanding of assistive devices/modifications for ADL. 3=Patient will improve strength/tolerance for activity to enable patient to perform ADL's. Speech Halfway Goals [place] Maker Goals Patient will improve cognitive-communication abilities in order to require less assist. NUBIA DEJESUS PT Sep 26, 2020 11:20
== END 2020-09-24 14:15 | disposition home health service (06) | DRG 559 ==
PROVIDERS: ADMIT Internal Medicine; ATTEND Internal Medicine
DX: S22.41XD Multiple fractures of ribs, right side, subsequent encounter for fracture with routine healing (principal); J96.01 Acute respiratory failure with hypoxia; D62 Acute posthemorrhagic anemia; N17.9 Acute kidney failure, unspecified; S27.1XXD Traumatic hemothorax, subsequent encounter; S30.1XXD Contusion of abdominal wall, subsequent encounter; N40.1 Benign prostatic hyperplasia with lower urinary tract symptoms; R33.8 Other retention of urine; R32 Unspecified urinary incontinence; E78.00 Pure hypercholesterolemia, unspecified; E78.5 Hyperlipidemia, unspecified; I12.9 Hypertensive chronic kidney disease with stage 1 through stage 4 chronic kidney disease, or unspecified chronic kidney disease; E11.22 Type 2 diabetes mellitus with diabetic chronic kidney disease; N18.9 Chronic kidney disease, unspecified; F32.9 Major depressive disorder, single episode, unspecified; E66.9 Obesity, unspecified; I25.10 Atherosclerotic heart disease of native coronary artery without angina pectoris; I65.23 Occlusion and stenosis of bilateral carotid arteries; R00.0 Tachycardia, unspecified; Z68.35 Body mass index [BMI] 35.0-35.9, adult; Z79.84 Long term (current) use of oral hypoglycemic drugs; Z85.46 Personal history of malignant neoplasm of prostate; Z79.01 Long term (current) use of anticoagulants; Z79.82 Long term (current) use of aspirin; W19.XXXD Unspecified fall, subsequent encounter
CPT/HCPCS: 36415; 70551; 71046; 80053; 82947; 85025; 93005; 94640; 94760

== ENCOUNTER → 2021-03-10 | Outpatient (CLI) | payer MEDICARE ==
[~2021-03-10] VITALS: Ht 167 cm; Wt 91.0 kg
[~2021-03-10] MED LIST changes: +ACET325T49 PO; +ACHD5005 PO; +CATHETER FLUSH 10 ML SYR IV PRN; +IPRA3AMP31 INH; +REGADENOSON 0.4 MG/5 ML SYR (LEXISCAN) IV ONE
[2021-03-10] MEDS: CATHETER FLUSH 10 ML SYR IV PRN ×2 (07:29→09:22)
[2021-03-10 09:17] VITALS: BP 150/81
--- NOTE | 2021-03-10 11:24 | Cardiology Stress Test Report ---
Stress Test Report Date of Procedure/Referring: Date of Procedure: Mar 10, 2021 PCP Valerie Holland MD Admitting Physician Aman Cooper MD Indications: HTN Baseline Heart Rate: 91 Baseline Blood Pressure: Blood Pressure Systolic: 150 Blood Pressure Diastolic: 81 Baseline Vitals Vital Signs Date Time Temp Pulse Resp B/P (MAP) Pulse Ox O2 Delivery O2 Flow Rate FiO2 03/10/21 09:17 76 150/81 (104) Room Air Baseline EKG: Baseline EKG: NSR Summary After explaining the procedure to the patient, he signed a consent and then brought to the stress nuclear laboratory. Patient received 0.4 mg Lexiscan for stress test, ECG, heart rate and blood pressure were monitored continuously. Resting and stress dose of radio tracer were injected, imaging was acquired and reviewed in short axis, horizontal long axis and vertical long axis views. TID: 1.14 SSS: 0 SDS: 0 EF: 64 1. Patient tolerated Lexiscan well 2. No significant ischemia or infarction on SPECT images 3. Normal left ventricular size, EF 64% VALERIE HOLLAND MD Mar 10, 2021 11:24
== END ==
LOC: CARD 01-15 12:15
PROVIDERS: ATTEND Internal Medicine Cardiovascular Disease
DX: I10 Essential (primary) hypertension (principal); I25.10 Atherosclerotic heart disease of native coronary artery without angina pectoris
CPT/HCPCS: 78452; 93017; A9502